=== PATIENT | female | born 1940 | race Caucasian/White ===

== ENCOUNTER 2017-02-06 23:41 | Inpatient (IN) | payer MEDICARE, OTHER ==
[2017-02-06] MEDS ORDERED: Aspirin 81 MG Tab.Chew PO ONE (23:55)
[2017-02-07] MEDS ORDERED: Diltiazem 25 MG/5 ML SDV IVPUSH ONE
--- NOTE | 2017-02-07 00:11 | EDM.PDOC ---
ED HISTORY OF PRESENT ILLNESS - General Chief Complaint: Cardiovascular Problem Time Seen by Provider: 02/07/17 00:05 Source of Information: Reports: Patient, EMS History Limitations: Reports: No limitations - History of Present Illness INITIAL COMMENTS - FREE TEXT/NARRATIVE: This 76 yo female patient reports to the ED with "heaviness in her lower extremities". The patient reports she was visiting with family at about 2230, got up to go watch TV, but when she attempted to get up from watching TV, her legs felt heavy and she couldn't get up. The patient denies any chest pain or other problems. The patient's daughters report that the patient has been reporting issues with her heart for "a long time". The patient's last visit with her primary care provider was in November. Symptom Onset Date: 02/06/17 Symptom Onset Time: 23:30 Timing/Duration: Reports: Constant Severity: moderate Location, General: Reports: other (lower extremity "heaviness" ) Quality: Reports: Dull Improves with: Reports: Rest Worsens with: Reports: Movement Associated Symptoms (General): Reports: weakness - Related Data Allergies/ADRs: Allergies Allergy/AdvReac Type Severity Reaction Status Date / Time Penicillins Allergy Severe Hives Verified 02/07/17 00:25 Home Meds: Home Meds Aspirin [Michael Chewable Aspirin] 81 mg PO DAILY 09/03/16 [History] Budesonide/Formoterol Fumarate [Symbicort 80-4.5 Mcg Inhaler] 160 mg INH DAILY 09/03/16 [History] Clopidogrel [Plavix] 75 mg PO DAILY 09/03/16 [History] Docusate Calcium [Stool Softener] 240 mg PO DAILY 09/03/16 [History] Metoprolol Succinate [Toprol XL 50mg] 50 mg PO DAILY 09/03/16 [History] Ramipril 2.5 mg PO DAILY 09/03/16 [History] Tiotropium [Spiriva HandiHaler] 18 mcg INH DAILY 09/03/16 [History] atorvaSTATin [Lipitor] 80 mg PO DAILY 09/03/16 [History] metFORMIN HCl [Metformin HCl] 500 mg PO DAILY 09/03/16 [History] Past Medical History HEENT History: Reports: Impaired vision Cardiovascular History: Reports: High cholesterol, [place], Stents Respiratory History: Reports: Asthma, Bronchitis, recurrent, COPD Genitourinary History: Reports: UTI, recurrent [employer] History: Reports: Endocrine/Metabolic History: Reports: Diabetes, type II Dermatologic History: Reports: Cellulitis - Infectious Disease History Infectious Disease History: Reports: Chicken pox, Measles, MRSA - Past Surgical History HEENT Surgical History: Reports: Cataract surgery Social & Family History - Tobacco Use Smoking Status *Q: Current Every Day Smoker Years of Tobacco use: 58 Packs/Tins Daily: 1 Second Hand Smoke Exposure: Yes - Caffeine Use Caffeine Use: Reports: None - Recreational Drug Use Recreational Drug Use: No ED ROS GENERAL - Review of Systems Review Of Systems: ROS reveals no pertinent complaints other than HPI. ED EXAM, GENERAL - Physical Exam Exam: See Below Exam Limited By: No limitations General Appearance: alert, WD/WN, mild distress Eye Exam: bilateral eye: EOMI, normal inspection, PERRL Ears: normal external exam, normal canal, hearing grossly normal, normal TMs Nose: normal inspection, normal mucosa, no blood Throat/Mouth: Normal inspection, Normal lips, Normal teeth, Normal gums, Normal oropharynx, Normal voice, No airway compromise Head: atraumatic, normocephalic Neck: normal inspection, supple, non-tender, full range of motion Respiratory/Chest: no respiratory distress, no accessory muscle use, chest non- tender, decreased breath sounds Cardiovascular: tachycardia, irregularly irregular GI/Abdominal: normal bowel sounds, soft, non tender, no organomegaly, no distention, no abnormal bruit, no mass (Female) Exam: Deferred Rectal (Female) Exam: Deferred Back Exam: normal inspection, full range of motion, NT Extremities: pedal edema Neurological: alert, oriented, CN II-XII intact, normal cognition Psychiatric: normal affect, normal mood Skin Exam: Warm, Dry, Intact, Normal color, No rash Lymphatic: no adenopathy Course - Orders/Labs/Meds Orders: Active Orders 24 hr Category Date Time Status Chest 1V Frontal [CR] Urgent Exams 02/07/17 00:01 Taken UA W/MICROSCOPIC [URIN] Stat Lab 02/07/17 00:31 Uncollected Diltiazem 100 MG in NS Adv @ 5 MG/HR(100ml) Med 02/07/17 00:45 Ordered Diltiazem [Cardizem] 100 mg Sodium Chloride 0.9% [Normal Saline] 100 ml IV TITRATE Medication Orders Diltiazem HCl 100 mg/ Sodium (Chloride) 100 mls @ 5 mls/hr IV TITRATE COREY; 5 MG /HR PRN Reason: Protocol Labs: Laboratory Tests 02/06/17 02/06/17 Range/Units 23:51 23:56 WBC 11.8 H (5.0-10.0) 10^3/uL RBC 4.92 (4.2-5.4) 10^6/uL Hgb 15.6 (12.0-16.0) g/dL Hct 47.0 (37.0-47.0) % MCV 95.5 (80-100) fL MCH 31.7 (27.0-34.0) pg MCHC 33.2 (33.0-35.0) g/dL Plt Count 134 L (150-450) 10^3/uL Neut % (Auto) 82.0 H (42.2-75.2) % Lymph % (Auto) 9.3 L (20.5-50.1) % Wilkinson % (Auto) 8.3 H (2-8) % Eos % (Auto) 0.2 L (1.0-3.0) % Baso % (Auto) 0.2 (0.0-1.0) % Sodium 134 L (135-145) mmol/L Potassium 4.6 (3.6-5.0) mmol/L Chloride 99 L (101-111) mmol/L Carbon Dioxide 26.0 (21.0-31.0) mmol/L Anion Gap 13.6 BUN 17 (7-18) mg/dL Creatinine 1.1 (0.6-1.3) mg/dL Est Cr Clr Drug Dosing TNP Estimated GFR (MDRD) 48 BUN/Creatinine Ratio 15.45 Glucose 153 H (74-105) mg/dL Calcium 9.3 (8.4-10.2) mg/dl Total Bilirubin 1.3 H (0.2-1.0) mg/dL AST 23 (10-42) IU/L ALT 21 (10-60) IU/L Alkaline Phosphatase 93 (42-121) IU/L Troponin I 0.03 H* (0.00-0.02) ng/ml Total Protein 6.7 (6.7-8.2) g/dl Albumin 3.6 (3.2-5.5) g/dl Globulin 3.1 Albumin/Globulin Ratio 1.16 Meds: Medications Generic Name Dose Route Start Last Admin Trade Name Freq PRN Reason Stop Dose Admin Diltiazem HCl 100 mg/ Sodium 100 mls @ 5 mls/hr 02/07/17 00:45 Chloride IV TITRATE COREY Protocol 5 MG/HR Discontinued Medications Generic Name Dose Route Start Last Admin Trade Name Freq PRN Reason Stop Dose Admin Aspirin 324 mg 02/06/17 23:55 02/07/17 00:18 Aspirin PO 02/06/17 23:56 324 mg ONETIME ONE Administration Diltiazem HCl 20 mg 02/07/17 00:00 02/07/17 00:04 Diltiazem IVPUSH 02/07/17 00:01 20 mg ONETIME ONE Administration Diltiazem HCl Confirm 02/07/17 00:44 Cardizem Administered 02/07/17 00:45 Dose 100 mg .ROUTE .STK-MED ONE Sodium Chloride Confirm 02/07/17 00:47 Normal Saline Administered 02/07/17 00:48 Dose 100 mls @ as directed .ROUTE .STK-MED ONE Departure - Departure Time of Disposition: 00:50 Disposition: Admitted As Inpatient 66 Condition: fair Clinical Impression: Atrial fibrillation with RVR Care Plan Goals: Discussed the examination, history, lab, x-ray and EKG results with Dr. Mancuso. Dr. Mancuso accepted the patient for continued evaluation and management as an inpatient at [facility] in [place]. - My Orders Last 24 Hours: My Active Orders 02/07/17 00:01 Chest 1V Frontal [CR] Urgent 02/07/17 00:31 UA W/MICROSCOPIC [URIN] Stat 02/07/17 00:45 Diltiazem 100 MG in NS Adv @ 5 MG/HR(100ml) Diltiazem [Cardizem] 100 mg Sodium Chloride 0.9% [Normal Saline] 100 ml IV TITRATE - Assessment/Plan Last 24 Hours: My Active Orders 02/07/17 00:01 Chest 1V Frontal [CR] Urgent 02/07/17 00:31 UA W/MICROSCOPIC [URIN] Stat 02/07/17 00:45 Diltiazem 100 MG in NS Adv @ 5 MG/HR(100ml) Diltiazem [Cardizem] 100 mg Sodium Chloride 0.9% [Normal Saline] 100 ml IV TITRATE
[2017-02-07 00:28] LABS: CHLORIDE,CL 99 mmol/L (101-111); SODIUM,NA 134 mmol/L (135-145)
[2017-02-07] MEDS ORDERED: cefTRIAXone 1 GM in Sodium Chloride 0.9% 100 ML IV ONE (00:44)
[2017-02-07] MEDS ORDERED: Diltiazem 100 MG AdvVial ONE (00:44)
[2017-02-07] MEDS ORDERED: Diltiazem 100 MG in Sodium Chloride 0.9% 100 ML IV SCH (00:45)
[2017-02-07] MEDS ORDERED: Sodium Chloride 0.9% 100 ML ONE (00:47)
[2017-02-07] MEDS ORDERED: Diltiazem 25 MG/5 ML SDV ONE (01:41)
[2017-02-07] MEDS ORDERED: Furosemide 40 MG/4 ML VIAL IVPUSH ONE (06:37)
[2017-02-07] MEDS ORDERED: Potassium Chloride 10 MEQ Tab.ER PO ONE ×2 (06:37→09:45)
[2017-02-07] MEDS ORDERED: Zolpidem 5 MG Tab PO PRN (06:42)
[2017-02-07] MEDS ORDERED: Polyethylene Glycol 3350 Powder 17 GM Packet PO PRN (06:42)
[2017-02-07] MEDS ORDERED: Acetaminophen 325 MG Tab PO PRN (06:42)
[2017-02-07] MEDS ORDERED: Morphine 2 MG/ML Syringe IVPUSH PRN (06:42)
[2017-02-07] MEDS ORDERED: Ondansetron 4 MG/2 ML SDV IVPUSH PRN (06:42)
[2017-02-07] MEDS ORDERED: Magnesium Sulfate/Water 4 GM in Premix Bag 1 BAG IV ONE (08:21)
[2017-02-07] MEDS ORDERED: FORMOTEROL FUMARATE INH SCH (09:00)
[2017-02-07] MEDS ORDERED: BUDESONIDE INH SCH (09:00)
[2017-02-07] MEDS: Clopidogrel 75 MG Tab PO SCH (09:27)
[2017-02-07] MEDS: cefTRIAXone 1 GM in Sodium Chloride 0.9% 50 ML IV SCH (09:27)
[2017-02-07] MEDS: Metoprolol Succinate 50 MG Tab.ER PO SCH (09:29)
[2017-02-07] MEDS: metFORMIN 500 MG Tab PO SCH (09:30)
[2017-02-07] MEDS: Aspirin 81 MG Tab.Chew PO SCH (09:30)
[2017-02-07] MEDS: Albuterol/Ipratropium 3.0-0.5 MG/3 ML Neb Soln NEB SCH ×3 (09:30→20:06)
[2017-02-07] MEDS: atorvaSTATin 20 MG Tab PO SCH (09:30)
[2017-02-07] MEDS: predniSONE 20 MG Tab PO SCH (09:30)
[2017-02-07] MEDS: Tiotropium Inhaler 18 MCG Inhalation Powder Cap Kit of 5 INH SCH (09:31)
[2017-02-07] MEDS: Enoxaparin 40 MG/0.4 ML Syringe SUBCUT SCH (09:31)
[2017-02-07] MEDS: Insulin Aspart 100 Units/ML 3 ML Pen SUBCUT SCH ×4 (09:49→21:37)
--- NOTE | 2017-02-07 11:03 | CR ---
Addendum report: AP chest film 07 Feb [address] Mancuso.... Suggest generalized mild pulmonary venous congestion and effusion blunting the dependent left costophrenic sulcus (patient wi th atrial fibrillation, BNP greater than 600) and possible underlying lingular consolidation.
[2017-02-07] MEDS: Azithromycin 500 MG in Sodium Chloride 0.9% 250 ML IV SCH (11:11)
--- NOTE | 2017-02-07 11:12 | PCM.HP ---
H&P History of Present Illness - General Date of Service: 02/07/17 Admit Problem/Dx: Admission Diagnosis/Problem Admission Diagnosis/Problem Atrial fibrillation Source of Information: Patient History Limitations: Reports: No limitations - History of Present Illness Initial Comments - Free Text/Narative: 76-year-old female with past medical history of COPD, Essential hypertension, coronary artery disease/[place]/stent placement 17 years ago, diabetes mellitus, dyslipidemia, erythrocytosis presented to the emergency room early this morning revealing weak and falling from leg weakness. Patient stated that for the last 3 days she has been feeling warm and cold, generally weak and her chronic shortness of breath was getting worse. She reported occasional chronic cough but the cough mildly got worse the last few days. she denies no chest pain but she admitted having "chest cramps" on and off especially when she exerts herself for the last several months. 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 she is not aware of history of congestive heart failure. she admitted that the new swelling in her legs his new. However she was treated for lower extremities cellulitis last November. in the emergency room she was found to have atrial fibrillation with RVR but no ST elevation on EKG. Her chest x-ray was read as normal however I spoke to the radiologist Dr. Vicente this morning who agreed that the x-ray is consistent with congestive heart failure and possible pneumonia. her BNP is elevated at 626 , there is no previous BNP to compare. Initial troponin was 0.03 however repeat troponin was 0.02. Sodium 134. Creatinine 1.1, baseline creatinine is 0.8. Magnesium 1.4. WBC 11.8 with left shift. urinalysis is unremarkable. in the emergency room patient was given Cardizem bolus and started on Cardizem drip. She required 15 mg per hour. Upon admission patient was given 40 mg of Lasix IV and respiration improved. - Related Data Allergies/Adverse Reactions: Allergies Allergy/AdvReac Type Severity Reaction Status Date / Time Penicillins Allergy Severe Hives Verified 02/07/17 00:25 Home Medications: Home Meds Aspirin [Michael Chewable Aspirin] 81 mg PO DAILY 09/03/16 [History] Budesonide/Formoterol Fumarate [Symbicort 80-4.5 Mcg Inhaler] 160 mg INH DAILY 09/03/16 [History] Clopidogrel [Plavix] 75 mg PO DAILY 09/03/16 [History] Docusate Calcium [Stool Softener] 240 mg PO DAILY 09/03/16 [History] Metoprolol Succinate [Toprol XL 50mg] 50 mg PO DAILY 09/03/16 [History] Ramipril 2.5 mg PO DAILY 09/03/16 [History] Tiotropium [Spiriva HandiHaler] 18 mcg INH DAILY 09/03/16 [History] atorvaSTATin [Lipitor] 80 mg PO DAILY 09/03/16 [History] metFORMIN HCl [Metformin HCl] 500 mg PO DAILY 09/03/16 [History] Past Medical History HEENT History: Reports: Impaired vision Cardiovascular History: Reports: High cholesterol, [place], Stents Respiratory History: Reports: Asthma, Bronchitis, recurrent, COPD Genitourinary History: Reports: UTI, recurrent CLINICAL DOCUMENTATION DEVELOPER History: Reports: Endocrine/Metabolic History: Reports: Diabetes, type II Dermatologic History: Reports: Cellulitis - Infectious Disease History Infectious Disease History: Reports: Chicken pox, Measles, MRSA - Past Surgical History HEENT Surgical History: Reports: Cataract surgery Social & Family History - Tobacco Use Smoking Status *Q: Current Every Day Smoker Years of Tobacco use: 58 Packs/Tins Daily: 1 Second Hand Smoke Exposure: Yes - Caffeine Use Caffeine Use: Reports: None - Recreational Drug Use Recreational Drug Use: No H&P Review of Systems - Review of Systems: Review Of Systems: See Below General: Reports: fever, chills, malaise, weakness, fatigue. Denies: diaphoresis, weight loss HEENT: Reports: no symptoms Pulmonary: Reports: Shortness of Breath, Wheezing, Cough. Denies: Hemoptysis Cardiovascular: Denies: palpitations, PND, syncope Gastrointestinal: Reports: No symptoms Genitourinary: Reports: no symptoms Musculoskeletal: Reports: no symptoms Skin: Reports: no symptoms Psychiatric: Reports: no symptoms Neurological: Reports: No Symptoms Hematologic/Lymphatic: Reports: no symptoms Immunologic: Reports: no symptoms Exam - Exam Exam: See Below - Vital Signs Vital Signs: Last Vital Signs Temp 37.2 C 02/07/17 07:43 Pulse 82 02/07/17 09:29 Resp 20 02/07/17 07:43 BP 107/50 L 02/07/17 09:30 Pulse Ox 93 L 02/07/17 07:43 Weight: 76.204 kg - Exam General: alert, oriented, cooperative, mild distress (due to shortness of breath ). No: severe distress, sedated, lethargic, obtunded HEENT: Conjunctiva clear, EACs clear, EOMI, Hearing intact, Mucosa moist & pink , Nares patent, Normal nasal septum, Posterior pharynx clear, Pupils equal, Pupils reactive, TMs clear Neck: supple, trachea midline Lungs: Decreased breath sounds (mostly in the bases but fair air exchange overall), Crackles (in basis), Rhonchi, Wheezing. No: Rub, Stridor Cardiovascular: irregular rhythm. No: rubs Abdomen: Normal Bowel Sounds, Soft, Pelvis Stable. No: Peritoneal Signs (Female) Exam: Deferred Rectal (Female) Exam: Deferred Back Exam: normal inspection, full range of motion Extremities: normal pulses, clubbing, cyanosis, edema (+1 bilateral lower extremities pitting edema). No: calf tenderness Neurological: cranial nerves intact, reflexes equal bilateral Neuro Extensive - Mental Status: alert, oriented x3, normal mood/affect, normal cognition Neuro Extensive - Motor, Sensory, Reflexes: CN II-XII intact, normal gait, normal reflexes Psychiatric: alert, normal affect, normal mood - Patient Data Lab Results last 24 hrs: Laboratory Results - last 24 hr 02/06/17 02/06/17 02/07/17 Range/Units 23:51 23:56 01:05 WBC 11.8 H (5.0-10.0) 10^3/uL RBC 4.92 (4.2-5.4) 10^6/uL Hgb 15.6 (12.0-16.0) g/dL Hct 47.0 (37.0-47.0) % MCV 95.5 (80-100) fL MCH 31.7 (27.0-34.0) pg MCHC 33.2 (33.0-35.0) g/dL Plt Count 134 L (150-450) 10^3/uL Neut % (Auto) 82.0 H (42.2-75.2) % Lymph % (Auto) 9.3 L (20.5-50.1) % [place] % (Auto) 8.3 H (2-8) % Eos % (Auto) 0.2 L (1.0-3.0) % Baso % (Auto) 0.2 (0.0-1.0) % Sodium 134 L (135-145) mmol/L Potassium 4.6 (3.6-5.0) mmol/L Chloride 99 L (101-111) mmol/L Carbon Dioxide 26.0 (21.0-31.0) mmol/L Anion Gap 13.6 BUN 17 (7-18) mg/dL Creatinine 1.1 (0.6-1.3) mg/dL Est Cr Clr Drug Dosing TNP Estimated GFR (MDRD) 48 BUN/Creatinine Ratio 15.45 Glucose 153 H (74-105) mg/dL Calcium 9.3 (8.4-10.2) mg/dl Magnesium (1.8-2.5) mg/dL Total Bilirubin 1.3 H (0.2-1.0) mg/dL AST 23 (10-42) IU/L ALT 21 (10-60) IU/L Alkaline Phosphatase 93 (42-121) IU/L Troponin I 0.03 H* (0.00-0.02) ng/ml B-Natriuretic Peptide (0-100) pg/ml Total Protein 6.7 (6.7-8.2) g/dl Albumin 3.6 (3.2-5.5) g/dl Globulin 3.1 Albumin/Globulin Ratio 1.16 Urine Color Yellow (YELLOW) Urine Appearance Clear (CLEAR) Urine pH 5.5 (5.0-9.0) Ur Specific [place] 1.015 (1.005-1.030) Urine Protein 30 H (NEGATIVE) Urine Glucose (UA) Negative (NEGATIVE) Urine Ketones Negative (NEGATIVE) mg/dL Urine Occult Blood Negative (NEGATIVE) Urine Nitrite Negative (NEGATIVE) Urine Bilirubin Negative (NEGATIVE) Urine Urobilinogen 2.0 H (0.2-1.0) mg/dL Ur Leukocyte Esterase Negative (NEGATIVE) Urine RBC Not seen /HPF Urine WBC 0-5 (0-5/HPF) /HPF Ur Epithelial Cells Few /HPF Urine Bacteria Few (0-FEW/HPF) /HPF 02/07/17 02/07/17 Range/Units 06:30 06:30 WBC (5.0-10.0) 10^3/uL RBC (4.2-5.4) 10^6/uL Hgb (12.0-16.0) g/dL Hct (37.0-47.0) % MCV (80-100) fL MCH (27.0-34.0) pg MCHC (33.0-35.0) g/dL Plt Count (150-450) 10^3/uL Neut % (Auto) (42.2-75.2) % Lymph % (Auto) (20.5-50.1) % [place] % (Auto) (2-8) % Eos % (Auto) (1.0-3.0) % Baso % (Auto) (0.0-1.0) % Sodium (135-145) mmol/L Potassium (3.6-5.0) mmol/L Chloride (101-111) mmol/L Carbon Dioxide (21.0-31.0) mmol/L Anion Gap BUN (7-18) mg/dL Creatinine (0.6-1.3) mg/dL Est Cr Clr Drug Dosing Estimated GFR (MDRD) BUN/Creatinine Ratio Glucose (74-105) mg/dL Calcium (8.4-10.2) mg/dl Magnesium 1.4 L (1.8-2.5) mg/dL Total Bilirubin (0.2-1.0) mg/dL AST (10-42) IU/L ALT (10-60) IU/L Alkaline Phosphatase (42-121) IU/L Troponin I 0.02 (0.00-0.02) ng/ml B-Natriuretic Peptide 626 H (0-100) pg/ml Total Protein (6.7-8.2) g/dl Albumin (3.2-5.5) g/dl Globulin Albumin/Globulin Ratio Urine Color (YELLOW) Urine Appearance (CLEAR) Urine pH (5.0-9.0) Ur Specific [place] (1.005-1.030) Urine Protein (NEGATIVE) Urine Glucose (UA) (NEGATIVE) Urine Ketones (NEGATIVE) mg/dL Urine Occult Blood (NEGATIVE) Urine Nitrite (NEGATIVE) Urine Bilirubin (NEGATIVE) Urine Urobilinogen (0.2-1.0) mg/dL Ur Leukocyte Esterase (NEGATIVE) Urine RBC /HPF Urine WBC (0-5/HPF) /HPF Ur Epithelial Cells /HPF Urine Bacteria (0-FEW/HPF) /HPF Result Diagrams: 02/06/17 23:56 02/06/17 23:51 *Q Meaningful Use (ADM) - VTE *Q VTE Criteria *Q: - Stroke *Q Stroke Criteria *Q: - AMI *Q AMI Criteria *Q: - Problem List (1) Acute congestive heart failure SNOMED Code(s): 20660625 ICD Code: I50.9 - HEART FAILURE, UNSPECIFIED Status: Acute Priority: High Current Visit: Yes (2) Community acquired pneumonia SNOMED Code(s): 137903564 ICD Code: J18.9 - PNEUMONIA, UNSPECIFIED ORGANISM Status: Acute Priority : High Current Visit: Yes (3) COPD exacerbation SNOMED Code(s): 688382574, 809050693 ICD Code: J44.1 - CHRONIC OBSTRUCTIVE PULMONARY DISEASE W (ACUTE) EXACERBATION Status: Acute Current Visit: Yes (4) Diabetes mellitus type 2 in obese SNOMED Code(s): 25248066 ICD Code: E11.9 - TYPE 2 DIABETES MELLITUS WITHOUT COMPLICATIONS; E66.9 - OBESITY, UNSPECIFIED Status: Chronic Current Visit: Yes (5) Coronary artery disease SNOMED Code(s): 98416207 ICD Code: I25.10 - ATHSCL HEART DISEASE OF [place] CORONARY ARTERY W/O ANG PCTRS Status: Chronic Current Visit: Yes (6) History of myocardial infarction SNOMED Code(s): 518040905 ICD Code: I25.2 - OLD MYOCARDIAL INFARCTION Status: Chronic Current Visit : Yes (7) Essential hypertension SNOMED Code(s): 79729108 ICD Code: I10 - ESSENTIAL (PRIMARY) HYPERTENSION Status: Chronic Current Visit: Yes (8) Atrial fibrillation with RVR SNOMED Code(s): 757249254645833 ICD Code: I48.91 - UNSPECIFIED ATRIAL FIBRILLATION Status: Acute Current Visit: Yes Problem List Initiated/Reviewed/Updated: Yes Orders Last 24hrs: Active Orders 24 hr Category Date Time Status Patient Status [ADT] Routine ADT 02/07/17 01:30 Active Bedrest Bathroom Privileges [RC] ASDIRECTED Care 02/07/17 06:42 Active Blood Glucose Check, Bedside [RC] QIDACANDBED Care 02/07/17 06:42 Active Cardiac Monitoring [RC] CONTINUOUS Care 02/07/17 06:45 Active Height and Weight [RC] DAILY Care 02/07/17 06:42 Active Intake and Output [RC] Q6H Care 02/07/17 06:45 Active Oxygen Therapy [RC] PRN Care 02/07/17 06:42 Active Pulse Oximetry [RC] CONTINUOUS Care 02/07/17 06:45 Active RT Aerosol Therapy [RC] ASDIRECTED Care 02/07/17 06:38 Active VTE/DVT Education [RC] PER UNIT ROUTINE Care 02/07/17 06:42 Active Vital Signs [RC] Q4H Care 02/07/17 06:42 Active PT Evaluation and Treatment [CONS] Routine Cons 02/07/17 06:42 Active Consistent Carbohydrate Diet [DIET] Diet 02/07/17 Breakfast Active Chest 2V [CR] Timed Exams 02/08/17 05:11 Ordered Echo Comp wo Cont [US] Routine Exams 02/07/17 07:08 Ordered B-TYPE NATRIURETIC PEPTIDE,BNP [CHEM] AM Lab 02/08/17 05:11 Ordered CBC WITH AUTO DIFF [HEME] AM Lab 02/08/17 05:11 Ordered CMP [COMPREHENSIVE METABOLIC PN,CMP] [CHEM] AM Lab 02/08/17 05:11 Ordered PHOSPHORUS [CHEM] AM Lab 02/08/17 05:11 Ordered TSH ULTRASENSITIVE [CHEM] AM Lab 02/08/17 05:11 Ordered Acetaminophen [Tylenol] Med 02/07/17 06:42 Active 650 mg PO Q4H PRN Albuterol/Ipratropium [DuoNeb 3.0-0.5 MG/3 ML] Med 02/07/17 07:00 Active 3 ml NEB Q6HRRT Aspirin Med 02/07/17 09:00 Active 81 mg PO DAILY Azithromycin [Zithromax] 500 mg Med 02/07/17 06:00 Active Sodium Chloride 0.9% [Normal Saline] 250 ml IV Q24H Budesonide/Formoterol Fumarate Med 02/07/17 09:00 Active 0 mg INH DAILY Clopidogrel [Plavix] Med 02/07/17 09:00 Active 75 mg PO DAILY Diltiazem [Cardizem] 100 mg Med 02/07/17 00:45 Active Sodium Chloride 0.9% [Normal Saline] 100 ml IV TITRATE Docusate Calcium [Surfak] Med 02/07/17 09:00 Active 240 mg PO DAILY Enoxaparin [Lovenox] Med 02/07/17 09:00 Active 40 mg SUBCUT DAILY Furosemide [Lasix] Med 02/07/17 14:00 Active 20 mg IVPUSH Q8H Insulin Aspart [NovoLOG] Med 02/07/17 07:00 Active See Protocol SUBCUT QIDACANDBED Magnesium Sulfate/D5W [Magnesium 1 GM in D5W 100 ML] 1 Med 02/07/17 10:00 Active gm Premix Bag 1 bag IV Q1H Metoprolol Succinate [Toprol XL] Med 02/07/17 09:00 Active 50 mg PO DAILY Morphine Med 02/07/17 06:42 Active 2 mg IVPUSH Q2H PRN Ondansetron [Zofran] Med 02/07/17 06:42 Active 4 mg IVPUSH Q6H PRN Polyethylene Glycol 3350 [MiraLAX] Med 02/07/17 06:42 Active 17 gm PO DAILY PRN Potassium Chloride [Klor-Con 10] Med 02/07/17 21:00 Active 20 meq PO Q12H Ramipril [Altace] Med 02/07/17 09:00 Active 2.5 mg PO DAILY Sodium Chloride 0.9% [Saline Flush] Med 02/07/17 06:42 Active 10 ml FLUSH ASDIRECTED PRN Tiotropium [Spiriva HandiHaler] Med 02/07/17 09:00 Active 18 mcg INH DAILY Zolpidem [Ambien] Med 02/07/17 06:42 Active 5 mg PO BEDTIME PRN atorvaSTATin [Lipitor] Med 02/07/17 09:00 Active 80 mg PO DAILY cefTRIAXone [Rocephin] 1 gm Med 02/07/17 07:00 Active Sodium Chloride 0.9% [Normal Saline] 50 ml IV Q24H metFORMIN [Glucophage] Med 02/07/17 09:00 Active 500 mg PO DAILY predniSONE Med 02/07/17 08:00 Active 40 mg PO WITHBREAKFAST Saline Lock Insert [OM.PC] Routine Oth 02/07/17 06:42 Ordered Resuscitation Status Routine Resus Stat 02/07/17 06:42 Ordered Medication Orders Acetaminophen (Tylenol) 650 mg PO Q4H PRN PRN Reason: Pain (Mild 1-3)/fever Albuterol/Ipratropium (Duoneb 3.0-0.5 Mg/3 Ml) 3 ml NEB Q6HRRT [facility] Last Admin: 02/07/17 09:30 Dose: 3 ml Aspirin (Aspirin) 81 mg PO DAILY [facility] Last Admin: 02/07/17 09:30 Dose: 81 mg Atorvastatin Calcium (Lipitor) 80 mg PO DAILY [facility] Last Admin: 02/07/17 09:30 Dose: 80 mg Clopidogrel Bisulfate (Plavix) 75 mg PO DAILY [facility] Last Admin: 02/07/17 09:27 Dose: 75 mg Docusate Calcium (Surfak) 240 mg PO DAILY [facility] Last Admin: 02/07/17 09:28 Dose: 240 mg Enoxaparin Sodium (Lovenox) 40 mg SUBCUT DAILY [facility] Last Admin: 02/07/17 09:31 Dose: 40 mg Furosemide (Lasix) 20 mg IVPUSH Q8H [facility] Stop: 02/08/17 14:01 Diltiazem HCl 100 mg/ Sodium (Chloride) 100 mls @ 5 mls/hr IV TITRATE [facility]; 5 MG /HR PRN Reason: Protocol Azithromycin 500 mg/ Sodium (Chloride) 250 mls @ 250 mls/hr IV Q24H [facility] Ceftriaxone Sodium 1 gm/ (Sodium Chloride) 50 mls @ 100 mls/hr IV Q24H [facility] Last Admin: 02/07/17 09:27 Dose: 100 mls/hr Magnesium Sulfate/Dextrose 1 (gm/ Premix) 100 mls @ 100 mls/hr IV Q1H [facility] Stop: 02/07/17 13:59 Insulin Aspart (Novolog) 0 unit SUBCUT QIDACANDBED [facility] PRN Reason: Protocol Last Admin: 02/07/17 09:49 Dose: Not Given Metformin HCl (Glucophage) 500 mg PO DAILY [facility] Last Admin: 02/07/17 09:30 Dose: 500 mg Metoprolol Succinate (Toprol Xl) 50 mg PO DAILY [facility] Last Admin: 02/07/17 09:29 Dose: 50 mg Morphine Sulfate (Morphine) 2 mg IVPUSH Q2H PRN PRN Reason: Pain (severe 7-10) Nf Med 1 Each ( Budesonide/Formoterol Fumarate 160 Mg) *Own Med 0 mg INH DAILY [facility] Ondansetron HCl (Zofran) 4 mg IVPUSH Q6H PRN PRN Reason: Nausea/Vomiting Polyethylene Glycol (Miralax) 17 gm PO DAILY PRN PRN Reason: Constipation Potassium Chloride (Klor-Con 10) 20 meq PO Q12H [facility] Stop: 02/08/17 09:01 Prednisone (Prednisone) 40 mg PO WITHBREAKFAST [facility] Stop: 02/11/17 08:01 Last Admin: 02/07/17 09:30 Dose: 40 mg Ramipril (Altace) 2.5 mg PO DAILY [facility] Last Admin: 02/07/17 09:30 Dose: 2.5 mg Sodium Chloride (Saline Flush) 10 ml FLUSH ASDIRECTED PRN PRN Reason: Keep Vein Open Tiotropium [place] (Spiriva Handihaler) 18 mcg INH DAILY [facility] Last Admin: 02/07/17 09:31 Dose: 18 mcg Zolpidem Tartrate (Ambien) 5 mg PO BEDTIME PRN PRN Reason: Sleep Assessment/Plan Comment:: Pneumonia Azithromycin and Rocephin IV bronchodilator Cough medicine as needed flutter device -sputum culture is ordered COPD exacerbation Treatment pneumonia as above Duoneb every 6 hours Prednisone Oxygen as needed incentive spirometery resume home medications Atrial fibrillation with RVR I discussed anticoagulation benefit and risk with patient and her both daughters at this time patient decided to wait and consult with her primary care provider and establish with insurance underwriter sales Dr. Figueroa as soon as possible and discuss that with him continue aspirin and Plavix Treat the possible cause which is pneumonia versus CHF -continue his Cardizem drip and Metoprolol -TSH is ordered Acute congestive heart failure, most likely systolic or could be due to atrial fibrillation with RVR BNP elevated at 626 I discussed with patient and daughter that she needs to followup with insurance underwriter sales as soon as possible after discharge Continue home medications -Echocardiogram is ordered Lower extremities edema, most like from congestive heart failure treat congestive heart failure M[place] mar[place] Hypomagnesemia Replace by IV Recheck in the morning Essential hypertension controlled resume medications Coronary artery disease/[place]/stent placement 17 years ago Possible chest pain on exertion, chronic I discussed with patient and daughter that she needs to followup with insurance underwriter sales as soon as possible after discharge Diabetes mellitus type 2 resume home medications Sliding scale insulin Dyslipidemia Continue statin Lovenox for DVT prophylaxis She wants to be DNR. Daughters were present at the time of discussion 45 minutes of critical time was spent
[2017-02-07] MEDS ORDERED: guaiFENesin 100 MG/5 ML Soln 5 ML UD Cup PO PRN (11:23)
[2017-02-07] MEDS ORDERED: Insulin Aspart 100 Units/ML 3 ML Pen SUBCUT ONE (11:30)
[2017-02-07] MEDS: Furosemide 20 MG/2 ML VIAL IVPUSH SCH ×2 (17:42→22:15)
[2017-02-07] MEDS: Sodium Chloride 0.9% 10 ML Syringe FLUSH PRN ×3 (17:43→22:22)
[2017-02-07] MEDS: BUDESONIDE INH SCH (20:26)
[2017-02-07] MEDS: FORMOTEROL FUMARATE INH SCH (20:26)
[2017-02-07] MEDS: Potassium Chloride 10 MEQ Tab.ER PO SCH (20:30)
[2017-02-08] MEDS: Albuterol/Ipratropium 3.0-0.5 MG/3 ML Neb Soln NEB SCH ×5 (01:27→17:25)
[2017-02-08] MEDS: Sodium Chloride 0.9% 10 ML Syringe FLUSH PRN ×3 (05:51→06:33)
[2017-02-08] MEDS: Furosemide 20 MG/2 ML VIAL IVPUSH SCH ×2 (05:56→13:21)
[2017-02-08] MEDS: cefTRIAXone 1 GM in Sodium Chloride 0.9% 50 ML IV SCH (06:05)
[2017-02-08] MEDS: Azithromycin 500 MG in Sodium Chloride 0.9% 250 ML IV SCH (06:39)
[2017-02-08 06:41] LABS: CHLORIDE,CL 97 mmol/L (101-111); SODIUM,NA 133 mmol/L (135-145)
[2017-02-08] MEDS: Insulin Aspart 100 Units/ML 3 ML Pen SUBCUT SCH ×4 (08:23→21:35)
[2017-02-08] MEDS: predniSONE 20 MG Tab PO SCH (08:59)
[2017-02-08] MEDS: Aspirin 81 MG Tab.Chew PO SCH (09:00)
[2017-02-08] MEDS: metFORMIN 500 MG Tab PO SCH (09:00)
[2017-02-08] MEDS: Potassium Chloride 10 MEQ Tab.ER PO SCH (09:00)
[2017-02-08] MEDS: atorvaSTATin 20 MG Tab PO SCH (09:01)
[2017-02-08] MEDS: Clopidogrel 75 MG Tab PO SCH (09:01)
[2017-02-08] MEDS: Metoprolol Succinate 50 MG Tab.ER PO SCH (09:01)
[2017-02-08] MEDS: Enoxaparin 40 MG/0.4 ML Syringe SUBCUT SCH (09:01)
[2017-02-08] MEDS: FORMOTEROL FUMARATE INH SCH ×2 (09:02→21:33)
[2017-02-08] MEDS: Tiotropium Inhaler 18 MCG Inhalation Powder Cap Kit of 5 INH SCH (09:02)
[2017-02-08] MEDS: BUDESONIDE INH SCH ×2 (09:02→21:33)
[2017-02-08] MEDS ORDERED: Metoprolol Succinate 50 MG Tab.ER PO ONE (09:47)
--- NOTE | 2017-02-08 10:13 | PCM.PN ---
- General Info Date of Service: 02/08/17 Admission Dx/Problem (Free Text): Admission Diagnosis/Problem Admission Diagnosis/Problem Atrial fibrillation Subjective Update: patient states that she is feeling better today. However she still feeling weak. her first breath and cough improved. she had 4700 cc of urine output yesterday. she denies fever, chills, chest pain, nausea, vomiting, abdomen pain , urinary symptoms. - Patient Data Vitals - most recent: Last Vital Signs Temp 36.6 C 02/08/17 07:27 Pulse 92 02/08/17 09:01 Resp 20 02/08/17 07:27 BP 116/63 02/08/17 09:01 Pulse Ox 96 02/08/17 07:27 Weight - most recent: 75.206 kg I&O - last 24 hours: Intake & Output 02/07/17 02/08/17 02/08/17 22:59 06:59 14:59 Intake Total 864 252 Output Total 1400 2700 Balance -1400 -1836 252 Lab Results last 24 hrs: Laboratory Results - last 24 hr 02/07/17 02/07/17 02/07/17 Range/Units 11:27 16:45 20:55 WBC (5.0-10.0) 10^3/uL RBC (4.2-5.4) 10^6/uL Hgb (12.0-16.0) g/dL Hct (37.0-47.0) % MCV (80-100) fL MCH (27.0-34.0) pg MCHC (33.0-35.0) g/dL Plt Count (150-450) 10^3/uL Neut % (Auto) (42.2-75.2) % Lymph % (Auto) (20.5-50.1) % [place] % (Auto) (2-8) % Eos % (Auto) (1.0-3.0) % Baso % (Auto) (0.0-1.0) % Sodium (135-145) mmol/L Potassium (3.6-5.0) mmol/L Chloride (101-111) mmol/L Carbon Dioxide (21.0-31.0) mmol/L Anion Gap BUN (7-18) mg/dL Creatinine (0.6-1.3) mg/dL Est Cr Clr Drug Dosing mL/min Estimated GFR (MDRD) BUN/Creatinine Ratio Glucose (74-105) mg/dL POC Glucose 168 H 228 H 225 H (83-110) mg/dl Calcium (8.4-10.2) mg/dl Phosphorus (2.5-4.6) mg/dL Magnesium (1.8-2.5) mg/dL Total Bilirubin (0.2-1.0) mg/dL AST (10-42) IU/L ALT (10-60) IU/L Alkaline Phosphatase (42-121) IU/L B-Natriuretic Peptide (0-100) pg/ml Total Protein (6.7-8.2) g/dl Albumin (3.2-5.5) g/dl Globulin Albumin/Globulin Ratio TSH, Ultra Sensitive (0.35-7.0) uIu/mL 02/08/17 02/08/17 02/08/17 Range/Units 05:56 05:56 05:56 WBC 8.4 (5.0-10.0) 10^3/uL RBC 4.36 (4.2-5.4) 10^6/uL Hgb 13.8 (12.0-16.0) g/dL Hct 41.3 (37.0-47.0) % MCV 94.7 (80-100) fL MCH 31.7 (27.0-34.0) pg MCHC 33.4 (33.0-35.0) g/dL Plt Count 132 L (150-450) 10^3/uL Neut % (Auto) 84.6 H (42.2-75.2) % Lymph % (Auto) 6.7 L (20.5-50.1) % [place] % (Auto) 8.5 H (2-8) % Eos % (Auto) 0.0 L (1.0-3.0) % Baso % (Auto) 0.2 (0.0-1.0) % Sodium 133 L (135-145) mmol/L Potassium 3.7 (3.6-5.0) mmol/L Chloride 97 L (101-111) mmol/L Carbon Dioxide 28.0 (21.0-31.0) mmol/L Anion Gap 11.7 BUN 19 H (7-18) mg/dL Creatinine 0.9 (0.6-1.3) mg/dL Est Cr Clr Drug Dosing 42.06 mL/min Estimated GFR (MDRD) > 60 BUN/Creatinine Ratio 21.11 Glucose 154 H (74-105) mg/dL POC Glucose (83-110) mg/dl Calcium 8.9 (8.4-10.2) mg/dl Phosphorus 2.8 (2.5-4.6) mg/dL Magnesium (1.8-2.5) mg/dL Total Bilirubin 0.8 (0.2-1.0) mg/dL AST 23 (10-42) IU/L ALT 14 (10-60) IU/L Alkaline Phosphatase 78 (42-121) IU/L B-Natriuretic Peptide 277 H (0-100) pg/ml Total Protein 6.1 L (6.7-8.2) g/dl Albumin 3.0 L (3.2-5.5) g/dl Globulin 3.1 Albumin/Globulin Ratio 0.97 TSH, Ultra Sensitive 0.96 (0.35-7.0) uIu/mL 02/08/17 02/08/17 Range/Units 05:56 07:40 WBC (5.0-10.0) 10^3/uL RBC (4.2-5.4) 10^6/uL Hgb (12.0-16.0) g/dL Hct (37.0-47.0) % MCV (80-100) fL MCH (27.0-34.0) pg MCHC (33.0-35.0) g/dL Plt Count (150-450) 10^3/uL Neut % (Auto) (42.2-75.2) % Lymph % (Auto) (20.5-50.1) % [place] % (Auto) (2-8) % Eos % (Auto) (1.0-3.0) % Baso % (Auto) (0.0-1.0) % Sodium (135-145) mmol/L Potassium (3.6-5.0) mmol/L Chloride (101-111) mmol/L Carbon Dioxide (21.0-31.0) mmol/L Anion Gap BUN (7-18) mg/dL Creatinine (0.6-1.3) mg/dL Est Cr Clr Drug Dosing mL/min Estimated GFR (MDRD) BUN/Creatinine Ratio Glucose (74-105) mg/dL POC Glucose 142 H (83-110) mg/dl Calcium (8.4-10.2) mg/dl Phosphorus (2.5-4.6) mg/dL Magnesium 1.9 (1.8-2.5) mg/dL Total Bilirubin (0.2-1.0) mg/dL AST (10-42) IU/L ALT (10-60) IU/L Alkaline Phosphatase (42-121) IU/L B-Natriuretic Peptide (0-100) pg/ml Total Protein (6.7-8.2) g/dl Albumin (3.2-5.5) g/dl Globulin Albumin/Globulin Ratio TSH, Ultra Sensitive (0.35-7.0) uIu/mL Med Orders - Current: Current Medications Acetaminophen (Tylenol) 650 mg PO Q4H PRN PRN Reason: Pain (Mild 1-3)/fever Albuterol/Ipratropium (Duoneb 3.0-0.5 Mg/3 Ml) 3 ml NEB Q6HRRT [facility] Last Admin: 02/08/17 07:41 Dose: 3 ml Aspirin (Aspirin) 81 mg PO DAILY [facility] Last Admin: 02/08/17 09:00 Dose: 81 mg Atorvastatin Calcium (Lipitor) 80 mg PO DAILY [facility] Last Admin: 02/08/17 09:01 Dose: 80 mg Clopidogrel Bisulfate (Plavix) 75 mg PO DAILY [facility] Last Admin: 02/08/17 09:01 Dose: 75 mg Docusate Calcium (Surfak) 240 mg PO DAILY [facility] Last Admin: 02/08/17 09:02 Dose: 240 mg Enoxaparin Sodium (Lovenox) 40 mg SUBCUT DAILY [facility] Last Admin: 02/08/17 09:01 Dose: 40 mg Furosemide (Lasix) 20 mg IVPUSH Q8H [facility] Stop: 02/08/17 14:01 Last Admin: 02/08/17 05:56 Dose: 20 mg Furosemide (Lasix) 20 mg PO DAILY [facility] Guaifenesin (Robitussin) 100 mg PO Q6H PRN PRN Reason: Cough Diltiazem HCl 100 mg/ Sodium (Chloride) 100 mls @ 5 mls/hr IV TITRATE COREY; 5 MG /HR PRN Reason: Protocol Azithromycin 500 mg/ Sodium (Chloride) 250 mls @ 250 mls/hr IV Q24H [facility] Last Admin: 02/08/17 06:39 Dose: 250 mls/hr Ceftriaxone Sodium 1 gm/ (Sodium Chloride) 50 mls @ 100 mls/hr IV Q24H [facility] Last Admin: 02/08/17 06:05 Dose: 100 mls/hr Insulin Aspart (Novolog) 0 unit SUBCUT QIDACANDBED [facility] PRN Reason: Protocol Last Admin: 02/08/17 08:23 Dose: Not Given Metformin HCl (Glucophage) 500 mg PO DAILY [facility] Last Admin: 02/08/17 09:00 Dose: 500 mg Metoprolol Succinate (Toprol Xl) 100 mg PO DAILY [facility] Morphine Sulfate (Morphine) 2 mg IVPUSH Q2H PRN PRN Reason: Pain (severe 7-10) Ondansetron HCl (Zofran) 4 mg IVPUSH Q6H PRN PRN Reason: Nausea/Vomiting Budesonide/Formoterol Fumarate 160/4.5 Pt Own Med 0 each INH BID [facility] Last Admin: 02/08/17 09:02 Dose: 1 each Polyethylene Glycol (Miralax) 17 gm PO DAILY PRN PRN Reason: Constipation Prednisone (Prednisone) 40 mg PO WITHBREAKFAST [facility] Stop: 02/11/17 08:01 Last Admin: 02/08/17 08:59 Dose: 40 mg Ramipril (Altace) 2.5 mg PO DAILY [facility] Last Admin: 02/08/17 09:00 Dose: 2.5 mg Sodium Chloride (Saline Flush) 10 ml FLUSH ASDIRECTED PRN PRN Reason: Keep Vein Open Last Admin: 02/08/17 06:33 Dose: 10 ml Tiotropium [place] (Spiriva Handihaler) 18 mcg INH DAILY [facility] Last Admin: 02/08/17 09:02 Dose: 18 mcg Zolpidem Tartrate (Ambien) 5 mg PO BEDTIME PRN PRN Reason: Sleep Discontinued Medications Aspirin (Aspirin) 324 mg PO ONETIME ONE Stop: 02/06/17 23:56 Last Admin: 02/07/17 00:18 Dose: 324 mg Diltiazem HCl (Diltiazem) 20 mg IVPUSH ONETIME ONE Stop: 02/07/17 00:01 Last Admin: 02/07/17 00:04 Dose: 20 mg Diltiazem HCl (Cardizem) Confirm Administered Dose 100 mg .ROUTE .STK-MED ONE Stop: 02/07/17 00:45 Last Admin: 02/07/17 09:14 Dose: Not Given Diltiazem HCl (Diltiazem) Confirm Administered Dose 25 mg .ROUTE .STK-MED ONE Stop: 02/07/17 01:42 Last Admin: 02/07/17 03:52 Dose: Not Given Furosemide (Lasix) 40 mg IVPUSH NOW ONE Stop: 02/07/17 06:38 Last Admin: 02/07/17 09:39 Dose: 40 mg Sodium Chloride (Normal Saline) Confirm Administered Dose 100 mls @ as directed .ROUTE .STK-MED ONE Stop: 02/07/17 00:48 Last Admin: 02/07/17 09:14 Dose: Not Given Magnesium Sulfate/Dextrose 1 (gm/ Premix) 100 mls @ 100 mls/hr IV Q1H [facility] Stop: 02/07/17 13:59 Last Infusion: 02/07/17 15:48 Dose: Infused Ceftriaxone Sodium 1 gm/ (Sodium Chloride) 100 mls @ as directed IV .STK-MED ONE Stop: 02/07/17 00:45 Insulin Aspart (Novolog) 0 unit SUBCUT QIDACANDBED ONE PRN Reason: Protocol Stop: 02/07/17 11:31 Last Admin: 02/07/17 11:37 Dose: Not Given Metoprolol Succinate (Toprol Xl) 50 mg PO DAILY [facility] Last Admin: 02/08/17 09:01 Dose: 50 mg Metoprolol Succinate (Toprol Xl) 50 mg PO ONETIME ONE Stop: 02/08/17 09:48 Nf Med 1 Each ( Budesonide/Formoterol Fumarate 160 Mg) *Own Med 0 mg INH DAILY [facility] Last Admin: 02/07/17 11:36 Dose: Not Given Potassium Chloride (Klor-Con 10) 20 meq PO Q12H [facility] Stop: 02/08/17 09:01 Last Admin: 02/08/17 09:00 Dose: 20 meq Potassium Chloride (Klor-Con 10) 20 meq PO ONETIME ONE Stop: 02/07/17 09:46 Last Admin: 02/07/17 09:50 Dose: Not Given - Exam General: alert, oriented, cooperative, no acute distress, other (she looks better today. She is resting in bed). No: moderate distress, severe distress, sedated, lethargic HEENT: Pupils equal, Pupils reactive, EOMI, Mucous membr. moist/pink Neck: supple, trachea midline, no JVD Lungs: Normal respiratory effort, Decreased breath sounds (but fair air exchange ), Crackles (in basis, mostly left), Rhonchi. No: Stridor, Wheezing Cardiovascular: Irregular Rhythm, Tachycardia Abdomen: bowel sounds present Extremities: normal pulses, no tenderness/swelling, no clubbing, no cyanosis, no calf tenderness, calf tenderness, edema (improved lower extremity edema) Neurological: no new focal deficit Psy/Mental Status: alert, normal affect, normal mood - Problem List & Annotations (1) Acute congestive heart failure SNOMED Code(s): 42808751 Code(s): I50.9 - HEART FAILURE, UNSPECIFIED Status: Acute Priority: High Current Visit: Yes (2) Community acquired pneumonia SNOMED Code(s): 135081197 Code(s): J18.9 - PNEUMONIA, UNSPECIFIED ORGANISM Status: Acute Priority: High Current Visit: Yes (3) COPD exacerbation SNOMED Code(s): 408222918, 117026112 Code(s): J44.1 - CHRONIC OBSTRUCTIVE PULMONARY DISEASE W (ACUTE) EXACERBATION Status: Acute Current Visit: Yes (4) Diabetes mellitus type 2 in obese SNOMED Code(s): 54366690 Code(s): E11.9 - TYPE 2 DIABETES MELLITUS WITHOUT COMPLICATIONS; E66.9 - OBESITY, UNSPECIFIED Status: Chronic Current Visit: Yes (5) Coronary artery disease SNOMED Code(s): 65716383 Code(s): I25.10 - ATHSCL HEART DISEASE OF [place] CORONARY ARTERY W/O ANG PCTRS Status: Chronic Current Visit: Yes (6) History of myocardial infarction SNOMED Code(s): 529968920 Code(s): I25.2 - OLD MYOCARDIAL INFARCTION Status: Chronic Current Visit : Yes (7) Essential hypertension SNOMED Code(s): 54496077 Code(s): I10 - ESSENTIAL (PRIMARY) HYPERTENSION Status: Chronic Current Visit: Yes (8) Atrial fibrillation with RVR SNOMED Code(s): 974519940575249 Code(s): I48.91 - UNSPECIFIED ATRIAL FIBRILLATION Status: Acute Current Visit: Yes - Problem List Review Problem List Initiated/Reviewed/Updated: Yes - My Orders Last 24 Hours: My Active Orders 02/07/17 11:09 CULTURE SPUTUM + SMEAR [RM] Routine 02/07/17 11:23 guaiFENesin [Robitussin] 100 mg PO Q6H PRN 02/07/17 11:25 Flutter Valve Therapy [RT Chest Physiotherapy] [RC] ASDIRECTED Incentive Spirometry [RT Incentive Spirometry] [RC] ASDIRECTED 02/07/17 11:28 Antiembolic Devices [RC] PER UNIT ROUTINE MIA Hose [Antiembolic Hose] [OM.PC] Routine 02/07/17 11:33 Accu Check [Blood Glucose Check, Bedside] [RC] QIDACANDBED 02/07/17 14:00 Furosemide [Lasix] 20 mg IVPUSH Q8H 02/07/17 21:00 Patient's Own Medication [Ptom] 0 each INH BID 02/08/17 05:11 Chest 2V [CR] Timed 02/09/17 05:11 B-TYPE NATRIURETIC PEPTIDE,BNP [CHEM] AM BASIC METABOLIC PANEL,BMP [CHEM] AM 02/09/17 09:00 Furosemide [Lasix] 20 mg PO DAILY 02/09/17 09:48 Metoprolol Succinate [Toprol XL] 100 mg PO DAILY - Plan Plan:: Pneumonia Azithromycin and Rocephin IV bronchodilator Cough medicine as needed flutter device -sputum culture is ordered -repeated chest x-ray is still pending COPD exacerbation Treatment pneumonia as above Duoneb every 6 hours Prednisone Oxygen as needed incentive spirometery resume home medications Atrial fibrillation with RVR I discussed anticoagulation benefit and risk with patient and her both daughters at this time patient decided to wait and consult with her primary care provider and establish with hoop rolls operator [facility] as soon as possible and discuss that with him continue aspirin and Plavix Treat the possible cause which is pneumonia versus CHF Cardizem drip was stopped after about 10 hours from starting because of low blood pressure TSH is normal -heart rate is still up so I am increasing her Toprol XL from 50 mg to 100 mg the starting this morning Acute congestive heart failure, most likely systolic or could be due to atrial fibrillation with RVR BNP elevated at 626 on admission I discussed with patient and daughter that she needs to followup with hoop rolls operator as soon as possible after discharge Continue home medications -Echocardiogram is pending -She needs to follow up with congestive heart failure clinic at [facility] in [place] after discharge Lower extremities edema, most like from congestive heart failure treat congestive heart failure MIA marc Hypomagnesemia serum magnesium was 1.4 mg on admission. She received 4 g of magnesium by IV. Next the magnesium level was normal Essential hypertension controlled resume medications Coronary artery disease/NH/stent placement 17 years ago Possible chest pain on exertion, chronic I discussed with patient and daughter that she needs to followup with hoop rolls operator as soon as possible after discharge Diabetes mellitus type 2 resume home medications Sliding scale insulin Dyslipidemia Continue statin Lovenox for DVT prophylaxis She wants to be DNR. Daughters were present at the time of discussion
--- NOTE | 2017-02-08 12:07 | CR ---
CLINICAL HISTORY: 76-year-old female complaining of shortness of breath INTERPRETATION: Chronic mild congestion and although no current cephalization of vascular flow or si gns of alveolar edema that are small pleural effusions bilaterally with trace of fluid in the minor fissure on the right. No lung mass, hilar lymphadenopathy or focal lobar pneumonia. CONCLUSION: Slight radiographic improvement even considering differences in film technique (AP versu s PA chest) 07 February previous day film.
[2017-02-08] MEDS ORDERED: Digoxin 250 MCG Tab PO ONE (19:07)
[2017-02-08] MEDS: Nicotine 21 MG/24 Hr Patch TRDERM SCH (20:20)
[2017-02-08] MEDS ORDERED: Metoprolol Tartrate 25 MG Tab PO ONE (21:42)
[2017-02-09] MEDS ORDERED: LORazepam 0.5 MG Tab PO ONE (00:36)
[2017-02-09] MEDS ORDERED: Diltiazem 25 MG/5 ML SDV IVPUSH ONE (00:54)
[2017-02-09] MEDS ORDERED: ALPRAZolam 0.25 MG Tab PO ONE (00:54)
[2017-02-09] MEDS: Albuterol/Ipratropium 3.0-0.5 MG/3 ML Neb Soln NEB SCH ×4 (01:12→18:02)
[2017-02-09] MEDS: Diltiazem 25 MG/5 ML SDV IVPUSH ONE ×2 (02:19→02:22)
[2017-02-09] MEDS ORDERED: Digoxin 500 MCG/2 ML Amp IVPUSH SCH ×2 (03:30→08:00)
[2017-02-09] MEDS ORDERED: Digoxin 500 MCG/2 ML Amp IVPUSH ONE (03:45)
[2017-02-09] MEDS: cefTRIAXone 1 GM in Sodium Chloride 0.9% 50 ML IV SCH (06:00)
[2017-02-09] MEDS: Azithromycin 500 MG in Sodium Chloride 0.9% 250 ML IV SCH (06:25)
[2017-02-09 06:40] LABS: CHLORIDE,CL 93 mmol/L (101-111); SODIUM,NA 128 mmol/L (135-145)
[2017-02-09] MEDS ORDERED: Furosemide 40 MG/4 ML VIAL IVPUSH ONE (07:49)
[2017-02-09] MEDS ORDERED: ALPRAZolam 0.25 MG Tab PO PRN (08:06)
[2017-02-09] MEDS: Insulin Aspart 100 Units/ML 3 ML Pen SUBCUT SCH ×3 (08:18→17:36)
[2017-02-09] MEDS: Clopidogrel 75 MG Tab PO SCH (08:22)
[2017-02-09] MEDS: Aspirin 81 MG Tab.Chew PO SCH (08:22)
[2017-02-09] MEDS: metFORMIN 500 MG Tab PO SCH (08:23)
[2017-02-09] MEDS: atorvaSTATin 20 MG Tab PO SCH (08:24)
[2017-02-09] MEDS: predniSONE 20 MG Tab PO SCH (08:25)
[2017-02-09] MEDS: Metoprolol Succinate 50 MG Tab.ER PO SCH ×2 (08:32→09:05)
[2017-02-09] MEDS: Nicotine 21 MG/24 Hr Patch TRDERM SCH (08:39)
[2017-02-09 08:45] VITALS: BP 109/88
[2017-02-09] MEDS: Tiotropium Inhaler 18 MCG Inhalation Powder Cap Kit of 5 INH SCH (08:47)
[2017-02-09] MEDS: Enoxaparin 40 MG/0.4 ML Syringe SUBCUT SCH (08:49)
[2017-02-09] MEDS: FORMOTEROL FUMARATE INH SCH (08:50)
[2017-02-09] MEDS: BUDESONIDE INH SCH (08:50)
[2017-02-09] MEDS ORDERED: Furosemide 20 MG Tab PO SCH (09:00)
--- NOTE | 2017-02-09 09:08 | PCM.DCSUM1 ---
Discharge Summary - Hospital Course Free Text/Narrative:: 76-year-old female with past medical history of COPD, Essential hypertension, coronary artery disease/ND/stent placement 17 years ago, diabetes mellitus, dyslipidemia, erythrocytosis presented to the emergency room with significant generalized weak and falling from legs giving up on her. Patient stated that for the last 3 days prior to admission she was feeling warm and cold, generally weak and her chronic shortness of breath was getting worse. She reported occasional chronic cough but the cough mildly got worse the few days prior to admission. she denied chest pain but she admitted having "chest cramps" on and off especially when she exerts herself for the last several months. she has not seen third loader for 7 years. her third loader was in [place] but retired (Dr. Vicente). She is not aware of history of congestive heart failure. she admitted that the new swelling in her legs is new. However she was treated for lower extremities cellulitis last November. In the emergency room she was found to have atrial fibrillation with RVR but no ST elevation on EKG. Her chest x-ray report revealed generalized mild pulmonary venous congestion and effusion blunting the dependent left costophrenic sulcus and possible underlying lingular consolidation. On admission, her BNP 626, there is no previous BNP to compare. Initial troponin was 0.03 however repeat troponin was 0.02. Sodium 134. Creatinine 1.1, baseline creatinine is 0.8. Magnesium 1.4. TSH 0.96. WBC 11.8 with left shift. urinalysis was unremarkable. In the emergency room patient was given Cardizem bolus and started on Cardizem drip. She required 15 mg per hour. Upon admission patient was given 40 mg of Lasix IV and respiration improved. she was also started on Azithromycin, Rocephin, Duoneb, and Prednisone. Yesterday morning ( after about 10 hours a Cardizem drip) her heart rate was in the 70s but her blood pressure was borderline low so Cardizem drip was stopped and her Toprol increased from 50 mg daily to 100 mg daily. her repeat chest x-ray showed improvement in the vascular congestion. however afterward her heart rate went up again and her EKG showed a fibrillation with intermittent atrial flutter. She received 2 doses of digoxin 0.5 mg, and one dose of Lopressor 12.5 mg p.o. despite that her heart rate continued to be between 1:30-142 therefore she had Cardizem bolus of 10 mg followed by Cardizem drip after midnight. 2-3 hour later is her heart rate became controlled but systolic blood pressure dropped to 92 so Cardizem drip was stopped and her heart rate went up again to 140s. Patient had echocardiogram done 2 days ago but report is still not available. I consulted with Dr. Figueroa this morning who recommended transferring to [facility] for further management. This morning patient seems to have congested lungs, increasing lower extremity edema and her BNP went up to 761 and her sodium dropped to 128 ( after was dropped yesterday to 277). Patient also seemed to have nicotine withdrawal and anxiety during the night so she had nicotine patch placed also received Xanax 0.25 mg orally which helped mildly. this morning she received 40 mg of IV Lasix and Toprol 100 mg orally, and Castaneda catheter is placed prior to transferring to [place]. I spoke to Dr. Crockett, from [facility] and [place] who kindly accepted the patient to his service. patient was transferred in a stable condition. Plan of care during hospitalization: Atrial fibrillation with RVR I discussed anticoagulation benefit and risk with patient and her both daughters at this time patient decided to wait and consult with her primary care provider and establish with third loader Dr. Figueroa as soon as possible and discuss the anticoagulation with them continue aspirin and Plavix Treat the possible cause which is pneumonia versus CHF Cardizem drip was stopped after about 10 hours from starting because of low blood pressure TSH is normal Acute congestive heart failure, most likely systolic or could be due to atrial fibrillation with RVR BNP elevated at 626 on admission I discussed with patient and daughter that she needs to followup with third loader as soon as possible after discharge Continue home medications Echocardiogram report is not available yet She needs to follow up with congestive heart failure clinic at [facility] in [place] after discharge Pneumonia Azithromycin and Rocephin IV bronchodilator Cough medicine as needed flutter device sputum culture is ordered but not collected yet COPD exacerbation Treatment pneumonia as above Duoneb every 6 hours Prednisone Oxygen as needed incentive spirometery resume home medications Lower extremities edema, most like from congestive heart failure treat congestive heart failure MIA marc Hypomagnesemia serum magnesium was 1.4 mg on admission. She received 4 g of magnesium by IV. Next the magnesium level was normal Essential hypertension controlled resume medications Coronary artery disease/ND/stent placement 17 years ago Possible chest pain on exertion, chronic I discussed with patient and daughter that she needs to followup with third loader as soon as possible after discharge Diabetes mellitus type 2 resume home medications Sliding scale insulin Dyslipidemia Continue statin 40 minutes were spent discharging the patient - Discharge Data Discharge Date: 02/09/17 Discharge Disposition: DC/Tfer to Acute Hospital 02 Condition: Stable - Discharge Diagnosis/Problem(s) (1) Acute congestive heart failure SNOMED Code(s): 73572752 ICD Code: I50.9 - HEART FAILURE, UNSPECIFIED Status: Acute Priority: High Current Visit: Yes (2) Community acquired pneumonia SNOMED Code(s): 275122779 ICD Code: J18.9 - PNEUMONIA, UNSPECIFIED ORGANISM Status: Acute Priority : High Current Visit: Yes (3) COPD exacerbation SNOMED Code(s): 399198470, 923822315 ICD Code: J44.1 - CHRONIC OBSTRUCTIVE PULMONARY DISEASE W (ACUTE) EXACERBATION Status: Acute Current Visit: Yes (4) Diabetes mellitus type 2 in obese SNOMED Code(s): 31808537 ICD Code: E11.9 - TYPE 2 DIABETES MELLITUS WITHOUT COMPLICATIONS; E66.9 - OBESITY, UNSPECIFIED Status: Chronic Current Visit: Yes (5) Coronary artery disease SNOMED Code(s): 14912616 ICD Code: I25.10 - ATHSCL HEART DISEASE OF CIRCLE CORONARY ARTERY W/O ANG PCTRS Status: Chronic Current Visit: Yes (6) History of myocardial infarction SNOMED Code(s): 267627612 ICD Code: I25.2 - OLD MYOCARDIAL INFARCTION Status: Chronic Current Visit : Yes (7) Essential hypertension SNOMED Code(s): 22393225 ICD Code: I10 - ESSENTIAL (PRIMARY) HYPERTENSION Status: Chronic Current Visit: Yes (8) Atrial fibrillation with RVR SNOMED Code(s): 917090353710982 ICD Code: I48.91 - UNSPECIFIED ATRIAL FIBRILLATION Status: Acute Current Visit: Yes (9) Nicotine withdrawal SNOMED Code(s): 86383218 ICD Code: F17.203 - NICOTINE DEPENDENCE UNSPECIFIED, WITH WITHDRAWAL Status : Acute Current Visit: Yes (10) Anxiety SNOMED Code(s): 45894089 ICD Code: F41.9 - ANXIETY DISORDER, UNSPECIFIED Status: Acute Current Visit: Yes - Patient Summary/Data Consults: Consultations 02/07/17 06:42 PT Evaluation and Treatment [CONS] Routine - Discharge Plan Home Medications: Home Meds Aspirin [Michael Chewable Aspirin] 81 mg PO DAILY 09/03/16 [History] Budesonide/Formoterol Fumarate [Symbicort 80-4.5 Mcg Inhaler] 160 mg INH DAILY 09/03/16 [History] Clopidogrel [Plavix] 75 mg PO DAILY 09/03/16 [History] Docusate Calcium [Stool Softener] 240 mg PO DAILY 09/03/16 [History] Metoprolol Succinate [Toprol XL 50mg] 50 mg PO DAILY 09/03/16 [History] Ramipril 2.5 mg PO DAILY 09/03/16 [History] Tiotropium [Spiriva HandiHaler] 18 mcg INH DAILY 09/03/16 [History] atorvaSTATin [Lipitor] 80 mg PO DAILY 09/03/16 [History] metFORMIN HCl [Metformin HCl] 500 mg PO DAILY 09/03/16 [History] Azithromycin [Zithromax] 500 mg IV Q24H vial 02/09/17 [Rx] Prednisone [IJD: predniSONE] 40 mg PO WITHBREAKFAST tablet 02/09/17 [Rx] cefTRIAXone [Rocephin] 1 gm IV Q24H adv 02/09/17 [Rx] - Discharge Summary/Plan Comment DC Time >30 min.: Yes (40 minutes were spent discharging this patient) - Review of Systems General: Reports: No Symptoms HEENT: Reports: no symptoms Pulmonary: Reports: shortness of breath (mild), cough. Denies: hemoptysis, wheezing Cardiovascular: Denies: Chest Pain, Palpitations Gastrointestinal: Reports: No symptoms Genitourinary: Reports: no symptoms Musculoskeletal: Reports: no symptoms Skin: Reports: no symptoms Neurological: Reports: No Symptoms Psychiatric: Reports: no symptoms - Patient Data Vitals - Most Recent: Last Vital Signs Temp 36.2 C 02/09/17 07:52 Pulse 124 H 02/09/17 07:52 Resp 22 H 02/09/17 07:52 BP 130/100 H 02/09/17 07:52 Pulse Ox 97 02/09/17 07:52 Weight - Most Recent: 76.663 kg I&O - Last 24 hours: Intake & Output 05/07/1802/09/17 02/09/17 22:59 06:59 14:59 Intake Total 200 64 Output Total 200 Balance 200 64 -200 Lab Results - Last 24 hrs: Laboratory Results - last 24 hr 02/08/17 02/08/17 02/08/17 Range/Units 05:56 11:13 16:43 Sodium (135-145) mmol/L Potassium (3.6-5.0) mmol/L Chloride (101-111) mmol/L Carbon Dioxide (21.0-31.0) mmol/L Anion Gap BUN (7-18) mg/dL Creatinine (0.6-1.3) mg/dL Est Cr Clr Drug Dosing mL/min Estimated GFR (MDRD) Glucose (74-105) mg/dL POC Glucose 210 H 184 H (83-110) mg/dl Calcium (8.4-10.2) mg/dl Magnesium 1.9 (1.8-2.5) mg/dL Troponin I (0.00-0.02) ng/ml B-Natriuretic Peptide (0-100) pg/ml 02/08/17 02/09/17 02/09/17 Range/Units 20:39 06:04 06:04 Sodium 128 L (135-145) mmol/L Potassium 4.4 (3.6-5.0) mmol/L Chloride 93 L (101-111) mmol/L Carbon Dioxide 28.0 (21.0-31.0) mmol/L Anion Gap 11.4 BUN 20 H (7-18) mg/dL Creatinine 0.7 (0.6-1.3) mg/dL Est Cr Clr Drug Dosing 54.08 mL/min Estimated GFR (MDRD) > 60 Glucose 156 H (74-105) mg/dL POC Glucose 220 H (83-110) mg/dl Calcium 8.8 (8.4-10.2) mg/dl Magnesium (1.8-2.5) mg/dL Troponin I 0.02 (0.00-0.02) ng/ml B-Natriuretic Peptide 761 H (0-100) pg/ml 02/09/17 Range/Units 08:03 Sodium (135-145) mmol/L Potassium (3.6-5.0) mmol/L Chloride (101-111) mmol/L Carbon Dioxide (21.0-31.0) mmol/L Anion Gap BUN (7-18) mg/dL Creatinine (0.6-1.3) mg/dL Est Cr Clr Drug Dosing mL/min Estimated GFR (MDRD) Glucose (74-105) mg/dL POC Glucose 151 H (83-110) mg/dl Calcium (8.4-10.2) mg/dl Magnesium (1.8-2.5) mg/dL Troponin I (0.00-0.02) ng/ml B-Natriuretic Peptide (0-100) pg/ml Med Orders - Current: Current Medications Acetaminophen (Tylenol) 650 mg PO Q4H PRN PRN Reason: Pain (Mild 1-3)/fever Last Admin: 02/08/17 23:57 Dose: 650 mg Albuterol/Ipratropium (Duoneb 3.0-0.5 Mg/3 Ml) 3 ml NEB Q6HRRT [facility] Last Admin: 02/09/17 07:09 Dose: Not Given Alprazolam (Xanax) 0.5 mg PO Q8H PRN PRN Reason: Anxiety Aspirin (Aspirin) 81 mg PO DAILY [facility] Last Admin: 02/08/17 09:00 Dose: 81 mg Atorvastatin Calcium (Lipitor) 80 mg PO DAILY [facility] Last Admin: 02/08/17 09:01 Dose: 80 mg Clopidogrel Bisulfate (Plavix) 75 mg PO DAILY [facility] Last Admin: 02/08/17 09:01 Dose: 75 mg Docusate Calcium (Surfak) 240 mg PO DAILY [facility] Last Admin: 02/08/17 09:02 Dose: 240 mg Enoxaparin Sodium (Lovenox) 40 mg SUBCUT DAILY [facility] Last Admin: 02/08/17 09:01 Dose: 40 mg Furosemide (Lasix) 20 mg PO DAILY [facility] Furosemide (Lasix) 40 mg IVPUSH Q8H [facility] Stop: 02/10/17 00:01 Guaifenesin (Robitussin) 100 mg PO Q6H PRN PRN Reason: Cough Diltiazem HCl 100 mg/ Sodium (Chloride) 100 mls @ 5 mls/hr IV TITRATE COREY; 5 MG /HR PRN Reason: Protocol Last Admin: 02/09/17 01:13 Dose: 5 mls/hr Azithromycin 500 mg/ Sodium (Chloride) 250 mls @ 250 mls/hr IV Q24H [facility] Last Admin: 02/09/17 06:25 Dose: 250 mls/hr Ceftriaxone Sodium 1 gm/ (Sodium Chloride) 50 mls @ 100 mls/hr IV Q24H [facility] Last Admin: 02/09/17 06:00 Dose: 100 mls/hr Insulin Aspart (Novolog) 0 unit SUBCUT QIDACANDBED [facility] PRN Reason: Protocol Last Admin: 02/08/17 21:35 Dose: 2 units Metformin HCl (Glucophage) 500 mg PO DAILY [facility] Last Admin: 02/08/17 09:00 Dose: 500 mg Metoprolol Succinate (Toprol Xl) 100 mg PO DAILY [facility] Miscellaneous Information (Check Patch) 1 ea TRDERM BEDTIME [facility] Morphine Sulfate (Morphine) 2 mg IVPUSH Q2H PRN PRN Reason: Pain (severe 7-10) Nicotine (Habitrol) 21 mg TRDERM DAILY [facility] Last Admin: 02/08/17 20:20 Dose: 21 mg Ondansetron HCl (Zofran) 4 mg IVPUSH Q6H PRN PRN Reason: Nausea/Vomiting Budesonide/Formoterol Fumarate 160/4.5 Pt Own Med 0 each INH BID [facility] Last Admin: 02/08/17 21:33 Dose: 2 each Polyethylene Glycol (Miralax) 17 gm PO DAILY PRN PRN Reason: Constipation Potassium Chloride (Klor-Con 10) 20 meq PO ONETIME ONE Stop: 02/09/17 16:01 Prednisone (Prednisone) 40 mg PO WITHBREAKFAST [facility] Stop: 02/11/17 08:01 Last Admin: 02/08/17 08:59 Dose: 40 mg Ramipril (Altace) 2.5 mg PO DAILY [facility] Last Admin: 02/08/17 09:00 Dose: 2.5 mg Sodium Chloride (Saline Flush) 10 ml FLUSH ASDIRECTED PRN PRN Reason: Keep Vein Open Last Admin: 02/08/17 06:33 Dose: 10 ml Tiotropium [place] (Spiriva Handihaler) 18 mcg INH DAILY [facility] Last Admin: 02/08/17 09:02 Dose: 18 mcg Zolpidem Tartrate (Ambien) 5 mg PO BEDTIME PRN PRN Reason: Sleep Discontinued Medications Alprazolam (Xanax) 0.25 mg PO NOW ONE Stop: 02/09/17 00:55 Last Admin: 02/09/17 01:06 Dose: 0.25 mg Aspirin (Aspirin) 324 mg PO ONETIME ONE Stop: 02/06/17 23:56 Last Admin: 02/07/17 00:18 Dose: 324 mg Digoxin (Lanoxin) 250 mcg PO ONETIME ONE Stop: 02/08/17 19:08 Last Admin: 02/08/17 19:15 Dose: 250 mcg Digoxin (Lanoxin) 250 mcg IVPUSH DAILY [facility] Last Admin: 02/09/17 04:44 Dose: Not Given Digoxin (Lanoxin) 250 mcg IVPUSH DAILY@0800 [facility] Digoxin (Lanoxin) 250 mcg IVPUSH ONETIME ONE Stop: 02/09/17 03:46 Last Admin: 02/09/17 03:46 Dose: 250 mcg Diltiazem HCl (Diltiazem) 20 mg IVPUSH ONETIME ONE Stop: 02/07/17 00:01 Last Admin: 02/07/17 00:04 Dose: 20 mg Diltiazem HCl (Cardizem) Confirm Administered Dose 100 mg .ROUTE .STK-MED ONE Stop: 02/07/17 00:45 Last Admin: 02/07/17 09:14 Dose: Not Given Diltiazem HCl (Diltiazem) Confirm Administered Dose 25 mg .ROUTE .STK-MED ONE Stop: 02/07/17 01:42 Last Admin: 02/07/17 03:52 Dose: Not Given Diltiazem HCl (Diltiazem) 10 mg IVPUSH ONETIME ONE Stop: 02/09/17 00:55 Last Admin: 02/09/17 01:08 Dose: 10 mg Diltiazem HCl (Diltiazem) 5 mg IVPUSH ONETIME ONE Stop: 02/09/17 02:08 Furosemide (Lasix) 40 mg IVPUSH NOW ONE Stop: 02/07/17 06:38 Last Admin: 02/07/17 09:39 Dose: 40 mg Furosemide (Lasix) 20 mg IVPUSH Q8H [facility] Stop: 02/08/17 14:01 Last Admin: 02/08/17 13:21 Dose: 20 mg Furosemide (Lasix) 40 mg IVPUSH NOW ONE Stop: 02/09/17 07:50 Last Admin: 02/09/17 08:00 Dose: 40 mg Sodium Chloride (Normal Saline) Confirm Administered Dose 100 mls @ as directed .ROUTE .STK-MED ONE Stop: 02/07/17 00:48 Last Admin: 02/07/17 09:14 Dose: Not Given Magnesium Sulfate/Dextrose 1 (gm/ Premix) 100 mls @ 100 mls/hr IV Q1H [facility] Stop: 02/07/17 13:59 Last Infusion: 02/07/17 15:48 Dose: Infused Ceftriaxone Sodium 1 gm/ (Sodium Chloride) 100 mls @ as directed IV .STK-MED ONE Stop: 02/07/17 00:45 Insulin Aspart (Novolog) 0 unit SUBCUT QIDACANDBED ONE PRN Reason: Protocol Stop: 02/07/17 11:31 Last Admin: 02/07/17 11:37 Dose: Not Given Metoprolol Succinate (Toprol Xl) 50 mg PO DAILY [facility] Last Admin: 02/08/17 09:01 Dose: 50 mg Metoprolol Succinate (Toprol Xl) 50 mg PO ONETIME ONE Stop: 02/08/17 09:48 Last Admin: 02/08/17 11:21 Dose: 50 mg Metoprolol Tartrate (Lopressor) 12.5 mg PO ONETIME ONE Stop: 02/08/17 21:43 Last Admin: 02/08/17 22:14 Dose: 12.5 mg Nf Med 1 Each ( Budesonide/Formoterol Fumarate 160 Mg) *Own Med 0 mg INH DAILY [facility] Last Admin: 02/07/17 11:36 Dose: Not Given Potassium Chloride (Klor-Con 10) 20 meq PO Q12H [facility] Stop: 02/08/17 09:01 Last Admin: 02/08/17 09:00 Dose: 20 meq Potassium Chloride (Klor-Con 10) 20 meq PO ONETIME ONE Stop: 02/07/17 09:46 Last Admin: 02/07/17 09:50 Dose: Not Given - Exam General: Reports: alert, oriented, cooperative, no acute distress. Denies: moderate distress, severe distress, sedated, lethargic, obtunded HEENT: Reports: Pupils equal, Pupils reactive, EOMI, Mucous membr. moist/pink Neck: Reports: supple, trachea midline, no JVD Lungs: Reports: Normal respiratory effort, Decreased breath sounds (in basis), Crackles (in bases). Denies: Rales, Rhonchi, Rub, Stridor, Wheezing Abdomen: Reports: bowel sounds present, soft, no tenderness, no distension. Denies: rigidity, rebound, guarding, tenderness, distension (Female) Exam: Deferred Rectal (Female) Exam: Deferred Back Exam: Reports: normal inspection, full range of motion Extremities: Reports: normal pulses, no tenderness/swelling, no clubbing, no cyanosis, no calf tenderness, calf tenderness, edema (+1 bilateral lower extremities edema, worse than yesterday) Neurological: Reports: no new focal deficit Psy/Mental Status: Reports: alert, normal affect, normal mood *Q Meaningful Use (DIS) - VTE *Q VTE Criteria *Q: - Stroke *Q Stroke Criteria *Q: - AMI *Q AMI Criteria *Q:
[2017-02-09] MEDS: Sodium Chloride 0.9% 10 ML Syringe FLUSH PRN (09:17)
[2017-02-09] MEDS ORDERED: Potassium Chloride 10 MEQ Tab.ER PO ONE (16:00)
[2017-02-09] MEDS ORDERED: Furosemide 40 MG/4 ML VIAL IVPUSH SCH (16:00)
--- NOTE | 2017-02-13 12:15 | EKG ---
02/06/2017 - SOFIA KRAUS - TIME: 2350 hours. I reviewed the EKG and agree with the machine reading other than I believe the patient has atrial fibrillation rather than sinus tachycardia as there is irregular rhythm and no P waves before HQRS. [facility] /[id number]
--- NOTE | 2017-02-13 12:18 | EKG ---
02/09/2017 - SOFIA KRAUS I reviewed the EKG and agree with the machine's reading. [facility] /[id number]
== END 2017-02-09 09:25 | DRG 291 ==
LOC: DL.ED 23:41 → EEVIPCON 02-07 01:30 → UNDOADMIN 02-07 01:30 → DL.MS 02-07 01:30 → UNDOADMIN 02-07 06:42 → DL.MS 02-07 06:42 → UNDODISIN 02-09 09:25 → EDSTATUS 02-15 13:00
PROVIDERS: ADMIT Family Medicine; ATTEND Family Medicine
DX: I11.0 Hypertensive heart disease with heart failure (principal); J18.9 Pneumonia, unspecified organism; J44.1 Chronic obstructive pulmonary disease with (acute) exacerbation; F17.203 Nicotine dependence unspecified, with withdrawal; I50.9 Heart failure, unspecified; I48.91 Unspecified atrial fibrillation; I25.10 Atherosclerotic heart disease of native coronary artery without angina pectoris; I25.2 Old myocardial infarction; Z95.5 Presence of coronary angioplasty implant and graft; E11.9 Type 2 diabetes mellitus without complications; E78.5 Hyperlipidemia, unspecified; E83.42 Hypomagnesemia; F41.9 Anxiety disorder, unspecified
CPT/HCPCS: 36415; 71010; 71020; 80048; 80053; 81001; 82962; 83735; 83880; 84100; 84443; 84484; 85025; 93005; 93306; 94010; 94640; 94667; 96374; 96376; 97161-GP; 99284; 99285; A9270-GY; J0456; J0696; J1160; J1650; J1815-GY; J1940; J2405; J3475; J3490; J7050

== ENCOUNTER 2017-04-17 16:04 | Inpatient (IN) | payer MEDICARE, OTHER ==
--- NOTE | 2017-04-17 16:56 | EDM.PDOC ---
ED HPI GENERAL MEDICAL PROBLEM - General Chief Complaint: General Stated Complaint: NOT EATEN X3 DAYS, DEHYDRATED,WEAK, [id number] Time Seen by Provider: 04/17/17 16:45 Source of Information: Reports: Patient History Limitations: Reports: No Limitations - History of Present Illness INITIAL COMMENTS - FREE TEXT/NARRATIVE: This 76 yo female patient reports to the ED with her family due to not feeling well. The patient reports she has been feeling lousy since last (). The patient reports she did see Dr. Brooks on Monday was given Tramadol, but got sick off the medication after taking 2 doses. The patient reports she has not been eating and has been throwing up Monday. The patient reports she has been feeling better today. The patient has been taking her medications as prescribed and has been eating more today than in the past couple of days. The patient reports no specific problems today. Onset Date: 04/13/17 Duration: Constant Location: Reports: Abdomen Quality: Reports: Dull Severity: Moderate Improves with: Reports: None Worsens with: Reports: None Associated Symptoms: Reports: No Other Symptoms - Related Data Allergies Allergy/AdvReac Type Severity Reaction Status Date / Time Penicillins Allergy Severe Hives Verified 02/07/17 00:25 Home Meds: Home Meds Aspirin [Michael Chewable Aspirin] 81 mg PO DAILY 09/03/16 [History] Budesonide/Formoterol Fumarate [Symbicort 80-4.5 Mcg Inhaler] 160 mg INH DAILY 09/03/16 [History] Docusate Calcium [Stool Softener] 240 mg PO DAILY 09/03/16 [History] Metoprolol Succinate [Toprol XL 50mg] 100 mg PO DAILY 09/03/16 [History] Tiotropium [Spiriva HandiHaler] 18 mcg INH DAILY 09/03/16 [History] atorvaSTATin [Lipitor] 80 mg PO DAILY 09/03/16 [History] metFORMIN HCl [Metformin HCl] 500 mg PO DAILY 09/03/16 [History] Past Medical History HEENT History: Reports: Impaired Vision Cardiovascular History: Reports: Afib, Heart Failure, High Cholesterol, [place], Stents Respiratory History: Reports: Asthma, Bronchitis, Recurrent, COPD Genitourinary History: Reports: UTI, Recurrent ELECTRONICS SPECIALIST History: Reports: Musculoskeletal History: Reports: Back Pain, Chronic Endocrine/Metabolic History: Reports: Diabetes, Type II Dermatologic History: Reports: Cellulitis - Infectious Disease History Infectious Disease History: Reports: Chicken Pox, Measles, MRSA - Past Surgical History HEENT Surgical History: Reports: Cataract Surgery Social & Family History - Family History Family Medical History: Noncontributory - Tobacco Use Smoking Status *Q: Former Smoker Years of Tobacco use: 60 Packs/Tins Daily: 1 Used Tobacco, but Quit: Yes Month Tobacco Last Used: february 15 Second Hand Smoke Exposure: Yes - Caffeine Use Caffeine Use: Reports: None - Recreational Drug Use Recreational Drug Use: No ED ROS GENERAL - Review of Systems Review Of Systems: ROS reveals no pertinent complaints other than HPI. ED EXAM, GENERAL - Physical Exam Exam: See Below Exam Limited By: No Limitations General Appearance: Alert, WD/WN, Moderate Distress, Obese Eye Exam: Bilateral Eye: EOMI, Normal Inspection, PERRL Ears: Normal External Exam, Normal Canal, Hearing Grossly Normal, Normal TMs Nose: Normal Inspection, Normal Mucosa, No Blood Throat/Mouth: Normal Inspection, Normal Lips, Normal Teeth, Normal Gums, Normal Oropharynx, Normal Voice, No Airway Compromise Head: Atraumatic, Normocephalic Respiratory/Chest: Decreased Breath Sounds, Rhonchi Cardiovascular: Normal Peripheral Pulses, Regular Rate, Rhythm, No Edema, No Gallop, No JVD, No Murmur, No Rub GI/Abdominal: Normal Bowel Sounds, Soft, Non-Tender, No Organomegaly, No Distention, No Abnormal Bruit, No Mass (Female) Exam: Deferred Rectal (Female) Exam: Deferred Back Exam: Normal Inspection, Full Range of Motion, NT Extremities: Normal Inspection, Normal Range of Motion, Non-Tender, Normal Capillary Refill, No Pedal Edema Neurological: Alert, Oriented, CN II-XII Intact, Normal Cognition, Normal Gait, Normal Reflexes, No Motor/Sensory Deficits Psychiatric: Normal Affect, Normal Mood Skin Exam: Warm, Dry, Intact, Normal Color, No Rash Lymphatic: No Adenopathy Course - Vital Signs Last Recorded V/S: Last Vital Signs Temp 36.7 C 04/17/17 16:24 Pulse 70 04/17/17 16:24 Resp 16 04/17/17 16:24 BP 141/95 H 04/17/17 16:24 Pulse Ox 89 L 04/17/17 16:24 - Orders/Labs/Meds Orders: Active Orders 24 hr Category Date Time Status CULTURE BLOOD [BC] Stat Lab 04/17/17 17:19 Received CULTURE BLOOD [BC] Stat Lab 04/17/17 17:24 Received Sodium Chloride 0.9% [Normal Saline] 1,000 ml Med 04/17/17 17:00 Active IV ASDIRECTED Blood Culture x2 Reflex Set [OM.PC] Stat Oth 04/17/17 16:49 Ordered Medication Orders Sodium Chloride (Normal Saline) 1,000 mls @ 125 mls/hr IV ASDIRECTED [facility] Last Admin: 04/17/17 17:24 Dose: 125 mls/hr Labs: Laboratory Tests 04/17/17 04/17/17 04/17/17 Range/Units 16:55 16:55 17:18 WBC 11.0 H (5.0-10.0) 10^3/uL RBC 5.00 (4.2-5.4) 10^6/uL Hgb 16.2 H (12.0-16.0) g/dL Hct 45.2 (37.0-47.0) % MCV 90.4 (80-100) fL MCH 32.4 (27.0-34.0) pg MCHC 35.8 H (33.0-35.0) g/dL Plt Count 166 (150-450) 10^3/uL Neut % (Auto) 69.4 (42.2-75.2) % Lymph % (Auto) 16.4 L (20.5-50.1) % [place] % (Auto) 13.5 H (2-8) % Eos % (Auto) 0.5 L (1.0-3.0) % Baso % (Auto) 0.2 (0.0-1.0) % Sodium 120 L (135-145) mmol/L Potassium 4.0 (3.6-5.0) mmol/L Chloride 82 L (101-111) mmol/L Carbon Dioxide 26.0 (21.0-31.0) mmol/L Anion Gap 16.0 BUN 15 (7-18) mg/dL Creatinine 0.7 (0.6-1.3) mg/dL Est Cr Clr Drug Dosing 54.08 mL/min Estimated GFR (MDRD) > 60 BUN/Creatinine Ratio 21.42 Glucose 117 H (74-105) mg/dL Lactic Acid (0.5-2.2) mmol/L Calcium 9.5 (8.4-10.2) mg/dl Total Bilirubin 1.4 H (0.2-1.0) mg/dL AST 56 H (10-42) IU/L ALT 37 (10-60) IU/L Alkaline Phosphatase 85 (42-121) IU/L Total Protein 6.8 (6.7-8.2) g/dl Albumin 3.9 (3.2-5.5) g/dl Globulin 2.9 Albumin/Globulin Ratio 1.34 Urine Color Yellow (YELLOW) Urine Appearance Clear (CLEAR) Urine pH 6.0 (5.0-9.0) Ur Specific [place] <= 1.005 (1.005-1.030) Urine Protein Negative (NEGATIVE) Urine Glucose (UA) Negative (NEGATIVE) Urine Ketones Negative (NEGATIVE) Urine Occult Blood Negative (NEGATIVE) Urine Nitrite Negative (NEGATIVE) Urine Bilirubin Negative (NEGATIVE) Urine Urobilinogen 0.2 (0.2-1.0) mg/dL Ur Leukocyte Esterase Small H (NEGATIVE) Urine RBC 0-5 /HPF Urine WBC 10-20 H (0-5/HPF) /HPF Ur Epithelial Cells Many H /HPF Urine Bacteria Moderate H (0-FEW/HPF) /HPF 04/17/ Range/Units 17:19 WBC (5.0-10.0) 10^3/uL RBC (4.2-5.4) 10^6/uL Hgb (12.0-16.0) g/dL Hct (37.0-47.0) % MCV (80-100) fL MCH (27.0-34.0) pg MCHC (33.0-35.0) g/dL Plt Count (150-450) 10^3/uL Neut % (Auto) (42.2-75.2) % Lymph % (Auto) (20.5-50.1) % [place] % (Auto) (2-8) % Eos % (Auto) (1.0-3.0) % Baso % (Auto) (0.0-1.0) % Sodium (135-145) mmol/L Potassium (3.6-5.0) mmol/L Chloride (101-111) mmol/L Carbon Dioxide (21.0-31.0) mmol/L Anion Gap BUN (7-18) mg/dL Creatinine (0.6-1.3) mg/dL Est Cr Clr Drug Dosing mL/min Estimated GFR (MDRD) BUN/Creatinine Ratio Glucose (74-105) mg/dL Lactic Acid 1.4 (0.5-2.2) mmol/L Calcium (8.4-10.2) mg/dl Total Bilirubin (0.2-1.0) mg/dL AST (10-42) IU/L ALT (10-60) IU/L Alkaline Phosphatase (42-121) IU/L Total Protein (6.7-8.2) g/dl Albumin (3.2-5.5) g/dl Globulin Albumin/Globulin Ratio Urine Color (YELLOW) Urine Appearance (CLEAR) Urine pH (5.0-9.0) Ur Specific [place] (1.005-1.030) Urine Protein (NEGATIVE) Urine Glucose (UA) (NEGATIVE) Urine Ketones (NEGATIVE) Urine Occult Blood (NEGATIVE) Urine Nitrite (NEGATIVE) Urine Bilirubin (NEGATIVE) Urine Urobilinogen (0.2-1.0) mg/dL Ur Leukocyte Esterase (NEGATIVE) Urine RBC /HPF Urine WBC (0-5/HPF) /HPF Ur Epithelial Cells /HPF Urine Bacteria (0-FEW/HPF) /HPF Meds: Medications Generic Name Dose Route Start Last Admin Trade Name Freq PRN Reason Stop Dose Admin Sodium Chloride 1,000 mls @ 125 mls/hr 04/17/17 17:00 04/17/17 17:24 Normal Saline IV 125 mls/hr ASDIRECTED COREY Administration Departure - Departure Time of Disposition: 18:28 Disposition: Admitted As Inpatient 66 Condition: Fair Clinical Impression: Hyponatremia - Discharge Information Forms: ED Department Discharge Care Plan Goals: Discussed the examination, x-ray, lab and history with Dr. Mancuso. Dr. Mancuso accepted the patient as an acute inpatient admission. - My Orders Last 24 Hours: My Active Orders 04/17/17 16:49 Blood Culture x2 Reflex Set [OM.PC] Stat 04/17/17 17:00 Sodium Chloride 0.9% [Normal Saline] 1,000 ml IV ASDIRECTED 04/17/17 17:19 CULTURE BLOOD [BC] Stat 04/17/17 17:24 CULTURE BLOOD [BC] Stat - Assessment/Plan Last 24 Hours: My Active Orders 04/17/17 16:49 Blood Culture x2 Reflex Set [OM.PC] Stat 04/17/17 17:00 Sodium Chloride 0.9% [Normal Saline] 1,000 ml IV ASDIRECTED 04/17/17 17:19 CULTURE BLOOD [BC] Stat 04/17/17 17:24 CULTURE BLOOD [BC] Stat
[2017-04-17] MEDS ORDERED: Sodium Chloride 0.9% 1,000 ML IV SCH (17:00)
[2017-04-17 17:39] LABS: CHLORIDE,CL 82 mmol/L (101-111)
[2017-04-17 17:45] LABS: SODIUM,NA 120 mmol/L (135-145)
[2017-04-17] MEDS ORDERED: Acetaminophen 325 MG Tab PO PRN (19:34)
[2017-04-17] MEDS ORDERED: Ondansetron 4 MG/2 ML SDV IVPUSH PRN (19:34)
--- NOTE | 2017-04-17 20:02 | PCM.HP ---
H&P History of Present Illness - General Date of Service: 04/17/17 Admit Problem/Dx: Admission Diagnosis/Problem Admission Diagnosis/Problem Hyponatremia Source of Information: Patient, Family History Limitations: Reports: No Limitations - History of Present Illness Initial Comments - Free Text/Narative: 6-year-old female with past medical history of COPD, Essential hypertension, coronary artery disease/ND/stent placement 17 years ago, diabetes mellitus, dyslipidemia, erythrocytosis present to the emergency room with the generalized weakness, lower extremities weakness, poor appetite, decreased oral intake, nausea and vomiting, fatigued for the last 4 days and not getting better. She denies fever, chills, shortness breath, chest pain, shortness breath, cough, diarrhea, urinary symptoms. In the emergency room her chest x-ray does not show any acute findings. WBC 11,000. Sodium 120. Lactic acid normal. Creatinine normal. UA is suspicious of UTI - Related Data Allergies/Adverse Reactions: Allergies Allergy/AdvReac Type Severity Reaction Status Date / Time Penicillins Allergy Severe Hives Verified 02/07/17 00:25 Home Medications: Home Meds Aspirin [Michael Chewable Aspirin] 81 mg PO DAILY 09/03/16 [History] Budesonide/Formoterol Fumarate [Symbicort 80-4.5 Mcg Inhaler] 160 mg INH DAILY 09/03/16 [History] Docusate Calcium [Stool Softener] 240 mg PO DAILY 09/03/16 [History] Metoprolol Succinate [Toprol XL 50mg] 100 mg PO DAILY 09/03/16 [History] Tiotropium [Spiriva HandiHaler] 18 mcg INH DAILY 09/03/16 [History] atorvaSTATin [Lipitor] 80 mg PO DAILY 09/03/16 [History] metFORMIN HCl [Metformin HCl] 500 mg PO DAILY 09/03/16 [History] Past Medical History HEENT History: Reports: Impaired Vision Cardiovascular History: Reports: Afib, Heart Failure, High Cholesterol, [place], Stents Respiratory History: Reports: Asthma, Bronchitis, Recurrent, COPD Genitourinary History: Reports: UTI, Recurrent RESIDENTIAL COLLECTIONS History: Reports: Musculoskeletal History: Reports: Back Pain, Chronic Endocrine/Metabolic History: Reports: Diabetes, Type II Dermatologic History: Reports: Cellulitis - Infectious Disease History Infectious Disease History: Reports: Chicken Pox, Measles, MRSA - Past Surgical History HEENT Surgical History: Reports: Cataract Surgery Social & Family History - Family History Family Medical History: Noncontributory - Tobacco Use Smoking Status *Q: Former Smoker Years of Tobacco use: 60 Packs/Tins Daily: 1 Used Tobacco, but Quit: Yes Month Tobacco Last Used: february 15 Second Hand Smoke Exposure: Yes - Caffeine Use Caffeine Use: Reports: None - Recreational Drug Use Recreational Drug Use: No H&P Review of Systems - Review of Systems: Review Of Systems: See Below General: Reports: Weakness, Decreased Appetite. Denies: Fever, Chills, Night Sweats HEENT: Reports: No Symptoms Pulmonary: Reports: No Symptoms Cardiovascular: Reports: No Symptoms Gastrointestinal: Reports: No Symptoms Genitourinary: Reports: No Symptoms Musculoskeletal: Denies: Neck Pain, Shoulder Pain, Arm Pain, Joint Swelling, Muscle Stiffness Skin: Reports: No Symptoms Psychiatric: Reports: No Symptoms Neurological: Denies: Confusion, Headache, Seizure, Syncope Hematologic/Lymphatic: Reports: No Symptoms Immunologic: Reports: No Symptoms Exam - Exam Exam: See Below - Vital Signs Vital Signs: Last Vital Signs Temp 36.9 C 04/17/17 19:32 Pulse 71 04/17/17 19:32 Resp 16 04/17/17 19:32 BP 136/58 L 04/17/17 19:32 Pulse Ox 100 04/17/17 19:32 Weight: 75.659 kg - Exam General: Alert, Oriented, Cooperative, Mild Distress, Other (She looks weak and chronically ill). No: Moderate Distress, Severe Distress, Sedated, Lethargic, Obtunded HEENT: Conjunctiva Clear, EACs Clear, EOMI, Hearing Intact, Mucosa Moist & [place] , Nares Patent, Normal Nasal Septum, Posterior Pharynx Clear, Pupils Equal, Pupils Reactive, TMs Clear Neck: Supple, Trachea Midline, +2 Carotid Pulse wo Bruit Lungs: Clear to Auscultation, Normal Respiratory Effort Cardiovascular: Regular Rate, Regular Rhythm Abdomen: Normal Bowel Sounds, Soft. No: Organomegaly, Peritoneal Signs, Distention, Guarding, Rigidity, Rebound (Female) Exam: Deferred Rectal (Female) Exam: Deferred Back Exam: Normal Inspection, Full Range of Motion Extremities: Normal Inspection, Normal Pulses, Clubbing, Cyanosis. No: Calf Tenderness, Edema Skin: Warm, Dry, Other (Tenting sign is positive) Neurological: Cranial Nerves Intact, Normal Tone. No: Focal Deficit Neuro Extensive - Mental Status: Alert, Oriented x3 Neuro Extensive - Motor, Sensory, Reflexes: CN II-XII Intact Psychiatric: Alert, Normal Affect - Patient Data Result Diagrams: 04/18/17 06:25 04/18/17 06:25 *Q Meaningful Use (ADM) - VTE *Q VTE Criteria *Q: - Stroke *Q Stroke Criteria *Q: - AMI *Q AMI Criteria *Q: Problem List Initiated/Reviewed/Updated: Yes Orders Last 24hrs: Active Orders 24 hr Category Date Time Status Patient Status [ADT] Routine ADT 04/17/17 19:34 Active Antiembolic Devices [RC] PER UNIT ROUTINE Care 04/17/17 19:38 Active Height and Weight [RC] DAILY Care 04/17/17 19:34 Active Intake and Output [RC] Q6H Care 04/17/17 19:37 Active Oxygen Therapy [RC] PRN Care 04/17/17 19:34 Active Up With Assistance [RC] ASDIRECTED Care 04/17/17 19:34 Active Up ad [place] [RC] ASDIRECTED Care 04/17/17 19:34 Active VTE/DVT Education [RC] PER UNIT ROUTINE Care 04/17/17 19:34 Active Vital Signs [RC] Q4H Care 04/17/17 19:34 Active OT Evaluation and Treatment [CONS] Routine Cons 04/17/17 19:34 Active PT Evaluation and Treatment [CONS] Routine Cons 04/17/17 19:34 Active Regular Diet [DIET] Diet 04/17/17 Breakfast Active BASIC METABOLIC PANEL,BMP [CHEM] AM Lab 04/18/17 05:11 Ordered CBC WITH AUTO DIFF [HEME] AM Lab 04/18/17 05:11 Ordered CULTURE URINE [RM] Routine Lab 04/17/17 19:19 Uncollected MAGNESIUM [CHEM] AM Lab 04/18/17 05:11 Ordered PHOSPHORUS [CHEM] AM Lab 04/18/17 05:11 Ordered Acetaminophen [Tylenol] Med 04/17/17 19:34 Active 650 mg PO Q6H PRN Aspirin Med 04/18/17 09:00 Ordered 81 mg PO DAILY Budesonide/Formoterol Med 04/18/17 09:00 Ordered 160 mg INH DAILY Docusate Calcium [Surfak] Med 04/18/17 09:00 Ordered 240 mg PO DAILY Metoprolol Succinate [Toprol XL] Med 04/18/17 09:00 Ordered 100 mg PO DAILY Ondansetron [Zofran] Med 04/17/17 19:34 Active 4 mg IVPUSH Q6H PRN Sodium Chloride 0.9% [Normal Saline] 1,000 ml Med 04/17/17 19:45 Active IV ASDIRECTED Tiotropium [Spiriva HandiHaler] Med 04/18/17 09:00 Ordered 18 mcg INH DAILY atorvaSTATin [Lipitor] Med 04/18/17 09:00 Ordered 80 mg PO DAILY metFORMIN [Glucophage] Med 04/18/17 09:00 Ordered 500 mg PO DAILY Antiembolic Hose [OM.PC] Per Unit Routine Oth 04/17/17 19:38 Ordered Resuscitation Status Routine Resus Stat 04/17/17 19:34 Ordered Medication Orders Acetaminophen (Tylenol) 650 mg PO Q6H PRN PRN Reason: Pain (Mild 1-3)/fever Aspirin (Aspirin) 81 mg PO DAILY [facility] Docusate Calcium (Surfak) 240 mg PO DAILY [facility] Sodium Chloride (Normal Saline) 1,000 mls @ 125 mls/hr IV ASDIRECTED [facility] Metformin HCl (Glucophage) 500 mg PO DAILY [facility] Metoprolol Succinate (Toprol Xl) 100 mg PO DAILY [facility] Non-Formulary Medication (Budesonide/Formoterol) 160 mg INH DAILY [facility] Non-Formulary Medication (Atorvastatin [Lipitor]) 80 mg PO DAILY [facility] Ondansetron HCl (Zofran) 4 mg IVPUSH Q6H PRN PRN Reason: Nausea/Vomiting Tiotropium [place] (Spiriva Handihaler) 18 mcg INH DAILY [facility] Assessment/Plan Comment:: Hyponatremia, acute on chronic -Free water restriction to 500 mL/h and 24 hours -IV fluid infusion of normal saline at 1 25 mL per hour Generalized weakness Most likely due to hyponatremia and possible UTI Physical and conventional therapy Treat hyponatremia and possible UTI Probable complicated UTI Cipro IV twice a day Awaiting urine culture COPD exacerbation Not in excess of patient incentive spirometery resume home medications History of Atrial fibrillation Continue metoprolol succinate History of congestive heart failure, Not in acute exacerbation Continue with metoprolol Essential hypertension controlled resume metoprolol History of Coronary artery disease/ND/stent placement 17 years ago Possible chest pain on exertion, chronic I discussed with patient and daughter that she needs to followup with butcher assistant as soon as possible after discharge Diabetes mellitus type 2 resume metformin Diabetic diet Sliding scale insulin Dyslipidemia Continue statin Lovenox for DVT prophylaxis She wants to be DNR/DNI. Daughters were present at the time of discussion
[2017-04-17] MEDS: Ciprofloxacin in D5W 200 MG in Premix Bag 1 BAG IV SCH ×2 (20:23)
[2017-04-18] MEDS: Sodium Chloride 0.9% 1,000 ML IV SCH ×2 (03:13→15:10)
[2017-04-18 07:08] LABS: CHLORIDE,CL 92 mmol/L (101-111); SODIUM,NA 130 mmol/L (135-145)
[2017-04-18] MEDS ORDERED: Magnesium Sulfate/Water 4 GM in Premix Bag 1 BAG IV ONE (08:06)
[2017-04-18] MEDS: Metoprolol Succinate 50 MG Tab.ER PO SCH (08:38)
[2017-04-18] MEDS: metFORMIN 500 MG Tab PO SCH (08:38)
[2017-04-18] MEDS: Ciprofloxacin in D5W 200 MG in Premix Bag 1 BAG IV SCH ×4 (08:38→20:05)
[2017-04-18] MEDS: Aspirin 81 MG Tab.Chew PO SCH ×2 (08:38→10:27)
[2017-04-18] MEDS: Tiotropium Inhaler 18 MCG Inhalation Powder Cap Kit of 5 INH SCH (08:39)
[2017-04-18] MEDS ORDERED: atorvaSTATin 20 MG Tab PO SCH (09:00)
[2017-04-18] MEDS ORDERED: Formoterol/Mometasone 100-5 MCG 8.8 GM Inhaler IH SCH ×2 (09:00→21:00)
--- NOTE | 2017-04-18 09:11 | PCM.PN ---
- General Info Date of Service: 04/18/17 Admission Dx/Problem (Free Text): Admission Diagnosis/Problem Admission Diagnosis/Problem Hyponatremia Subjective Update: Patient stated she is feeling better. She is slightly stronger but she is still feeling weak. She denies nausea or vomiting since admission. She denies fever, chills, chest pain, shortness breath, cough, abdominal pain, diarrhea, urinary symptoms, unilateral weakness/numbness/tingling. Daughter was at bedside - Patient Data Vitals - most recent: Last Vital Signs Temp 36.7 C 04/18/17 08:28 Pulse 84 04/18/17 08:38 Resp 20 04/18/17 08:28 BP 114/71 04/18/17 08:38 Pulse Ox 99 04/18/17 08:28 Weight - most recent: 75.659 kg I&O - last 24 hours: Intake & Output 04/17/17 04/18/17 04/18/17 22:59 06:59 14:59 Intake Total 1863 320 Output Total 500 1080 500 Balance -500 783 -180 Lab Results last 24 hrs: Laboratory Results - last 24 hr 04/18/17 04/18/17 Range/Units 06:25 06:25 WBC 7.8 (5.0-10.0) 10^3/uL RBC 4.44 (4.2-5.4) 10^6/uL Hgb 14.4 (12.0-16.0) g/dL Hct 41.1 (37.0-47.0) % MCV 92.6 (80-100) fL MCH 32.4 (27.0-34.0) pg MCHC 35.0 (33.0-35.0) g/dL Plt Count 132 L (150-450) 10^3/uL Neut % (Auto) 73.6 (42.2-75.2) % Lymph % (Auto) 12.7 L (20.5-50.1) % [place] % (Auto) 13.2 H (2-8) % Eos % (Auto) 0.5 L (1.0-3.0) % Baso % (Auto) 0.0 (0.0-1.0) % Sodium 130 L (135-145) mmol/L Potassium 3.7 (3.6-5.0) mmol/L Chloride 92 L (101-111) mmol/L Carbon Dioxide 28.0 (21.0-31.0) mmol/L Anion Gap 13.7 BUN 12 (7-18) mg/dL Creatinine 0.7 (0.6-1.3) mg/dL Est Cr Clr Drug Dosing 54.08 mL/min Estimated GFR (MDRD) > 60 Glucose 106 H (74-105) mg/dL Calcium 8.9 (8.4-10.2) mg/dl Phosphorus 2.9 (2.5-4.6) mg/dL Magnesium 1.4 L (1.8-2.5) mg/dL Med Orders - Current: Current Medications Acetaminophen (Tylenol) 650 mg PO Q6H PRN PRN Reason: Pain (Mild 1-3)/fever Albuterol/Ipratropium (Duoneb 3.0-0.5 Mg/3 Ml) 3 ml NEB Q8HRRT [facility] Aspirin (Aspirin) 81 mg PO DAILY [facility] Atorvastatin Calcium (Lipitor) 80 mg PO DAILY [facility] Last Admin: 04/18/17 08:38 Dose: 80 mg Docusate Calcium (Surfak) 240 mg PO DAILY [facility] Enoxaparin Sodium (Lovenox) 30 mg SUBCUT DAILY [facility] Sodium Chloride (Normal Saline) 1,000 mls @ 75 mls/hr IV ASDIRECTED [facility] Last Admin: 04/18/17 03:13 Dose: 125 mls/hr Ciprofloxacin/Dextrose 200 mg/ (Premix) 100 mls @ 100 mls/hr IV Q12H [facility] Last Admin: 04/18/17 08:38 Dose: 100 mls/hr Magnesium Sulfate 4 gm/ Premix 100 mls @ 50 mls/hr IV ONETIME ONE Stop: 04/18/17 10:05 Insulin Aspart (Novolog) 0 unit SUBCUT QIDACANDBED [facility] PRN Reason: Protocol Metformin HCl (Glucophage) 500 mg PO DAILY [facility] Last Admin: 04/18/17 08:38 Dose: 500 mg Metoprolol Succinate (Toprol Xl) 100 mg PO DAILY [facility] Last Admin: 04/18/17 08:38 Dose: 100 mg Mometasone Furoate/Formoterol Fumar (Dulera 100-5 Mcg) 2 puff IH DAILY [facility] Last Admin: 04/18/17 08:39 Dose: 2 puff Ondansetron HCl (Zofran) 4 mg IVPUSH Q6H PRN PRN Reason: Nausea/Vomiting Tiotropium [place] (Spiriva Handihaler) 18 mcg INH DAILY [facility] Last Admin: 04/18/17 08:39 Dose: 18 mcg Discontinued Medications Sodium Chloride (Normal Saline) 1,000 mls @ 125 mls/hr IV ASDIRECTED [facility] Last Admin: 04/17/17 17:24 Dose: 125 mls/hr - Exam General: alert, oriented, cooperative, no acute distress, other (She looks weak and chronically ill). No: severe distress, sedated, lethargic, obtunded HEENT: Pupils equal, Pupils reactive, EOMI, Mucous membr. moist/pink Neck: supple, trachea midline, no JVD, no thyromegaly Lungs: Normal respiratory effort, Wheezing (Sporadic). No: Crackles, Rales, Rhonchi, Rub, Stridor Cardiovascular: Regular Rate, Regular Rhythm Abdomen: bowel sounds present, soft, no tenderness, no distension (Female) Exam: Deferred Back Exam: Normal Inspection, Full Range of Motion. No: CVA Tenderness (L), CVA Tenderness (R) Skin: warm, dry, intact Neurological: no new focal deficit Psy/Mental Status: alert, normal affect - Problem List Review Problem List Initiated/Reviewed/Updated: Yes - My Orders Last 24 Hours: My Active Orders 04/17/17 19:51 Communication Order [RC] 08,20 04/17/17 20:00 Ciprofloxacin in D5W [Cipro in D5W 200 MG/100 ML] 200 mg Premix Bag 1 bag IV Q12H 04/18/17 08:06 Magnesium Sulfate/Water [Magnesium Sulfate 2 GM in Water 50 ML] 4 gm Premix Bag 1 bag IV ONETIME 04/18/17 08:57 Incentive Spirometry [RT Incentive Spirometry] [RC] ASDIRECTED 04/18/17 08:58 RT Aerosol Therapy [RC] ASDIRECTED 04/18/17 09:00 Aspirin 81 mg PO DAILY Docusate Calcium [Surfak] 240 mg PO DAILY Metoprolol Succinate [Toprol XL] 100 mg PO DAILY Mometasone/Formoterol [Dulera 100-5 MCG] 2 puff IH DAILY Tiotropium [Spiriva HandiHaler] 18 mcg INH DAILY atorvaSTATin [Lipitor] 80 mg PO DAILY metFORMIN [Glucophage] 500 mg PO DAILY 04/18/17 09:03 Accu Check [Blood Glucose Check, Bedside] [RC] QIDACANDBED 04/18/17 09:15 Enoxaparin [Lovenox] 30 mg SUBCUT DAILY 04/18/17 11:00 Insulin Aspart [NovoLOG] See Protocol SUBCUT QIDACANDBED 04/18/17 15:00 Albuterol/Ipratropium [DuoNeb 3.0-0.5 MG/3 ML] 3 ml NEB Q8HRRT 04/18/17 Lunch Consistent Carbohydrate Diet [DIET] 04/19/17 05:11 CBC WITH AUTO DIFF [HEME] AM CMP [COMPREHENSIVE METABOLIC PN,CMP] [CHEM] AM - Plan Plan:: Hyponatremia, acute on chronic Sodium on admission was 120 today is 130 Discontinues order of free water restriction of 500 mL/h and 24 hours Decrease IV fluid infusion of normal saline 125 to 75 mL per hour Generalized weakness Most likely due to hyponatremia and possible UTI Physical and conventional therapy Treat hyponatremia and possible UTI Probable complicated UTI Cipro IV twice a day Awaiting urine culture Hypomagnesemia Magnesium is 1.4 today I ordered 4 gm of magnesium sulfate COPD exacerbation Not in exacerbation but she has some wheezing on exam Albuterol every 8 hours scheduled incentive spirometery resume home Spiriva History of Atrial fibrillation Continue metoprolol succinate History of congestive heart failure, Not in acute exacerbation Continue with metoprolol Essential hypertension controlled resume metoprolol History of Coronary artery disease/[place]/stent placement 17 years ago Possible chest pain on exertion, chronic I discussed with patient and daughter that she needs to followup with resident assistant as soon as possible after discharge Diabetes mellitus type 2 resume metformin Diabetic diet Sliding scale insulin Dyslipidemia Continue statin Lovenox for DVT prophylaxis She wants to be DNR/DNI. Daughters were present at the time of discussion
[2017-04-18] MEDS ORDERED: Enoxaparin 30 MG/0.3 ML Syringe SUBCUT SCH (09:15)
[2017-04-18] MEDS: Albuterol 0.083% 2.5 MG/3 ML Neb Soln NEB SCH ×3 (10:43→22:33)
[2017-04-18] MEDS: Insulin Aspart 100 Units/ML 3 ML Pen SUBCUT SCH ×3 (11:05→21:22)
[2017-04-18] MEDS ORDERED: *** HOLD WARFARIN TODAY PO ONE (14:00)
[2017-04-18] MEDS ORDERED: Albuterol/Ipratropium 3.0-0.5 MG/3 ML Neb Soln NEB SCH (15:00)
[2017-04-19] MEDS: Sodium Chloride 0.9% 1,000 ML IV SCH (05:15)
[2017-04-19 06:54] LABS: CHLORIDE,CL 99 mmol/L (101-111); SODIUM,NA 134 mmol/L (135-145)
[2017-04-19] MEDS: Albuterol 0.083% 2.5 MG/3 ML Neb Soln NEB SCH (07:34)
[2017-04-19] MEDS: Ciprofloxacin in D5W 200 MG in Premix Bag 1 BAG IV SCH ×2 (09:16)
[2017-04-19] MEDS: Metoprolol Succinate 50 MG Tab.ER PO SCH (09:18)
[2017-04-19] MEDS: metFORMIN 500 MG Tab PO SCH (09:18)
[2017-04-19] MEDS: Insulin Aspart 100 Units/ML 3 ML Pen SUBCUT SCH (09:19)
[2017-04-19] MEDS: Tiotropium Inhaler 18 MCG Inhalation Powder Cap Kit of 5 INH SCH (09:22)
--- NOTE | 2017-04-19 10:11 | PCM.DCSUM1 ---
Discharge Summary - Hospital Course Free Text/Narrative:: Admitted w76 yo f with PMH of COPD, Essential hypertension, coronary artery disease/CT/stent placement 17 years ago, diabetes mellitus, dyslipidemia, erythrocytosis presented via the ER with the generalized weakness, lower extremities weakness, poor appetite, decreased oral intake, nausea and vomiting , fatigued for the last 4 days [employer] and was not getting better. She denied fever, chills, SOB, chest pain, cough, diarrhea, urinary symptoms. CXR neg for acute findings. WBC 11,000. Sodium 120. Lactic acid normal. Creatinine normal. UA was suspicious of UTI. Started on IVF of NS and free water restriction. Sodium today is 134 now. On Cipro for possible UTI .Cx are negative. Will discharge home and continue with ciprofloxacin for another 5 days. - Discharge Data Discharge Date: 04/19/17 Discharge Disposition: Home, Self-Care 01 Condition: Fair - Patient Instructions Diet: Usual Diet as Tolerated Activity: As Tolerated Driving: May Drive Today Showering/Bathing: May Shower Notify Provider of: Fever, Nausea and/or Vomiting - Discharge Plan Prescriptions/Med Rec: Ciprofloxacin [Ciprofloxacin HCl] 250 mg PO BID #10 tablet Home Medications: Home Meds Aspirin [Michael Chewable Aspirin] 81 mg PO DAILY 09/03/16 [History] Budesonide/Formoterol Fumarate [Symbicort 80-4.5 Mcg Inhaler] 160 mg INH DAILY 09/03/16 [History] Docusate Calcium [Stool Softener] 240 mg PO DAILY 09/03/16 [History] Metoprolol Succinate [Toprol XL 50mg] 100 mg PO DAILY 09/03/16 [History] Tiotropium [Spiriva HandiHaler] 18 mcg INH DAILY 09/03/16 [History] atorvaSTATin [Lipitor] 80 mg PO DAILY 09/03/16 [History] metFORMIN HCl [Metformin HCl] 500 mg PO DAILY 09/03/16 [History] Warfarin [Coumadin] 5 mg PO DAILY 04/18/17 [History] Ciprofloxacin [Ciprofloxacin HCl] 250 mg PO BID #10 tablet 04/19/17 [Rx] Referrals: Shabbir Brooks MD [Primary Care Provider] - - General Info Date of Service: 04/19/17 Admission Dx/Problem (Free Text: Admission Diagnosis/Problem Admission Diagnosis/Problem Hyponatremia Subjective Update: Pt is feeling better and will be discharge home - Review of Systems General: Reports: No Symptoms. Denies: Fever, Malaise HEENT: Reports: no symptoms Pulmonary: Reports: no symptoms Cardiovascular: Reports: No Symptoms. Denies: Chest Pain, Dyspnea on Exertion Gastrointestinal: Reports: No symptoms Genitourinary: Reports: no symptoms. Denies: dysuria, burning Musculoskeletal: Reports: no symptoms Skin: Reports: no symptoms Neurological: Denies: Confusion - Patient Data Vitals - Most Recent: Last Vital Signs Temp 37.4 C 04/19/17 07:46 Pulse 85 04/19/17 09:18 Resp 20 04/19/17 07:46 BP 142/65 H 04/19/17 09:18 Pulse Ox 99 04/19/17 07:46 Weight - Most Recent: 75.342 kg I&O - Last 24 hours: Intake & Output 04/18/17 04/19/17 04/19/17 22:59 06:59 14:59 Intake Total 1419 565 Output Total 700 700 Balance 719 -135 Lab Results - Last 24 hrs: Laboratory Results - last 24 hr 04/18/17 04/18/17 04/18/17 Range/Units 06:25 10:48 17:09 WBC (5.0-10.0) 10^3/uL RBC (4.2-5.4) 10^6/uL Hgb (12.0-16.0) g/dL Hct (37.0-47.0) % MCV (80-100) fL MCH (27.0-34.0) pg MCHC (33.0-35.0) g/dL Plt Count (150-450) 10^3/uL Neut % (Auto) (42.2-75.2) % Lymph % (Auto) (20.5-50.1) % [place] % (Auto) (2-8) % Eos % (Auto) (1.0-3.0) % Baso % (Auto) (0.0-1.0) % PT 44.3 H (9.0-12.0) SEC INR 4.4 H (0.9-1.2) Sodium (135-145) mmol/L Potassium (3.6-5.0) mmol/L Chloride (101-111) mmol/L Carbon Dioxide (21.0-31.0) mmol/L Anion Gap BUN (7-18) mg/dL Creatinine (0.6-1.3) mg/dL Est Cr Clr Drug Dosing mL/min Estimated GFR (MDRD) BUN/Creatinine Ratio Glucose (74-105) mg/dL POC Glucose 138 H 133 H (83-110) mg/dl Calcium (8.4-10.2) mg/dl Total Bilirubin (0.2-1.0) mg/dL AST (10-42) IU/L ALT (10-60) IU/L Alkaline Phosphatase (42-121) IU/L Total Protein (6.7-8.2) g/dl Albumin (3.2-5.5) g/dl Globulin Albumin/Globulin Ratio 04/18/17 04/19/17 04/19/17 Range/Units 21:07 06:08 06:08 WBC 7.7 (5.0-10.0) 10^3/uL RBC 4.03 L (4.2-5.4) 10^6/uL Hgb 13.1 (12.0-16.0) g/dL Hct 38.1 (37.0-47.0) % MCV 94.5 (80-100) fL MCH 32.5 (27.0-34.0) pg MCHC 34.4 (33.0-35.0) g/dL Plt Count 125 L (150-450) 10^3/uL Neut % (Auto) 74.1 (42.2-75.2) % Lymph % (Auto) 12.5 L (20.5-50.1) % [place] % (Auto) 12.3 H (2-8) % Eos % (Auto) 1.0 (1.0-3.0) % Baso % (Auto) 0.1 (0.0-1.0) % PT (9.0-12.0) SEC INR (0.9-1.2) Sodium 134 L (135-145) mmol/L Potassium 3.3 L (3.6-5.0) mmol/L Chloride 99 L (101-111) mmol/L Carbon Dioxide 27.0 (21.0-31.0) mmol/L Anion Gap 11.3 BUN 10 (7-18) mg/dL Creatinine 0.6 (0.6-1.3) mg/dL Est Cr Clr Drug Dosing 63.09 mL/min Estimated GFR (MDRD) > 60 BUN/Creatinine Ratio 16.66 Glucose 107 H (74-105) mg/dL POC Glucose 173 H (83-110) mg/dl Calcium 8.2 L (8.4-10.2) mg/dl Total Bilirubin 0.8 (0.2-1.0) mg/dL AST 38 (10-42) IU/L ALT 37 (10-60) IU/L Alkaline Phosphatase 77 (42-121) IU/L Total Protein 5.4 L (6.7-8.2) g/dl Albumin 3.1 L (3.2-5.5) g/dl Globulin 2.3 Albumin/Globulin Ratio 1.35 04/19/17 04/19/17 Range/Units 06:08 07:55 WBC (5.0-10.0) 10^3/uL RBC (4.2-5.4) 10^6/uL Hgb (12.0-16.0) g/dL Hct (37.0-47.0) % MCV (80-100) fL MCH (27.0-34.0) pg MCHC (33.0-35.0) g/dL Plt Count (150-450) 10^3/uL Neut % (Auto) (42.2-75.2) % Lymph % (Auto) (20.5-50.1) % [place] % (Auto) (2-8) % Eos % (Auto) (1.0-3.0) % Baso % (Auto) (0.0-1.0) % PT 36.0 H (9.0-12.0) SEC INR 3.6 H (0.9-1.2) Sodium (135-145) mmol/L Potassium (3.6-5.0) mmol/L Chloride (101-111) mmol/L Carbon Dioxide (21.0-31.0) mmol/L Anion Gap BUN (7-18) mg/dL Creatinine (0.6-1.3) mg/dL Est Cr Clr Drug Dosing mL/min Estimated GFR (MDRD) BUN/Creatinine Ratio Glucose (74-105) mg/dL POC Glucose 111 H (83-110) mg/dl Calcium (8.4-10.2) mg/dl Total Bilirubin (0.2-1.0) mg/dL AST (10-42) IU/L ALT (10-60) IU/L Alkaline Phosphatase (42-121) IU/L Total Protein (6.7-8.2) g/dl Albumin (3.2-5.5) g/dl Globulin Albumin/Globulin Ratio Med Orders - Current: Current Medications Acetaminophen (Tylenol) 650 mg PO Q6H PRN PRN Reason: Pain (Mild 1-3)/fever Albuterol (Proventil Neb Soln) 2.5 mg NEB Q8HRRT [facility] Last Admin: 04/19/17 07:34 Dose: Not Given Atorvastatin Calcium (Lipitor) 80 mg PO BEDTIME [facility] Docusate Calcium (Surfak) 240 mg PO BEDTIME [facility] Last Admin: 04/18/17 21:26 Dose: 240 mg Sodium Chloride (Normal Saline) 1,000 mls @ 75 mls/hr IV ASDIRECTED [facility] Last Admin: 04/19/17 05:15 Dose: 75 mls/hr Ciprofloxacin/Dextrose 200 mg/ (Premix) 100 mls @ 100 mls/hr IV Q12H [facility] Last Admin: 04/19/17 09:16 Dose: 100 mls/hr Insulin Aspart (Novolog) 0 unit SUBCUT QIDACANDBED [facility] PRN Reason: Protocol Last Admin: 04/19/17 09:19 Dose: Not Given Metformin HCl (Glucophage) 500 mg PO DAILY [facility] Last Admin: 04/19/17 09:18 Dose: 500 mg Metoprolol Succinate (Toprol Xl) 100 mg PO DAILY [facility] Last Admin: 04/19/17 09:18 Dose: 100 mg Mometasone Furoate/Formoterol Fumar (Dulera 100-5 Mcg) 2 puff IH BEDTIME [facility] Last Admin: 04/18/17 21:27 Dose: 2 puff Hold Warfarin (Today ) 0 each PO ONETIME ONE Stop: 04/19/17 14:01 Ondansetron HCl (Zofran) 4 mg IVPUSH Q6H PRN PRN Reason: Nausea/Vomiting Tiotropium [place] (Spiriva Handihaler) 18 mcg INH DAILY [facility] Last Admin: 04/19/17 09:22 Dose: 18 mcg Warfarin Sodium (Pharmacy To Dose - Warfarin) 1 dose .XX ASDIRECTED [facility] Discontinued Medications Albuterol/Ipratropium (Duoneb 3.0-0.5 Mg/3 Ml) 3 ml NEB Q8HRRT [facility] Aspirin (Aspirin) 81 mg PO DAILY [facility] Last Admin: 04/18/17 10:27 Dose: Not Given Atorvastatin Calcium (Lipitor) 80 mg PO DAILY [facility] Last Admin: 04/18/17 08:38 Dose: 80 mg Docusate Calcium (Surfak) 240 mg PO DAILY [facility] Last Admin: 04/18/17 10:33 Dose: Not Given Enoxaparin Sodium (Lovenox) 30 mg SUBCUT DAILY [facility] Last Admin: 04/18/17 10:27 Dose: Not Given Sodium Chloride (Normal Saline) 1,000 mls @ 125 mls/hr IV ASDIRECTED [facility] Last Admin: 04/17/17 17:24 Dose: 125 mls/hr Magnesium Sulfate 4 gm/ Premix 100 mls @ 50 mls/hr IV ONETIME ONE Stop: 04/18/17 10:05 Last Admin: 04/18/17 10:40 Dose: 50 mls/hr Mometasone Furoate/Formoterol Fumar (Dulera 100-5 Mcg) 2 puff IH DAILY [facility] Last Admin: 04/18/17 08:39 Dose: 2 puff Hold Warfarin (Today ) 0 each PO ONETIME ONE Stop: 04/18/17 14:01 Last Admin: 04/18/17 13:21 Dose: Not Given - Exam General: Reports: alert, oriented Lungs: Reports: Clear to auscultation Cardiovascular: Reports: Regular Rate, Regular Rhythm GI/Abdominal Exam: Soft, Non-Tender (Female) Exam: Normal External Exam, Normal Speculum Exam, Normal Bimanual Exam Rectal (Female) Exam: Deferred Back Exam: Reports: Normal Inspection, Full Range of Motion Extremities: Non-Tender, No Pedal Edema Skin: Reports: warm Neurological: Reports: no new focal deficit Psy/Mental Status: Reports: alert *Q Meaningful Use (DIS) - VTE *Q VTE Criteria *Q: - Stroke *Q Stroke Criteria *Q: - AMI *Q AMI Criteria *Q:
[2017-04-19] MEDS ORDERED: Potassium Chloride 10 MEQ Tab.ER PO ONE (10:55)
[2017-04-19 11:12] VITALS: BP 133/62
[2017-04-19] MEDS ORDERED: *** HOLD WARFARIN TODAY PO ONE (14:00)
[2017-04-19] MEDS ORDERED: atorvaSTATin 20 MG Tab PO SCH (21:00)
== END 2017-04-19 11:40 | disposition home or self-care (01) | DRG 641 ==
LOC: DL.ED 16:04 → UNDOADMIN 18:40 → DL.MS 18:40
PROVIDERS: ADMIT Family Medicine; ATTEND Family Medicine
DX: E87.1 Hypo-osmolality and hyponatremia (principal); N39.0 Urinary tract infection, site not specified; J44.1 Chronic obstructive pulmonary disease with (acute) exacerbation; E78.00 Pure hypercholesterolemia, unspecified; E83.42 Hypomagnesemia; R53.1 Weakness; J45.909 Unspecified asthma, uncomplicated; I48.91 Unspecified atrial fibrillation; I25.10 Atherosclerotic heart disease of native coronary artery without angina pectoris; I11.0 Hypertensive heart disease with heart failure; I50.9 Heart failure, unspecified; Z87.440 Personal history of urinary (tract) infections; I25.2 Old myocardial infarction; Z95.5 Presence of coronary angioplasty implant and graft; E11.9 Type 2 diabetes mellitus without complications; Z79.84 Long term (current) use of oral hypoglycemic drugs; E78.5 Hyperlipidemia, unspecified; Z66 Do not resuscitate; G89.29 Other chronic pain; M54.9 Dorsalgia, unspecified; Z87.891 Personal history of nicotine dependence; Z88.0 Allergy status to penicillin; Z79.82 Long term (current) use of aspirin; Z79.899 Other long term (current) drug therapy
CPT/HCPCS: 36415; 71020; 80053; 81001; 83605; 85025; 87040 ×2; 87086; 96360; 99285; J7030; 80048; 82962; 83735; 84100; 85610; 97162-GP; 97166-GO; A9270-GY; J0744; J1815-GY; J3475; J7620-GY

== ENCOUNTER 2020-02-24 20:18 | Inpatient (IN) | payer MEDICARE, OTHER ==
--- NOTE | 2020-02-24 20:29 | EDM.PDOC ---
ED HPI GENERAL MEDICAL PROBLEM - General Chief Complaint: Respiratory Problem Stated Complaint: FEVER/CHILLS Time Seen by Provider: 02/24/20 20:25 Source of Information: Reports: Patient, Family, RN History Limitations: Reports: No Limitations - History of Present Illness INITIAL COMMENTS - FREE TEXT/NARRATIVE: ED with daughters, c/o fever cough and weak past 2 days, temp 100.9 today. Hx COPD, DM, chronic anticoag for a fib. No urinary c/o no vomiting or diarrhea, appetite fair. Home o2 at 3 L at bed only. Chronic cough from smoking. Some worse. Lives at home with spuse, daughters stop by to [place] with grocery shopping. No known exposure risk to COVID Treatments APPLICATION INTERNSHIP: Reports: Acetaminophen - Related Data Allergies Allergy/AdvReac Type Severity Reaction Status Date / Time Penicillins Allergy Severe Hives Verified 02/24/20 20:23 Home Meds: Home Meds Aspirin [Michael Chewable Aspirin] 81 mg PO DAILY 09/03/16 [History] Budesonide/Formoterol Fumarate [Symbicort 80-4.5 MCG] 160 mg INH BEDTIME [History] Docusate Calcium [Stool Softener] 240 mg PO BEDTIME 09/03/16 [History] Metoprolol Succinate [Toprol XL 50mg] 100 mg PO DAILY 09/03/16 [History] Tiotropium [Spiriva HandiHaler] 18 mcg INH BID 09/03/16 [History] atorvaSTATin [Lipitor] 80 mg PO DAILY 09/03/16 [History] metFORMIN HCl [Metformin HCl] 500 mg PO DAILY 09/03/16 [History] Warfarin [Coumadin] 5 mg PO DAILY 04/18/17 [History] Furosemide 20 mg PO DAILY 02/24/20 [History] Umeclidinium [place] [Incruse Ellipta*] 62.5 mcg IH DAILY 02/24/20 [History] Past Medical History HEENT History: Reports: Impaired Vision Cardiovascular History: Reports: Afib, Heart Failure, High Cholesterol, CO, Stents Respiratory History: Reports: Asthma, Bronchitis, Recurrent, COPD Genitourinary History: Reports: UTI, Recurrent CPO History: Reports: Other CPO History: 4 NVD Musculoskeletal History: Reports: Back Pain, Chronic Endocrine/Metabolic History: Reports: Diabetes, Type II Dermatologic History: Reports: Cellulitis Other Dermatologic History: right leg cellulitis - Infectious Disease History Infectious Disease History: Reports: Chicken Pox, Measles, MRSA - Past Surgical History HEENT Surgical History: Reports: Cataract Surgery Social & Family History - Family History Family Medical History: Noncontributory - Caffeine Use Caffeine Use: Reports: None ED ROS GENERAL - Review of Systems Review Of Systems: Comprehensive ROS is negative, except as noted in HPI. ED EXAM, GENERAL - Physical Exam Exam: See Below Exam Limited By: No Limitations General Appearance: Alert, Moderate Distress, Other (generalized weakness, tx with assist one) Eye Exam: Bilateral Eye: EOMI, PERRL Ears: Normal External Exam, Normal TMs Nose: Normal Inspection Throat/Mouth: Normal Inspection Head: Atraumatic, Normocephalic Neck: Normal Inspection Respiratory/Chest: Decreased Breath Sounds, Rhonchi (greater left), Other ( loose non productive cough) Cardiovascular: Normal Peripheral Pulses, Regular Rate, Rhythm, No Edema GI/Abdominal: Normal Bowel Sounds (Female) Exam: Normal External Exam Rectal (Female) Exam: Normal Exam Extremities: Normal Range of Motion, Pedal Edema (below knee), Other (papules to anterior shins bilateral) Neurological: Alert, Oriented, Normal Cognition. No: Normal Gait (generalized weakness) Psychiatric: Normal Affect Skin Exam: Warm, Dry Course - Vital Signs Last Recorded V/S: Last Vital Signs Temp 99.7 F 02/24/20 23:02 Pulse 83 02/24/20 23:02 Resp 22 H 02/24/20 23:02 BP 127/61 02/24/20 23:02 Pulse Ox 98 02/24/20 23:02 - Orders/Labs/Meds Orders: Active Orders 24 hr Category Date Time Status CULTURE BLOOD [BC] Stat Lab 02/24/20 20:27 Ordered CULTURE BLOOD [BC] Stat Lab 02/24/20 20:31 Received Blood Culture x2 Reflex Set [OM.PC] Stat Oth 02/24/20 20:26 Ordered Medication Orders Acetaminophen (Tylenol) 650 mg PO Q6H PRN PRN Reason: Pain (Mild 1-3)/fever Albuterol (Proventil Neb Soln) 2.5 mg NEB Q2H PRN PRN Reason: shortness of breath/wheezing Albuterol/Ipratropium (Duoneb 3.0-0.5 Mg/3 Ml) 3 ml NEB Q4H PRN PRN Reason: shortness of breath/wheezing Aspirin (Aspirin) 81 mg PO DAILY [facility] Atorvastatin Calcium (Lipitor) 80 mg PO DAILY [facility] Dextrose/Water (Dextrose 50% In Water) 25 ml IVPUSH ASDIRECTED PRN PRN Reason: Hypoglycemia Doxycycline Hyclate (Vibramycin) 100 mg PO BID [facility] Last Admin: 02/24/20 23:53 Dose: 100 mg Furosemide (Lasix) 20 mg PO DAILY [facility] Glucagon (Glucagen) 1 mg IM ONETIME PRN PRN Reason: Hypoglycemia Ceftriaxone Sodium 2 gm/ (Sodium Chloride) 100 mls @ 200 mls/hr IV Q24H [facility] Last Admin: 02/24/20 23:52 Dose: 200 mls/hr Sodium Chloride (Normal Saline) 500 mls @ 100 mls/hr IV ONETIME ONE Stop: 02/25/20 04:44 Last Admin: 02/25/20 00:08 Dose: 100 mls/hr Ibuprofen (Motrin) 600 mg PO Q6H PRN PRN Reason: Pain (mild 1-3) Insulin Human Lispro (Humalog) 0 unit SUBCUT WITHMEALSANDBED [facility]; Protocol Metoprolol Succinate (Toprol Xl) 100 mg PO DAILY [facility] Non-Formulary Medication (Umeclidinium [place] [Incruse Ellipta*]) 62.5 mcg IH DAILY [facility] Ondansetron HCl (Zofran Odt) 4 mg PO Q6H PRN PRN Reason: nausea, able to take PO Ondansetron HCl (Zofran) 4 mg IVPUSH Q6H PRN PRN Reason: Nausea/Vomiting Prednisone (Prednisone) 40 mg PO WITHBREAKFAST [facility] Stop: 02/28/20 08:01 Last Admin: 02/24/20 23:53 Dose: 40 mg Senna/Docusate Sodium (Senna Plus) 1 tab PO BEDTIME PRN PRN Reason: Constipation Tiotropium [place] (Spiriva Handihaler) 18 mcg INH BID [facility] Warfarin Sodium (Pharmacy To Dose - Warfarin) 1 dose .XX ASDIRECTED [facility] Labs: Laboratory Tests 02/24/20 02/24/20 02/24/20 Range/Units 20:31 20:31 20:31 WBC 11.2 H (5.0-10.0) 10^3/uL RBC 4.45 (4.2-5.4) 10^6/uL Hgb 14.1 (12.0-16.0) g/dL Hct 42.9 (37.0-47.0) % MCV 96.4 (80-100) fL MCH 31.7 (27.0-34.0) pg MCHC 32.9 L (33.0-35.0) g/dL Plt Count 176 (150-450) 10^3/uL Neut % (Auto) 82.4 H (42.2-75.2) % Lymph % (Auto) 8.6 L (20.5-50.1) % [place] % (Auto) 8.0 (2-8) % Eos % (Auto) 0.8 L (1.0-3.0) % Baso % (Auto) 0.2 (0.0-1.0) % PT 27.8 H (9.0-12.0) SEC INR 3.0 H (0.9-1.2) Sodium 136 (136-145) mmol/L Potassium 4.1 (3.5-5.1) mmol/L Chloride 98 (98-107) mmol/L Carbon Dioxide 31 (21-32) mmol/L Anion Gap 11.1 (7-13) mEq/L BUN 14 (7-18) mg/dL Creatinine 0.95 (0.55-1.02) mg/dL Est Cr Clr Drug Dosing 41.46 mL/min Estimated GFR (MDRD) 57 BUN/Creatinine Ratio 14.7 (No establ ref range) Glucose 135 H (74-99) mg/dL Lactic Acid (0.4-2.0) mmol/L Calcium 9.4 (8.5-10.1) mg/dL Total Bilirubin 0.5 (0.2-1.0) mg/dL AST 22 (15-37) U/L ALT 25 (14-59) U/L Alkaline Phosphatase 124 H (46-116) U/L Troponin I < 0.017 (0.000-0.056) ng/mL B-Natriuretic Peptide 219 H (0-100) pg/ml Total Protein 7.3 (6.4-8.2) g/dL Albumin 3.3 L (3.4-5.0) g/dL Globulin 4.0 Albumin/Globulin Ratio 0.83 Urine Color (YELLOW) Urine Appearance (CLEAR) Urine pH (5.0-9.0) Ur Specific [place] (1.005-1.030) Urine Protein (NEGATIVE) Urine Glucose (UA) (NEGATIVE) Urine Ketones (NEGATIVE) Urine Occult Blood (NEGATIVE) Urine Nitrite (NEGATIVE) Urine Bilirubin (NEGATIVE) Urine Urobilinogen (0.2-1.0) mg/dL Ur Leukocyte Esterase (NEGATIVE) SARS-CoV-2 RNA (RT-PCR) (NEGATIVE) 02/24/20 02/24/20 02/24/20 Range/Units 20:31 21:22 21:59 WBC (5.0-10.0) 10^3/uL RBC (4.2-5.4) 10^6/uL Hgb (12.0-16.0) g/dL Hct (37.0-47.0) % MCV (80-100) fL MCH (27.0-34.0) pg MCHC (33.0-35.0) g/dL Plt Count (150-450) 10^3/uL Neut % (Auto) (42.2-75.2) % Lymph % (Auto) (20.5-50.1) % [place] % (Auto) (2-8) % Eos % (Auto) (1.0-3.0) % Baso % (Auto) (0.0-1.0) % PT (9.0-12.0) SEC INR (0.9-1.2) Sodium (136-145) mmol/L Potassium (3.5-5.1) mmol/L Chloride (98-107) mmol/L Carbon Dioxide (21-32) mmol/L Anion Gap (7-13) mEq/L BUN (7-18) mg/dL Creatinine (0.55-1.02) mg/dL Est Cr Clr Drug Dosing mL/min Estimated GFR (MDRD) BUN/Creatinine Ratio (No establ ref range) Glucose (74-99) mg/dL Lactic Acid 2.1 H* (0.4-2.0) mmol/L Calcium (8.5-10.1) mg/dL Total Bilirubin (0.2-1.0) mg/dL AST (15-37) U/L ALT (14-59) U/L Alkaline Phosphatase (46-116) U/L Troponin I (0.000-0.056) ng/mL B-Natriuretic Peptide (0-100) pg/ml Total Protein (6.4-8.2) g/dL Albumin (3.4-5.0) g/dL Globulin Albumin/Globulin Ratio Urine Color Yellow (YELLOW) Urine Appearance Clear (CLEAR) Urine pH 5.5 (5.0-9.0) Ur Specific [place] >= 1.030 (1.005-1.030) Urine Protein Negative (NEGATIVE) Urine Glucose (UA) Negative (NEGATIVE) Urine Ketones Trace H (NEGATIVE) Urine Occult Blood Negative (NEGATIVE) Urine Nitrite Negative (NEGATIVE) Urine Bilirubin Negative (NEGATIVE) Urine Urobilinogen 0.2 (0.2-1.0) mg/dL Ur Leukocyte Esterase Negative (NEGATIVE) SARS-CoV-2 RNA (RT-PCR) Negative (NEGATIVE) Meds: Medications Generic Name Dose Route Start Last Admin Trade Name Freq PRN Reason Stop Dose Admin Acetaminophen 650 mg 02/24/20 23:02 Tylenol PO Q6H PRN Pain (Mild 1-3)/fever Albuterol 2.5 mg 02/24/20 23:02 Proventil Neb Soln NEB Q2H PRN shortness of breath/wheezing Albuterol/Ipratropium 3 ml 02/24/20 23:02 Duoneb 3.0-0.5 Mg/3 Ml NEB Q4H PRN shortness of breath/wheezing Aspirin 81 mg 02/25/20 09:00 Aspirin PO DAILY [facility] Atorvastatin Calcium 80 mg 02/25/20 09:00 Lipitor PO DAILY [facility] Dextrose/Water 25 ml 02/24/20 23:02 Dextrose 50% In Water IVPUSH ASDIRECTED PRN Hypoglycemia Doxycycline Hyclate 100 mg 02/24/20 23:30 02/24/20 23:53 Vibramycin PO 100 mg BID [facility] Administration Furosemide 20 mg 02/25/20 09:00 Lasix PO DAILY [facility] Glucagon 1 mg 02/24/20 23:02 Glucagen IM ONETIME PRN Hypoglycemia Ceftriaxone Sodium 2 gm/ 100 mls @ 200 mls/hr 02/25/20 00:00 02/24/20 23:52 Sodium Chloride IV 200 mls/hr Q24H [facility] Administration Sodium Chloride 500 mls @ 100 mls/hr 02/24/20 23:45 02/25/20 00:08 Normal Saline IV 02/25/20 04:44 100 mls/hr ONETIME ONE Administration Ibuprofen 600 mg 02/24/20 23:02 Motrin PO Q6H PRN Pain (mild 1-3) Insulin Human Lispro 0 unit 02/25/20 08:00 Humalog SUBCUT WITHMEALSANDBED [facility] Protocol Metoprolol Succinate 100 mg 02/25/20 09:00 Toprol Xl PO DAILY [facility] Non-Formulary Medication 62.5 mcg 02/25/20 09:00 Umeclidinium [place] [Incruse Ellipta*] IH DAILY [facility] Ondansetron HCl 4 mg 02/24/20 23:02 Zofran Odt PO Q6H PRN nausea, able to take PO Ondansetron HCl 4 mg 02/24/20 23:02 Zofran IVPUSH Q6H PRN Nausea/Vomiting Prednisone 40 mg 02/24/20 23:30 02/24/20 23:53 Prednisone PO 02/28/20 08:01 40 mg WITHBREAKFAST [facility] Administration Senna/Docusate Sodium 1 tab 02/24/20 23:02 Senna Plus PO BEDTIME PRN Constipation Tiotropium [place] 18 mcg 02/25/20 09:00 Spiriva Handihaler INH BID [facility] Warfarin Sodium 1 dose 02/24/20 23:15 Pharmacy To Dose - Warfarin .XX ASDIRECTED [facility] Discontinued Medications Generic Name Dose Route Start Last Admin Trade Name Freq PRN Reason Stop Dose Admin Azithromycin 250 mg 02/25/20 09:00 Zithromax PO DAILY [facility] Levofloxacin/Dextrose 500 mg/ 100 mls @ 100 mls/hr 02/24/20 21:51 02/24/20 22 :09 Premix IV 02/24/20 22:50 100 mls/hr ONETIME ONE Administration Warfarin Sodium 2.5 mg 02/24/20 23:45 02/25/20 00:05 Coumadin PO 02/24/20 23:46 2.5 mg ONETIME ONE Administration - Radiology Interpretation Free Text/Narrative:: [facility] [place] [facility] Final Radiology Report Call: [phone] assistance Online chat: [email or web address] Name: SOFIA KRAUS Age: 79Years F Date: 02/24/2020 SSN: -- : [id number] Study: XR CHEST 1 VIEW FRONTAL Requesting Physician: MANE SCHULTZ Images: 1 Addl Studies: Provided Clinical History: cough Contrast: Contrast Medium: Contrast Amount: Contrast Method: CONFIDENTIALITY STATEMENT This report is intended only for use by the referring physician, and only in accordance with law. If you received this in error, call [phone]. Page 1 of 1 PROCEDURE INFORMATION: Exam: XR Chest, 1 View Exam date and time: 02/24/2020 8:57 PM Age: 79 years old Clinical indication: Cough TECHNIQUE: Imaging protocol: XR of the chest Views: 1 view. COMPARISON: CR Chest 2V 04/17/2017 5:42 PM FINDINGS: Lungs: There is slight prominence of the markings in the left lung base suggesting possible focal pneumonia. Pleural space: There are no pleural effusions present. Heart/Mediastinum: The heart demonstrates mild diffuse enlargement. The pulmonary arteries are not enlarged. Bones/joints: Unremarkable IMPRESSION: 1. Mild cardiomegaly. 2. Questionable left base atelectasis or pneumonia. Thank you for allowing us to participate in the care of your patient. Dictated and Authenticated by: Colt Louis MD 02/24/2020 9:05 PM Central Time ([place] & [place]) - Re-Assessments/Exams Free Text/Narrative Re-Assessment/Exam: 02/25/20 01:[address] Gasca, accepting patient for acute admission [facility]. Departure - Departure Time of Disposition: 22:35 Disposition: Admitted As Inpatient 66 Condition: Fair Clinical Impression: Diabetes mellitus type 2 in obese, COPD exacerbation, Chronic anticoagulation, History of atrial fibrillation, Hypoxemia Pneumonia Qualifiers: Pneumonia type: due to unspecified organism Laterality: left Lung location: lower lobe of lung Qualified Code(s): J18.9 - Pneumonia, unspecified organism Sepsis Qualifiers: Sepsis type: sepsis due to unspecified organism Sepsis acute organ dysfunction status: unspecified Qualified Code(s): A41.9 - Sepsis, unspecified organism - Discharge Information *PRESCRIPTION DRUG MONITORING PROGRAM REVIEWED*: No *COPY OF PRESCRIPTION DRUG MONITORING REPORT IN PATIENT BART: No Sepsis Event Note - Focused Exam Vital Signs: Vital Signs Temp Pulse Resp BP Pulse Ox 02/24/20 22:11 99.3 F 02/24/20 21:02 100.4 F 02/24/20 20:28 101.6 F H 93 20 136/59 L 89 L Date Exam was Performed: 02/25/20 Time Exam was Performed: :31 - My Orders Last 24 Hours: My Active Orders 02/24/20 20:26 Blood Culture x2 Reflex Set [OM.PC] Stat 02/24/20 20:27 CULTURE BLOOD [BC] Stat 02/24/20 20:31 CULTURE BLOOD [BC] Stat - Assessment/Plan Last 24 Hours: My Active Orders 02/24/20 20:26 Blood Culture x2 Reflex Set [OM.PC] Stat 02/24/20 20:27 CULTURE BLOOD [BC] Stat 02/24/20 20:31 CULTURE BLOOD [BC] Stat
[2020-02-24 21:05] LABS: ANION GAP 11.1 mEq/L (7-13); CHLORIDE,CL 98 mmol/L (98-107); SODIUM,NA 136 mmol/L (136-145)
[2020-02-24] MEDS ORDERED: Levofloxacin/Dextrose 5%-Water 500 MG in Premix Bag 1 BAG IV ONE (21:51)
[2020-02-24] MEDS ORDERED: Ondansetron 4 MG Tab.DIS PO PRN (23:02)
[2020-02-24] MEDS ORDERED: Glucagon,Human Recombinant 1 MG Vial IM PRN (23:02)
[2020-02-24] MEDS ORDERED: Acetaminophen 325 MG Tab PO PRN (23:02)
[2020-02-24] MEDS ORDERED: Ibuprofen 600 MG Tab PO PRN (23:02)
[2020-02-24] MEDS ORDERED: Ondansetron 4 MG/2 ML SDV IVPUSH PRN (23:02)
[2020-02-24] MEDS ORDERED: 50% Dextrose in Water 50 ML Syringe IVPUSH PRN (23:02)
[2020-02-24] MEDS ORDERED: Albuterol 0.083% 2.5 MG/3 ML Neb Soln NEB PRN (23:02)
[2020-02-24] MEDS ORDERED: Albuterol/Ipratropium 3.0-0.5 MG/3 ML Neb Soln NEB PRN (23:02)
[2020-02-24] MEDS ORDERED: Sodium Chloride 0.9% 500 ML IV ONE (23:45)
[2020-02-24] MEDS ORDERED: Warfarin 2.5 MG Tab PO ONE (23:45)
--- NOTE | 2020-02-24 23:48 | PCM.HP ---
H&P History of Present Illness - General Date of Service: 02/24/20 Admit Problem/Dx: Admission Diagnosis/Problem Admission Diagnosis/Problem Pneumonia Source of Information: Patient, Old Records, Provider - History of Present Illness Initial Comments - Free Text/Narative: Patient is a 79-year-old female with medical history significant for COPD, dyslipidemia, atrial fibrillation, CAD and IL, and tobacco use disorder who presented to the ED with complaints of shortness of breath. Patient reports that she was cooking yesterday when she started feeling short of breath. States that shortness of breath have persisted. States that she can barely walk across her living room without stopping to catch her breath. Reports wheezing and chronic cough which is at baseline. States that cough is intermittently productive with light yellow sputum. Reports that she is on 3 L of oxygen at bedtime. Continues to smoke 1 pack of cigarettes daily. Started smoking when she was 17 years. She reports that her lower extremities have been more swollen compared to baseline. States that she has been adhering to dietary restrictions including fluid limitation and also does not use salt with her meals. Reports that her lower extremities are always swollen and she has been using compression stockings. States that if her feet are always cold but not as cold as they are today. Has any foot pain. Denies any claudication. She denies chest pain, fevers, chills, nausea, vomiting, jaw pain, neck pain, shoulder pain, back pain, epigastric pain, diarrhea, constipation, dysuria, hematuria, headaches, vision changes, or any other new symptoms. In the ED, patient's O2 saturation was 89% on room air. Her heart rate was 93 and respiratory rate of 20. Temperature was 101.6 with blood pressure of 136/ 59. Her white count was 11.2 with hemoglobin of 14.1 and platelet count of 176. Neutrophil count was 82.4 and lymphocyte count was 8.6. Renal function showed creatinine of 0.95 with normal anion gap and bicarb of 31. Lactic acid was 2.1. Troponin was negative. Chest x-ray showed pulmonary infiltrate concerning for pneumonia. She was started on Levaquin. She has been admitted for IV antibiotics and continued nebulized and inhaled treatments. - Related Data Allergies/Adverse Reactions: Allergies Allergy/AdvReac Type Severity Reaction Status Date / Time Penicillins Allergy Severe Hives Verified 02/24/20 20:23 Home Medications: Home Meds Aspirin [Michael Chewable Aspirin] 81 mg PO DAILY 09/03/16 [History] Budesonide/Formoterol Fumarate [Symbicort 80-4.5 MCG] 160 mg INH BEDTIME [History] Docusate Calcium [Stool Softener] 240 mg PO BEDTIME 09/03/16 [History] Metoprolol Succinate [Toprol XL 50mg] 100 mg PO DAILY 09/03/16 [History] Tiotropium [Spiriva HandiHaler] 18 mcg INH BID 09/03/16 [History] atorvaSTATin [Lipitor] 80 mg PO DAILY 09/03/16 [History] metFORMIN HCl [Metformin HCl] 500 mg PO DAILY 09/03/16 [History] Warfarin [Coumadin] 5 mg PO DAILY 04/18/17 [History] Furosemide 20 mg PO DAILY 02/24/20 [History] Umeclidinium [place] [Incruse Ellipta*] 62.5 mcg IH DAILY 02/24/20 [History] Past Medical History HEENT History: Reports: Impaired Vision Cardiovascular History: Reports: Afib, Heart Failure, High Cholesterol, IL, Stents Respiratory History: Reports: Asthma, Bronchitis, Recurrent, COPD Genitourinary History: Reports: UTI, Recurrent SMASH HAND History: Reports: Other OB/BYN History: 4 NVD Musculoskeletal History: Reports: Back Pain, Chronic Endocrine/Metabolic History: Reports: Diabetes, Type II Dermatologic History: Reports: Cellulitis Other Dermatologic History: right leg cellulitis - Infectious Disease History Infectious Disease History: Reports: Chicken Pox, Measles, MRSA - Past Surgical History HEENT Surgical History: Reports: Cataract Surgery Social & Family History - Family History Family Medical History: Noncontributory - Tobacco Use Smoking Status *Q: Current Every Day Smoker Years of Tobacco use: 62 Packs/Tins Daily: 1 Second Hand Smoke Exposure: Yes - Caffeine Use Caffeine Use: Reports: None - Recreational Drug Use Recreational Drug Use: No H&P Review of Systems - Review of Systems: Review Of Systems: Comprehensive ROS is negative, except as noted in HPI. Exam - Exam Exam: See Below - Vital Signs Vital Signs: Last Vital Signs Temp 99.7 F 02/24/20 23:02 Pulse 83 02/24/20 23:02 Resp 22 H 02/24/20 23:02 BP 127/61 02/24/20 23:02 Pulse Ox 99 02/24/20 23:02 Weight: 231 lb 9.6 oz - Exam Quality Assessment: Supplemental Oxygen General: Alert, Oriented, Cooperative, Moderate Distress HEENT: Conjunctiva Clear, EOMI, Hearing Intact, Mucosa Moist & [place] Neck: Supple, Trachea Midline Lungs: Wheezing (Inspiratory and expiratory) Cardiovascular: Regular Rate, Irregular Rhythm, Tachycardia GI/Abdominal Exam: Normal Bowel Sounds, Soft, Non-Tender, No Distention Extremities: Pedal Edema (Bilateral lower extremity edema with cold feet and lower leg. Chronic venous stasis changes of bilateral lower extremities.), Joint Swelling - Patient Data Lab Results Last 24 hrs: Laboratory Results - last 24 hr 02/24/20 02/24/20 02/24/20 Range/Units 20:31 20:31 20:31 WBC 11.2 H (5.0-10.0) 10^3/uL RBC 4.45 (4.2-5.4) 10^6/uL Hgb 14.1 (12.0-16.0) g/dL Hct 42.9 (37.0-47.0) % MCV 96.4 (80-100) fL MCH 31.7 (27.0-34.0) pg MCHC 32.9 L (33.0-35.0) g/dL Plt Count 176 (150-450) 10^3/uL Neut % (Auto) 82.4 H (42.2-75.2) % Lymph % (Auto) 8.6 L (20.5-50.1) % Perkins % (Auto) 8.0 (2-8) % Eos % (Auto) 0.8 L (1.0-3.0) % Baso % (Auto) 0.2 (0.0-1.0) % PT 27.8 H (9.0-12.0) SEC INR 3.0 H (0.9-1.2) Sodium 136 (136-145) mmol/L Potassium 4.1 (3.5-5.1) mmol/L Chloride 98 (98-107) mmol/L Carbon Dioxide 31 (21-32) mmol/L Anion Gap 11.1 (7-13) mEq/L BUN 14 (7-18) mg/dL Creatinine 0.95 (0.55-1.02) mg/dL Est Cr Clr Drug Dosing 41.46 mL/min Estimated GFR (MDRD) 57 BUN/Creatinine Ratio 14.7 (No establ ref range) Glucose 135 H (74-99) mg/dL Lactic Acid (0.4-2.0) mmol/L Calcium 9.4 (8.5-10.1) mg/dL Total Bilirubin 0.5 (0.2-1.0) mg/dL AST 22 (15-37) U/L ALT 25 (14-59) U/L Alkaline Phosphatase 124 H (46-116) U/L Troponin I < 0.017 (0.000-0.056) ng/mL B-Natriuretic Peptide 219 H (0-100) pg/ml Total Protein 7.3 (6.4-8.2) g/dL Albumin 3.3 L (3.4-5.0) g/dL Globulin 4.0 Albumin/Globulin Ratio 0.83 Urine Color (YELLOW) Urine Appearance (CLEAR) Urine pH (5.0-9.0) Ur Specific Ada (1.005-1.030) Urine Protein (NEGATIVE) Urine Glucose (UA) (NEGATIVE) Urine Ketones (NEGATIVE) Urine Occult Blood (NEGATIVE) Urine Nitrite (NEGATIVE) Urine Bilirubin (NEGATIVE) Urine Urobilinogen (0.2-1.0) mg/dL Ur Leukocyte Esterase (NEGATIVE) SARS-CoV-2 RNA (RT-PCR) (NEGATIVE) 02/24/20 02/24/20 02/24/20 Range/Units 20:31 21:22 21:59 WBC (5.0-10.0) 10^3/uL RBC (4.2-5.4) 10^6/uL Hgb (12.0-16.0) g/dL Hct (37.0-47.0) % MCV (80-100) fL MCH (27.0-34.0) pg MCHC (33.0-35.0) g/dL Plt Count (150-450) 10^3/uL Neut % (Auto) (42.2-75.2) % Lymph % (Auto) (20.5-50.1) % Perkins % (Auto) (2-8) % Eos % (Auto) (1.0-3.0) % Baso % (Auto) (0.0-1.0) % PT (9.0-12.0) SEC INR (0.9-1.2) Sodium (136-145) mmol/L Potassium (3.5-5.1) mmol/L Chloride (98-107) mmol/L Carbon Dioxide (21-32) mmol/L Anion Gap (7-13) mEq/L BUN (7-18) mg/dL Creatinine (0.55-1.02) mg/dL Est Cr Clr Drug Dosing mL/min Estimated GFR (MDRD) BUN/Creatinine Ratio (No establ ref range) Glucose (74-99) mg/dL Lactic Acid 2.1 H* (0.4-2.0) mmol/L Calcium (8.5-10.1) mg/dL Total Bilirubin (0.2-1.0) mg/dL AST (15-37) U/L ALT (14-59) U/L Alkaline Phosphatase (46-116) U/L Troponin I (0.000-0.056) ng/mL B-Natriuretic Peptide (0-100) pg/ml Total Protein (6.4-8.2) g/dL Albumin (3.4-5.0) g/dL Globulin Albumin/Globulin Ratio Urine Color Yellow (YELLOW) Urine Appearance Clear (CLEAR) Urine pH 5.5 (5.0-9.0) Ur Specific Ada >= 1.030 (1.005-1.030) Urine Protein Negative (NEGATIVE) Urine Glucose (UA) Negative (NEGATIVE) Urine Ketones Trace H (NEGATIVE) Urine Occult Blood Negative (NEGATIVE) Urine Nitrite Negative (NEGATIVE) Urine Bilirubin Negative (NEGATIVE) Urine Urobilinogen 0.2 (0.2-1.0) mg/dL Ur Leukocyte Esterase Negative (NEGATIVE) SARS-CoV-2 RNA (RT-PCR) Negative (NEGATIVE) Result Diagrams: 02/24/20 20:31 02/24/20 20:31 - Problem List (1) Sepsis SNOMED Code(s): 00052109 ICD Code: A41.9 - SEPSIS, UNSPECIFIED ORGANISM Status: Acute Current Visit: Yes (2) COPD exacerbation SNOMED Code(s): 864013389, 288924614 ICD Code: J44.1 - CHRONIC OBSTRUCTIVE PULMONARY DISEASE W (ACUTE) EXACERBATION Status: Acute Current Visit: No (3) Community acquired pneumonia SNOMED Code(s): 077741317 ICD Code: J18.9 - PNEUMONIA, UNSPECIFIED ORGANISM Status: Acute Priority : High Current Visit: No (4) Coronary artery disease SNOMED Code(s): 17284940 ICD Code: I25.10 - ATHSCL HEART DISEASE OF [place] CORONARY ARTERY W/O ANG PCTRS Status: Chronic Current Visit: No (5) Diabetes mellitus type 2 in obese SNOMED Code(s): 86317118 ICD Code: E11.9 - TYPE 2 DIABETES MELLITUS WITHOUT COMPLICATIONS; E66.9 - OBESITY, UNSPECIFIED Status: Chronic Current Visit: No (6) Essential hypertension SNOMED Code(s): 80675199 ICD Code: I10 - ESSENTIAL (PRIMARY) HYPERTENSION Status: Chronic Current Visit: No Problem List Initiated/Reviewed/Updated: Yes Orders Last 24hrs: Active Orders 24 hr Category Date Time Status Admission Diagnosis [ADT] Urgent ADT 02/24/20 22:32 Ordered Admission Status [Patient Status] [ADT] Routine ADT 02/24/20 22:32 Active Blood Glucose Check, Bedside [RC] WITHMEALSANDBED Care 02/24/20 23:02 Ordered Diabetes Education [RC] Click to Edit Care 02/24/20 23:02 Ordered EKG 12 Lead [EKG Documentation Completion] [RC] URGENT Care 02/24/20 20:26 Active Intake and Output [RC] QSHIFT Care 02/24/20 23:04 Ordered Notify Provider [RC] PRN Care 02/24/20 23:02 Ordered Oxygen Therapy [RC] PRN Care 02/24/20 23:02 Ordered RT Aerosol Therapy [RC] ASDIRECTED Care 02/24/20 23:10 Ordered Up ad Luz Marina [RC] ASDIRECTED Care 02/24/20 23:02 Ordered VTE/DVT Education [RC] PER UNIT ROUTINE Care 02/24/20 23:02 Ordered Vital Signs [RC] Q4H Care 02/24/20 23:02 Ordered Consistent Carbohydrate Diet [DIET] Diet 02/25/20 Breakfast Ordered BASIC METABOLIC PANEL,BMP [CHEM] AM Lab 02/25/20 05:11 Ordered CBC W/O DIFF,HEMOGRAM [HEME] AM Lab 02/25/20 05:11 Ordered CULTURE BLOOD [BC] Stat Lab 02/24/20 20:27 Ordered CULTURE BLOOD [BC] Stat Lab 02/24/20 20:31 Received INR,PT,PROTHROMBIN TIME [COAG] AM Lab 02/25/20 05:11 Ordered LACTIC ACID [CHEM] Q4H Lab 02/25/20 02:00 Ordered LACTIC ACID [CHEM] Q4H Lab 02/25/20 06:00 Ordered Acetaminophen [Tylenol] Med 02/24/20 23:02 Ordered 650 mg PO Q6H PRN Albuterol [Proventil Neb Soln] Med 02/24/20 23:02 Ordered 2.5 mg NEB Q2H PRN Albuterol/Ipratropium [DuoNeb 3.0-0.5 MG/3 ML] Med 02/24/20 23:02 Ordered 3 ml NEB Q4H PRN Aspirin Med 02/25/20 09:00 Ordered 81 mg PO DAILY Dextrose 50% in Water Med 02/24/20 23:02 Ordered 25 ml IVPUSH ASDIRECTED PRN Docusate Sodium/Sennosides [Senna Plus] Med 02/24/20 23:02 Ordered 1 tab PO BEDTIME PRN Doxycycline [Vibramycin] Med 02/24/20 23:30 Ordered 100 mg PO BID Furosemide [Lasix] Med 02/25/20 09:00 Ordered 20 mg PO DAILY Glucagon,Human Recombinant [GlucaGen] Med 02/24/20 23:02 Ordered 1 mg IM ONETIME PRN Ibuprofen [Motrin] Med 02/24/20 23:02 Ordered 600 mg PO Q6H PRN Metoprolol Succinate [Toprol XL] Med 02/25/20 09:00 Ordered 100 mg PO DAILY Ondansetron [Zofran ODT] Med 02/24/20 23:02 Ordered 4 mg PO Q6H PRN Ondansetron [Zofran] Med 02/24/20 23:02 Ordered 4 mg IVPUSH Q6H PRN Pharmacy to Dose - Warfarin Med 02/24/20 23:15 Ordered 1 dose .XX ASDIRECTED Sodium Chloride 0.9% @ 100 MLS/HR(500ml) Med 02/24/20 23:45 Ordered Sodium Chloride 0.9% [Normal Saline] 500 ml IV ASDIRECTED Tiotropium [Spiriva HandiHaler] Med 02/25/20 09:00 Ordered 18 mcg INH BID Umeclidinium [place] [Incruse Ellipta*] Med 02/25/20 09:00 Ordered 62.5 mcg IH DAILY atorvaSTATin [Lipitor] Med 02/25/20 09:00 Ordered 80 mg PO DAILY cefTRIAXone [Rocephin] 2 gm Med 02/24/20 23:15 Ordered Sodium Chloride 0.9% [Normal Saline] 100 ml IV Q24H predniSONE Med 02/24/20 23:30 Ordered 40 mg PO WITHBREAKFAST Blood Culture x2 Reflex Set [OM.PC] Stat Oth 02/24/20 20:26 Ordered Resuscitation Status Routine Resus Stat 02/24/20 23:02 Ordered Medication Orders Acetaminophen (Tylenol) 650 mg PO Q6H PRN PRN Reason: Pain (Mild 1-3)/fever Albuterol (Proventil Neb Soln) 2.5 mg NEB Q2H PRN PRN Reason: shortness of breath/wheezing Albuterol/Ipratropium (Duoneb 3.0-0.5 Mg/3 Ml) 3 ml NEB Q4H PRN PRN Reason: shortness of breath/wheezing Aspirin (Aspirin) 81 mg PO DAILY [facility] Atorvastatin Calcium (Lipitor) 80 mg PO DAILY [facility] Dextrose/Water (Dextrose 50% In Water) 25 ml IVPUSH ASDIRECTED PRN PRN Reason: Hypoglycemia Doxycycline Hyclate (Vibramycin) 100 mg PO BID [facility] Furosemide (Lasix) 20 mg PO DAILY [facility] Glucagon (Glucagen) 1 mg IM ONETIME PRN PRN Reason: Hypoglycemia Ceftriaxone Sodium 2 gm/ (Sodium Chloride) 100 mls @ 200 mls/hr IV Q24H [facility] Ibuprofen (Motrin) 600 mg PO Q6H PRN PRN Reason: Pain (mild 1-3) Metoprolol Succinate (Toprol Xl) 100 mg PO DAILY [facility] Non-Formulary Medication (Umeclidinium [place] [Incruse Ellipta*]) 62.5 mcg IH DAILY [facility] Ondansetron HCl (Zofran Odt) 4 mg PO Q6H PRN PRN Reason: nausea, able to take PO Ondansetron HCl (Zofran) 4 mg IVPUSH Q6H PRN PRN Reason: Nausea/Vomiting Prednisone (Prednisone) 40 mg PO WITHBREAKFAST COREY Stop: 02/28/20 08:01 Senna/Docusate Sodium (Senna Plus) 1 tab PO BEDTIME PRN PRN Reason: Constipation Tiotropium [place] (Spiriva Handihaler) 18 mcg INH BID [facility] Warfarin Sodium (Pharmacy To Dose - Warfarin) 1 dose .XX ASDIRECTED [facility] Assessment/Plan Comment:: #Sepsis due to pneumonia: Patient with tachycardia, fever, and tachypnea. X- ray showing infiltrate in the right middle lobe. Reports shortness of breath compared to baseline. Follow-up on cultures Start Rocephin and doxycycline Incentive spirometer #Acute COPD exacerbation: Patient with worsening shortness of breath and hypoxia on presentation. Has bilateral wheezes on auscultation. Reports cough which is unchanged from baseline. Doxycycline Prednisone Nebulized and inhaled treatments Incentive spirometer Supplemental oxygen, titrate to SPO2 of 88 to 92% #Elevated lactic acid level: Mild. Lactic acid level is 2.1 Gentle fluid resuscitation Trend lactic acid level #Diabetes mellitus Hold metformin Sliding scale insulin hypoglycemia protocol #CAD #Hypertension #Dyslipidemia Continue home medications #Atrial fibrillation: Rate controlled Continue metoprolol Warfarin, pharmacy to dose #Tobacco use disorder: Patient reports that she smokes 1 pack of cigarettes daily. Has [id number] smoking history. Smoking cessation counseling provided Patient is pre-contemplative #DVT prophylaxis: Warfarin #GI prophylaxis: Diabetic diet #CODE STATUS: Patient is DNR/DNI per her preference.
[2020-02-24] MEDS: predniSONE 20 MG Tab PO SCH (23:53)
[2020-02-24] MEDS: Doxycycline 100 MG Cap PO SCH (23:53)
[2020-02-25] MEDS ORDERED: cefTRIAXone 2 GM in Sodium Chloride 0.9% 100 ML IV SCH ×2
[2020-02-25 06:39] LABS: ANION GAP 10.6 mEq/L (7-13); CHLORIDE,CL 99 mmol/L (98-107); SODIUM,NA 137 mmol/L (136-145)
[2020-02-25 07:41] VITALS: BP 114/51; PULSE 71
[2020-02-25] MEDS: Doxycycline 100 MG Cap PO SCH (08:00)
[2020-02-25] MEDS ORDERED: Insulin Lispro 100 Units/ML 3 ML Vial SUBCUT SCH (08:00)
[2020-02-25] MEDS: predniSONE 20 MG Tab PO SCH (08:01)
[2020-02-25] MEDS ORDERED: Metoprolol Succinate 50 MG Tab.ER PO SCH (09:00)
[2020-02-25] MEDS ORDERED: Furosemide 20 MG Tab PO SCH (09:00)
[2020-02-25] MEDS ORDERED: Azithromycin 250 MG Tab PO SCH (09:00)
[2020-02-25] MEDS ORDERED: Tiotropium Inhaler 18 MCG Inhalation Powder Cap Kit of 5 INH SCH (09:00)
[2020-02-25] MEDS ORDERED: Aspirin 81 MG Tab.Chew PO SCH (09:00)
[2020-02-25] MEDS ORDERED: Non-Formulary Medication 1 Each (Umeclidinium Bromide [Incruse Ellipta*] 62.5 MCG) IH SCH (09:00)
--- NOTE | 2020-02-25 09:34 | PCM.DCSUM1 ---
Discharge Summary - Hospital Course Free Text/Narrative:: Patient is a 79-year-old female with medical history significant for COPD, dyslipidemia, atrial fibrillation, CAD and NE, and tobacco use disorder who who was admitted for sepsis due to pneumonia and COPD exacerbation. Patient was short of breath on presentation. COVID-19 screen was negative. She was started on Rocephin and Doxycycline. She was also started on nebulizer treatments and prednisone and her home COPD medications were continued.Her lactic acid was 2.1 ; came down to 1.0 with 500 cc of IVF. This morning patient reports respiratory status is at baseline. O2 was 88% on room air with ambulation with no signs or complaints of respiratory distress. She was counseled about smoking cessation but stated that she is not interested in quitting. She is discharged to continue Vantin, doxycycline, and prednisone to complete total of 5 days of treatments. She is to follow up with her PCP. HPI Initial Comments: Patient is a 79-year-old female with medical history significant for COPD, dyslipidemia, atrial fibrillation, CAD and NE, and tobacco use disorder who presented to the ED with complaints of shortness of breath. Patient reports that she was cooking yesterday when she started feeling short of breath. States that shortness of breath have persisted. States that she can barely walk across her living room without stopping to catch her breath. Reports wheezing and chronic cough which is at baseline. States that cough is intermittently productive with light yellow sputum. Reports that she is on 3 L of oxygen at bedtime. Continues to smoke 1 pack of cigarettes daily. Started smoking when she was 17 years. She reports that her lower extremities have been more swollen compared to baseline. States that she has been adhering to dietary restrictions including fluid limitation and also does not use salt with her meals. Reports that her lower extremities are always swollen and she has been using compression stockings. States that if her feet are always cold but not as cold as they are today. Has any foot pain. Denies any claudication. She denies chest pain, fevers, chills, nausea, vomiting, jaw pain, neck pain, shoulder pain, back pain, epigastric pain, diarrhea, constipation, dysuria, hematuria, headaches, vision changes, or any other new symptoms. In the ED, patient's O2 saturation was 89% on room air. Her heart rate was 93 and respiratory rate of 20. Temperature was 101.6 with blood pressure of 136/ 59. Her white count was 11.2 with hemoglobin of 14.1 and platelet count of 176. Neutrophil count was 82.4 and lymphocyte count was 8.6. Renal function showed creatinine of 0.95 with normal anion gap and bicarb of 31. Lactic acid was 2.1. Troponin was negative. Chest x-ray showed pulmonary infiltrate concerning for pneumonia. She was started on Levaquin. She has been admitted for IV antibiotics and continued nebulized and inhaled treatments. Diagnosis: Stroke: No - Discharge Data Discharge Date: 02/25/20 Discharge Disposition: Home, Self-Care 01 Condition: Stable - Referral to Home Health Primary Care Physician: PCP Unobtainable - Discharge Diagnosis/Problem(s) (1) Sepsis SNOMED Code(s): 31598081 ICD Code: A41.9 - SEPSIS, UNSPECIFIED ORGANISM Status: Acute Current Visit: Yes Qualifiers: Sepsis type: sepsis due to unspecified organism Sepsis acute organ dysfunction status: unspecified Qualified Code(s): A41.9 - Sepsis, unspecified organism (2) COPD exacerbation SNOMED Code(s): 374227977, 530515600 ICD Code: J44.1 - CHRONIC OBSTRUCTIVE PULMONARY DISEASE W (ACUTE) EXACERBATION Status: Acute Current Visit: Yes (3) Community acquired pneumonia SNOMED Code(s): 982373751 ICD Code: J18.9 - PNEUMONIA, UNSPECIFIED ORGANISM Status: Acute Priority : High Current Visit: No (4) Coronary artery disease SNOMED Code(s): 24933898 ICD Code: I25.10 - ATHSCL HEART DISEASE OF [place] CORONARY ARTERY W/O ANG PCTRS Status: Chronic Current Visit: No (5) Diabetes mellitus type 2 in obese SNOMED Code(s): 66134805 ICD Code: E11.9 - TYPE 2 DIABETES MELLITUS WITHOUT COMPLICATIONS; E66.9 - OBESITY, UNSPECIFIED Status: Chronic Current Visit: Yes (6) Essential hypertension SNOMED Code(s): 40379347 ICD Code: I10 - ESSENTIAL (PRIMARY) HYPERTENSION Status: Chronic Current Visit: No (7) Suspected COVID-19 virus infection SNOMED Code(s): 389783641 ICD Code: Z20.828 - CONTACT W AND EXPOSURE TO OTH VIRAL COMMUNICABLE DISEASES Status: Acute Current Visit: Yes - Discharge Plan *PRESCRIPTION DRUG MONITORING PROGRAM REVIEWED*: No *COPY OF PRESCRIPTION DRUG MONITORING REPORT IN PATIENT BART: No Prescriptions/Med Rec: Cefpodoxime [Vantin] 200 mg PO BID #8 tablet Doxycycline [Vibramycin] 100 mg PO BID #8 cap predniSONE 40 mg PO WITHBREAKFAST #6 tablet Home Medications: Home Meds Aspirin [Michael Chewable Aspirin] 81 mg PO DAILY 09/03/16 [History] Budesonide/Formoterol Fumarate [Symbicort 80-4.5 MCG] 160 mg INH BEDTIME [History] Docusate Calcium [Stool Softener] 240 mg PO BEDTIME 09/03/16 [History] Metoprolol Succinate [Toprol XL 50mg] 100 mg PO DAILY 09/03/16 [History] Tiotropium [Spiriva HandiHaler] 18 mcg INH BID 09/03/16 [History] atorvaSTATin [Lipitor] 80 mg PO BEDTIME 09/03/16 [History] metFORMIN HCl [Metformin HCl] 500 mg PO DAILY 09/03/16 [History] Warfarin [Coumadin] 5 mg PO ASDIRECTED 04/18/17 [History] Furosemide 20 mg PO DAILY 02/24/20 [History] Umeclidinium [place] [Incruse Ellipta*] 62.5 mcg IH DAILY 02/24/20 [History] Cefpodoxime [Vantin] 200 mg PO BID #8 tablet 02/25/20 [Rx] Doxycycline [Vibramycin] 100 mg PO BID #8 cap 02/25/20 [Rx] Warfarin [Coumadin] 2.5 mg PO ASDIRECTED 02/25/20 [History] predniSONE 40 mg PO WITHBREAKFAST #6 tablet 02/25/20 [Rx] Patient Handouts: Community-Acquired Pneumonia, Adult, [id number] Referrals: Shabbir Brooks MD [Physician] - - Discharge Summary/Plan Comment DC Time >30 min.: Yes - General Info Date of Service: 02/25/20 Admission Dx/Problem (Free Text: Admission Diagnosis/Problem Admission Diagnosis/Problem Pneumonia Subjective Update: No acute events overnight. Reports that respiratory status is back to baseline. Denies f/c, chest pain, n/v/d/c, dysuria, hematuria, or worsening edema. States BLE edema is the best it has been for a while and not swollen at all at this time. - Patient Data Vitals - Most Recent: Last Vital Signs Temp 97.1 F 02/25/20 07:40 Pulse 71 02/25/20 08:01 Resp 20 02/25/20 07:40 BP 114/51 L 02/25/20 08:01 Pulse Ox 95 02/25/20 07:40 Weight - Most Recent: 174 lb 14.4 oz I&O - Last 24 hours: Intake & Output 02/24/20 02/25/20 02/25/20 22:59 06:59 14:59 Intake Total 1000 Output Total 800 Balance 200 Lab Results - Last 24 hrs: Laboratory Results - last 24 hr 02/24/20 02/24/20 02/24/20 Range/Units 20:31 20:31 20:31 WBC 11.2 H (5.0-10.0) 10^3/uL RBC 4.45 (4.2-5.4) 10^6/uL Hgb 14.1 (12.0-16.0) g/dL Hct 42.9 (37.0-47.0) % MCV 96.4 (80-100) fL MCH 31.7 (27.0-34.0) pg MCHC 32.9 L (33.0-35.0) g/dL Plt Count 176 (150-450) 10^3/uL Neut % (Auto) 82.4 H (42.2-75.2) % Lymph % (Auto) 8.6 L (20.5-50.1) % [place] % (Auto) 8.0 (2-8) % Eos % (Auto) 0.8 L (1.0-3.0) % Baso % (Auto) 0.2 (0.0-1.0) % PT 27.8 H (9.0-12.0) SEC INR 3.0 H (0.9-1.2) Sodium 136 (136-145) mmol/L Potassium 4.1 (3.5-5.1) mmol/L Chloride 98 (98-107) mmol/L Carbon Dioxide 31 (21-32) mmol/L Anion Gap 11.1 (7-13) mEq/L BUN 14 (7-18) mg/dL Creatinine 0.95 (0.55-1.02) mg/dL Est Cr Clr Drug Dosing 41.46 mL/min Estimated GFR (MDRD) 57 BUN/Creatinine Ratio 14.7 (No establ ref range) Glucose 135 H (74-99) mg/dL Lactic Acid (0.4-2.0) mmol/L Calcium 9.4 (8.5-10.1) mg/dL Total Bilirubin 0.5 (0.2-1.0) mg/dL AST 22 (15-37) U/L ALT 25 (14-59) U/L Alkaline Phosphatase 124 H (46-116) U/L Troponin I < 0.017 (0.000-0.056) ng/mL B-Natriuretic Peptide 219 H (0-100) pg/ml Total Protein 7.3 (6.4-8.2) g/dL Albumin 3.3 L (3.4-5.0) g/dL Globulin 4.0 Albumin/Globulin Ratio 0.83 Urine Color (YELLOW) Urine Appearance (CLEAR) Urine pH (5.0-9.0) Ur Specific [place] (1.005-1.030) Urine Protein (NEGATIVE) Urine Glucose (UA) (NEGATIVE) Urine Ketones (NEGATIVE) Urine Occult Blood (NEGATIVE) Urine Nitrite (NEGATIVE) Urine Bilirubin (NEGATIVE) Urine Urobilinogen (0.2-1.0) mg/dL Ur Leukocyte Esterase (NEGATIVE) SARS-CoV-2 RNA (RT-PCR) (NEGATIVE) 02/24/20 02/24/20 02/24/20 Range/Units 20:31 21:22 21:59 WBC (5.0-10.0) 10^3/uL RBC (4.2-5.4) 10^6/uL Hgb (12.0-16.0) g/dL Hct (37.0-47.0) % MCV (80-100) fL MCH (27.0-34.0) pg MCHC (33.0-35.0) g/dL Plt Count (150-450) 10^3/uL Neut % (Auto) (42.2-75.2) % Lymph % (Auto) (20.5-50.1) % [place] % (Auto) (2-8) % Eos % (Auto) (1.0-3.0) % Baso % (Auto) (0.0-1.0) % PT (9.0-12.0) SEC INR (0.9-1.2) Sodium (136-145) mmol/L Potassium (3.5-5.1) mmol/L Chloride (98-107) mmol/L Carbon Dioxide (21-32) mmol/L Anion Gap (7-13) mEq/L BUN (7-18) mg/dL Creatinine (0.55-1.02) mg/dL Est Cr Clr Drug Dosing mL/min Estimated GFR (MDRD) BUN/Creatinine Ratio (No establ ref range) Glucose (74-99) mg/dL Lactic Acid 2.1 H* (0.4-2.0) mmol/L Calcium (8.5-10.1) mg/dL Total Bilirubin (0.2-1.0) mg/dL AST (15-37) U/L ALT (14-59) U/L Alkaline Phosphatase (46-116) U/L Troponin I (0.000-0.056) ng/mL B-Natriuretic Peptide (0-100) pg/ml Total Protein (6.4-8.2) g/dL Albumin (3.4-5.0) g/dL Globulin Albumin/Globulin Ratio Urine Color Yellow (YELLOW) Urine Appearance Clear (CLEAR) Urine pH 5.5 (5.0-9.0) Ur Specific [place] >= 1.030 (1.005-1.030) Urine Protein Negative (NEGATIVE) Urine Glucose (UA) Negative (NEGATIVE) Urine Ketones Trace H (NEGATIVE) Urine Occult Blood Negative (NEGATIVE) Urine Nitrite Negative (NEGATIVE) Urine Bilirubin Negative (NEGATIVE) Urine Urobilinogen 0.2 (0.2-1.0) mg/dL Ur Leukocyte Esterase Negative (NEGATIVE) SARS-CoV-2 RNA (RT-PCR) Negative (NEGATIVE) 02/25/20 02/25/20 02/25/20 Range/Units 02:10 06:05 06:05 WBC 8.7 (5.0-10.0) 10^3/uL RBC 3.95 L (4.2-5.4) 10^6/uL Hgb 12.5 D (12.0-16.0) g/dL Hct 38.4 (37.0-47.0) % MCV 97.2 (80-100) fL MCH 31.6 (27.0-34.0) pg MCHC 32.6 L (33.0-35.0) g/dL Plt Count 147 L (150-450) 10^3/uL Neut % (Auto) (42.2-75.2) % Lymph % (Auto) (20.5-50.1) % [place] % (Auto) (2-8) % Eos % (Auto) (1.0-3.0) % Baso % (Auto) (0.0-1.0) % PT (9.0-12.0) SEC INR (0.9-1.2) Sodium 137 (136-145) mmol/L Potassium 4.6 (3.5-5.1) mmol/L Chloride 99 (98-107) mmol/L Carbon Dioxide 32 (21-32) mmol/L Anion Gap 10.6 (7-13) mEq/L BUN 14 (7-18) mg/dL Creatinine 0.86 (0.55-1.02) mg/dL Est Cr Clr Drug Dosing 43.88 mL/min Estimated GFR (MDRD) > 60 BUN/Creatinine Ratio (No establ ref range) Glucose 165 H (74-99) mg/dL Lactic Acid 1.0 (0.4-2.0) mmol/L Calcium 9.0 (8.5-10.1) mg/dL Total Bilirubin (0.2-1.0) mg/dL AST (15-37) U/L ALT (14-59) U/L Alkaline Phosphatase (46-116) U/L Troponin I (0.000-0.056) ng/mL B-Natriuretic Peptide (0-100) pg/ml Total Protein (6.4-8.2) g/dL Albumin (3.4-5.0) g/dL Globulin Albumin/Globulin Ratio Urine Color (YELLOW) Urine Appearance (CLEAR) Urine pH (5.0-9.0) Ur Specific [place] (1.005-1.030) Urine Protein (NEGATIVE) Urine Glucose (UA) (NEGATIVE) Urine Ketones (NEGATIVE) Urine Occult Blood (NEGATIVE) Urine Nitrite (NEGATIVE) Urine Bilirubin (NEGATIVE) Urine Urobilinogen (0.2-1.0) mg/dL Ur Leukocyte Esterase (NEGATIVE) SARS-CoV-2 RNA (RT-PCR) (NEGATIVE) 02/25/20 Range/Units 06:05 WBC (5.0-10.0) 10^3/uL RBC (4.2-5.4) 10^6/uL Hgb (12.0-16.0) g/dL Hct (37.0-47.0) % MCV (80-100) fL MCH (27.0-34.0) pg MCHC (33.0-35.0) g/dL Plt Count (150-450) 10^3/uL Neut % (Auto) (42.2-75.2) % Lymph % (Auto) (20.5-50.1) % [place] % (Auto) (2-8) % Eos % (Auto) (1.0-3.0) % Baso % (Auto) (0.0-1.0) % PT 27.4 H (9.0-12.0) SEC INR 2.9 H (0.9-1.2) Sodium (136-145) mmol/L Potassium (3.5-5.1) mmol/L Chloride (98-107) mmol/L Carbon Dioxide (21-32) mmol/L Anion Gap (7-13) mEq/L BUN (7-18) mg/dL Creatinine (0.55-1.02) mg/dL Est Cr Clr Drug Dosing mL/min Estimated GFR (MDRD) BUN/Creatinine Ratio (No establ ref range) Glucose (74-99) mg/dL Lactic Acid (0.4-2.0) mmol/L Calcium (8.5-10.1) mg/dL Total Bilirubin (0.2-1.0) mg/dL AST (15-37) U/L ALT (14-59) U/L Alkaline Phosphatase (46-116) U/L Troponin I (0.000-0.056) ng/mL B-Natriuretic Peptide (0-100) pg/ml Total Protein (6.4-8.2) g/dL Albumin (3.4-5.0) g/dL Globulin Albumin/Globulin Ratio Urine Color (YELLOW) Urine Appearance (CLEAR) Urine pH (5.0-9.0) Ur Specific [place] (1.005-1.030) Urine Protein (NEGATIVE) Urine Glucose (UA) (NEGATIVE) Urine Ketones (NEGATIVE) Urine Occult Blood (NEGATIVE) Urine Nitrite (NEGATIVE) Urine Bilirubin (NEGATIVE) Urine Urobilinogen (0.2-1.0) mg/dL Ur Leukocyte Esterase (NEGATIVE) SARS-CoV-2 RNA (RT-PCR) (NEGATIVE) Med Orders - Current: Current Medications Acetaminophen (Tylenol) 650 mg PO Q6H PRN PRN Reason: Pain (Mild 1-3)/fever Albuterol (Proventil Neb Soln) 2.5 mg NEB Q2H PRN PRN Reason: shortness of breath/wheezing Albuterol/Ipratropium (Duoneb 3.0-0.5 Mg/3 Ml) 3 ml NEB Q4H PRN PRN Reason: shortness of breath/wheezing Aspirin (Aspirin) 81 mg PO DAILY [facility] Last Admin: 02/25/20 08:00 Dose: 81 mg Atorvastatin Calcium (Lipitor) 80 mg PO BEDTIME [facility] Dextrose/Water (Dextrose 50% In Water) 25 ml IVPUSH ASDIRECTED PRN PRN Reason: Hypoglycemia Doxycycline Hyclate (Vibramycin) 100 mg PO BID [facility] Last Admin: 02/25/20 08:00 Dose: 100 mg Furosemide (Lasix) 20 mg PO DAILY [facility] Last Admin: 02/25/20 08:00 Dose: 20 mg Glucagon (Glucagen) 1 mg IM ONETIME PRN PRN Reason: Hypoglycemia Ceftriaxone Sodium 2 gm/ (Sodium Chloride) 100 mls @ 200 mls/hr IV Q24H [facility] Last Admin: 02/24/20 23:52 Dose: 200 mls/hr Ibuprofen (Motrin) 600 mg PO Q6H PRN PRN Reason: Pain (mild 1-3) Insulin Human Lispro (Humalog) 0 unit SUBCUT WITHMEALSANDBED [facility]; Protocol Last Admin: 02/25/20 07:56 Dose: Not Given Metoprolol Succinate (Toprol Xl) 100 mg PO DAILY [facility] Last Admin: 02/25/20 08:01 Dose: 100 mg Non-Formulary Medication (Umeclidinium [place] [Incruse Ellipta*]) 62.5 mcg IH DAILY [facility] Ondansetron HCl (Zofran Odt) 4 mg PO Q6H PRN PRN Reason: nausea, able to take PO Ondansetron HCl (Zofran) 4 mg IVPUSH Q6H PRN PRN Reason: Nausea/Vomiting Prednisone (Prednisone) 40 mg PO WITHBREAKFAST [facility] Stop: 02/28/20 08:01 Last Admin: 02/25/20 08:01 Dose: 40 mg Senna/Docusate Sodium (Senna Plus) 1 tab PO BEDTIME PRN PRN Reason: Constipation Tiotropium [place] (Spiriva Handihaler) 18 mcg INH BID [facility] Warfarin Sodium (Pharmacy To Dose - Warfarin) 1 dose .XX ASDIRECTED [facility] Discontinued Medications Azithromycin (Zithromax) 250 mg PO DAILY [facility] Levofloxacin/Dextrose 500 mg/ (Premix) 100 mls @ 100 mls/hr IV ONETIME ONE Stop: 02/24/20 22:50 Last Admin: 02/24/20 22:09 Dose: 100 mls/hr Sodium Chloride (Normal Saline) 500 mls @ 100 mls/hr IV ONETIME ONE Stop: 02/25/20 04:44 Last Admin: 02/25/20 00:08 Dose: 100 mls/hr Warfarin Sodium (Coumadin) 2.5 mg PO ONETIME ONE Stop: 02/24/20 23:46 Last Admin: 02/25/20 00:05 Dose: 2.5 mg - Exam General: Reports: Alert, Oriented, Cooperative, No Acute Distress HEENT: Reports: Pupils Equal, Pupils Reactive, Mucous Membr. Moist/Hunt Lungs: Reports: Wheezing (Improved compared to last night.) Cardiovascular: Reports: Regular Rate, No Murmurs, Irregular Rhythm GI/Abdominal Exam: Normal Bowel Sounds, Soft, Non-Tender, No Distention Extremities: Pedal Edema (1+; chronic stasis changes. )
[2020-02-25] MEDS ORDERED: Warfarin 2.5 MG Tab PO ONE (14:00)
[2020-02-25] MEDS ORDERED: atorvaSTATin 20 MG Tab PO SCH (21:00)
== END 2020-02-25 11:00 | disposition home or self-care (01) | DRG 871 ==
LOC: DL.ED 20:18 → DL.MS 22:32
PROVIDERS: ADMIT Internal Medicine; ATTEND Internal Medicine
DX: A41.9 Sepsis, unspecified organism (principal); J18.9 Pneumonia, unspecified organism; J44.1 Chronic obstructive pulmonary disease with (acute) exacerbation; J44.0 Chronic obstructive pulmonary disease with (acute) lower respiratory infection; E78.5 Hyperlipidemia, unspecified; I48.91 Unspecified atrial fibrillation; R09.02 Hypoxemia; Z20.828 Contact with and (suspected) exposure to other viral communicable diseases; Z66 Do not resuscitate; I25.10 Atherosclerotic heart disease of native coronary artery without angina pectoris; I11.0 Hypertensive heart disease with heart failure; F17.210 Nicotine dependence, cigarettes, uncomplicated; E66.9 Obesity, unspecified; H54.7 Unspecified visual loss; I50.9 Heart failure, unspecified; E78.00 Pure hypercholesterolemia, unspecified; F17.200 Nicotine dependence, unspecified, uncomplicated; Z86.14 Personal history of Methicillin resistant Staphylococcus aureus infection; G89.29 Other chronic pain; M54.9 Dorsalgia, unspecified; E11.9 Type 2 diabetes mellitus without complications; Z79.84 Long term (current) use of oral hypoglycemic drugs; Z79.82 Long term (current) use of aspirin; Z79.01 Long term (current) use of anticoagulants; Z99.81 Dependence on supplemental oxygen; I25.2 Old myocardial infarction; Z79.899 Other long term (current) drug therapy; Z95.5 Presence of coronary angioplasty implant and graft; Z87.440 Personal history of urinary (tract) infections; Z98.49 Cataract extraction status, unspecified eye; Z68.31 Body mass index [BMI] 31.0-31.9, adult; Z88.0 Allergy status to penicillin; Z71.6 Tobacco abuse counseling
CPT/HCPCS: 36415; 71045; 80053; 81003; 83605; 83880; 84484; 85025; 85610; 87040; 93005; J1956; U0002; 80048; 82962; 85027; 96365; 99285-25; A9270-GY; J0696; J7040; J7050; J7512

== ENCOUNTER 2021-06-29 09:54 | Inpatient (IN) | payer MEDICARE, OTHER ==
--- NOTE | 2021-06-29 10:21 | CT ---
PROCEDURE INFORMATION: Exam: CT Head Without Contrast Exam date and time: 06/29/2021 10:00 AM Age: 80 years old Clinical indication: Altered mental status/memory loss; Confusion or disorientation; Additional info: Possible stroke TECHNIQUE: Imaging protocol: Computed tomography of the head without contrast. Radiation optimization: All CT scans at this facility use at least one of these dose optimization techniques: automated exposure control; mA and/or kV adjustment per patient size (includes targeted exams where dose is matched to clinical indication); or iterative reconstruction. Other technique: STROKE PROTOCOL was implemented. COMPARISON: No relevant prior studies available. FINDINGS: Brain: There is no acute intracranial hemorrhage. There is lucency in the cerebral white matter, likely microvascular disease although non-specific. [place] white differentiation is intact. There are no extra-axial fluid collections. No evidence of mass. There is no mass effect or midline shift. Cerebral ventricles: The ventricles and sulci are enlarged, consistent with age related volume loss / atrophy. No hydrocephalus. Paranasal sinuses: There is minimal fluid in left posterior ethmoid air cell. Mastoid air cells: No significant mastoid effusion. Vasculature: There is vascular calcification. Bones/joints: No acute fracture. Soft tissues: Unremarkable as visualized. IMPRESSION: 1. No evidence of acute intracranial abnormality. No evidence of acute infarction, hemorrhage, or mass. 2. Atrophy and microvascular disease. 3. Other findings as described. ASSESSMENT: ASPECTS ([place] Stroke Program Early CT Score) is 10.
--- NOTE | 2021-06-29 10:28 | EDM.PDOC ---
"ED HPI GENERAL MEDICAL PROBLEM - General Source of Information: Reports: Patient, EMS History Limitations: Reports: Altered Mental Status - History of Present Illness Onset: Unknown/Unsure Location: Reports: Generalized - General Stated Complaint: STROKE CODE Time Seen by Provider: 06/29/21 10:10 - History of Present Illness INITIAL COMMENTS - FREE TEXT/NARRATIVE: 80 y/o F brought in by ems for ams and possible stroke. Family reports pt was diagnosed with covid recently but is out of the quarantine window. We called [facility] and found that the pt was diagnosed with covid on the of this month and still requires isolation precautions and contact precautions. Family states last normal was last night and that pt has been confused all morning. EMS reports pt seems confused has slurred speech and ramirez not follow commands. Hx of afib and is normally on coumadin but it was stopped for an unknown duration for an unknown reason and was restarted yesterday. Hx of CAD, CHF, COPD, Type II diabetes. A full HPI cannot be completed due to pts confusion. (Kashif King) - Related Data Allergies Allergy/AdvReac Type Severity Reaction Status Date / Time Penicillins Allergy Severe Hives Verified 06/22/21 13:06 Home Meds: Home Meds Aspirin [Michael Chewable Aspirin] 81 mg PO DAILY 09/03/16 [History] Docusate Calcium [Stool Softener] 240 mg PO BEDTIME 09/03/16 [History] Metoprolol Succinate [Toprol XL 50mg] 100 mg PO DAILY 09/03/16 [History] atorvaSTATin [Lipitor] 80 mg PO BEDTIME 09/03/16 [History] metFORMIN HCl [Metformin HCl] 500 mg PO DAILY 09/03/16 [History] Furosemide 20 mg PO DAILY 02/24/20 [History] Warfarin [Coumadin] 2.5 - 5 mg PO ASDIRECTED 02/25/20 [History] predniSONE 40 mg PO WITHBREAKFAST #6 tablet 02/25/20 [Rx] Azithromycin 250 mg PO DAILY 01/08/21 [History] Budesonide/Glycopyr/Formoterol [Breztri Aerosphere Inhaler] 1 device INH BID 06/22/21 [History] Past Medical History HEENT History: Reports: Hard of Hearing, Impaired Vision Cardiovascular History: Reports: Afib, Heart Failure, High Cholesterol, NC, Stents Respiratory History: Reports: Asthma, Bronchitis, Recurrent, COPD, Other (See Below) Other Respiratory History: Covid 19, Sept 2020 Gastrointestinal History: Reports: Chronic Constipation, Hemorrhoids Genitourinary History: Reports: UTI, Recurrent [employer] DEPARTMENT History: Reports: Other [employer] DEPARTMENT History: 4 NVD Musculoskeletal History: Reports: Back Pain, Chronic Neurological History: Reports: None Psychiatric History: Reports: None Endocrine/Metabolic History: Reports: Diabetes, Type II Hematologic History: Reports: Anemia Immunologic History: Reports: None Oncologic (Cancer) History: Reports: None Dermatologic History: Reports: Cellulitis Other Dermatologic History: right leg cellulitis - Infectious Disease History Infectious Disease History: Reports: Chicken Pox, Measles, MRSA, Mumps, Novel Coronavirus - Past Surgical History HEENT Surgical History: Reports: Cataract Surgery Other HEENT Surgeries/Procedures: cataract surgery bilaterally Cardiovascular Surgical History: Reports: Coronary Artery Stent Other Cardiovascular Surgeries/Procedures: 1 stent 1998 Respiratory Surgical History: Reports: Lung Biopsies GI Surgical History: Reports: None Female Surgical History: Reports: None Endocrine Surgical History: Reports: None Neurological Surgical History: Reports: None Musculoskeletal Surgical History: Reports: None Oncologic Surgical History: Reports: None Social & Family History - Family History Family Medical History: No Pertinent Family History - Caffeine Use Caffeine Use: Reports: None ED ROS GENERAL - Review of Systems Review Of Systems: Comprehensive ROS is negative, except as noted in HPI. - Physical Exam Exam: See Below Exam Limited By: Altered Mental Status General Appearance: Other (awake and looking around, tired, confused) Eye Exam: Bilateral Eye: EOMI, PERRL Ears: Normal External Exam, Normal Canal, Hearing Grossly Normal, Normal TMs Nose: Normal Inspection, Normal Mucosa, No Blood Throat/Mouth: Other (dry oropharynx) Head Exam: Atraumatic, Normocephalic Neck: Supple, Non-Tender Respiratory/Chest: Other (course breath sounds throughout.) GI/Abdominal: Soft, Non-Tender (Female) Exam: Deferred Rectal (Female) Exam: Deferred Neuro Exam (Abbreviated): Alert Back Exam: Normal Inspection, Full Range of Motion Extremities: Normal Inspection, Normal Range of Motion, Non-Tender, Normal Capillary Refill, Pedal Edema (2+ PEDAL EDMEA) Psychiatric: Flat Affect Skin Exam: Warm, Dry, Intact #1 Interpretation EKG Date: 06/29/21 Time: 11:26 Rhythm: Other (sinus with RBBB) [place] Ari: LAD-Left [place] Ari Deviation P-Wave: Present QRS: Wide ST-T: Normal QT: Prolonged Course - Vital Signs Last Recorded V/S: Last Vital Signs Temp 98.2 F 06/29/21 10:00 Pulse 77 06/29/21 10:00 Resp 20 06/29/21 10:00 BP 104/46 L 06/29/21 10:00 Pulse Ox 88 L 06/29/21 10:00 - Orders/Labs/Meds Orders: Active Orders 24 hr Category Date Time Status Blood Glucose Check, Bedside [RC] ONETIME Care 06/29/21 10:53 Active Peripheral IV Care [RC] . DIRECTED Care 06/29/21 09:57 Active CULTURE BLOOD [BC] Stat Lab 06/29/21 10:14 Received CULTURE BLOOD [BC] Stat Lab 06/29/21 10:16 Received Azithromycin [Zithromax] 500 mg Med 06/29/21 11:59 Active Sodium Chloride 0.9% [Normal Saline (AdvBag)] 250 ml IV ONETIME Sodium Chloride 0.9% [Saline Flush] Med 06/29/21 09:57 Active 10 ml FLUSH ASDIRECTED PRN cefTRIAXone [Rocephin] 2 gm Med 06/29/21 11:58 Active Sodium Chloride 0.9% [Normal Saline] 100 ml IV ONETIME Blood Culture x2 Reflex Set [OM.PC] Stat Oth 06/29/21 10:20 Ordered Peripheral IV Insertion Adult [OM.PC] Routine Oth 06/29/21 09:56 Ordered Medication Orders Ceftriaxone Sodium 2 gm/ (Sodium Chloride) 100 mls @ 200 mls/hr IV ONETIME ONE Stop: 06/29/21 12:27 Azithromycin 500 mg/ Sodium (Chloride) 250 mls @ 250 mls/hr IV ONETIME ONE Stop: 06/29/21 12:58 Sodium Chloride (Sodium Chloride 0.9% 10 Ml Syringe) 10 ml FLUSH ASDIRECTED PRN PRN Reason: Keep Vein Open Labs: Laboratory Tests 06/29/21 06/29/21 06/29/21 Range/Units 10:14 10:14 10:14 WBC 10.9 H (5.0-10.0) 10^3/uL RBC 3.94 L (4.2-5.4) 10^6/uL Hgb 9.9 L D (12.0-16.0) g/dL Hct 32.3 L (37.0-47.0) % MCV 82.0 D (80-100) fL MCH 25.1 L (27.0-34.0) pg MCHC 30.7 L (33.0-35.0) g/dL Plt Count 261 D (150-450) 10^3/uL Neut % (Auto) 86.2 H (42.2-75.2) % Lymph % (Auto) 5.8 L (20.5-50.1) % Cotton % (Auto) 7.1 (2-8) % Eos % (Auto) 0.5 L (1.0-3.0) % Baso % (Auto) 0.4 (0.0-1.0) % PT 17.8 H D (9.0-12.0) SEC INR 1.8 H (0.9-1.2) Sodium 138 (136-145) mmol/L Potassium 3.5 (3.5-5.1) mmol/L Chloride 100 (98-107) mmol/L Carbon Dioxide 30 (21-32) mmol/L Anion Gap 11.5 (7-13) mEq/L BUN 26 H (7-18) mg/dL Creatinine 0.89 (0.55-1.02) mg/dL Est Cr Clr Drug Dosing 47.20 mL/min Estimated GFR (MDRD) > 60 BUN/Creatinine Ratio 29.2 (No establ ref range) Glucose 146 H (70-99) mg/dL POC Glucose (70-99) mg/dL Lactic Acid (0.4-2.0) mmol/L Calcium 8.7 (8.5-10.1) mg/dL Phosphorus 3.1 (2.6-4.7) mg/dL Magnesium 1.6 L (1.8-2.4) mg/dL Total Bilirubin 1.1 H (0.2-1.0) mg/dL AST 24 (15-37) U/L ALT 23 (14-59) U/L Alkaline Phosphatase 112 (46-116) U/L Ammonia (11-32) umol/L Troponin I High Sens 188 H* (<=51) pg/mL C-Reactive Protein 3.2 H (0.0-0.9) mg/dL B-Natriuretic Peptide (0-100) pg/ml Total Protein 6.6 (6.4-8.2) g/dL Albumin 2.8 L (3.4-5.0) g/dL Globulin 3.8 Albumin/Globulin Ratio 0.74 TSH, Ultra Sensitive 3.59 (0.36-3.74) uIU/mL Urine Color (YELLOW) Urine Appearance (CLEAR) Urine pH (5.0-9.0) Ur Specific [place] (1.005-1.030) Urine Protein (NEGATIVE) Urine Glucose (UA) (NEGATIVE) Urine Ketones (NEGATIVE) Urine Occult Blood (NEGATIVE) Urine Nitrite (NEGATIVE) Urine Bilirubin (NEGATIVE) Urine Urobilinogen (0.2-1.0) mg/dL Ur Leukocyte Esterase (NEGATIVE) Urine Opiates Screen (NEGATIVE) Ur Oxycodone Screen (NEGATIVE) Urine Methadone Screen (NEGATIVE) Ur Barbiturates Screen (NEGATIVE) U Tricyclic Antidepress (NEGATIVE) Ur Phencyclidine Scrn (NEGATIVE) Ur Amphetamine Screen (NEGATIVE) U Methamphetamines Scrn (NEGATIVE) Urine MDMA Screen (NEGATIVE) U Benzodiazepines Scrn (NEGATIVE) Urine Cocaine Screen (NEGATIVE) U Marijuana (THC) Screen (NEGATIVE) Ethyl Alcohol < 3 (0) mg/dL 06/29/21 06/29/21 06/29/21 Range/Units 10:14 10:14 10:14 WBC (5.0-10.0) 10^3/uL RBC (4.2-5.4) 10^6/uL Hgb (12.0-16.0) g/dL Hct (37.0-47.0) % MCV (80-100) fL MCH (27.0-34.0) pg MCHC (33.0-35.0) g/dL Plt Count (150-450) 10^3/uL Neut % (Auto) (42.2-75.2) % Lymph % (Auto) (20.5-50.1) % Cotton % (Auto) (2-8) % Eos % (Auto) (1.0-3.0) % Baso % (Auto) (0.0-1.0) % PT (9.0-12.0) SEC INR (0.9-1.2) Sodium (136-145) mmol/L Potassium (3.5-5.1) mmol/L Chloride (98-107) mmol/L Carbon Dioxide (21-32) mmol/L Anion Gap (7-13) mEq/L BUN (7-18) mg/dL Creatinine (0.55-1.02) mg/dL Est Cr Clr Drug Dosing mL/min Estimated GFR (MDRD) BUN/Creatinine Ratio (No establ ref range) Glucose (70-99) mg/dL POC Glucose (70-99) mg/dL Lactic Acid 1.5 (0.4-2.0) mmol/L Calcium (8.5-10.1) mg/dL Phosphorus (2.6-4.7) mg/dL Magnesium (1.8-2.4) mg/dL Total Bilirubin (0.2-1.0) mg/dL AST (15-37) U/L ALT (14-59) U/L Alkaline Phosphatase (46-116) U/L Ammonia < 10 L (11-32) umol/L Troponin I High Sens (<=51) pg/mL C-Reactive Protein (0.0-0.9) mg/dL B-Natriuretic Peptide 112 H (0-100) pg/ml Total Protein (6.4-8.2) g/dL Albumin (3.4-5.0) g/dL Globulin Albumin/Globulin Ratio TSH, Ultra Sensitive (0.36-3.74) uIU/mL Urine Color (YELLOW) Urine Appearance (CLEAR) Urine pH (5.0-9.0) Ur Specific [place] (1.005-1.030) Urine Protein (NEGATIVE) Urine Glucose (UA) (NEGATIVE) Urine Ketones (NEGATIVE) Urine Occult Blood (NEGATIVE) Urine Nitrite (NEGATIVE) Urine Bilirubin (NEGATIVE) Urine Urobilinogen (0.2-1.0) mg/dL Ur Leukocyte Esterase (NEGATIVE) Urine Opiates Screen (NEGATIVE) Ur Oxycodone Screen (NEGATIVE) Urine Methadone Screen (NEGATIVE) Ur Barbiturates Screen (NEGATIVE) U Tricyclic Antidepress (NEGATIVE) Ur Phencyclidine Scrn (NEGATIVE) Ur Amphetamine Screen (NEGATIVE) U Methamphetamines Scrn (NEGATIVE) Urine MDMA Screen (NEGATIVE) U Benzodiazepines Scrn (NEGATIVE) Urine Cocaine Screen (NEGATIVE) U Marijuana (THC) Screen (NEGATIVE) Ethyl Alcohol (0) mg/dL 06/29/21 06/29/21 06/29/21 Range/Units 10:15 11:15 11:15 WBC (5.0-10.0) 10^3/uL RBC (4.2-5.4) 10^6/uL Hgb (12.0-16.0) g/dL Hct (37.0-47.0) % MCV (80-100) fL MCH (27.0-34.0) pg MCHC (33.0-35.0) g/dL Plt Count (150-450) 10^3/uL Neut % (Auto) (42.2-75.2) % Lymph % (Auto) (20.5-50.1) % Cotton % (Auto) (2-8) % Eos % (Auto) (1.0-3.0) % Baso % (Auto) (0.0-1.0) % PT (9.0-12.0) SEC INR (0.9-1.2) Sodium (136-145) mmol/L Potassium (3.5-5.1) mmol/L Chloride (98-107) mmol/L Carbon Dioxide (21-32) mmol/L Anion Gap (7-13) mEq/L BUN (7-18) mg/dL Creatinine (0.55-1.02) mg/dL Est Cr Clr Drug Dosing mL/min Estimated GFR (MDRD) BUN/Creatinine Ratio (No establ ref range) Glucose (70-99) mg/dL POC Glucose 130 H (70-99) mg/dL Lactic Acid (0.4-2.0) mmol/L Calcium (8.5-10.1) mg/dL Phosphorus (2.6-4.7) mg/dL Magnesium (1.8-2.4) mg/dL Total Bilirubin (0.2-1.0) mg/dL AST (15-37) U/L ALT (14-59) U/L Alkaline Phosphatase (46-116) U/L Ammonia (11-32) umol/L Troponin I High Sens (<=51) pg/mL C-Reactive Protein (0.0-0.9) mg/dL B-Natriuretic Peptide (0-100) pg/ml Total Protein (6.4-8.2) g/dL Albumin (3.4-5.0) g/dL Globulin Albumin/Globulin Ratio TSH, Ultra Sensitive (0.36-3.74) uIU/mL Urine Color Yellow (YELLOW) Urine Appearance Clear (CLEAR) Urine pH 6.0 (5.0-9.0) Ur Specific [place] 1.015 (1.005-1.030) Urine Protein Negative (NEGATIVE) Urine Glucose (UA) Negative (NEGATIVE) Urine Ketones Negative (NEGATIVE) Urine Occult Blood Negative (NEGATIVE) Urine Nitrite Negative (NEGATIVE) Urine Bilirubin Negative (NEGATIVE) Urine Urobilinogen 0.2 (0.2-1.0) mg/dL Ur Leukocyte Esterase Negative (NEGATIVE) Urine Opiates Screen Negative (NEGATIVE) Ur Oxycodone Screen Negative (NEGATIVE) Urine Methadone Screen Negative (NEGATIVE) Ur Barbiturates Screen Negative (NEGATIVE) U Tricyclic Antidepress Negative (NEGATIVE) Ur Phencyclidine Scrn Negative (NEGATIVE) Ur Amphetamine Screen Negative (NEGATIVE) U Methamphetamines Scrn Negative (NEGATIVE) Urine MDMA Screen Negative (NEGATIVE) U Benzodiazepines Scrn Negative (NEGATIVE) Urine Cocaine Screen Negative (NEGATIVE) U Marijuana (THC) Screen Negative (NEGATIVE) Ethyl Alcohol (0) mg/dL Meds: Medications Generic Name Dose Route Start Last Admin Trade Name Freq PRN Reason Stop Dose Admin Ceftriaxone Sodium 2 gm/ 100 mls @ 200 mls/hr 06/29/21 11:58 Sodium Chloride IV 06/29/21 12:27 ONETIME ONE Azithromycin 500 mg/ Sodium 250 mls @ 250 mls/hr 06/29/21 11:59 Chloride IV 06/29/21 12:58 ONETIME ONE Sodium Chloride 10 ml 06/29/21 09:57 Sodium Chloride 0.9% 10 Ml Syringe FLUSH ASDIRECTED PRN Keep Vein Open - Radiology Interpretation Free Text/Narrative:: [facility] [place] - [facility] Final Radiology Report Call: [phone] assistance Online chat: [email or web address] Name: SOFIA KRAUS Age: 80Years F Date: 06/29/2021 SSN: -- : [id number] Study: CT HEAD WO CONT Requesting Physician: Kashif King Images: 144 Addl Studies: Provided Clinical History: possible stroke Contrast: Without Contrast Medium: Contrast Amount: Contrast Method: Page 1 of 2 PROCEDURE INFORMATION: Exam: CT Head Without Contrast Exam date and time: 06/29/2021 10:00 AM Age: 80 years old Clinical indication: Altered mental status/memory loss; Confusion or disorientation; Additional info: Possible stroke TECHNIQUE: Imaging protocol: Computed tomography of the head without contrast. Radiation optimization: All CT scans at this facility use at least one of these dose optimization techniques: automated exposure control; mA and/or kV adjustment per patient size (includes targeted exams where dose is matched to clinical indication); or iterative reconstruction. Other technique: STROKE PROTOCOL was implemented. COMPARISON: No relevant prior studies available. FINDINGS: Brain: There is no acute intracranial hemorrhage. There is lucency in the cerebral white matter, likely microvascular disease although non-specific. Espinoza white differentiation is intact. There are no extraaxial fluid collections. No evidence of mass. There is no mass effect or midline shift. Cerebral ventricles: The ventricles and sulci are enlarged, consistent with age related volume loss / atrophy. No hydrocephalus. Paranasal sinuses: There is minimal fluid in left posterior ethmoid air cell. Mastoid air cells: No significant mastoid effusion. Vasculature: There is vascular calcification. Bones/joints: No acute fracture. Soft tissues: Unremarkable as visualized. IMPRESSION: SOFIA KRAUS | Final Radiology Report CONFIDENTIALITY STATEMENT This report is intended only for use by the referring physician, and only in accordance with law. If you received this in error, call [phone]. Page 2 of 2 1. No evidence of acute intracranial abnormality. No evidence of acute infarction, hemorrhage, or mass. 2. Atrophy and microvascular disease. 3. Other findings as described. ASSESSMENT: ASPECTS ([place] Stroke Program Early CT Score) is 10. Thank you for allowing us to participate in the care of your patient. Dictated and Authenticated by: Betty Shane MD 06/29/2021 10:21 AM Central Time ([place] & [place]) [facility] [place] [facility] Final Radiology Report Call: [phone] assistance Online chat: [email or web address] Name: SOFIA KRAUS Age: 80Years F Date: 06/29/2021 SSN: -- : [id number] Study: CR CHEST 1V FRONTAL Requesting Physician: Kashif King Images: 1 Addl Studies: Provided Clinical History: hypoxic, confused, course breath sounds Contrast: Contrast Medium: Contrast Amount: Contrast Method: CONFIDENTIALITY STATEMENT This report is intended only for use by the referring physician, and only in accordance with law. If you received this in error, call [phone]. Page 1 of 1 PROCEDURE INFORMATION: Exam: XR Chest Exam date and time: 06/29/2021 10:40 AM Age: 80 years old Clinical indication: Other: Hypoxia; Additional info: Hypoxic, confused, course breath sounds TECHNIQUE: Imaging protocol: XR of the chest. Views: 1 view. COMPARISON: CR Chest 1V Frontal 02/24/2020 8:57 PM FINDINGS: Lungs: There are patchy opacities concerning for pneumonia in left mid to lower chest possibly small amount in right lung base. Pleural spaces: Unremarkable. No pleural effusion. No pneumothorax. Heart/Mediastinum: Cardiac silhouette is stable and borderline prominent. Vasculature: Aorta is calcified. Bones/joints: No acute finding. IMPRESSION: Findings concerning for pneumonia. Thank you for allowing us to participate in the care of your patient. Dictated and Authenticated by: Betty Shane MD 06/29/2021 10:48 AM Central Time ([place] & [place]) (John Morales) - Re-Assessments/Exams Free Text/Narrative Re-Assessment/Exam: 06/29/21 12:00 06/29/21 12:[address] Kurtz and he accepted the pt for admission into the hospital. (Kashif King) Departure - Departure Time of Disposition: 12:18 (Dr. Kurtz) Condition: Poor - Discharge Information *PRESCRIPTION DRUG MONITORING PROGRAM REVIEWED*: Not Applicable *COPY OF PRESCRIPTION DRUG MONITORING REPORT IN PATIENT BART: Not Applicable - Departure Disposition: Admitted As Inpatient 66 Clinical Impression: Pneumonia due to COVID-19 virus, Hypoxia Altered mental state Qualifiers: Altered mental status type: unspecified Qualified Code(s): R41.82 - Altered mental status, unspecified Sepsis Event Note (ED) - Focused Exam Vital Signs: Vital Signs Temp Pulse Resp BP Pulse Ox 06/29/21 10:00 98.2 F 77 20 104/46 L 88 L - My Orders Last 24 Hours: My Active Orders 06/29/21 09:56 Peripheral IV Insertion Adult [OM.PC] Routine 06/29/21 09:57 Peripheral IV Care [RC] . DIRECTED Sodium Chloride 0.9% [Saline Flush] 10 ml FLUSH ASDIRECTED PRN 06/29/21 10:14 CULTURE BLOOD [BC] Stat 06/29/21 10:16 CULTURE BLOOD [BC] Stat 06/29/21 10:20 Blood Culture x2 Reflex Set [OM.PC] Stat 06/29/21 11:58 cefTRIAXone [Rocephin] 2 gm Sodium Chloride 0.9% [Normal Saline] 100 ml IV ONETIME 06/29/21 11:59 Azithromycin [Zithromax] 500 mg Sodium Chloride 0.9% [Normal Saline (AdvBag)] 250 ml IV ONETIME - Assessment/Plan Last 24 Hours: My Active Orders 06/29/21 09:56 Peripheral IV Insertion Adult [OM.PC] Routine 06/29/21 09:57 Peripheral IV Care [RC] . DIRECTED Sodium Chloride 0.9% [Saline Flush] 10 ml FLUSH ASDIRECTED PRN 06/29/21 10:14 CULTURE BLOOD [BC] Stat 06/29/21 10:16 CULTURE BLOOD [BC] Stat 06/29/21 10:20 Blood Culture x2 Reflex Set [OM.PC] Stat 06/29/21 11:58 cefTRIAXone [Rocephin] 2 gm Sodium Chloride 0.9% [Normal Saline] 100 ml IV ONETIME 06/29/21 11:59 Azithromycin [Zithromax] 500 mg Sodium Chloride 0.9% [Normal Saline (AdvBag)] 250 ml IV ONETIME"
--- NOTE | 2021-06-29 10:49 | CR ---
PROCEDURE INFORMATION: Exam: XR Chest Exam date and time: 06/29/2021 10:40 AM Age: 80 years old Clinical indication: Other: Hypoxia; Additional info: Hypoxic, confused, course breath sounds TECHNIQUE: Imaging protocol: XR of the chest. Views: 1 view. COMPARISON: CR Chest 1V Frontal 02/24/2020 8:57 PM FINDINGS: Lungs: There are patchy opacities concerning for pneumonia in left mid to lower chest possibly small amount in right lung base. Pleural spaces: Unremarkable. No pleural effusion. No pneumothorax. Heart/Mediastinum: Cardiac silhouette is stable and borderline prominent. Vasculature: Aorta is calcified. Bones/joints: No acute finding. IMPRESSION: Findings concerning for pneumonia.
[2021-06-29 10:51] LABS: ANION GAP 11.5 mEq/L (7-13); CHLORIDE,CL 100 mmol/L (98-107); SODIUM,NA 138 mmol/L (136-145)
[2021-06-29 11:30] LABS: AMPHETAMINES,URINE NEGATIVE (NEGATIVE); BARBITURATES,URINE NEGATIVE (NEGATIVE); BENZODIAZEPINE,URINE NEGATIVE (NEGATIVE); MDMA (ECSTASY), URINE NEGATIVE (NEGATIVE); METHADONE,URINE NEGATIVE (NEGATIVE); METHAMPHETAMINES,URINE NEGATIVE (NEGATIVE); OPIATES,URINE NEGATIVE (NEGATIVE); OXYCODONE,URINE NEGATIVE (NEGATIVE); PHENCYCLIDINE,URINE NEGATIVE (NEGATIVE); TCA,URINE NEGATIVE (NEGATIVE)
[2021-06-29] MEDS ORDERED: cefTRIAXone 2 GM in Sodium Chloride 0.9% 100 ML IV ONE (11:58)
[2021-06-29] MEDS ORDERED: Azithromycin 500 MG in Sodium Chloride 0.9% 250 ML IV ONE (11:59)
[2021-06-29] MEDS: Sodium Chloride 0.9% 10 ML Syringe FLUSH PRN (12:26)
--- NOTE | 2021-06-29 12:37 | PCM.HP ---
H&P History of Present Illness - General Date of Service: 06/29/21 Admit Problem/Dx: Admission Diagnosis/Problem Admission Diagnosis/Problem Pneumonia Source of Information: Patient, Family History Limitations: Reports: Altered Mental Status - History of Present Illness Initial Comments - Free Text/Narative: Patient is an 80-year-old female with past medical history of COPD on chronic 2 L home O2, CHF with most recent TTE in 2017 showing 45 to 50% EF, history of CAD, history atrial fibrillation on chronic anticoagulation with warfarin, history of type 2 diabetes mellitus not on insulin therapy, recent diagnosis of COVID-19 on 06-21-21 who presented with altered mental status. History is obtained through patient, ER physician, EMS and family. Patient had been diagnosed with COVID-19 on 06-21-21. Per reports patient received monoclonal antibody treatments on 06-22-21. Patient apparently was in her usual state of health last evening but this morning she was found to have difficulty with cognition, difficulty speaking and was transferred to the emergency department f or for evaluation. In the emergency department patient was hemodynamically stable with the exception of increased oxygen requirements requiring 3 to 4 L to maintain 90%. Laboratory studies included sodium 138, potassium 3.5, creatinine 0.89, hemoglobin 9.9, white count 10.9, platelet count 261. INR 1.8. AST 24, ALT 23, high-sensitivity troponin I 88, BMP 112, TSH 2.59, urinalysis showed no concerning findings, talk screen was negative. Lactic acid was 1.5. Head CT showed no acute findings. Chest x-ray showed patchy infiltrates in the left lower lobe and also minimal in the right lobe. Given the patient's increasing oxygen requirements, altered mental status and significant findings on chest x- ray decision made to admit patient. When I saw patient she is resting on exam bed in mild distress. Patient is alert, follows commands appropriately. Patient has difficulty with orientation questions and keeps repeating that "I am at Covid ". When I asked patient specific questions including if she at home she does answer appropriately yes and no. Patient does indicate that she is having difficulty breathing. Patient denies any fevers or chills, headaches, vision changes. Patient has any chest pain or pressures, abdominal pain, nausea or vomiting. Patient cannot tell me her medications or past medical history. Back Pain Score (Numeric/FACES): 5 - Related Data Allergies/Adverse Reactions: Allergies Allergy/AdvReac Type Severity Reaction Status Date / Time Penicillins Allergy Severe Hives Verified 06/22/21 13:06 Home Medications: Home Meds Docusate Calcium [Stool Softener] 240 mg PO BEDTIME 09/03/16 [History] atorvaSTATin [Lipitor] 80 mg PO BEDTIME 09/03/16 [History] metFORMIN HCl [Metformin HCl] 500 mg PO DAILY 09/03/16 [History] Furosemide 20 mg PO DAILY 02/24/20 [History] Azithromycin 250 mg PO DAILY 01/08/21 [History] Budesonide/Glycopyr/Formoterol [Breztri Aerosphere Inhaler] 1 device INH BID 06/22/21 [History] Albuterol Sulfate [Albuterol Sulfate Hfa] 2 puff INH Q4H PRN 06/29/21 [History] Doxycycline Hyclate 100 mg PO BID 06/29/21 [History] Metoprolol Succinate [Toprol XL 100mg] 100 mg PO DAILY 06/29/21 [History] Warfarin Sodium [Jantoven] 2.5 mg PO DAILY 06/29/21 [History] methylPREDNISolone [Methylprednisolone] 8 mg PO DAILY 06/29/21 [History] Past Medical History HEENT History: Reports: Hard of Hearing, Impaired Vision Cardiovascular History: Reports: Afib, Heart Failure, High Cholesterol, NC, Stents Respiratory History: Reports: Asthma, Bronchitis, Recurrent, COPD, Other (See Below) Other Respiratory History: Covid , Jun 20, 2021 Gastrointestinal History: Reports: Chronic Constipation, Hemorrhoids Genitourinary History: Reports: UTI, 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: Other OB/BYN History: 4 NVD Musculoskeletal History: Reports: Back Pain, Chronic Neurological History: Reports: None Psychiatric History: Reports: None Endocrine/Metabolic History: Reports: Diabetes, Type II Hematologic History: Reports: Anemia Immunologic History: Reports: None Oncologic (Cancer) History: Reports: None Dermatologic History: Reports: Cellulitis Other Dermatologic History: right leg cellulitis - Infectious Disease History Infectious Disease History: Reports: Chicken Pox, Measles, MRSA, Mumps, Novel Coronavirus - Past Surgical History HEENT Surgical History: Reports: Cataract Surgery Other HEENT Surgeries/Procedures: cataract surgery bilaterally Cardiovascular Surgical History: Reports: Coronary Artery Stent Other Cardiovascular Surgeries/Procedures: 1 stent 1998 Respiratory Surgical History: Reports: Lung Biopsies GI Surgical History: Reports: None Female Surgical History: Reports: None Endocrine Surgical History: Reports: None Neurological Surgical History: Reports: None Musculoskeletal Surgical History: Reports: None Oncologic Surgical History: Reports: None Social & Family History - Family History Family Medical History: No Pertinent Family History - Tobacco Use Tobacco Use Status *Q: Heavy Tobacco User Years of Tobacco use: 30 Packs/Tins Daily: 1 - Caffeine Use Caffeine Use: Reports: None - Recreational Drug Use Recreational Drug Use: No H&P Review of Systems - Review of Systems: Review Of Systems: Comprehensive ROS is negative, except as noted in HPI. Exam - Exam Exam: See Below - Vital Signs Vital Signs: Last Vital Signs Temp 98.2 F 06/29/21 10:00 Pulse 77 06/29/21 10:00 Resp 20 06/29/21 10:00 BP 104/46 L 06/29/21 10:00 Pulse Ox 88 L 06/29/21 10:00 Weight: 160 lb 7 oz - Exam Quality Assessment: Supplemental Oxygen General: Alert, Mild Distress (Patient is orientated only to person, not time or place, difficulty with orientation questions) HEENT: Conjunctiva Clear Neck: Supple, Trachea Midline Lungs: Decreased Breath Sounds (left lower lobe, crackles ) Cardiovascular: Irregular Rhythm GI/Abdominal Exam: Normal Bowel Sounds, Soft, Non-Tender Back Exam: Normal Inspection Extremities: Other (Ecchymoses noted on right lateral leg, woody chronic venous stasis changes noted bilateral lower legs) Peripheral Pulses: 2+: Radial (L), Radial (R) Skin: Warm, Dry Neurological: Cranial Nerves Intact, Reflexes Equal Bilateral Neuro Extensive - Mental Status: Alert (confused to ), Disorientation to Place, Disorientation to Time, Inattentive Neuro Extensive - Motor, Sensory, Reflexes: CN II-XII Intact (Patient follows commands appropriately), Normal Reflexes Psychiatric: Alert - Patient Data Lab Results Last 24 hrs: Laboratory Results - last 24 hr 06/29/21 06/29/21 06/29/21 Range/Units 10:14 10:14 10:14 WBC 10.9 H (5.0-10.0) 10^3/uL RBC 3.94 L (4.2-5.4) 10^6/uL Hgb 9.9 L D (12.0-16.0) g/dL Hct 32.3 L (37.0-47.0) % MCV 82.0 D (80-100) fL MCH 25.1 L (27.0-34.0) pg MCHC 30.7 L (33.0-35.0) g/dL Plt Count 261 D (150-450) 10^3/uL Neut % (Auto) 86.2 H (42.2-75.2) % Lymph % (Auto) 5.8 L (20.5-50.1) % [place] % (Auto) 7.1 (2-8) % Eos % (Auto) 0.5 L (1.0-3.0) % Baso % (Auto) 0.4 (0.0-1.0) % PT 17.8 H D (9.0-12.0) SEC INR 1.8 H (0.9-1.2) Sodium 138 (136-145) mmol/L Potassium 3.5 (3.5-5.1) mmol/L Chloride 100 (98-107) mmol/L Carbon Dioxide 30 (21-32) mmol/L Anion Gap 11.5 (7-13) mEq/L BUN 26 H (7-18) mg/dL Creatinine 0.89 (0.55-1.02) mg/dL Est Cr Clr Drug Dosing 47.20 mL/min Estimated GFR (MDRD) > 60 BUN/Creatinine Ratio 29.2 (No establ ref range) Glucose 146 H (70-99) mg/dL POC Glucose (70-99) mg/dL Lactic Acid (0.4-2.0) mmol/L Calcium 8.7 (8.5-10.1) mg/dL Phosphorus 3.1 (2.6-4.7) mg/dL Magnesium 1.6 L (1.8-2.4) mg/dL Total Bilirubin 1.1 H (0.2-1.0) mg/dL AST 24 (15-37) U/L ALT 23 (14-59) U/L Alkaline Phosphatase 112 (46-116) U/L Ammonia (11-32) umol/L Troponin I High Sens 188 H* (<=51) pg/mL C-Reactive Protein 3.2 H (0.0-0.9) mg/dL B-Natriuretic Peptide (0-100) pg/ml Total Protein 6.6 (6.4-8.2) g/dL Albumin 2.8 L (3.4-5.0) g/dL Globulin 3.8 Albumin/Globulin Ratio 0.74 TSH, Ultra Sensitive 3.59 (0.36-3.74) uIU/mL Urine Color (YELLOW) Urine Appearance (CLEAR) Urine pH (5.0-9.0) Ur Specific [place] (1.005-1.030) Urine Protein (NEGATIVE) Urine Glucose (UA) (NEGATIVE) Urine Ketones (NEGATIVE) Urine Occult Blood (NEGATIVE) Urine Nitrite (NEGATIVE) Urine Bilirubin (NEGATIVE) Urine Urobilinogen (0.2-1.0) mg/dL Ur Leukocyte Esterase (NEGATIVE) Urine Opiates Screen (NEGATIVE) Ur Oxycodone Screen (NEGATIVE) Urine Methadone Screen (NEGATIVE) Ur Barbiturates Screen (NEGATIVE) U Tricyclic Antidepress (NEGATIVE) Ur Phencyclidine Scrn (NEGATIVE) Ur Amphetamine Screen (NEGATIVE) U Methamphetamines Scrn (NEGATIVE) Urine MDMA Screen (NEGATIVE) U Benzodiazepines Scrn (NEGATIVE) Urine Cocaine Screen (NEGATIVE) U Marijuana (THC) Screen (NEGATIVE) Ethyl Alcohol < 3 (0) mg/dL 06/29/21 06/29/21 06/29/21 Range/Units 10:14 10:14 10:14 WBC (5.0-10.0) 10^3/uL RBC (4.2-5.4) 10^6/uL Hgb (12.0-16.0) g/dL Hct (37.0-47.0) % MCV (80-100) fL MCH (27.0-34.0) pg MCHC (33.0-35.0) g/dL Plt Count (150-450) 10^3/uL Neut % (Auto) (42.2-75.2) % Lymph % (Auto) (20.5-50.1) % [place] % (Auto) (2-8) % Eos % (Auto) (1.0-3.0) % Baso % (Auto) (0.0-1.0) % PT (9.0-12.0) SEC INR (0.9-1.2) Sodium (136-145) mmol/L Potassium (3.5-5.1) mmol/L Chloride (98-107) mmol/L Carbon Dioxide (21-32) mmol/L Anion Gap (7-13) mEq/L BUN (7-18) mg/dL Creatinine (0.55-1.02) mg/dL Est Cr Clr Drug Dosing mL/min Estimated GFR (MDRD) BUN/Creatinine Ratio (No establ ref range) Glucose (70-99) mg/dL POC Glucose (70-99) mg/dL Lactic Acid 1.5 (0.4-2.0) mmol/L Calcium (8.5-10.1) mg/dL Phosphorus (2.6-4.7) mg/dL Magnesium (1.8-2.4) mg/dL Total Bilirubin (0.2-1.0) mg/dL AST (15-37) U/L ALT (14-59) U/L Alkaline Phosphatase (46-116) U/L Ammonia < 10 L (11-32) umol/L Troponin I High Sens (<=51) pg/mL C-Reactive Protein (0.0-0.9) mg/dL B-Natriuretic Peptide 112 H (0-100) pg/ml Total Protein (6.4-8.2) g/dL Albumin (3.4-5.0) g/dL Globulin Albumin/Globulin Ratio TSH, Ultra Sensitive (0.36-3.74) uIU/mL Urine Color (YELLOW) Urine Appearance (CLEAR) Urine pH (5.0-9.0) Ur Specific [place] (1.005-1.030) Urine Protein (NEGATIVE) Urine Glucose (UA) (NEGATIVE) Urine Ketones (NEGATIVE) Urine Occult Blood (NEGATIVE) Urine Nitrite (NEGATIVE) Urine Bilirubin (NEGATIVE) Urine Urobilinogen (0.2-1.0) mg/dL Ur Leukocyte Esterase (NEGATIVE) Urine Opiates Screen (NEGATIVE) Ur Oxycodone Screen (NEGATIVE) Urine Methadone Screen (NEGATIVE) Ur Barbiturates Screen (NEGATIVE) U Tricyclic Antidepress (NEGATIVE) Ur Phencyclidine Scrn (NEGATIVE) Ur Amphetamine Screen (NEGATIVE) U Methamphetamines Scrn (NEGATIVE) Urine MDMA Screen (NEGATIVE) U Benzodiazepines Scrn (NEGATIVE) Urine Cocaine Screen (NEGATIVE) U Marijuana (THC) Screen (NEGATIVE) Ethyl Alcohol (0) mg/dL 06/29/21 06/29/21 06/29/21 Range/Units 10:15 11:15 11:15 WBC (5.0-10.0) 10^3/uL RBC (4.2-5.4) 10^6/uL Hgb (12.0-16.0) g/dL Hct (37.0-47.0) % MCV (80-100) fL MCH (27.0-34.0) pg MCHC (33.0-35.0) g/dL Plt Count (150-450) 10^3/uL Neut % (Auto) (42.2-75.2) % Lymph % (Auto) (20.5-50.1) % [place] % (Auto) (2-8) % Eos % (Auto) (1.0-3.0) % Baso % (Auto) (0.0-1.0) % PT (9.0-12.0) SEC INR (0.9-1.2) Sodium (136-145) mmol/L Potassium (3.5-5.1) mmol/L Chloride (98-107) mmol/L Carbon Dioxide (21-32) mmol/L Anion Gap (7-13) mEq/L BUN (7-18) mg/dL Creatinine (0.55-1.02) mg/dL Est Cr Clr Drug Dosing mL/min Estimated GFR (MDRD) BUN/Creatinine Ratio (No establ ref range) Glucose (70-99) mg/dL POC Glucose 130 H (70-99) mg/dL Lactic Acid (0.4-2.0) mmol/L Calcium (8.5-10.1) mg/dL Phosphorus (2.6-4.7) mg/dL Magnesium (1.8-2.4) mg/dL Total Bilirubin (0.2-1.0) mg/dL AST (15-37) U/L ALT (14-59) U/L Alkaline Phosphatase (46-116) U/L Ammonia (11-32) umol/L Troponin I High Sens (<=51) pg/mL C-Reactive Protein (0.0-0.9) mg/dL B-Natriuretic Peptide (0-100) pg/ml Total Protein (6.4-8.2) g/dL Albumin (3.4-5.0) g/dL Globulin Albumin/Globulin Ratio TSH, Ultra Sensitive (0.36-3.74) uIU/mL Urine Color Yellow (YELLOW) Urine Appearance Clear (CLEAR) Urine pH 6.0 (5.0-9.0) Ur Specific [place] 1.015 (1.005-1.030) Urine Protein Negative (NEGATIVE) Urine Glucose (UA) Negative (NEGATIVE) Urine Ketones Negative (NEGATIVE) Urine Occult Blood Negative (NEGATIVE) Urine Nitrite Negative (NEGATIVE) Urine Bilirubin Negative (NEGATIVE) Urine Urobilinogen 0.2 (0.2-1.0) mg/dL Ur Leukocyte Esterase Negative (NEGATIVE) Urine Opiates Screen Negative (NEGATIVE) Ur Oxycodone Screen Negative (NEGATIVE) Urine Methadone Screen Negative (NEGATIVE) Ur Barbiturates Screen Negative (NEGATIVE) U Tricyclic Antidepress Negative (NEGATIVE) Ur Phencyclidine Scrn Negative (NEGATIVE) Ur Amphetamine Screen Negative (NEGATIVE) U Methamphetamines Scrn Negative (NEGATIVE) Urine MDMA Screen Negative (NEGATIVE) U Benzodiazepines Scrn Negative (NEGATIVE) Urine Cocaine Screen Negative (NEGATIVE) U Marijuana (THC) Screen Negative (NEGATIVE) Ethyl Alcohol (0) mg/dL Result Diagrams: 06/29/21 10:14 06/29/21 10:14 - Problem List (1) Pneumonia due to COVID-19 virus SNOMED Code(s): 739171347792582160 ICD Code: U07.1 - COVID-19; J12.82 - PNEUMONIA DUE TO CORONAVIRUS DISEASE 2019 Status: Acute Current Visit: Yes (2) Altered mental state SNOMED Code(s): 621546896 ICD Code: R41.82 - ALTERED MENTAL STATUS, UNSPECIFIED Status: Acute Current Visit: No Qualifiers: Altered mental status type: unspecified Qualified Code(s): R41.82 - Altered mental status, unspecified (3) COPD exacerbation SNOMED Code(s): 607773154, 998387207 ICD Code: J44.1 - CHRONIC OBSTRUCTIVE PULMONARY DISEASE W (ACUTE) EXACERBATION Status: Acute Current Visit: No (4) History of atrial fibrillation SNOMED Code(s): 280201118 ICD Code: Z86.79 - PERSONAL HISTORY OF OTHER DISEASES OF THE CIRCULATORY SYSTEM Status: Acute Current Visit: No (5) Hypoxia SNOMED Code(s): 915261356 ICD Code: R09.02 - HYPOXEMIA Status: Acute Current Visit: No (6) Sepsis SNOMED Code(s): 24565406 ICD Code: A41.9 - SEPSIS, UNSPECIFIED ORGANISM Status: Acute Current Visit: No Qualifiers: Sepsis type: sepsis due to unspecified organism Sepsis acute organ dysfunction status: unspecified Qualified Code(s): A41.9 - Sepsis, unspecified organism (7) Coronary artery disease SNOMED Code(s): 85778105 ICD Code: I25.10 - ATHSCL HEART DISEASE OF [place] CORONARY ARTERY W/O ANG PCTRS Status: Chronic Current Visit: No (8) Diabetes mellitus type 2 in obese SNOMED Code(s): 80134537 ICD Code: E11.9 - TYPE 2 DIABETES MELLITUS WITHOUT COMPLICATIONS; E66.9 - OBESITY, UNSPECIFIED Status: Chronic Current Visit: No (9) Essential hypertension SNOMED Code(s): 26941811 ICD Code: I10 - ESSENTIAL (PRIMARY) HYPERTENSION Status: Chronic Current Visit: No (10) History of myocardial infarction SNOMED Code(s): 355324732 ICD Code: I25.2 - OLD MYOCARDIAL INFARCTION Status: Chronic Current Visit: No Problem List Initiated/Reviewed/Updated: Yes Orders Last 24hrs: Active Orders 24 hr Category Date Time Status Admission Diagnosis [ADT] Stat ADT 06/29/21 12:20 Ordered Admission Status [Patient Status] [ADT] Routine ADT 06/29/21 12:20 Active CULTURE BLOOD [BC] Stat Lab 06/29/21 10:14 Received CULTURE BLOOD [BC] Stat Lab 06/29/21 10:16 Received Azithromycin [Zithromax] 500 mg Med 06/29/21 11:59 Active Sodium Chloride 0.9% [Normal Saline (AdvBag)] 250 ml IV ONETIME Sodium Chloride 0.9% [Saline Flush] Med 06/29/21 09:57 Active 10 ml FLUSH ASDIRECTED PRN Blood Culture x2 Reflex Set [OM.PC] Stat Oth 06/29/21 10:20 Ordered Peripheral IV Insertion Adult [OM.PC] Routine Oth 06/29/21 09:56 Ordered Medication Orders Azithromycin 500 mg/ Sodium (Chloride) 250 mls @ 250 mls/hr IV ONETIME ONE Stop: 06/29/21 12:58 Last Admin: 06/29/21 12:24 Dose: 250 mls/hr Documented by: REBEKAH Sodium Chloride (Sodium Chloride 0.9% 10 Ml Syringe) 10 ml FLUSH ASDIRECTED PRN PRN Reason: Keep Vein Open Last Admin: 06/29/21 12:26 Dose: 10 ml Documented by: REBEKAH Assessment/Plan Comment:: 80-year-old female with a past medical history of COPD on 2 L home O2, CHF with an EF of 45 to 50%, type 2 diabetes not on insulin, CAD, atrial fibrillation on chronic anticoagulation with warfarin, recent COVID-19 diagnosis who presented with altered mental status and hypoxia found to have significant infiltrates on chest x-ray concerning for COVID-19 pneumonia. Acute: COVID-19 pneumonia -Patient apparently started having respiratory symptoms on the , Covid positive on 06-21-21, received monoclonal antibody therapy 06-22-21 -Start patient on dexamethasone 6 mg p.o. for 10 days, remdesivir 200 mg IV on day 1 and 100 mg on days 2 through 5 given her increased oxygen requirements -RT consult to assess and treat -We will continue home inhalers including scheduled LABA/LAMA and as needed albuterol -Added ceftriaxone and azithromycin IV for secondary bacterial pneumonia coverage, blood cultures in process ADDENDUM - patient had completed a course of doxycycline which was started on 06/21/21 - also had been on steroids since 06/21/21 - will d/c ceftriaxone and give two additional days of IV azithromycin - will continue dexamethasone until at least 07/01/21 -Daily COVID-19 laboratory testings including ALT while on remdesivir, inflammatory markers, patient is on warfarin for anticoagulation -DNR/DNI per multiple family members Altered mental status -Patient occasionally has difficulty with speech and is confused to situation but does follow commands appropriately and I do not note any focal deficits -Most likely secondary to hypoxia, COVID-19 pneumonia -Urinalysis showed no concerning findings, head CT is negative, TSH is normal, urine tox with no concerning findings -If persistent dysarthria would consider repeat head CT vs MRI Elevated high-sensitivity troponin -Most likely etiology is related to COVID-19 pneumonia -Denies any current chest discomfort -EKG did show some concerning findings with inverted T waves in V1 and V2, continue to monitor, I do not have a prior EKG to compare -We will continue to trend troponin, patient is already on aspirin, statin, warfarin Anemia -Patient did have a supratherapeutic INR recently -Mild ecchymoses noted on exam, no further evidence of bleeding per family or patient, -will continue to monitor blood counts, hemoglobin 9.9 - transfuse if hemoglobin less than 7 Chronic: History of CHF -We will continue with Lasix 20 mg p.o. daily COPD -continue home inhalers as listed above -oxygen saturation goal 88% Hyperlipidemiacontinue statin CADcontinue aspirin, metoprolol XL 50 Type 2 diabetes mellitushold Metformin, twice daily glucose checks for now, if elevated will add sliding scale insulin Atrial fibrillationcontinue metoprolol XL, continue warfarin, most recent INR 1.8 DVT prophylaxis warfarin Dietcarb controlled Inpatient status
[2021-06-29] MEDS ORDERED: Ondansetron 4 MG/2 ML SDV IVPUSH PRN (13:02)
[2021-06-29] MEDS ORDERED: Polyethylene Glycol 3350 Powder 17 GM Packet PO PRN (13:02)
[2021-06-29] MEDS ORDERED: Acetaminophen 325 MG Tab PO PRN (13:02)
[2021-06-29] MEDS ORDERED: Albuterol 6.7 GM Inhaler INH PRN (14:03)
[2021-06-29] MEDS ORDERED: REMDESIVIR 200 MG in Sodium Chloride 0.9% 250 ML IV ONE (15:00)
[2021-06-29] MEDS: Dexamethasone 6 MG TABLET PO SCH (15:35)
[2021-06-29] MEDS: Nystatin Crm 15 GM Tube TOP SCH ×2 (17:22→21:42)
[2021-06-29] MEDS: Docusate Sodium 100 MG Cap PO SCH (21:38)
[2021-06-29] MEDS: atorvaSTATin 20 MG Tab PO SCH (21:40)
[2021-06-29] MEDS: Formoterol/Mometasone 200-5 MCG 8.8 GM Inhaler IH SCH (21:41)
[2021-06-30 07:35] LABS: ANION GAP 8.8 mEq/L (7-13); CHLORIDE,CL 102 mmol/L (98-107); SODIUM,NA 140 mmol/L (136-145)
[2021-06-30] MEDS ORDERED: Magnesium Sulfate/Water 2 GM in Premix Bag 1 BAG IV ONE (07:54)
[2021-06-30] MEDS: D5 1/2 NS w/ 20 mEq/L KCl 1,000 ML IV SCH ×2 (08:30→17:17)
[2021-06-30] MEDS: Metoprolol Succinate 50 MG Tab.ER PO SCH (08:35)
[2021-06-30] MEDS: Formoterol/Mometasone 200-5 MCG 8.8 GM Inhaler IH SCH ×2 (08:54→21:46)
[2021-06-30] MEDS: Furosemide 20 MG Tab PO SCH (08:54)
[2021-06-30] MEDS: Dexamethasone 6 MG TABLET PO SCH (08:58)
[2021-06-30] MEDS: Nystatin Crm 15 GM Tube TOP SCH ×2 (08:59→21:50)
[2021-06-30] MEDS ORDERED: Warfarin 5 MG Tab PO SCH (09:00)
[2021-06-30] MEDS: Tiotropium Inhaler 18 MCG Inhalation Powder Cap Kit of 5 INH SCH (09:01)
[2021-06-30] MEDS ORDERED: Pantoprazole 40 MG Vial IVPUSH ONE (09:21)
[2021-06-30] MEDS ORDERED: Pantoprazole 40 MG in Sodium Chloride 0.9% 100 ML IV SCH ×2 (09:30→10:00)
[2021-06-30] MEDS: REMDESIVIR 100 MG in Sodium Chloride 0.9% 100 ML IV SCH (09:50)
--- NOTE | 2021-06-30 10:14 | PCM.PN ---
- General Info Date of Service: 06/30/21 Functional Status: Reports: Pain Controlled - Review of Systems General: Reports: No Symptoms HEENT: Reports: No Symptoms Pulmonary: Reports: Shortness of Breath, Cough Cardiovascular: Reports: No Symptoms Gastrointestinal: Reports: No Symptoms Genitourinary: Reports: No Symptoms Musculoskeletal: Reports: No Symptoms Skin: Reports: No Symptoms Neurological: Reports: No Symptoms Psychiatric: Reports: No Symptoms - Patient Data Vitals - Most Recent: Last Vital Signs Temp 98.3 F 06/30/21 04:00 Pulse 96 06/30/21 08:35 Resp 18 06/30/21 04:00 BP 131/6 L 06/30/21 08:35 Pulse Ox 96 06/30/21 04:00 Weight - Most Recent: 160 lb 7 oz I&O - Last 24 Hours: Intake & Output 06/29/21 06/30/21 06/30/21 22:59 06:59 14:59 Intake Total 100 500 Balance 100 500 Lab Results Last 24 Hours: Laboratory Results - last 24 hr 06/29/21 06/29/21 06/29/21 Range/Units 10:14 10:14 10:14 WBC 10.9 H (5.0-10.0) 10^3/uL RBC 3.94 L (4.2-5.4) 10^6/uL Hgb 9.9 L D (12.0-16.0) g/dL Hct 32.3 L (37.0-47.0) % MCV 82.0 D (80-100) fL MCH 25.1 L (27.0-34.0) pg MCHC 30.7 L (33.0-35.0) g/dL Plt Count 261 D (150-450) 10^3/uL Neut % (Auto) 86.2 H (42.2-75.2) % Lymph % (Auto) 5.8 L (20.5-50.1) % Charles % (Auto) 7.1 (2-8) % Eos % (Auto) 0.5 L (1.0-3.0) % Baso % (Auto) 0.4 (0.0-1.0) % PT 17.8 H D (9.0-12.0) SEC INR 1.8 H (0.9-1.2) D-Dimer, Quantitative (0-400) ng/mL Sodium 138 (136-145) mmol/L Potassium 3.5 (3.5-5.1) mmol/L Chloride 100 (98-107) mmol/L Carbon Dioxide 30 (21-32) mmol/L Anion Gap 11.5 (7-13) mEq/L BUN 26 H (7-18) mg/dL Creatinine 0.89 (0.55-1.02) mg/dL Est Cr Clr Drug Dosing 47.20 mL/min Estimated GFR (MDRD) > 60 BUN/Creatinine Ratio 29.2 (No establ ref range) Glucose 146 H (70-99) mg/dL POC Glucose (70-99) mg/dL Lactic Acid (0.4-2.0) mmol/L Calcium 8.7 (8.5-10.1) mg/dL Phosphorus 3.1 (2.6-4.7) mg/dL Magnesium 1.6 L (1.8-2.4) mg/dL Total Bilirubin 1.1 H (0.2-1.0) mg/dL AST 24 (15-37) U/L ALT 23 (14-59) U/L Alkaline Phosphatase 112 (46-116) U/L Ammonia (11-32) umol/L Troponin I High Sens 188 H* (<=51) pg/mL C-Reactive Protein 3.2 H (0.0-0.9) mg/dL B-Natriuretic Peptide (0-100) pg/ml Total Protein 6.6 (6.4-8.2) g/dL Albumin 2.8 L (3.4-5.0) g/dL Globulin 3.8 Albumin/Globulin Ratio 0.74 TSH, Ultra Sensitive 3.59 (0.36-3.74) uIU/mL Urine Color (YELLOW) Urine Appearance (CLEAR) Urine pH (5.0-9.0) Ur Specific [place] (1.005-1.030) Urine Protein (NEGATIVE) Urine Glucose (UA) (NEGATIVE) Urine Ketones (NEGATIVE) Urine Occult Blood (NEGATIVE) Urine Nitrite (NEGATIVE) Urine Bilirubin (NEGATIVE) Urine Urobilinogen (0.2-1.0) mg/dL Ur Leukocyte Esterase (NEGATIVE) Urine Opiates Screen (NEGATIVE) Ur Oxycodone Screen (NEGATIVE) Urine Methadone Screen (NEGATIVE) Ur Barbiturates Screen (NEGATIVE) U Tricyclic Antidepress (NEGATIVE) Ur Phencyclidine Scrn (NEGATIVE) Ur Amphetamine Screen (NEGATIVE) U Methamphetamines Scrn (NEGATIVE) Urine MDMA Screen (NEGATIVE) U Benzodiazepines Scrn (NEGATIVE) Urine Cocaine Screen (NEGATIVE) U Marijuana (THC) Screen (NEGATIVE) Ethyl Alcohol < 3 (0) mg/dL Blood Type Gel Antibody Screen 06/29/21 06/29/21 06/29/21 Range/Units 10:14 10:14 10:14 WBC (5.0-10.0) 10^3/uL RBC (4.2-5.4) 10^6/uL Hgb (12.0-16.0) g/dL Hct (37.0-47.0) % MCV (80-100) fL MCH (27.0-34.0) pg MCHC (33.0-35.0) g/dL Plt Count (150-450) 10^3/uL Neut % (Auto) (42.2-75.2) % Lymph % (Auto) (20.5-50.1) % Charles % (Auto) (2-8) % Eos % (Auto) (1.0-3.0) % Baso % (Auto) (0.0-1.0) % PT (9.0-12.0) SEC INR (0.9-1.2) D-Dimer, Quantitative (0-400) ng/mL Sodium (136-145) mmol/L Potassium (3.5-5.1) mmol/L Chloride (98-107) mmol/L Carbon Dioxide (21-32) mmol/L Anion Gap (7-13) mEq/L BUN (7-18) mg/dL Creatinine (0.55-1.02) mg/dL Est Cr Clr Drug Dosing mL/min Estimated GFR (MDRD) BUN/Creatinine Ratio (No establ ref range) Glucose (70-99) mg/dL POC Glucose (70-99) mg/dL Lactic Acid 1.5 (0.4-2.0) mmol/L Calcium (8.5-10.1) mg/dL Phosphorus (2.6-4.7) mg/dL Magnesium (1.8-2.4) mg/dL Total Bilirubin (0.2-1.0) mg/dL AST (15-37) U/L ALT (14-59) U/L Alkaline Phosphatase (46-116) U/L Ammonia < 10 L (11-32) umol/L Troponin I High Sens (<=51) pg/mL C-Reactive Protein (0.0-0.9) mg/dL B-Natriuretic Peptide 112 H (0-100) pg/ml Total Protein (6.4-8.2) g/dL Albumin (3.4-5.0) g/dL Globulin Albumin/Globulin Ratio TSH, Ultra Sensitive (0.36-3.74) uIU/mL Urine Color (YELLOW) Urine Appearance (CLEAR) Urine pH (5.0-9.0) Ur Specific [place] (1.005-1.030) Urine Protein (NEGATIVE) Urine Glucose (UA) (NEGATIVE) Urine Ketones (NEGATIVE) Urine Occult Blood (NEGATIVE) Urine Nitrite (NEGATIVE) Urine Bilirubin (NEGATIVE) Urine Urobilinogen (0.2-1.0) mg/dL Ur Leukocyte Esterase (NEGATIVE) Urine Opiates Screen (NEGATIVE) Ur Oxycodone Screen (NEGATIVE) Urine Methadone Screen (NEGATIVE) Ur Barbiturates Screen (NEGATIVE) U Tricyclic Antidepress (NEGATIVE) Ur Phencyclidine Scrn (NEGATIVE) Ur Amphetamine Screen (NEGATIVE) U Methamphetamines Scrn (NEGATIVE) Urine MDMA Screen (NEGATIVE) U Benzodiazepines Scrn (NEGATIVE) Urine Cocaine Screen (NEGATIVE) U Marijuana (THC) Screen (NEGATIVE) Ethyl Alcohol (0) mg/dL Blood Type Gel Antibody Screen 06/29/21 06/29/21 06/29/21 Range/Units 10:15 11:15 11:15 WBC (5.0-10.0) 10^3/uL RBC (4.2-5.4) 10^6/uL Hgb (12.0-16.0) g/dL Hct (37.0-47.0) % MCV (80-100) fL MCH (27.0-34.0) pg MCHC (33.0-35.0) g/dL Plt Count (150-450) 10^3/uL Neut % (Auto) (42.2-75.2) % Lymph % (Auto) (20.5-50.1) % Charles % (Auto) (2-8) % Eos % (Auto) (1.0-3.0) % Baso % (Auto) (0.0-1.0) % PT (9.0-12.0) SEC INR (0.9-1.2) D-Dimer, Quantitative (0-400) ng/mL Sodium (136-145) mmol/L Potassium (3.5-5.1) mmol/L Chloride (98-107) mmol/L Carbon Dioxide (21-32) mmol/L Anion Gap (7-13) mEq/L BUN (7-18) mg/dL Creatinine (0.55-1.02) mg/dL Est Cr Clr Drug Dosing mL/min Estimated GFR (MDRD) BUN/Creatinine Ratio (No establ ref range) Glucose (70-99) mg/dL POC Glucose 130 H (70-99) mg/dL Lactic Acid (0.4-2.0) mmol/L Calcium (8.5-10.1) mg/dL Phosphorus (2.6-4.7) mg/dL Magnesium (1.8-2.4) mg/dL Total Bilirubin (0.2-1.0) mg/dL AST (15-37) U/L ALT (14-59) U/L Alkaline Phosphatase (46-116) U/L Ammonia (11-32) umol/L Troponin I High Sens (<=51) pg/mL C-Reactive Protein (0.0-0.9) mg/dL B-Natriuretic Peptide (0-100) pg/ml Total Protein (6.4-8.2) g/dL Albumin (3.4-5.0) g/dL Globulin Albumin/Globulin Ratio TSH, Ultra Sensitive (0.36-3.74) uIU/mL Urine Color Yellow (YELLOW) Urine Appearance Clear (CLEAR) Urine pH 6.0 (5.0-9.0) Ur Specific [place] 1.015 (1.005-1.030) Urine Protein Negative (NEGATIVE) Urine Glucose (UA) Negative (NEGATIVE) Urine Ketones Negative (NEGATIVE) Urine Occult Blood Negative (NEGATIVE) Urine Nitrite Negative (NEGATIVE) Urine Bilirubin Negative (NEGATIVE) Urine Urobilinogen 0.2 (0.2-1.0) mg/dL Ur Leukocyte Esterase Negative (NEGATIVE) Urine Opiates Screen Negative (NEGATIVE) Ur Oxycodone Screen Negative (NEGATIVE) Urine Methadone Screen Negative (NEGATIVE) Ur Barbiturates Screen Negative (NEGATIVE) U Tricyclic Antidepress Negative (NEGATIVE) Ur Phencyclidine Scrn Negative (NEGATIVE) Ur Amphetamine Screen Negative (NEGATIVE) U Methamphetamines Scrn Negative (NEGATIVE) Urine MDMA Screen Negative (NEGATIVE) U Benzodiazepines Scrn Negative (NEGATIVE) Urine Cocaine Screen Negative (NEGATIVE) U Marijuana (THC) Screen Negative (NEGATIVE) Ethyl Alcohol (0) mg/dL Blood Type Gel Antibody Screen 06/29/21 06/29/21 06/30/21 Range/Units 16:14 16:21 06:30 WBC (5.0-10.0) 10^3/uL RBC (4.2-5.4) 10^6/uL Hgb (12.0-16.0) g/dL Hct (37.0-47.0) % MCV (80-100) fL MCH (27.0-34.0) pg MCHC (33.0-35.0) g/dL Plt Count (150-450) 10^3/uL Neut % (Auto) (42.2-75.2) % Lymph % (Auto) (20.5-50.1) % Charles % (Auto) (2-8) % Eos % (Auto) (1.0-3.0) % Baso % (Auto) (0.0-1.0) % PT (9.0-12.0) SEC INR (0.9-1.2) D-Dimer, Quantitative (0-400) ng/mL Sodium (136-145) mmol/L Potassium (3.5-5.1) mmol/L Chloride (98-107) mmol/L Carbon Dioxide (21-32) mmol/L Anion Gap (7-13) mEq/L BUN (7-18) mg/dL Creatinine (0.55-1.02) mg/dL Est Cr Clr Drug Dosing mL/min Estimated GFR (MDRD) BUN/Creatinine Ratio (No establ ref range) Glucose (70-99) mg/dL POC Glucose 118 H (70-99) mg/dL Lactic Acid (0.4-2.0) mmol/L Calcium (8.5-10.1) mg/dL Phosphorus (2.6-4.7) mg/dL Magnesium (1.8-2.4) mg/dL Total Bilirubin (0.2-1.0) mg/dL AST (15-37) U/L ALT (14-59) U/L Alkaline Phosphatase (46-116) U/L Ammonia (11-32) umol/L Troponin I High Sens 153 H* (<=51) pg/mL C-Reactive Protein 2.7 H (0.0-0.9) mg/dL B-Natriuretic Peptide (0-100) pg/ml Total Protein (6.4-8.2) g/dL Albumin (3.4-5.0) g/dL Globulin Albumin/Globulin Ratio TSH, Ultra Sensitive (0.36-3.74) uIU/mL Urine Color (YELLOW) Urine Appearance (CLEAR) Urine pH (5.0-9.0) Ur Specific [place] (1.005-1.030) Urine Protein (NEGATIVE) Urine Glucose (UA) (NEGATIVE) Urine Ketones (NEGATIVE) Urine Occult Blood (NEGATIVE) Urine Nitrite (NEGATIVE) Urine Bilirubin (NEGATIVE) Urine Urobilinogen (0.2-1.0) mg/dL Ur Leukocyte Esterase (NEGATIVE) Urine Opiates Screen (NEGATIVE) Ur Oxycodone Screen (NEGATIVE) Urine Methadone Screen (NEGATIVE) Ur Barbiturates Screen (NEGATIVE) U Tricyclic Antidepress (NEGATIVE) Ur Phencyclidine Scrn (NEGATIVE) Ur Amphetamine Screen (NEGATIVE) U Methamphetamines Scrn (NEGATIVE) Urine MDMA Screen (NEGATIVE) U Benzodiazepines Scrn (NEGATIVE) Urine Cocaine Screen (NEGATIVE) U Marijuana (THC) Screen (NEGATIVE) Ethyl Alcohol (0) mg/dL Blood Type Gel Antibody Screen 06/30/21 06/30/21 06/30/21 Range/Units 06:30 06:30 06:30 WBC 5.4 (5.0-10.0) 10^3/uL RBC 2.91 L (4.2-5.4) 10^6/uL Hgb 7.2 L D (12.0-16.0) g/dL Hct 24.0 L (37.0-47.0) % MCV 82.5 (80-100) fL MCH 24.7 L (27.0-34.0) pg MCHC 30.0 L (33.0-35.0) g/dL Plt Count 200 (150-450) 10^3/uL Neut % (Auto) 72.7 (42.2-75.2) % Lymph % (Auto) 10.6 L (20.5-50.1) % Charles % (Auto) 16.1 H (2-8) % Eos % (Auto) 0.4 L (1.0-3.0) % Baso % (Auto) 0.2 (0.0-1.0) % PT 26.1 H D (9.0-12.0) SEC INR 2.6 H (0.9-1.2) D-Dimer, Quantitative (0-400) ng/mL Sodium 140 (136-145) mmol/L Potassium 2.8 L (3.5-5.1) mmol/L Chloride 102 (98-107) mmol/L Carbon Dioxide 32 (21-32) mmol/L Anion Gap 8.8 (7-13) mEq/L BUN 24 H (7-18) mg/dL Creatinine 0.76 (0.55-1.02) mg/dL Est Cr Clr Drug Dosing 55.27 mL/min Estimated GFR (MDRD) > 60 BUN/Creatinine Ratio 31.6 (No establ ref range) Glucose 98 (70-99) mg/dL POC Glucose (70-99) mg/dL Lactic Acid (0.4-2.0) mmol/L Calcium 7.9 L (8.5-10.1) mg/dL Phosphorus (2.6-4.7) mg/dL Magnesium (1.8-2.4) mg/dL Total Bilirubin 0.6 (0.2-1.0) mg/dL AST 22 (15-37) U/L ALT 18 (14-59) U/L Alkaline Phosphatase 84 (46-116) U/L Ammonia (11-32) umol/L Troponin I High Sens 126 H* (<=51) pg/mL C-Reactive Protein (0.0-0.9) mg/dL B-Natriuretic Peptide (0-100) pg/ml Total Protein 5.0 L (6.4-8.2) g/dL Albumin 2.1 L (3.4-5.0) g/dL Globulin 2.9 Albumin/Globulin Ratio 0.72 TSH, Ultra Sensitive (0.36-3.74) uIU/mL Urine Color (YELLOW) Urine Appearance (CLEAR) Urine pH (5.0-9.0) Ur Specific [place] (1.005-1.030) Urine Protein (NEGATIVE) Urine Glucose (UA) (NEGATIVE) Urine Ketones (NEGATIVE) Urine Occult Blood (NEGATIVE) Urine Nitrite (NEGATIVE) Urine Bilirubin (NEGATIVE) Urine Urobilinogen (0.2-1.0) mg/dL Ur Leukocyte Esterase (NEGATIVE) Urine Opiates Screen (NEGATIVE) Ur Oxycodone Screen (NEGATIVE) Urine Methadone Screen (NEGATIVE) Ur Barbiturates Screen (NEGATIVE) U Tricyclic Antidepress (NEGATIVE) Ur Phencyclidine Scrn (NEGATIVE) Ur Amphetamine Screen (NEGATIVE) U Methamphetamines Scrn (NEGATIVE) Urine MDMA Screen (NEGATIVE) U Benzodiazepines Scrn (NEGATIVE) Urine Cocaine Screen (NEGATIVE) U Marijuana (THC) Screen (NEGATIVE) Ethyl Alcohol (0) mg/dL Blood Type Gel Antibody Screen 06/30/21 06/30/21 06/30/21 Range/Units 06:30 06:30 08:14 WBC (5.0-10.0) 10^3/uL RBC (4.2-5.4) 10^6/uL Hgb (12.0-16.0) g/dL Hct (37.0-47.0) % MCV (80-100) fL MCH (27.0-34.0) pg MCHC (33.0-35.0) g/dL Plt Count (150-450) 10^3/uL Neut % (Auto) (42.2-75.2) % Lymph % (Auto) (20.5-50.1) % Charles % (Auto) (2-8) % Eos % (Auto) (1.0-3.0) % Baso % (Auto) (0.0-1.0) % PT (9.0-12.0) SEC INR (0.9-1.2) D-Dimer, Quantitative 588 H (0-400) ng/mL Sodium (136-145) mmol/L Potassium (3.5-5.1) mmol/L Chloride (98-107) mmol/L Carbon Dioxide (21-32) mmol/L Anion Gap (7-13) mEq/L BUN (7-18) mg/dL Creatinine (0.55-1.02) mg/dL Est Cr Clr Drug Dosing mL/min Estimated GFR (MDRD) BUN/Creatinine Ratio (No establ ref range) Glucose (70-99) mg/dL POC Glucose 94 (70-99) mg/dL Lactic Acid (0.4-2.0) mmol/L Calcium (8.5-10.1) mg/dL Phosphorus (2.6-4.7) mg/dL Magnesium (1.8-2.4) mg/dL Total Bilirubin (0.2-1.0) mg/dL AST (15-37) U/L ALT (14-59) U/L Alkaline Phosphatase (46-116) U/L Ammonia (11-32) umol/L Troponin I High Sens (<=51) pg/mL C-Reactive Protein (0.0-0.9) mg/dL B-Natriuretic Peptide (0-100) pg/ml Total Protein (6.4-8.2) g/dL Albumin (3.4-5.0) g/dL Globulin Albumin/Globulin Ratio TSH, Ultra Sensitive (0.36-3.74) uIU/mL Urine Color (YELLOW) Urine Appearance (CLEAR) Urine pH (5.0-9.0) Ur Specific [place] (1.005-1.030) Urine Protein (NEGATIVE) Urine Glucose (UA) (NEGATIVE) Urine Ketones (NEGATIVE) Urine Occult Blood (NEGATIVE) Urine Nitrite (NEGATIVE) Urine Bilirubin (NEGATIVE) Urine Urobilinogen (0.2-1.0) mg/dL Ur Leukocyte Esterase (NEGATIVE) Urine Opiates Screen (NEGATIVE) Ur Oxycodone Screen (NEGATIVE) Urine Methadone Screen (NEGATIVE) Ur Barbiturates Screen (NEGATIVE) U Tricyclic Antidepress (NEGATIVE) Ur Phencyclidine Scrn (NEGATIVE) Ur Amphetamine Screen (NEGATIVE) U Methamphetamines Scrn (NEGATIVE) Urine MDMA Screen (NEGATIVE) U Benzodiazepines Scrn (NEGATIVE) Urine Cocaine Screen (NEGATIVE) U Marijuana (THC) Screen (NEGATIVE) Ethyl Alcohol (0) mg/dL Blood Type B POSITIVE Gel Antibody Screen Negative [facility] Results Last 24 Hours: Microbiology 06/30/21 08:50 Stool Occult Blood ([facility]) - Final Stool / Feces Med Orders - Current: Current Medications Acetaminophen (Acetaminophen 325 Mg Tab) 650 mg PO Q4H PRN PRN Reason: Pain (Mild 1-3)/fever Albuterol (Albuterol 6.7 Gm Inhaler) 0 gm INH Q4H PRN PRN Reason: Shortness of Breath Atorvastatin Calcium (Atorvastatin 20 Mg Tab) 80 mg PO BEDTIME [facility] Last Admin: 06/29/21 21:40 Dose: 80 mg Documented by: Dexamethasone (Dexamethasone 6 Mg Tablet) 6 mg PO DAILY [facility] Stop: 07/08/21 09:01 Last Admin: 06/30/21 08:58 Dose: 6 mg Documented by: Docusate Sodium (Docusate Sodium 100 Mg Cap) 200 mg PO BEDTIME [facility] Last Admin: 06/29/21 21:38 Dose: 200 mg Documented by: Furosemide (Furosemide 20 Mg Tab) 20 mg PO DAILY [facility] Last Admin: 06/30/21 08:54 Dose: 20 mg Documented by: Remdesivir 100 mg/ Sodium (Chloride) 100 mls @ 100 mls/hr IV Q24H [facility] Stop: 07/03/21 09:59 Azithromycin 500 mg/ Sodium (Chloride) 250 mls @ 250 mls/hr IV Q24H [facility] Stop: 07/01/21 13:01 Magnesium Sulfate 2 gm/ Premix 50 mls @ 25 mls/hr IV ONETIME ONE Stop: 06/30/21 09:53 Last Admin: 06/30/21 09:23 Dose: 25 mls/hr Documented by: Potassium Chloride/Dextrose/Sod Cl (D5 1/2 Ns W/ 20 Meq/L Kcl) 1,000 mls @ 125 mls/hr IV ASDIRECTED [facility] Last Admin: 06/30/21 08:30 Dose: 125 mls/hr Documented by: Pantoprazole Sodium 40 mg/ (Sodium Chloride) 100 mls @ 20 mls/hr IV Q5H [facility] Influenza Virus Vaccine (Pharmacy To Dose - Influenza Vaccine) 1 each IM DAILY [facility] Metoprolol Succinate (Metoprolol Succinate 50 Mg Tab.Er) 100 mg PO DAILY [facility] Last Admin: 06/30/21 08:35 Dose: 100 mg Documented by: Mometasone Furoate/Formoterol Fumar (Formoterol/Mometasone 200-5 Mcg 8.8 Gm Inhaler) 2 puff IH BID [facility] Last Admin: 06/30/21 08:54 Dose: 2 puff Documented by: Nystatin (Nystatin Crm 15 Gm Tube) 0 gm TOP BID [facility] Last Admin: 06/30/21 08:59 Dose: 1 applic Documented by: Ondansetron HCl (Ondansetron 4 Mg/2 Ml Sdv) 4 mg IVPUSH Q4H PRN PRN Reason: Nausea/Vomiting Pneumococcal Polyvalent Vaccine (Pneumococcal Polyvalent-23 Vaccine 0.5 Ml Sdv) 0.5 ml IM .ONCE ONE Stop: 07/02/21 13:27 Polyethylene Glycol (Polyethylene Glycol 3350 Powder 17 Gm Packet) 17 gm PO DAILY PRN PRN Reason: Constipation Sodium Chloride (Sodium Chloride 0.9% 10 Ml Syringe) 10 ml FLUSH ASDIRECTED PRN PRN Reason: Keep Vein Open Last Admin: 06/29/21 12:26 Dose: 10 ml Documented by: Tiotropium [place] (Tiotropium Inhaler 18 Mcg Inhalation Powder Cap Kit Of 5) 1 8 mcg INH DAILY [facility] Last Admin: 06/30/21 09:01 Dose: 18 med.swab Documented by: Warfarin Sodium (Pharmacy To Dose - Warfarin) 0 dose .XX ASDIRECTED [facility] Warfarin Sodium (Warfarin 2 Mg Tab) 2 mg PO ONETIME ONE Stop: 06/30/21 14:01 Discontinued Medications Ceftriaxone Sodium 2 gm/ (Sodium Chloride) 100 mls @ 200 mls/hr IV ONETIME ONE Stop: 06/29/21 12:27 Last Admin: 06/29/21 12:10 Dose: 200 mls/hr Documented by: Azithromycin 500 mg/ Sodium (Chloride) 250 mls @ 250 mls/hr IV ONETIME ONE Stop: 06/29/21 12:58 Last Infusion: 06/29/21 15:37 Dose: Infused Documented by: Remdesivir 200 mg/ Sodium (Chloride) 250 mls @ 250 mls/hr IV ONETIME ONE Stop: 06/29/21 15:59 Last Infusion: 06/29/21 17:05 Dose: Infused Documented by: Ceftriaxone Sodium 2 gm/ (Sodium Chloride) 100 mls @ 200 mls/hr IV Q24H [facility] Pantoprazole Sodium (Pantoprazole 40 Mg Vial) 80 mg IVPUSH .BOLUS ONE Stop: 06/30/21 09:22 - Exam Quality Assessment: Supplemental Oxygen General: Alert, Oriented HEENT: Pupils Equal, Pupils Reactive, EOMI, Mucous Membr. Moist/[place]: Supple Lungs: Decreased Breath Sounds (throughout), Crackles (bases bilaterally ) Cardiovascular: Regular Rate, Regular Rhythm GI/Abdominal Exam: Normal Bowel Sounds, Soft, Non-Tender, No Organomegaly, No Distention, No Abnormal Bruit, No Mass, Pelvis Stable (Female) Exam: Deferred Back Exam: Normal Inspection, Full Range of Motion Extremities: Normal Inspection, Normal Range of Motion, Non-Tender, No Pedal Edema, Normal Capillary Refill Peripheral Pulses: 2+: Radial (L), Radial (R) Skin: Warm, Dry, Intact Neurological: No New Focal Deficit Psy/Mental Status: Alert, Normal Affect, Normal Mood - Patient Data Lab Results Last 24 hrs: Laboratory Results - last 24 hr 06/29/21 06/29/21 06/29/21 Range/Units 10:14 10:14 10:14 WBC 10.9 H (5.0-10.0) 10^3/uL RBC 3.94 L (4.2-5.4) 10^6/uL Hgb 9.9 L D (12.0-16.0) g/dL Hct 32.3 L (37.0-47.0) % MCV 82.0 D (80-100) fL MCH 25.1 L (27.0-34.0) pg MCHC 30.7 L (33.0-35.0) g/dL Plt Count 261 D (150-450) 10^3/uL Neut % (Auto) 86.2 H (42.2-75.2) % Lymph % (Auto) 5.8 L (20.5-50.1) % Charles % (Auto) 7.1 (2-8) % Eos % (Auto) 0.5 L (1.0-3.0) % Baso % (Auto) 0.4 (0.0-1.0) % PT 17.8 H D (9.0-12.0) SEC INR 1.8 H (0.9-1.2) D-Dimer, Quantitative (0-400) ng/mL Sodium 138 (136-145) mmol/L Potassium 3.5 (3.5-5.1) mmol/L Chloride 100 (98-107) mmol/L Carbon Dioxide 30 (21-32) mmol/L Anion Gap 11.5 (7-13) mEq/L BUN 26 H (7-18) mg/dL Creatinine 0.89 (0.55-1.02) mg/dL Est Cr Clr Drug Dosing 47.20 mL/min Estimated GFR (MDRD) > 60 BUN/Creatinine Ratio 29.2 (No establ ref range) Glucose 146 H (70-99) mg/dL POC Glucose (70-99) mg/dL Lactic Acid (0.4-2.0) mmol/L Calcium 8.7 (8.5-10.1) mg/dL Phosphorus 3.1 (2.6-4.7) mg/dL Magnesium 1.6 L (1.8-2.4) mg/dL Total Bilirubin 1.1 H (0.2-1.0) mg/dL AST 24 (15-37) U/L ALT 23 (14-59) U/L Alkaline Phosphatase 112 (46-116) U/L Ammonia (11-32) umol/L Troponin I High Sens 188 H* (<=51) pg/mL C-Reactive Protein 3.2 H (0.0-0.9) mg/dL B-Natriuretic Peptide (0-100) pg/ml Total Protein 6.6 (6.4-8.2) g/dL Albumin 2.8 L (3.4-5.0) g/dL Globulin 3.8 Albumin/Globulin Ratio 0.74 TSH, Ultra Sensitive 3.59 (0.36-3.74) uIU/mL Urine Color (YELLOW) Urine Appearance (CLEAR) Urine pH (5.0-9.0) Ur Specific [place] (1.005-1.030) Urine Protein (NEGATIVE) Urine Glucose (UA) (NEGATIVE) Urine Ketones (NEGATIVE) Urine Occult Blood (NEGATIVE) Urine Nitrite (NEGATIVE) Urine Bilirubin (NEGATIVE) Urine Urobilinogen (0.2-1.0) mg/dL Ur Leukocyte Esterase (NEGATIVE) Urine Opiates Screen (NEGATIVE) Ur Oxycodone Screen (NEGATIVE) Urine Methadone Screen (NEGATIVE) Ur Barbiturates Screen (NEGATIVE) U Tricyclic Antidepress (NEGATIVE) Ur Phencyclidine Scrn (NEGATIVE) Ur Amphetamine Screen (NEGATIVE) U Methamphetamines Scrn (NEGATIVE) Urine MDMA Screen (NEGATIVE) U Benzodiazepines Scrn (NEGATIVE) Urine Cocaine Screen (NEGATIVE) U Marijuana (THC) Screen (NEGATIVE) Ethyl Alcohol < 3 (0) mg/dL Blood Type Gel Antibody Screen 06/29/21 06/29/21 06/29/21 Range/Units 10:14 10:14 10:14 WBC (5.0-10.0) 10^3/uL RBC (4.2-5.4) 10^6/uL Hgb (12.0-16.0) g/dL Hct (37.0-47.0) % MCV (80-100) fL MCH (27.0-34.0) pg MCHC (33.0-35.0) g/dL Plt Count (150-450) 10^3/uL Neut % (Auto) (42.2-75.2) % Lymph % (Auto) (20.5-50.1) % Charles % (Auto) (2-8) % Eos % (Auto) (1.0-3.0) % Baso % (Auto) (0.0-1.0) % PT (9.0-12.0) SEC INR (0.9-1.2) D-Dimer, Quantitative (0-400) ng/mL Sodium (136-145) mmol/L Potassium (3.5-5.1) mmol/L Chloride (98-107) mmol/L Carbon Dioxide (21-32) mmol/L Anion Gap (7-13) mEq/L BUN (7-18) mg/dL Creatinine (0.55-1.02) mg/dL Est Cr Clr Drug Dosing mL/min Estimated GFR (MDRD) BUN/Creatinine Ratio (No establ ref range) Glucose (70-99) mg/dL POC Glucose (70-99) mg/dL Lactic Acid 1.5 (0.4-2.0) mmol/L Calcium (8.5-10.1) mg/dL Phosphorus (2.6-4.7) mg/dL Magnesium (1.8-2.4) mg/dL Total Bilirubin (0.2-1.0) mg/dL AST (15-37) U/L ALT (14-59) U/L Alkaline Phosphatase (46-116) U/L Ammonia < 10 L (11-32) umol/L Troponin I High Sens (<=51) pg/mL C-Reactive Protein (0.0-0.9) mg/dL B-Natriuretic Peptide 112 H (0-100) pg/ml Total Protein (6.4-8.2) g/dL Albumin (3.4-5.0) g/dL Globulin Albumin/Globulin Ratio TSH, Ultra Sensitive (0.36-3.74) uIU/mL Urine Color (YELLOW) Urine Appearance (CLEAR) Urine pH (5.0-9.0) Ur Specific [place] (1.005-1.030) Urine Protein (NEGATIVE) Urine Glucose (UA) (NEGATIVE) Urine Ketones (NEGATIVE) Urine Occult Blood (NEGATIVE) Urine Nitrite (NEGATIVE) Urine Bilirubin (NEGATIVE) Urine Urobilinogen (0.2-1.0) mg/dL Ur Leukocyte Esterase (NEGATIVE) Urine Opiates Screen (NEGATIVE) Ur Oxycodone Screen (NEGATIVE) Urine Methadone Screen (NEGATIVE) Ur Barbiturates Screen (NEGATIVE) U Tricyclic Antidepress (NEGATIVE) Ur Phencyclidine Scrn (NEGATIVE) Ur Amphetamine Screen (NEGATIVE) U Methamphetamines Scrn (NEGATIVE) Urine MDMA Screen (NEGATIVE) U Benzodiazepines Scrn (NEGATIVE) Urine Cocaine Screen (NEGATIVE) U Marijuana (THC) Screen (NEGATIVE) Ethyl Alcohol (0) mg/dL Blood Type Gel Antibody Screen 06/29/21 06/29/21 06/29/21 Range/Units 10:15 11:15 11:15 WBC (5.0-10.0) 10^3/uL RBC (4.2-5.4) 10^6/uL Hgb (12.0-16.0) g/dL Hct (37.0-47.0) % MCV (80-100) fL MCH (27.0-34.0) pg MCHC (33.0-35.0) g/dL Plt Count (150-450) 10^3/uL Neut % (Auto) (42.2-75.2) % Lymph % (Auto) (20.5-50.1) % Charles % (Auto) (2-8) % Eos % (Auto) (1.0-3.0) % Baso % (Auto) (0.0-1.0) % PT (9.0-12.0) SEC INR (0.9-1.2) D-Dimer, Quantitative (0-400) ng/mL Sodium (136-145) mmol/L Potassium (3.5-5.1) mmol/L Chloride (98-107) mmol/L Carbon Dioxide (21-32) mmol/L Anion Gap (7-13) mEq/L BUN (7-18) mg/dL Creatinine (0.55-1.02) mg/dL Est Cr Clr Drug Dosing mL/min Estimated GFR (MDRD) BUN/Creatinine Ratio (No establ ref range) Glucose (70-99) mg/dL POC Glucose 130 H (70-99) mg/dL Lactic Acid (0.4-2.0) mmol/L Calcium (8.5-10.1) mg/dL Phosphorus (2.6-4.7) mg/dL Magnesium (1.8-2.4) mg/dL Total Bilirubin (0.2-1.0) mg/dL AST (15-37) U/L ALT (14-59) U/L Alkaline Phosphatase (46-116) U/L Ammonia (11-32) umol/L Troponin I High Sens (<=51) pg/mL C-Reactive Protein (0.0-0.9) mg/dL B-Natriuretic Peptide (0-100) pg/ml Total Protein (6.4-8.2) g/dL Albumin (3.4-5.0) g/dL Globulin Albumin/Globulin Ratio TSH, Ultra Sensitive (0.36-3.74) uIU/mL Urine Color Yellow (YELLOW) Urine Appearance Clear (CLEAR) Urine pH 6.0 (5.0-9.0) Ur Specific [place] 1.015 (1.005-1.030) Urine Protein Negative (NEGATIVE) Urine Glucose (UA) Negative (NEGATIVE) Urine Ketones Negative (NEGATIVE) Urine Occult Blood Negative (NEGATIVE) Urine Nitrite Negative (NEGATIVE) Urine Bilirubin Negative (NEGATIVE) Urine Urobilinogen 0.2 (0.2-1.0) mg/dL Ur Leukocyte Esterase Negative (NEGATIVE) Urine Opiates Screen Negative (NEGATIVE) Ur Oxycodone Screen Negative (NEGATIVE) Urine Methadone Screen Negative (NEGATIVE) Ur Barbiturates Screen Negative (NEGATIVE) U Tricyclic Antidepress Negative (NEGATIVE) Ur Phencyclidine Scrn Negative (NEGATIVE) Ur Amphetamine Screen Negative (NEGATIVE) U Methamphetamines Scrn Negative (NEGATIVE) Urine MDMA Screen Negative (NEGATIVE) U Benzodiazepines Scrn Negative (NEGATIVE) Urine Cocaine Screen Negative (NEGATIVE) U Marijuana (THC) Screen Negative (NEGATIVE) Ethyl Alcohol (0) mg/dL Blood Type Gel Antibody Screen 06/29/21 06/29/21 06/30/21 Range/Units 16:14 16:21 06:30 WBC (5.0-10.0) 10^3/uL RBC (4.2-5.4) 10^6/uL Hgb (12.0-16.0) g/dL Hct (37.0-47.0) % MCV (80-100) fL MCH (27.0-34.0) pg MCHC (33.0-35.0) g/dL Plt Count (150-450) 10^3/uL Neut % (Auto) (42.2-75.2) % Lymph % (Auto) (20.5-50.1) % Charles % (Auto) (2-8) % Eos % (Auto) (1.0-3.0) % Baso % (Auto) (0.0-1.0) % PT (9.0-12.0) SEC INR (0.9-1.2) D-Dimer, Quantitative (0-400) ng/mL Sodium (136-145) mmol/L Potassium (3.5-5.1) mmol/L Chloride (98-107) mmol/L Carbon Dioxide (21-32) mmol/L Anion Gap (7-13) mEq/L BUN (7-18) mg/dL Creatinine (0.55-1.02) mg/dL Est Cr Clr Drug Dosing mL/min Estimated GFR (MDRD) BUN/Creatinine Ratio (No establ ref range) Glucose (70-99) mg/dL POC Glucose 118 H (70-99) mg/dL Lactic Acid (0.4-2.0) mmol/L Calcium (8.5-10.1) mg/dL Phosphorus (2.6-4.7) mg/dL Magnesium (1.8-2.4) mg/dL Total Bilirubin (0.2-1.0) mg/dL AST (15-37) U/L ALT (14-59) U/L Alkaline Phosphatase (46-116) U/L Ammonia (11-32) umol/L Troponin I High Sens 153 H* (<=51) pg/mL C-Reactive Protein 2.7 H (0.0-0.9) mg/dL B-Natriuretic Peptide (0-100) pg/ml Total Protein (6.4-8.2) g/dL Albumin (3.4-5.0) g/dL Globulin Albumin/Globulin Ratio TSH, Ultra Sensitive (0.36-3.74) uIU/mL Urine Color (YELLOW) Urine Appearance (CLEAR) Urine pH (5.0-9.0) Ur Specific [place] (1.005-1.030) Urine Protein (NEGATIVE) Urine Glucose (UA) (NEGATIVE) Urine Ketones (NEGATIVE) Urine Occult Blood (NEGATIVE) Urine Nitrite (NEGATIVE) Urine Bilirubin (NEGATIVE) Urine Urobilinogen (0.2-1.0) mg/dL Ur Leukocyte Esterase (NEGATIVE) Urine Opiates Screen (NEGATIVE) Ur Oxycodone Screen (NEGATIVE) Urine Methadone Screen (NEGATIVE) Ur Barbiturates Screen (NEGATIVE) U Tricyclic Antidepress (NEGATIVE) Ur Phencyclidine Scrn (NEGATIVE) Ur Amphetamine Screen (NEGATIVE) U Methamphetamines Scrn (NEGATIVE) Urine MDMA Screen (NEGATIVE) U Benzodiazepines Scrn (NEGATIVE) Urine Cocaine Screen (NEGATIVE) U Marijuana (THC) Screen (NEGATIVE) Ethyl Alcohol (0) mg/dL Blood Type Gel Antibody Screen 06/30/21 06/30/21 06/30/21 Range/Units 06:30 06:30 06:30 WBC 5.4 (5.0-10.0) 10^3/uL RBC 2.91 L (4.2-5.4) 10^6/uL Hgb 7.2 L D (12.0-16.0) g/dL Hct 24.0 L (37.0-47.0) % MCV 82.5 (80-100) fL MCH 24.7 L (27.0-34.0) pg MCHC 30.0 L (33.0-35.0) g/dL Plt Count 200 (150-450) 10^3/uL Neut % (Auto) 72.7 (42.2-75.2) % Lymph % (Auto) 10.6 L (20.5-50.1) % Charles % (Auto) 16.1 H (2-8) % Eos % (Auto) 0.4 L (1.0-3.0) % Baso % (Auto) 0.2 (0.0-1.0) % PT 26.1 H D (9.0-12.0) SEC INR 2.6 H (0.9-1.2) D-Dimer, Quantitative (0-400) ng/mL Sodium 140 (136-145) mmol/L Potassium 2.8 L (3.5-5.1) mmol/L Chloride 102 (98-107) mmol/L Carbon Dioxide 32 (21-32) mmol/L Anion Gap 8.8 (7-13) mEq/L BUN 24 H (7-18) mg/dL Creatinine 0.76 (0.55-1.02) mg/dL Est Cr Clr Drug Dosing 55.27 mL/min Estimated GFR (MDRD) > 60 BUN/Creatinine Ratio 31.6 (No establ ref range) Glucose 98 (70-99) mg/dL POC Glucose (70-99) mg/dL Lactic Acid (0.4-2.0) mmol/L Calcium 7.9 L (8.5-10.1) mg/dL Phosphorus (2.6-4.7) mg/dL Magnesium (1.8-2.4) mg/dL Total Bilirubin 0.6 (0.2-1.0) mg/dL AST 22 (15-37) U/L ALT 18 (14-59) U/L Alkaline Phosphatase 84 (46-116) U/L Ammonia (11-32) umol/L Troponin I High Sens 126 H* (<=51) pg/mL C-Reactive Protein (0.0-0.9) mg/dL B-Natriuretic Peptide (0-100) pg/ml Total Protein 5.0 L (6.4-8.2) g/dL Albumin 2.1 L (3.4-5.0) g/dL Globulin 2.9 Albumin/Globulin Ratio 0.72 TSH, Ultra Sensitive (0.36-3.74) uIU/mL Urine Color (YELLOW) Urine Appearance (CLEAR) Urine pH (5.0-9.0) Ur Specific [place] (1.005-1.030) Urine Protein (NEGATIVE) Urine Glucose (UA) (NEGATIVE) Urine Ketones (NEGATIVE) Urine Occult Blood (NEGATIVE) Urine Nitrite (NEGATIVE) Urine Bilirubin (NEGATIVE) Urine Urobilinogen (0.2-1.0) mg/dL Ur Leukocyte Esterase (NEGATIVE) Urine Opiates Screen (NEGATIVE) Ur Oxycodone Screen (NEGATIVE) Urine Methadone Screen (NEGATIVE) Ur Barbiturates Screen (NEGATIVE) U Tricyclic Antidepress (NEGATIVE) Ur Phencyclidine Scrn (NEGATIVE) Ur Amphetamine Screen (NEGATIVE) U Methamphetamines Scrn (NEGATIVE) Urine MDMA Screen (NEGATIVE) U Benzodiazepines Scrn (NEGATIVE) Urine Cocaine Screen (NEGATIVE) U Marijuana (THC) Screen (NEGATIVE) Ethyl Alcohol (0) mg/dL Blood Type Gel Antibody Screen 06/30/21 06/30/21 06/30/21 Range/Units 06:30 06:30 08:14 WBC (5.0-10.0) 10^3/uL RBC (4.2-5.4) 10^6/uL Hgb (12.0-16.0) g/dL Hct (37.0-47.0) % MCV (80-100) fL MCH (27.0-34.0) pg MCHC (33.0-35.0) g/dL Plt Count (150-450) 10^3/uL Neut % (Auto) (42.2-75.2) % Lymph % (Auto) (20.5-50.1) % Charles % (Auto) (2-8) % Eos % (Auto) (1.0-3.0) % Baso % (Auto) (0.0-1.0) % PT (9.0-12.0) SEC INR (0.9-1.2) D-Dimer, Quantitative 588 H (0-400) ng/mL Sodium (136-145) mmol/L Potassium (3.5-5.1) mmol/L Chloride (98-107) mmol/L Carbon Dioxide (21-32) mmol/L Anion Gap (7-13) mEq/L BUN (7-18) mg/dL Creatinine (0.55-1.02) mg/dL Est Cr Clr Drug Dosing mL/min Estimated GFR (MDRD) BUN/Creatinine Ratio (No establ ref range) Glucose (70-99) mg/dL POC Glucose 94 (70-99) mg/dL Lactic Acid (0.4-2.0) mmol/L Calcium (8.5-10.1) mg/dL Phosphorus (2.6-4.7) mg/dL Magnesium (1.8-2.4) mg/dL Total Bilirubin (0.2-1.0) mg/dL AST (15-37) U/L ALT (14-59) U/L Alkaline Phosphatase (46-116) U/L Ammonia (11-32) umol/L Troponin I High Sens (<=51) pg/mL C-Reactive Protein (0.0-0.9) mg/dL B-Natriuretic Peptide (0-100) pg/ml Total Protein (6.4-8.2) g/dL Albumin (3.4-5.0) g/dL Globulin Albumin/Globulin Ratio TSH, Ultra Sensitive (0.36-3.74) uIU/mL Urine Color (YELLOW) Urine Appearance (CLEAR) Urine pH (5.0-9.0) Ur Specific [place] (1.005-1.030) Urine Protein (NEGATIVE) Urine Glucose (UA) (NEGATIVE) Urine Ketones (NEGATIVE) Urine Occult Blood (NEGATIVE) Urine Nitrite (NEGATIVE) Urine Bilirubin (NEGATIVE) Urine Urobilinogen (0.2-1.0) mg/dL Ur Leukocyte Esterase (NEGATIVE) Urine Opiates Screen (NEGATIVE) Ur Oxycodone Screen (NEGATIVE) Urine Methadone Screen (NEGATIVE) Ur Barbiturates Screen (NEGATIVE) U Tricyclic Antidepress (NEGATIVE) Ur Phencyclidine Scrn (NEGATIVE) Ur Amphetamine Screen (NEGATIVE) U Methamphetamines Scrn (NEGATIVE) Urine MDMA Screen (NEGATIVE) U Benzodiazepines Scrn (NEGATIVE) Urine Cocaine Screen (NEGATIVE) U Marijuana (THC) Screen (NEGATIVE) Ethyl Alcohol (0) mg/dL Blood Type B POSITIVE Gel Antibody Screen Negative Result Diagrams: 06/30/21 06:30 06/30/21 06:30 [facility] Results Last 24 hrs: Microbiology 06/30/21 08:50 Stool Occult Blood ([facility]) - Final Stool / Feces Sepsis Event Note - Evaluation Sepsis Screening Result: No Definite Risk - Focused Exam Vital Signs: Vital Signs Temp Pulse Pulse Resp BP BP Pulse Ox 06/30/21 08:35 96 131/6 L 06/30/21 04:00 98.3 F 86 18 102/43 L 96 06/30/21 00:00 99.3 F 110 H 20 99/45 L 94 L - Problem List Review Problem List Initiated/Reviewed/Updated: Yes - My Orders Last 24 Hours: My Active Orders 06/30/21 07:54 Magnesium Sulfate/Water [Magnesium Sulfate in Water 2 GM/50 ML] 2 gm Premix Bag 1 bag IV ONETIME 06/30/21 08:00 D5 1/2 NS w/ 20 mEq/L KCl 1,000 ml IV ASDIRECTED 06/30/21 09:08 Supplement (Dietary) [Dietary Supplements] [RC] TIDMEALS 06/30/21 10:00 Pantoprazole [ProTONIX IV] 40 mg Sodium Chloride 0.9% [Normal Saline] 100 ml IV Q5H 06/30/21 14:00 Warfarin [Coumadin] 2 mg PO ONETIME ONE 07/01/21 CBC WITH AUTO DIFF [HEME] Routine 07/01/21 09:20 COMPREHENSIVE METABOLIC PN,CMP [CHEM] Routine INR,PT,PROTHROMBIN TIME [COAG] Routine - Plan Plan:: 80-year-old female with a past medical history of COPD on 2 L home O2, CHF with an EF of 45 to 50%, type 2 diabetes not on insulin, CAD, atrial fibrillation on chronic anticoagulation with warfarin, recent COVID-19 diagnosis who presented with altered mental status and hypoxia found to have significant infiltrates on chest x-ray concerning for COVID-19 pneumonia. Today patient is sitting up in bed eating breakfast. Patient denies any c/o. Admits to black stools. States she got a blood transfusion in December for low Hgb. Patient refuses to have a colonoscopy or EGD performed. Patient denies any pain at this time. Does not appear to be SOB, wearing O2 per NC, O2 sats ~90%. Acute: COVID-19 pneumonia -Patient apparently started having respiratory symptoms on the , Covid positive on 06-21-21, received monoclonal antibody therapy 06-22-21 -Start patient on dexamethasone 6 mg p.o. for 10 days, remdesivir 200 mg IV on day 1 and 100 mg on days 2 through 5 given her increased oxygen requirements -RT consult to assess and treat -We will continue home inhalers including scheduled LABA/LAMA and as needed albuterol -Added ceftriaxone and azithromycin IV for secondary bacterial pneumonia coverage, blood cultures in process ADDENDUM - patient had completed a course of doxycycline which was started on 06/21/21 - also had been on steroids since 06/21/21 - will d/c ceftriaxone and g nano two additional days of IV azithromycin - will continue dexamethasone until at least 07/01/21 -Daily COVID-19 laboratory testings including ALT while on remdesivir, inflammatory markers, patient is on warfarin for anticoagulation -DNR/DNI per multiple family members Altered mental status -Patient had recent history of occasional difficulty with speech and is confused to situation but does follow commands appropriately and I do not note any focal deficits. This morning, no focal deficits, alert and oriented, no difficulty with speech. -Most likely secondary to hypoxia, COVID-19 pneumonia -Urinalysis showed no concerning findings, head CT is negative, TSH is normal, urine tox with no concerning findings -If persistent dysarthria would consider repeat head CT vs MRI Elevated high-sensitivity troponin -Most likely etiology is related to COVID-19 pneumonia -Denies any current chest discomfort -EKG did show some concerning findings with inverted T waves in V1 and V2, continue to monitor, I do not have a prior EKG to compare -We will continue to trend troponin, patient is already on aspirin, statin, warfarin Troponin declining Anemia -Patient did have a supratherapeutic INR recently -Mild ecchymoses noted on exam, no further evidence of bleeding per family or patient, -will continue to monitor blood counts, hemoglobin 9.9 - transfuse if hemoglobin less than 7 -Today Hemoglobin 7.2, Type and screen, consider transfusion or 6 hour H&H due to drop of Hgb by >2.5gm -Hemoccult + -Protonix 80mg IV bolus, followed by Protonix gtt Hypokalemia -Potassium 2.8 today -Potassium 20meQ/D5 1/2 NS at 125cc/hr Hypomagnesium -Magnesium 1.6 on yesterdays labs -Magnesium 2gm IV x1, repeat Mag level 07/01 Chronic: History of CHF -We will continue with Lasix 20 mg p.o. daily COPD -continue home inhalers as listed above -oxygen saturation goal 88% Hyperlipidemiacontinue statin CADcontinue aspirin, metoprolol XL 50 Type 2 diabetes mellitushold Metformin, twice daily glucose checks for now, if elevated will add sliding scale insulin Atrial fibrillationcontinue metoprolol XL, continue warfarin, most recent INR 1.8 DVT prophylaxis warfarin Dietcarb controlled Inpatient status
[2021-06-30] MEDS: Pantoprazole 40 MG in Sodium Chloride 0.9% 100 ML IV SCH ×3 (10:20→21:47)
[2021-06-30] MEDS ORDERED: cefTRIAXone 2 GM in Sodium Chloride 0.9% 100 ML IV SCH (12:00)
[2021-06-30] MEDS: Azithromycin 500 MG in Sodium Chloride 0.9% 250 ML IV SCH (13:27)
[2021-06-30] MEDS ORDERED: Warfarin 2 MG Tab PO ONE (14:00)
--- NOTE | 2021-06-30 15:03 | PCM.SN.2 ---
- Free Text/Narrative Note: Anemia acute on chronic, h/o A fib on warfarin, h/o stroke. D/W Dr Trimble ( her PCP): pt has been refusing GI work up for anemia and he already discussed the risks and benefits of continuing Warfarin. She chose to co ntinue with Warfarin. Dr. Trimble suggest to transfuse RBC and to discharge her on Iron supplement. Check CBC in AM and w ll re evaluate for transfusion. Time Documentation
[2021-06-30] MEDS ORDERED: Potassium Chloride 10 MEQ Tab.ER PO ONE (15:49)
[2021-06-30] MEDS ORDERED: Glucagon,Human Recombinant 1 MG Vial IM PRN (21:45)
[2021-06-30] MEDS: Docusate Sodium 100 MG Cap PO SCH (21:45)
[2021-06-30] MEDS ORDERED: 50% Dextrose in Water 50 ML Syringe IVPUSH PRN (21:45)
[2021-06-30] MEDS: atorvaSTATin 20 MG Tab PO SCH (21:46)
[2021-07-01] MEDS: D5 1/2 NS w/ 20 mEq/L KCl 1,000 ML IV SCH ×3 (02:04→18:45)
[2021-07-01] MEDS: Pantoprazole 40 MG in Sodium Chloride 0.9% 100 ML IV SCH ×5 (02:22→22:35)
[2021-07-01 07:12] LABS: ANION GAP 11.1 mEq/L (7-13); CHLORIDE,CL 102 mmol/L (98-107); SODIUM,NA 135 mmol/L (136-145)
[2021-07-01] MEDS: Insulin Lispro 100 Units/ML 3 ML Vial SUBCUT SCH ×4 (08:10→21:47)
[2021-07-01] MEDS: Dexamethasone 6 MG TABLET PO SCH (08:26)
[2021-07-01] MEDS: Formoterol/Mometasone 200-5 MCG 8.8 GM Inhaler IH SCH ×2 (08:27→21:43)
[2021-07-01] MEDS: Furosemide 20 MG Tab PO SCH (08:28)
[2021-07-01] MEDS: Nystatin Crm 15 GM Tube TOP SCH ×2 (08:29→21:52)
[2021-07-01] MEDS: REMDESIVIR 100 MG in Sodium Chloride 0.9% 100 ML IV SCH (08:30)
[2021-07-01] MEDS: Tiotropium Inhaler 18 MCG Inhalation Powder Cap Kit of 5 INH SCH (08:31)
[2021-07-01] MEDS: Metoprolol Succinate 50 MG Tab.ER PO SCH (08:32)
--- NOTE | 2021-07-01 11:15 | PCM.PN ---
- General Info Date of Service: 07/01/21 Admission Dx/Problem (Free Text): Admission Diagnosis/Problem Pt feels getting to her baseline breathing status. She is tolerating her diet Functional Status: Reports: Pain Controlled - Review of Systems General: Denies: Fever Pulmonary: Reports: Shortness of Breath (baseline on 2 L NC) Cardiovascular: Denies: Chest Pain Gastrointestinal: Denies: Abdominal Pain Neurological: Denies: Confusion Psychiatric: Denies: Confusion - Patient Data Vitals - Most Recent: Last Vital Signs Temp 97.8 F 07/01/21 08:00 Pulse 70 07/01/21 08:32 Resp 20 07/01/21 08:00 BP 109/78 07/01/21 08:32 Pulse Ox 95 07/01/21 08:00 Weight - Most Recent: 159 lb I&O - Last 24 Hours: Intake & Output 06/30/21 07/01/21 07/01/21 22:59 06:59 14:59 Intake Total 340 300 Output Total 300 Balance 40 300 Lab Results Last 24 Hours: Laboratory Results - last 24 hr 06/30/21 06/30/21 06/30/21 Range/Units 11:19 13:40 16:32 WBC 8.8 (5.0-10.0) 10^3/uL RBC 3.41 L (4.2-5.4) 10^6/uL Hgb 8.4 L (12.0-16.0) g/dL Hct 28.0 L (37.0-47.0) % MCV 82.1 (80-100) fL MCH 24.6 L (27.0-34.0) pg MCHC 30.0 L (33.0-35.0) g/dL Plt Count 239 (150-450) 10^3/uL Neut % (Auto) (42.2-75.2) % Lymph % (Auto) (20.5-50.1) % [place] % (Auto) (2-8) % Eos % (Auto) (1.0-3.0) % Baso % (Auto) (0.0-1.0) % PT (9.0-12.0) SEC INR (0.9-1.2) Sodium (136-145) mmol/L Potassium (3.5-5.1) mmol/L Chloride (98-107) mmol/L Carbon Dioxide (21-32) mmol/L Anion Gap (7-13) mEq/L BUN (7-18) mg/dL Creatinine (0.55-1.02) mg/dL Est Cr Clr Drug Dosing mL/min Estimated GFR (MDRD) BUN/Creatinine Ratio (No establ ref range) Glucose (70-99) mg/dL POC Glucose 172 H 214 H (70-99) mg/dL Calcium (8.5-10.1) mg/dL Iron (50-170) ug/dL TIBC (250-450) ug/dL % Saturation (20.0-50.0) % Ferritin (8-252) mg/mL Total Bilirubin (0.2-1.0) mg/dL AST (15-37) U/L ALT (14-59) U/L Alkaline Phosphatase (46-116) U/L Total Protein (6.4-8.2) g/dL Albumin (3.4-5.0) g/dL Globulin Albumin/Globulin Ratio 07/01/21 07/01/21 07/01/21 Range/Units 06:20 06:20 06:20 WBC 8.8 (5.0-10.0) 10^3/uL RBC 3.58 L (4.2-5.4) 10^6/uL Hgb 8.7 L (12.0-16.0) g/dL Hct 29.1 L (37.0-47.0) % MCV 81.3 (80-100) fL MCH 24.3 L (27.0-34.0) pg MCHC 29.9 L (33.0-35.0) g/dL Plt Count 240 (150-450) 10^3/uL Neut % (Auto) 76.1 H (42.2-75.2) % Lymph % (Auto) 10.4 L (20.5-50.1) % [place] % (Auto) 12.8 H (2-8) % Eos % (Auto) 0.5 L (1.0-3.0) % Baso % (Auto) 0.2 (0.0-1.0) % PT (9.0-12.0) SEC INR (0.9-1.2) Sodium 135 L (136-145) mmol/L Potassium 4.1 (3.5-5.1) mmol/L Chloride 102 (98-107) mmol/L Carbon Dioxide 26 (21-32) mmol/L Anion Gap 11.1 (7-13) mEq/L BUN 20 H (7-18) mg/dL Creatinine 0.81 (0.55-1.02) mg/dL Est Cr Clr Drug Dosing 51.86 mL/min Estimated GFR (MDRD) > 60 BUN/Creatinine Ratio 24.7 (No establ ref range) Glucose 177 H (70-99) mg/dL POC Glucose (70-99) mg/dL Calcium 8.1 L (8.5-10.1) mg/dL Iron 22 L (50-170) ug/dL TIBC 245 L (250-450) ug/dL % Saturation 9.0 L (20.0-50.0) % Ferritin 40 (8-252) mg/mL Total Bilirubin 0.7 (0.2-1.0) mg/dL AST 34 (15-37) U/L ALT 25 (14-59) U/L Alkaline Phosphatase 96 (46-116) U/L Total Protein 5.2 L (6.4-8.2) g/dL Albumin 2.3 L (3.4-5.0) g/dL Globulin 2.9 Albumin/Globulin Ratio 0.79 07/01/21 07/01/21 Range/Units 08:07 08:47 WBC (5.0-10.0) 10^3/uL RBC (4.2-5.4) 10^6/uL Hgb (12.0-16.0) g/dL Hct (37.0-47.0) % MCV (80-100) fL MCH (27.0-34.0) pg MCHC (33.0-35.0) g/dL Plt Count (150-450) 10^3/uL Neut % (Auto) (42.2-75.2) % Lymph % (Auto) (20.5-50.1) % [place] % (Auto) (2-8) % Eos % (Auto) (1.0-3.0) % Baso % (Auto) (0.0-1.0) % PT 24.8 H (9.0-12.0) SEC INR 2.5 H (0.9-1.2) Sodium (136-145) mmol/L Potassium (3.5-5.1) mmol/L Chloride (98-107) mmol/L Carbon Dioxide (21-32) mmol/L Anion Gap (7-13) mEq/L BUN (7-18) mg/dL Creatinine (0.55-1.02) mg/dL Est Cr Clr Drug Dosing mL/min Estimated GFR (MDRD) BUN/Creatinine Ratio (No establ ref range) Glucose (70-99) mg/dL POC Glucose 171 H (70-99) mg/dL Calcium (8.5-10.1) mg/dL Iron (50-170) ug/dL TIBC (250-450) ug/dL % Saturation (20.0-50.0) % Ferritin (8-252) mg/mL Total Bilirubin (0.2-1.0) mg/dL AST (15-37) U/L ALT (14-59) U/L Alkaline Phosphatase (46-116) U/L Total Protein (6.4-8.2) g/dL Albumin (3.4-5.0) g/dL Globulin Albumin/Globulin Ratio [facility] Results Last 24 Hours: Microbiology 06/29/21 10:16 Aerobic Blood Culture - Preliminary Blood - Venous - Iv Start NO GROWTH AFTER 2 DAYS Anaerobic Blood Culture - Preliminary NO GROWTH AFTER 2 DAYS 06/29/21 10:14 Aerobic Blood Culture - Preliminary Blood - Venous - Iv Start NO GROWTH AFTER 2 DAYS Anaerobic Blood Culture - Preliminary NO GROWTH AFTER 2 DAYS 06/30/21 08:50 Stool Occult Blood ([facility]) - Final Stool / Feces Med Orders - Current: Current Medications Acetaminophen (Acetaminophen 325 Mg Tab) 650 mg PO Q4H PRN PRN Reason: Pain (Mild 1-3)/fever Albuterol (Albuterol 6.7 Gm Inhaler) 0 gm INH Q4H PRN PRN Reason: Shortness of Breath Atorvastatin Calcium (Atorvastatin 20 Mg Tab) 80 mg PO BEDTIME [facility] Last Admin: 06/30/21 21:46 Dose: 80 mg Documented by: Dexamethasone (Dexamethasone 6 Mg Tablet) 6 mg PO DAILY [facility] Stop: 07/08/21 09:01 Last Admin: 07/01/21 08:26 Dose: 6 mg Documented by: Dextrose/Water (50% Dextrose In Water 50 Ml Syringe) 50 ml IVPUSH Q15M PRN PRN Reason: Hypoglycemia Docusate Sodium (Docusate Sodium 100 Mg Cap) 200 mg PO BEDTIME [facility] Last Admin: 06/30/21 21:45 Dose: 200 mg Documented by: Furosemide (Furosemide 20 Mg Tab) 20 mg PO DAILY [facility] Last Admin: 07/01/21 08:28 Dose: 20 mg Documented by: Glucagon (Glucagon,Human Recombinant 1 Mg Vial) 1 mg IM Q15M PRN PRN Reason: Hypoglycemia Remdesivir 100 mg/ Sodium (Chloride) 100 mls @ 100 mls/hr IV Q24H [facility] Stop: 07/03/21 09:59 Last Admin: 07/01/21 08:30 Dose: 100 mls/hr Documented by: Azithromycin 500 mg/ Sodium (Chloride) 250 mls @ 250 mls/hr IV Q24H [facility] Stop: 07/01/21 13:01 Last Infusion: 06/30/21 15:23 Dose: Infused Documented by: Potassium Chloride/Dextrose/Sod Cl (D5 1/2 Ns W/ 20 Meq/L Kcl) 1,000 mls @ 125 mls/hr IV ASDIRECTED [facility] Last Admin: 07/01/21 10:51 Dose: 125 mls/hr Documented by: Pantoprazole Sodium 40 mg/ (Sodium Chloride) 100 mls @ 20 mls/hr IV Q5H [facility] Last Admin: 07/01/21 08:06 Dose: 20 mls/hr Documented by: Influenza Virus Vaccine (Pharmacy To Dose - Influenza Vaccine) 1 each IM DAILY [facility] Insulin Human Lispro (Insulin Lispro 100 Units/Ml 3 Ml Vial) 0 unit SUBCUT WITHMEALSANDBED [facility]; Protocol Last Admin: 07/01/21 08:10 Dose: 1 units Documented by: Metoprolol Succinate (Metoprolol Succinate 50 Mg Tab.Er) 100 mg PO DAILY [facility] Last Admin: 07/01/21 08:32 Dose: 100 mg Documented by: Mometasone Furoate/Formoterol Fumar (Formoterol/Mometasone 200-5 Mcg 8.8 Gm Inhaler) 2 puff IH BID [facility] Last Admin: 07/01/21 08:27 Dose: 2 puff Documented by: Nystatin (Nystatin Crm 15 Gm Tube) 0 gm TOP BID [facility] Last Admin: 07/01/21 08:29 Dose: 1 applic Documented by: Ondansetron HCl (Ondansetron 4 Mg/2 Ml Sdv) 4 mg IVPUSH Q4H PRN PRN Reason: Nausea/Vomiting Pneumococcal Polyvalent Vaccine (Pneumococcal Polyvalent-23 Vaccine 0.5 Ml Sdv) 0.5 ml IM .ONCE ONE Stop: 07/02/21 13:27 Polyethylene Glycol (Polyethylene Glycol 3350 Powder 17 Gm Packet) 17 gm PO DAILY PRN PRN Reason: Constipation Sodium Chloride (Sodium Chloride 0.9% 10 Ml Syringe) 10 ml FLUSH ASDIRECTED PRN PRN Reason: Keep Vein Open Last Admin: 06/29/21 12:26 Dose: 10 ml Documented by: Tiotropium [place] (Tiotropium Inhaler 18 Mcg Inhalation Powder Cap Kit Of 5) 18 mcg INH DAILY [facility] Last Admin: 07/01/21 08:31 Dose: 18 mcg Documented by: Warfarin Sodium (Pharmacy To Dose - Warfarin) 0 dose .XX ASDIRECTED [facility] Warfarin Sodium (Warfarin 2 Mg Tab) 2 mg PO ONETIME ONE Stop: 07/01/21 14:01 Discontinued Medications Ceftriaxone Sodium 2 gm/ (Sodium Chloride) 100 mls @ 200 mls/hr IV ONETIME ONE Stop: 06/29/21 12:27 Last Admin: 06/29/21 12:10 Dose: 200 mls/hr Documented by: Azithromycin 500 mg/ Sodium (Chloride) 250 mls @ 250 mls/hr IV ONETIME ONE Stop: 06/29/21 12:58 Last Infusion: 06/29/21 15:37 Dose: Infused Documented by: Remdesivir 200 mg/ Sodium (Chloride) 250 mls @ 250 mls/hr IV ONETIME ONE Stop: 06/29/21 15:59 Last Infusion: 06/29/21 17:05 Dose: Infused Documented by: Ceftriaxone Sodium 2 gm/ (Sodium Chloride) 100 mls @ 200 mls/hr IV Q24H [facility] Magnesium Sulfate 2 gm/ Premix 50 mls @ 25 mls/hr IV ONETIME ONE Stop: 06/30/21 09:53 Last Admin: 06/30/21 09:23 Dose: 25 mls/hr Documented by: Pantoprazole Sodium (Pantoprazole 40 Mg Vial) 80 mg IVPUSH .BOLUS ONE Stop: 06/30/21 09:22 Last Admin: 06/30/21 09:45 Dose: 80 mg Documented by: Potassium Chloride (Potassium Chloride 10 Meq Tab.Er) 40 meq PO ONETIME ONE Stop: 06/30/21 15:50 Last Admin: 06/30/21 17:12 Dose: 40 meq Documented by: Warfarin Sodium (Warfarin 2 Mg Tab) 2 mg PO ONETIME ONE Stop: 06/30/21 14:01 Last Admin: 06/30/21 14:10 Dose: 2 mg Documented by: - Exam Quality Assessment: Supplemental Oxygen General: Alert, Oriented Extremities: Normal Inspection Skin: Warm, Dry, Intact Neurological: No New Focal Deficit Psy/Mental Status: Alert - Patient Data Lab Results Last 24 hrs: Laboratory Results - last 24 hr 06/30/21 06/30/21 06/30/21 Range/Units 11:19 13:40 16:32 WBC 8.8 (5.0-10.0) 10^3/uL RBC 3.41 L (4.2-5.4) 10^6/uL Hgb 8.4 L (12.0-16.0) g/dL Hct 28.0 L (37.0-47.0) % MCV 82.1 (80-100) fL MCH 24.6 L (27.0-34.0) pg MCHC 30.0 L (33.0-35.0) g/dL Plt Count 239 (150-450) 10^3/uL Neut % (Auto) (42.2-75.2) % Lymph % (Auto) (20.5-50.1) % [place] % (Auto) (2-8) % Eos % (Auto) (1.0-3.0) % Baso % (Auto) (0.0-1.0) % PT (9.0-12.0) SEC INR (0.9-1.2) Sodium (136-145) mmol/L Potassium (3.5-5.1) mmol/L Chloride (98-107) mmol/L Carbon Dioxide (21-32) mmol/L Anion Gap (7-13) mEq/L BUN (7-18) mg/dL Creatinine (0.55-1.02) mg/dL Est Cr Clr Drug Dosing mL/min Estimated GFR (MDRD) BUN/Creatinine Ratio (No establ ref range) Glucose (70-99) mg/dL POC Glucose 172 H 214 H (70-99) mg/dL Calcium (8.5-10.1) mg/dL Iron (50-170) ug/dL TIBC (250-450) ug/dL % Saturation (20.0-50.0) % Ferritin (8-252) mg/mL Total Bilirubin (0.2-1.0) mg/dL AST (15-37) U/L ALT (14-59) U/L Alkaline Phosphatase (46-116) U/L Total Protein (6.4-8.2) g/dL Albumin (3.4-5.0) g/dL Globulin Albumin/Globulin Ratio 07/01/21 07/01/21 07/01/21 Range/Units 06:20 06:20 06:20 WBC 8.8 (5.0-10.0) 10^3/uL RBC 3.58 L (4.2-5.4) 10^6/uL Hgb 8.7 L (12.0-16.0) g/dL Hct 29.1 L (37.0-47.0) % MCV 81.3 (80-100) fL MCH 24.3 L (27.0-34.0) pg MCHC 29.9 L (33.0-35.0) g/dL Plt Count 240 (150-450) 10^3/uL Neut % (Auto) 76.1 H (42.2-75.2) % Lymph % (Auto) 10.4 L (20.5-50.1) % Burnet % (Auto) 12.8 H (2-8) % Eos % (Auto) 0.5 L (1.0-3.0) % Baso % (Auto) 0.2 (0.0-1.0) % PT (9.0-12.0) SEC INR (0.9-1.2) Sodium 135 L (136-145) mmol/L Potassium 4.1 (3.5-5.1) mmol/L Chloride 102 (98-107) mmol/L Carbon Dioxide 26 (21-32) mmol/L Anion Gap 11.1 (7-13) mEq/L BUN 20 H (7-18) mg/dL Creatinine 0.81 (0.55-1.02) mg/dL Est Cr Clr Drug Dosing 51.86 mL/min Estimated GFR (MDRD) > 60 BUN/Creatinine Ratio 24.7 (No establ ref range) Glucose 177 H (70-99) mg/dL POC Glucose (70-99) mg/dL Calcium 8.1 L (8.5-10.1) mg/dL Iron 22 L (50-170) ug/dL TIBC 245 L (250-450) ug/dL % Saturation 9.0 L (20.0-50.0) % Ferritin 40 (8-252) mg/mL Total Bilirubin 0.7 (0.2-1.0) mg/dL AST 34 (15-37) U/L ALT 25 (14-59) U/L Alkaline Phosphatase 96 (46-116) U/L Total Protein 5.2 L (6.4-8.2) g/dL Albumin 2.3 L (3.4-5.0) g/dL Globulin 2.9 Albumin/Globulin Ratio 0.79 07/01/21 07/01/21 Range/Units 08:07 08:47 WBC (5.0-10.0) 10^3/uL RBC (4.2-5.4) 10^6/uL Hgb (12.0-16.0) g/dL Hct (37.0-47.0) % MCV (80-100) fL MCH (27.0-34.0) pg MCHC (33.0-35.0) g/dL Plt Count (150-450) 10^3/uL Neut % (Auto) (42.2-75.2) % Lymph % (Auto) (20.5-50.1) % [place] % (Auto) (2-8) % Eos % (Auto) (1.0-3.0) % Baso % (Auto) (0.0-1.0) % PT 24.8 H (9.0-12.0) SEC INR 2.5 H (0.9-1.2) Sodium (136-145) mmol/L Potassium (3.5-5.1) mmol/L Chloride (98-107) mmol/L Carbon Dioxide (21-32) mmol/L Anion Gap (7-13) mEq/L BUN (7-18) mg/dL Creatinine (0.55-1.02) mg/dL Est Cr Clr Drug Dosing mL/min Estimated GFR (MDRD) BUN/Creatinine Ratio (No establ ref range) Glucose (70-99) mg/dL POC Glucose 171 H (70-99) mg/dL Calcium (8.5-10.1) mg/dL Iron (50-170) ug/dL TIBC (250-450) ug/dL % Saturation (20.0-50.0) % Ferritin (8-252) mg/mL Total Bilirubin (0.2-1.0) mg/dL AST (15-37) U/L ALT (14-59) U/L Alkaline Phosphatase (46-116) U/L Total Protein (6.4-8.2) g/dL Albumin (3.4-5.0) g/dL Globulin Albumin/Globulin Ratio Result Diagrams: 07/01/21 06:20 07/01/21 06:20 [facility] Results Last 24 hrs: Microbiology 06/29/21 10:16 Aerobic Blood Culture - Preliminary Blood - Venous - Iv Start NO GROWTH AFTER 2 DAYS Anaerobic Blood Culture - Preliminary NO GROWTH AFTER 2 DAYS 06/29/21 10:14 Aerobic Blood Culture - Preliminary Blood - Venous - Iv Start NO GROWTH AFTER 2 DAYS Anaerobic Blood Culture - Preliminary NO GROWTH AFTER 2 DAYS 06/30/21 08:50 Stool Occult Blood ([facility]) - Final Stool / Feces Sepsis Event Note - Evaluation Sepsis Screening Result: No Definite Risk - Focused Exam Vital Signs: Vital Signs Temp Pulse Pulse Resp BP BP Pulse Ox 07/01/21 08:32 70 109/78 07/01/21 08:00 97.8 F 70 20 108/58 L 95 07/01/21 00:00 97.3 F 69 20 111/42 L 94 L - Problem List Review Problem List Initiated/Reviewed/Updated: Yes - My Orders Last 24 Hours: My Active Orders 06/30/21 21:41 Accu Check [Blood Glucose Check, Bedside] [RC] QIDACANDBED 06/30/21 21:45 Dextrose 50% in Water 50 ml IVPUSH Q15M PRN Glucagon,Human Recombinant [GlucaGen] 1 mg IM Q15M PRN 07/01/21 08:00 Insulin Lispro [HumaLOG] See Protocol SUBCUT WITHMEALSANDBED 07/01/21 14:00 Warfarin [Coumadin] 2 mg PO ONETIME ONE - Plan Plan:: 80-year-old female with a past medical history of COPD on 2 L home O2, CHF with an EF of 45 to 50%, type 2 diabetes not on insulin, CAD, atrial fibrillation on chronic anticoagulation with warfarin, recent COVID-19 diagnosis who presented with altered mental status and hypoxia found to have significant infiltrates on chest x-ray concerning for COVID-19 pneumonia. Today patient is sitting up in bed eating breakfast. Patient denies any c/o. Denies back stools. States she got a blood transfusion in December for low Hgb. Patient refuses to have a colonoscopy or EGD performed. Patient denies any pain at this time. Does not appear to be SOB, wearing O2 per NC, O2 sats ~90%. Acute: COVID-19 pneumonia -Patient apparently started having respiratory symptoms on the , Covid positive on 06-21-21, received monoclonal antibody therapy 06-22-21 -Start patient on dexamethasone 6 mg p.o. for 10 days, remdesivir 200 mg IV on day 1 and 100 mg on days 2 through 5 given her increased oxygen requirements -RT consult to assess and treat - Pt seems to be recovering -We will continue home inhalers including scheduled LABA/LAMA and as needed albuterol -Added ceftriaxone and azithromycin IV for secondary bacterial pneumonia coverage, blood cultures in process ADDENDUM - patient had completed a course of doxycycline which was started on 06/21/21 - also had been on steroids since 06/21/21 - will d/c ceftriaxone and give two additional days of IV azithromycin - will continue dexamethasone until at least 07/01/21 - -DNR/DNI per multiple family members Altered mental status: resolved Elevated high-sensitivity troponin -Most likely etiology is related to COVID-19 pneumonia -Denies any current chest discomfort -EKG did show some concerning findings with inverted T waves in V1 and V2, continue to monitor, I do not have a prior EKG to compare -We will continue to trend troponin, patient is already on aspirin, statin, warfarin Troponin declining Anemia -Patient did have a supratherapeutic INR recently -Mild ecchymoses noted on exam, no further evidence of bleeding per family or patient, -will continue to monitor blood counts, hemoglobin 9.9 - No indication to transfuse at present if hemoglobin less than 7 - -Hemoccult +. Apparently she previously declined work up before as per her PCP. -Protonix 40mg IV bolus, Chronic: History of CHF -We will continue with Lasix 20 mg p.o. daily COPD -continue home inhalers as listed above -oxygen saturation goal 88% Hyperlipidemiacontinue statin CADcontinue aspirin, metoprolol XL 50 Type 2 diabetes mellitushold Metformin, twice daily glucose checks for now, if elevated will add sliding scale insulin Atrial fibrillationcontinue metoprolol XL, continue warfarin, most recent INR 1.8 DVT prophylaxis warfarin Dietcarb controlled Inpatient status
[2021-07-01] MEDS: Azithromycin 500 MG in Sodium Chloride 0.9% 250 ML IV SCH (12:08)
[2021-07-01] MEDS ORDERED: Warfarin 2 MG Tab PO ONE (14:00)
[2021-07-01] MEDS: Docusate Sodium 100 MG Cap PO SCH (21:42)
[2021-07-01] MEDS: atorvaSTATin 20 MG Tab PO SCH (21:43)
[2021-07-01] MEDS: Sodium Chloride 0.9% 10 ML Syringe FLUSH PRN (22:03)
[2021-07-02] MEDS: D5 1/2 NS w/ 20 mEq/L KCl 1,000 ML IV SCH (02:52)
[2021-07-02] MEDS: Pantoprazole 40 MG in Sodium Chloride 0.9% 100 ML IV SCH ×2 (02:55→07:50)
[2021-07-02] MEDS: Insulin Lispro 100 Units/ML 3 ML Vial SUBCUT SCH ×2 (08:03→12:15)
[2021-07-02] MEDS: REMDESIVIR 100 MG in Sodium Chloride 0.9% 100 ML IV SCH (09:45)
[2021-07-02] MEDS: Furosemide 20 MG Tab PO SCH (09:48)
[2021-07-02] MEDS: Dexamethasone 6 MG TABLET PO SCH (09:48)
[2021-07-02] MEDS: Metoprolol Succinate 50 MG Tab.ER PO SCH (09:48)
[2021-07-02] MEDS: Tiotropium Inhaler 18 MCG Inhalation Powder Cap Kit of 5 INH SCH (09:52)
[2021-07-02] MEDS: Formoterol/Mometasone 200-5 MCG 8.8 GM Inhaler IH SCH (09:54)
[2021-07-02] MEDS: Nystatin Crm 15 GM Tube TOP SCH (09:55)
[2021-07-02] MEDS ORDERED: Pneumococcal Polyvalent-23 Vaccine 0.5 ML SDV IM ONE (11:30)
--- NOTE | 2021-07-02 11:39 | PCM.DCSUM1 ---
Discharge Summary - Hospital Course Free Text/Narrative:: 80-year-old female with a past medical history of COPD on 2 L home O2, CHF with an EF of 45 to 50%, type 2 diabetes not on insulin, CAD, atrial fibrillation on chronic anticoagulation with warfarin, recent COVID-19 diagnosis who presented with altered mental status and hypoxia found to have significant infiltrates on chest x-ray concerning for COVID-19 pneumonia. Today patient is sitting up in bed eating breakfast. Patient denies any c/o. Does not appear to be SOB, she is ready and happy to go home. Acute: COVID-19 pneumonia -Patient apparently started having respiratory symptoms on the , Covid positive on 06-21-21, received monoclonal antibody therapy 06-22-21 -Started patient on dexamethasone 6 mg p.o. for 10 days, remdesivir 200 mg IV on day 1 and 100 mg on days 2,3,4. -patient had completed a course of doxycycline which was started on 06/21/21 - also had been on steroids since 06/21/21 - - Pt was treated with IV azithromycin . - Blood cultures remain neg. - Pt reports that her breathing is back to baseline. - To continue home inhalers - Altered mental status: resolved Elevated high-sensitivity troponin -Most likely etiology is related to COVID-19 pneumonia -Denies any current chest discomfort -We will continue to trend troponin, patient is already on aspirin, statin, warfarin Troponin declining Anemia - Denies back stools. States she got a blood transfusion in December for low Hgb. Patient refuses to have a colonoscopy or EGD performed. -to keep INR on low therapeutic level -Mild ecchymoses noted on exam, no further evidence of bleeding per family or patient, -hemoglobin ~ 9.9 - No indication to transfuse at present. -Hemoccult +. Apparently she previously declined work up before as per her PCP. -Protonix 40mg PO daily and to add Oral iron Chronic: History of CHF -We will continue with Lasix 20 mg p.o. daily COPD -continue home inhalers as listed above -oxygen saturation goal 88% Hyperlipidemiacontinue statin CADcontinue aspirin, metoprolol XL 50 Type 2 diabetes mellitushold Metformin, twice daily glucose checks for now, if elevated will add sliding scale insulin Atrial fibrillationcontinue metoprolol XL, continue warfarin, most recent INR 1.8 -DNR/DNI - Discharge Data Discharge Date: 07/02/21 Discharge Disposition: Home, Self-Care 01 Condition: Good - Referral to Home Health Primary Care Physician: PCP None - Patient Summary/Data Consults: Consultations 07/02/21 08:55 Consult to Occupational Therapy [OT Evaluation and Treatment] [CONS] Routine PT Evaluation and Treatment [CONS] Routine - Discharge Plan *PRESCRIPTION DRUG MONITORING PROGRAM REVIEWED*: Not Applicable *COPY OF PRESCRIPTION DRUG MONITORING REPORT IN PATIENT BART: Not Applicable Prescriptions/Med Rec: Warfarin [Coumadin] 2 mg PO DAILY 14 Days #14 tab Ferrous Sulfate 325 mg PO DAILY 30 Days #30 tablet Pantoprazole [ProTONIX] 40 mg PO ACBREAKFAST 30 Days #30 tab.cr Home Medications: Home Meds metFORMIN HCl [Metformin HCl] 500 mg PO DAILY 09/03/16 [History] Furosemide 20 mg PO DAILY 02/24/20 [History] Budesonide/Glycopyr/Formoterol [Breztri Aerosphere Inhaler] 2 puff INH BID 06/22/21 [History] Albuterol Sulfate [Albuterol Sulfate Hfa] 2 puff INH Q4H PRN 06/29/21 [History] Metoprolol Succinate [Toprol XL 100mg] 100 mg PO DAILY 06/29/21 [History] atorvaSTATin Calcium [Atorvastatin Calcium] 80 mg PO BEDTIME 06/29/21 [History] Acetaminophen [Tylenol] 650 mg PO Q4H PRN tablet 07/02/21 [Rx] Docusate Sodium [Colace] 200 mg PO BEDTIME cap 07/02/21 [Rx] Ferrous Sulfate 325 mg PO DAILY 30 Days #30 tablet 07/02/21 [Rx] Pantoprazole [ProTONIX] 40 mg PO ACBREAKFAST 30 Days #30 tab.cr 07/02/21 [Rx] Warfarin [Coumadin] 2 mg PO DAILY 14 Days #14 tab 07/02/21 [Rx] atorvaSTATin [Lipitor] 80 mg PO BEDTIME tablet 07/02/21 [Rx] Oxygen Therapy Mode: Nasal Cannula (2 L as was before) Patient Handouts: Iron tablets, capsules, extended-release tablets, 10 Things You Can Do to Manage Your COVID-19 Symptoms at Home - [facility] (04/16/2021), Warfarin tablets, Pantoprazole tablets Referrals: Shabbir Brooks MD [Physician] - - Discharge Summary/Plan Comment DC Time >30 min.: No Total # of Minutes for Discharge Time: 25 - General Info Date of Service: 07/02/21 Functional Status: Reports: Tolerating Diet - Review of Systems General: Denies: Fever Pulmonary: Denies: Shortness of Breath Cardiovascular: Denies: Chest Pain Gastrointestinal: Denies: Abdominal Pain Neurological: Denies: Confusion Psychiatric: Denies: Confusion - Patient Data Vitals - Most Recent: Last Vital Signs Temp 97.7 F 07/02/21 07:59 Pulse 76 07/02/21 09:48 Resp 20 07/02/21 07:59 BP 110/70 07/02/21 09:48 Pulse Ox 97 07/02/21 07:59 Weight - Most Recent: 167 lb 12.8 oz I&O - Last 24 hours: Intake & Output 07/01/21 07/02/21 07/02/21 22:59 06:59 14:59 Intake Total 3090 1110 581 Balance 3090 1110 581 Lab Results - Last 24 hrs: Laboratory Results - last 24 hr 07/01/21 07/01/21 07/01/21 Range/Units 12:07 16:24 21:31 WBC (5.0-10.0) 10^3/uL RBC (4.2-5.4) 10^6/uL Hgb (12.0-16.0) g/dL Hct (37.0-47.0) % MCV (80-100) fL MCH (27.0-34.0) pg MCHC (33.0-35.0) g/dL Plt Count (150-450) 10^3/uL PT (9.0-12.0) SEC INR (0.9-1.2) POC Glucose 219 H 320 H 157 H (70-99) mg/dL 07/02/21 07/02/21 07/02/21 Range/Units 06:30 07:57 10:14 WBC 11.8 H (5.0-10.0) 10^3/uL RBC 3.47 L (4.2-5.4) 10^6/uL Hgb 8.7 L (12.0-16.0) g/dL Hct 28.9 L (37.0-47.0) % MCV 83.3 (80-100) fL MCH 25.1 L (27.0-34.0) pg MCHC 30.1 L (33.0-35.0) g/dL Plt Count 264 (150-450) 10^3/uL PT 23.3 H (9.0-12.0) SEC INR 2.4 H (0.9-1.2) POC Glucose 163 H (70-99) mg/dL AMIE Results - Last 24 hrs: Microbiology 06/29/21 10:16 Aerobic Blood Culture - Preliminary Blood - Venous - Iv Start NO GROWTH AFTER 3 DAYS Anaerobic Blood Culture - Preliminary NO GROWTH AFTER 3 DAYS 06/29/21 10:14 Aerobic Blood Culture - Preliminary Blood - Venous - Iv Start NO GROWTH AFTER 3 DAYS Anaerobic Blood Culture - Preliminary NO GROWTH AFTER 3 DAYS Med Orders - Current: Current Medications Acetaminophen (Acetaminophen 325 Mg Tab) 650 mg PO Q4H PRN PRN Reason: Pain (Mild 1-3)/fever Albuterol (Albuterol 6.7 Gm Inhaler) 0 gm INH Q4H PRN PRN Reason: Shortness of Breath Atorvastatin Calcium (Atorvastatin 20 Mg Tab) 80 mg PO BEDTIME [facility] Last Admin: 07/01/21 21:43 Dose: 80 mg Documented by: Dexamethasone (Dexamethasone 6 Mg Tablet) 6 mg PO DAILY [facility] Stop: 07/08/21 09:01 Last Admin: 07/02/21 09:48 Dose: 6 mg Documented by: Dextrose/Water (50% Dextrose In Water 50 Ml Syringe) 50 ml IVPUSH Q15M PRN PRN Reason: Hypoglycemia Docusate Sodium (Docusate Sodium 100 Mg Cap) 200 mg PO BEDTIME [facility] Last Admin: 07/01/21 21:42 Dose: Not Given Documented by: Ferrous Sulfate (Ferrous Sulfate 325 Mg Tab) 325 mg PO WITHBREAKFAST [facility] Furosemide (Furosemide 20 Mg Tab) 20 mg PO DAILY [facility] Last Admin: 07/02/21 09:48 Dose: 20 mg Documented by: Glucagon (Glucagon,Human Recombinant 1 Mg Vial) 1 mg IM Q15M PRN PRN Reason: Hypoglycemia Remdesivir 100 mg/ Sodium (Chloride) 100 mls @ 100 mls/hr IV Q24H [facility] Stop: 07/03/21 09:59 Last Infusion: 07/02/21 10:49 Dose: Infused Documented by: Influenza Virus Vaccine (Pharmacy To Dose - Influenza Vaccine) 1 each IM DAILY [facility] Influenza Virus Vaccine (Flu Vacc [id number](65yr Up)/Pf 240 Mcg/0.7 Ml Syringe) 240 mcg IM .ONCE ONE Stop: 07/02/21 11:31 Insulin Human Lispro (Insulin Lispro 100 Units/Ml 3 Ml Vial) 0 unit SUBCUT WITHMEALSANDBED [facility]; Protocol Last Admin: 07/02/21 08:03 Dose: 1 units Documented by: Metoprolol Succinate (Metoprolol Succinate 50 Mg Tab.Er) 100 mg PO DAILY [facility] Last Admin: 07/02/21 09:48 Dose: 100 mg Documented by: Mometasone Furoate/Formoterol Fumar (Formoterol/Mometasone 200-5 Mcg 8.8 Gm Inhaler) 2 puff IH BID [facility] Last Admin: 07/02/21 09:54 Dose: 2 puff Documented by: Nystatin (Nystatin Crm 15 Gm Tube) 0 gm TOP BID [facility] Last Admin: 07/02/21 09:55 Dose: 1 applic Documented by: Ondansetron HCl (Ondansetron 4 Mg/2 Ml Sdv) 4 mg IVPUSH Q4H PRN PRN Reason: Nausea/Vomiting Pantoprazole Sodium (Pantoprazole 40 Mg Tab.Cr) 40 mg PO ACBREAKFAST [facility] Pneumococcal Polyvalent Vaccine (Pneumococcal Polyvalent-23 Vaccine 0.5 Ml Sdv) 0.5 ml IM .ONCE ONE Stop: 07/02/21 11:31 Polyethylene Glycol (Polyethylene Glycol 3350 Powder 17 Gm Packet) 17 gm PO DAILY PRN PRN Reason: Constipation Sodium Chloride (Sodium Chloride 0.9% 10 Ml Syringe) 10 ml FLUSH ASDIRECTED PRN PRN Reason: Keep Vein Open Last Admin: 07/01/21 22:03 Dose: 10 ml Documented by: Tiotropium [place] (Tiotropium Inhaler 18 Mcg Inhalation Powder Cap Kit Of 5) 18 mcg INH DAILY [facility] Last Admin: 07/02/21 09:52 Dose: 18 mcg Documented by: Warfarin Sodium (Pharmacy To Dose - Warfarin) 0 dose .XX ASDIRECTED [facility] Warfarin Sodium (Warfarin 2 Mg Tab) 2 mg PO ONETIME ONE Stop: 07/02/21 14:01 Discontinued Medications Ceftriaxone Sodium 2 gm/ (Sodium Chloride) 100 mls @ 200 mls/hr IV ONETIME ONE Stop: 06/29/21 12:27 Last Admin: 06/29/21 12:10 Dose: 200 mls/hr Documented by: Azithromycin 500 mg/ Sodium (Chloride) 250 mls @ 250 mls/hr IV ONETIME ONE Stop: 06/29/21 12:58 Last Infusion: 06/29/21 15:37 Dose: Infused Documented by: Remdesivir 200 mg/ Sodium (Chloride) 250 mls @ 250 mls/hr IV ONETIME ONE Stop: 06/29/21 15:59 Last Infusion: 06/29/21 17:05 Dose: Infused Documented by: Ceftriaxone Sodium 2 gm/ (Sodium Chloride) 100 mls @ 200 mls/hr IV Q24H [facility] Azithromycin 500 mg/ Sodium (Chloride) 250 mls @ 250 mls/hr IV Q24H [facility] Stop: 07/01/21 13:01 Last Admin: 07/01/21 12:08 Dose: 250 mls/hr Documented by: Magnesium Sulfate 2 gm/ Premix 50 mls @ 25 mls/hr IV ONETIME ONE Stop: 06/30/21 09:53 Last Admin: 06/30/21 09:23 Dose: 25 mls/hr Documented by: Potassium Chloride/Dextrose/Sod Cl (D5 1/2 Ns W/ 20 Meq/L Kcl) 1,000 mls @ 125 mls/hr IV ASDIRECTED [facility] Last Admin: 07/02/21 02:52 Dose: 125 mls/hr Documented by: Pantoprazole Sodium 40 mg/ (Sodium Chloride) 100 mls @ 20 mls/hr IV Q5H [facility] Last Admin: 07/02/21 07:50 Dose: 20 mls/hr Documented by: Pantoprazole Sodium (Pantoprazole 40 Mg Vial) 80 mg IVPUSH .BOLUS ONE Stop: 06/30/21 09:22 Last Admin: 06/30/21 09:45 Dose: 80 mg Documented by: Potassium Chloride (Potassium Chloride 10 Meq Tab.Er) 40 meq PO ONETIME ONE Stop: 06/30/21 15:50 Last Admin: 06/30/21 17:12 Dose: 40 meq Documented by: Warfarin Sodium (Warfarin 2 Mg Tab) 2 mg PO ONETIME ONE Stop: 06/30/21 14:01 Last Admin: 06/30/21 14:10 Dose: 2 mg Documented by: Warfarin Sodium (Warfarin 2 Mg Tab) 2 mg PO ONETIME ONE Stop: 07/01/21 14:01 Last Admin: 07/01/21 13:28 Dose: 2 mg Documented by: - Exam Quality Assessment: Reports: Supplemental Oxygen (on 2 L NC ( baseline)) General: Reports: Alert, Oriented Neck: Reports: No JVD Back Exam: Reports: Normal Inspection Extremities: Normal Inspection, Normal Range of Motion (of RT hip. able to walk) Skin: Reports: Dry, Ecchymosis (mild bruse to RT hip area) Neurological: Reports: No New Focal Deficit Psy/Mental Status: Reports: Alert
[2021-07-02] MEDS ORDERED: Sodium Chloride 0.9% 10 ML Syringe FLUSH PRN (13:14)
[2021-07-02 13:48] VITALS: BP 98/62; PULSE 77
[2021-07-02] MEDS ORDERED: Warfarin 2 MG Tab PO ONE (14:00)
[2021-07-03] MEDS ORDERED: Pantoprazole 40 MG Tab.CR PO SCH (06:00)
[2021-07-03] MEDS ORDERED: Ferrous Sulfate 325 MG Tab PO SCH (08:00)
== END 2021-07-02 13:30 | disposition home or self-care (01) | DRG 177 ==
LOC: DL.ED 09:54 → EEVIPCON 12:20 → DL.MS 12:20
PROVIDERS: ADMIT Internal Medicine; ATTEND Internal Medicine
PROC: XW033E5 Introduction of Remdesivir Anti-infective into Peripheral Vein, Percutaneous Approach, New Technology Group 5 (ICD-10-PCS; principal; 2021-06-29)
PROC: 8E0ZXY6 Isolation (ICD-10-PCS; principal; 2021-06-29)
PROC: 3E0DX3Z Introduction of Anti-inflammatory into Mouth and Pharynx, External Approach (ICD-10-PCS; principal; 2021-06-29)
DX: U07.1 COVID-19 (principal); J12.82 Pneumonia due to coronavirus disease 2019; J44.0 Chronic obstructive pulmonary disease with (acute) lower respiratory infection; R41.82 Altered mental status, unspecified; Z66 Do not resuscitate; I50.9 Heart failure, unspecified; E11.9 Type 2 diabetes mellitus without complications; I11.0 Hypertensive heart disease with heart failure; I25.10 Atherosclerotic heart disease of native coronary artery without angina pectoris; I48.91 Unspecified atrial fibrillation; Z79.01 Long term (current) use of anticoagulants; R77.8 Other specified abnormalities of plasma proteins; D64.9 Anemia, unspecified; E78.5 Hyperlipidemia, unspecified; Z79.84 Long term (current) use of oral hypoglycemic drugs; Z79.899 Other long term (current) drug therapy; H91.90 Unspecified hearing loss, unspecified ear; H54.7 Unspecified visual loss; Z88.0 Allergy status to penicillin; E78.00 Pure hypercholesterolemia, unspecified; Z79.82 Long term (current) use of aspirin; Z79.52 Long term (current) use of systemic steroids; I25.2 Old myocardial infarction; Z95.5 Presence of coronary angioplasty implant and graft; K59.09 Other constipation; Z87.440 Personal history of urinary (tract) infections; G89.29 Other chronic pain; M54.9 Dorsalgia, unspecified; Z98.41 Cataract extraction status, right eye; Z98.42 Cataract extraction status, left eye; F17.210 Nicotine dependence, cigarettes, uncomplicated; Z86.73 Personal history of transient ischemic attack (TIA), and cerebral infarction without residual deficits
CPT/HCPCS: 36415; 70450; 71045; 80053; 80305; 80307; 81003; 82140; 82947; 83605; 83735; 83880; 84100; 84443; 84484; 85025; 85610; 86140; 87040 ×2; 93005; 96374; 99285; J0696; 82272; 82728; 83540; 83550; 85027; 85379; 86850; 86900; 86901; 90662; 90732; 97166-GO; A9270-GY; C9113; J0456; J1815-GY; J3475; J3480; J7050; J8540

== ENCOUNTER 2021-08-16 14:33 | Inpatient (IN) | payer MEDICARE, OTHER ==
[2021-08-16] MEDS ORDERED: Furosemide 40 MG/4 ML VIAL IVPUSH ONE (15:08)
[2021-08-16] MEDS ORDERED: cefTRIAXone 1 GM in Sodium Chloride 0.9% 50 ML IV ONE (15:08)
[2021-08-16] MEDS ORDERED: Sodium Chloride 0.9% 1,000 ML IV SCH (15:15)
--- NOTE | 2021-08-16 15:21 | EDM.PDOC ---
ED HPI GENERAL MEDICAL PROBLEM - General Chief Complaint: Respiratory Problem Stated Complaint: AMBULANCE Time Seen by Provider: 08/16/21 14:58 Source of Information: Reports: Patient, EMS, Family History Limitations: Reports: No Limitations - History of Present Illness INITIAL COMMENTS - FREE TEXT/NARRATIVE: This 80 yo female patient was brought to the ED by [facility] due to increased shortness of breath. The patient reports she did have COVID on 06/29/21, but had been doing well at home. The patient reports increased shortness of breath over the past 2-3 days. The patient's family reports the patient has been drinking increased amounts of fluids due to the fear of becoming dehydrated. The patient does have history of COPD, CHF, intermittent A fib, custodial anticoagulation, COVID and pneumonia. Duration: Day(s):, Constant, Getting Worse Location: Reports: Chest Quality: Reports: Other Severity: Severe Improves with: Reports: None Worsens with: Reports: None Associated Symptoms: Reports: Cough, Shortness of Breath, Weakness - Related Data Allergies Allergy/AdvReac Type Severity Reaction Status Date / Time Penicillins Allergy Severe Hives Verified 06/22/21 13:06 Home Meds: Home Meds metFORMIN HCl [Metformin HCl] 500 mg PO DAILY 09/03/16 [History] Furosemide 20 mg PO DAILY 02/24/20 [History] Budesonide/Glycopyr/Formoterol [Breztri Aerosphere Inhaler] 2 puff INH BID 06/22/21 [History] Albuterol Sulfate [Albuterol Sulfate Hfa] 2 puff INH Q4H PRN 06/29/21 [History] Metoprolol Succinate [Toprol XL 100mg] 100 mg PO DAILY 06/29/21 [History] atorvaSTATin Calcium [Atorvastatin Calcium] 80 mg PO BEDTIME 06/29/21 [History] Acetaminophen [Tylenol] 650 mg PO Q4H PRN tablet 07/02/21 [Rx] Docusate Sodium [Colace] 200 mg PO BEDTIME cap 07/02/21 [Rx] Ferrous Sulfate 325 mg PO DAILY 30 Days #30 tablet 07/02/21 [Rx] Pantoprazole [ProTONIX] 40 mg PO ACBREAKFAST 30 Days #30 tab.cr 07/02/21 [Rx] Warfarin [Coumadin] 2 mg PO DAILY 14 Days #14 tab 07/02/21 [Rx] atorvaSTATin [Lipitor] 80 mg PO BEDTIME tablet 07/02/21 [Rx] Past Medical History HEENT History: Reports: Hard of Hearing, Impaired Vision Cardiovascular History: Reports: Afib, CAD, Heart Failure, High Cholesterol, [place], Stents Respiratory History: Reports: Asthma, Bronchitis, Recurrent, COPD, Other (See Below) Other Respiratory History: Covid 19, Jun 20, 2021 Gastrointestinal History: Reports: Chronic Constipation, Hemorrhoids Genitourinary History: Reports: UTI, Recurrent TRAVEL RN OR History: Reports: Other TRAVEL RN OR History: 4 NVD Musculoskeletal History: Reports: Back Pain, Chronic Neurological History: Reports: None Psychiatric History: Reports: None Endocrine/Metabolic History: Reports: Diabetes, Type II Hematologic History: Reports: Anemia Immunologic History: Reports: None Oncologic (Cancer) History: Reports: None Dermatologic History: Reports: Cellulitis Other Dermatologic History: right leg cellulitis - Infectious Disease History Infectious Disease History: Reports: Chicken Pox, Measles, MRSA, Mumps, Novel Coronavirus - Past Surgical History HEENT Surgical History: Reports: Cataract Surgery Other HEENT Surgeries/Procedures: cataract surgery bilaterally Cardiovascular Surgical History: Reports: Coronary Artery Stent Other Cardiovascular Surgeries/Procedures: 1 stent 1998 Respiratory Surgical History: Reports: Lung Biopsies GI Surgical History: Reports: None Female Surgical History: Reports: None Endocrine Surgical History: Reports: None Neurological Surgical History: Reports: None Musculoskeletal Surgical History: Reports: None Oncologic Surgical History: Reports: None Social & Family History - Family History Family Medical History: No Pertinent Family History - Tobacco Use Tobacco Use Status *Q: Never Tobacco User Second Hand Smoke Exposure: No - Caffeine Use Caffeine Use: Reports: None - Recreational Drug Use Recreational Drug Use: No ED ROS GENERAL - Review of Systems Review Of Systems: Comprehensive ROS is negative, except as noted in HPI. ED EXAM, GENERAL - Physical Exam Exam: See Below Exam Limited By: No Limitations General Appearance: Alert, WD/WN, Moderate Distress Eye Exam: Bilateral Eye: EOMI, Normal Inspection, PERRL Ears: Normal External Exam, Normal Canal, Hearing Grossly Normal, Normal TMs Nose: Normal Inspection, Normal Mucosa, No Blood Throat/Mouth: Normal Inspection, Normal Lips, Normal Teeth, Normal Gums, Normal Oropharynx, Normal Voice, No Airway Compromise Head: Atraumatic, Normocephalic Neck: Normal Inspection, Supple, Non-Tender, Full Range of Motion Respiratory/Chest: Decreased Breath Sounds, Crackles, Rhonchi Cardiovascular: Normal Peripheral Pulses, Regular Rate, Rhythm, No Gallop, No JVD, No Murmur, No Rub GI/Abdominal: Normal Bowel Sounds, Soft, Non-Tender, No Organomegaly, No Dist ention, No Abnormal Bruit, No Mass, Pelvis Stable (Female) Exam: Deferred Rectal (Female) Exam: Deferred Back Exam: Normal Inspection, Full Range of Motion, NT Extremities: Normal Inspection, Normal Range of Motion, Pedal Edema (Bilateral ) Neurological: Alert, Oriented, CN II-XII Intact, Normal Cognition, Normal Gait, Normal Reflexes, No Motor/Sensory Deficits Psychiatric: Normal Affect, Normal Mood Skin Exam: Warm, Dry, Intact, Normal Color, No Rash Lymphatic: No Adenopathy Course - Vital Signs Last Recorded V/S: Last Vital Signs Temp 97.8 F 08/16/21 14:50 Pulse 90 08/16/21 14:50 Resp 28 H 08/16/21 14:50 BP 95/94 H 08/16/21 14:50 Pulse Ox 89 L 08/16/21 14:50 - Orders/Labs/Meds Orders: Active Orders 24 hr Category Date Time Status EKG Documentation Completion [RC] STAT Care 08/16/21 14:34 Ordered Chest 1V Frontal [CR] Urgent Exams 08/16/21 15:09 Ordered B-TYPE NATRIURETIC PEPTIDE,BNP [CHEM] Stat Lab 08/16/21 14:37 Ordered CBC WITH AUTO DIFF [HEME] Stat Lab 08/16/21 14:34 Ordered COMPREHENSIVE METABOLIC PN,CMP [CHEM] Stat Lab 08/16/21 14:34 Ordered COVID-19/FLU A+B [MOLEC] Urgent Lab 08/16/21 14:34 Ordered CULTURE BLOOD [BC] Stat Lab 08/16/21 14:34 Ordered CULTURE BLOOD [BC] Stat Lab 08/16/21 15:07 Ordered D-DIMER QUANTITATIVE [COAG] Stat Lab 08/16/21 14:34 Ordered LACTATE SEPSIS W/ REFLEX [CHEM] Stat Lab 08/16/21 14:34 Ordered MANUAL DIFFERENTIAL QA/NC [HEME] Stat Lab 08/16/21 14:43 Results TROPONIN I HIGH SENSITIVITY [CHEM] Stat Lab 08/16/21 14:34 Ordered UA RFX AMIE AND CULT IF INDIC [URIN] Urgent Lab 08/16/21 14:34 Ordered Sodium Chloride 0.9% @ 75 MLS/HR(1000ml) Med 08/16/21 15:15 Ordered Sodium Chloride 0.9% [Normal Saline] 1,000 ml IV ASDIRECTED cefTRIAXone [Rocephin] 1 gm Med 08/16/21 15:08 Ordered Sodium Chloride 0.9% [Normal Saline AdvBag] 50 ml IV ONETIME Medication Orders Sodium Chloride (Normal Saline) 1,000 mls @ 75 mls/hr IV ASDIRECTED [facility] Ceftriaxone Sodium 1 gm/ (Sodium Chloride) 50 mls @ 100 mls/hr IV ONETIME ONE Stop: 08/16/21 15:37 Labs: Laboratory Tests 08/16/21 Range/Units 14:43 WBC 23.9 H (5.0-10.0) 10^3/uL RBC 3.58 L (4.2-5.4) 10^6/uL Hgb 9.2 L (12.0-16.0) g/dL Hct 31.7 L (37.0-47.0) % MCV 88.5 D (80-100) fL MCH 25.7 L (27.0-34.0) pg MCHC 29.0 L (33.0-35.0) g/dL Plt Count 309 (150-450) 10^3/uL Neut % (Auto) 90.9 H (42.2-75.2) % Lymph % (Auto) 2.8 L (20.5-50.1) % [place] % (Auto) 6.2 (2-8) % Eos % (Auto) 0.0 L (1.0-3.0) % Baso % (Auto) 0.1 (0.0-1.0) % Add Manual Diff Yes Meds: Medications Generic Name Dose Route Start Last Admin Trade Name Freq PRN Reason Stop Dose Admin Sodium Chloride 1,000 mls @ 75 mls/hr 08/16/21 15:15 Normal Saline IV ASDIRECTED [facility] Ceftriaxone Sodium 1 gm/ 50 mls @ 100 mls/hr 08/16/21 15:08 Sodium Chloride IV 08/16/21 15:37 ONETIME ONE Discontinued Medications Generic Name Dose Route Start Last Admin Trade Name Freq PRN Reason Stop Dose Admin Furosemide 40 mg 08/16/21 15:08 Furosemide 40 Mg/4 Ml Vial IVPUSH 08/16/21 15:09 ONETIME ONE Departure - Departure Time of Disposition: 15:52 Disposition: Admitted As Inpatient 66 Condition: Serious Clinical Impression: CHF (congestive heart failure) Qualifiers: Heart failure type: unspecified Heart failure chronicity: acute on chronic Qualified Code(s): I50.9 - Heart failure, unspecified Pneumonia Qualifiers: Pneumonia type: due to unspecified organism Laterality: left Lung location: lower lobe of lung Qualified Code(s): J18.9 - Pneumonia, unspecified organism - Discharge Information *PRESCRIPTION DRUG MONITORING PROGRAM REVIEWED*: Not Applicable *COPY OF PRESCRIPTION DRUG MONITORING REPORT IN PATIENT BART: Not Applicable Care Plan Goals: Discussed the patient's history, examination, lab, EKG and x-ray results during the visit with Dr. Alvarez. Dr. Alvarez accepted the patient for continued evaluation and management as an inpatient at [facility]. Sepsis Event Note (ED) - Focused Exam Vital Signs: Vital Signs Temp Pulse Resp BP Pulse Ox 08/16/21 14:50 97.8 F 90 28 H 95/94 H 89 L - My Orders Last 24 Hours: My Active Orders 08/16/21 14:34 EKG Documentation Completion [RC] STAT CBC WITH AUTO DIFF [HEME] Stat COMPREHENSIVE METABOLIC PN,CMP [CHEM] Stat COVID-19/FLU A+B [MOLEC] Urgent CULTURE BLOOD [BC] Stat D-DIMER QUANTITATIVE [COAG] Stat LACTATE SEPSIS W/ REFLEX [CHEM] Stat TROPONIN I HIGH SENSITIVITY [CHEM] Stat UA RFX AMIE AND CULT IF INDIC [URIN] Urgent 08/16/21 14:37 B-TYPE NATRIURETIC PEPTIDE,BNP [CHEM] Stat 08/16/21 14:43 MANUAL DIFFERENTIAL QA/NC [HEME] Stat 08/16/21 15:07 CULTURE BLOOD [BC] Stat 08/16/21 15:08 cefTRIAXone [Rocephin] 1 gm Sodium Chloride 0.9% [Normal Saline AdvBag] 50 ml IV ONETIME 08/16/21 15:09 Chest 1V Frontal [CR] Urgent 08/16/21 15:15 Sodium Chloride 0.9% @ 75 MLS/HR(1000ml) Sodium Chloride 0.9% [Normal Saline] 1,000 ml IV ASDIRECTED - Assessment/Plan Last 24 Hours: My Active Orders 08/16/21 14:34 EKG Documentation Completion [RC] STAT CBC WITH AUTO DIFF [HEME] Stat COMPREHENSIVE METABOLIC PN,CMP [CHEM] Stat COVID-19/FLU A+B [MOLEC] Urgent CULTURE BLOOD [BC] Stat D-DIMER QUANTITATIVE [COAG] Stat LACTATE SEPSIS W/ REFLEX [CHEM] Stat TROPONIN I HIGH SENSITIVITY [CHEM] Stat UA RFX AMIE AND CULT IF INDIC [URIN] Urgent 08/16/21 14:37 B-TYPE NATRIURETIC PEPTIDE,BNP [CHEM] Stat 08/16/21 14:43 MANUAL DIFFERENTIAL QA/NC [HEME] Stat 08/16/21 15:07 CULTURE BLOOD [BC] Stat 08/16/21 15:08 cefTRIAXone [Rocephin] 1 gm Sodium Chloride 0.9% [Normal Saline AdvBag] 50 ml IV ONETIME 08/16/21 15:09 Chest 1V Frontal [CR] Urgent 08/16/21 15:15 Sodium Chloride 0.9% @ 75 MLS/HR(1000ml) Sodium Chloride 0.9% [Normal Saline] 1,000 ml IV ASDIRECTED
--- NOTE | 2021-08-16 15:34 | CR ---
EXAMINATION: Chest 1V Frontal SEX: Female AGE: 80 years CLINICAL HISTORY: 80-year-old female with shortness of breath. Comparison CXRs June 2021 and January 2020. Interpretation: Abnormal. 1. Progressive bibasilar dependent subpulmonic pleural fluid accumulation (effusions, L>R). 2. Chronic mild cardiomegaly. 3. Subtle relative increased pulmonary venous congestion/cephalization since 29 June 2021 film. 4. Cannot exclude underlying atelectasis or infiltrate particularly LLL. 5. No lung mass or hilar lymphadenopathy. 6. No pneumothorax or pneumomediastinum. CONCLUSION: Cardiovascular decompensation (CHF). INTERPRETATION: 1. CONCLUSION:
[2021-08-16 15:35] LABS: CORONAVIRUS COVID-19 NAA NEGATIVE (NEGATIVE)
[2021-08-16] MEDS ORDERED: Levofloxacin/Dextrose 5%-Water 750 MG in Premix Bag 1 BAG IV SCH (16:30)
[2021-08-16] MEDS ORDERED: Acetaminophen 325 MG Tab PO PRN (16:43)
[2021-08-16] MEDS ORDERED: Ondansetron 4 MG/2 ML SDV IVPUSH PRN (16:43)
[2021-08-16] MEDS ORDERED: 50% Dextrose in Water 50 ML Syringe IVPUSH PRN (16:48)
--- NOTE | 2021-08-16 16:51 | PCM.HP ---
H&P History of Present Illness - General Date of Service: 08/16/21 Admit Problem/Dx: Admission Diagnosis/Problem Admission Diagnosis/Problem CHF Source of Information: Patient, Provider - History of Present Illness Initial Comments - Free Text/Narative: 80 yo with h/o dm, afib, copd with chronic hypoxemic respiratory failure on home oxygen 2 l/min had covid pneumonia and hospitalization at the end of june presented with 2-3 days of increased, moderate sob, leg edema has associated moist but not productive cough no cp, no abd pain - Related Data Allergies/Adverse Reactions: Allergies Allergy/AdvReac Type Severity Reaction Status Date / Time Penicillins Allergy Severe Hives Verified 06/22/21 13:06 Home Medications: Home Meds metFORMIN HCl [Metformin HCl] 500 mg PO DAILY 09/03/16 [History] Furosemide 20 mg PO DAILY 02/24/20 [History] Budesonide/Glycopyr/Formoterol [Breztri Aerosphere Inhaler] 2 puff INH BID 06/22/21 [History] Albuterol Sulfate [Albuterol Sulfate Hfa] 2 puff INH Q4H PRN 06/29/21 [History] Metoprolol Succinate [Toprol XL 100mg] 100 mg PO DAILY 06/29/21 [History] atorvaSTATin Calcium [Atorvastatin Calcium] 80 mg PO BEDTIME 06/29/21 [History] Acetaminophen [Tylenol] 650 mg PO Q4H PRN tablet 07/02/21 [Rx] Docusate Sodium [Colace] 200 mg PO BEDTIME cap 07/02/21 [Rx] Ferrous Sulfate 325 mg PO DAILY 30 Days #30 tablet 07/02/21 [Rx] Pantoprazole [ProTONIX] 40 mg PO ACBREAKFAST 30 Days #30 tab.cr 07/02/21 [Rx] Warfarin [Coumadin] 2 mg PO DAILY 14 Days #14 tab 07/02/21 [Rx] atorvaSTATin [Lipitor] 80 mg PO BEDTIME tablet 07/02/21 [Rx] Past Medical History HEENT History: Reports: Hard of Hearing, Impaired Vision Cardiovascular History: Reports: Afib, CAD, Heart Failure, High Cholesterol, SC, Stents Respiratory History: Reports: Asthma, Bronchitis, Recurrent, COPD, Other (See Below) Other Respiratory History: Covid , Jun 20, 2021 Gastrointestinal History: Reports: Chronic Constipation, Hemorrhoids Genitourinary History: Reports: UTI, Recurrent NC MANAGER History: Reports: Other OB/BYN History: 4 NVD Musculoskeletal History: Reports: Back Pain, Chronic Neurological History: Reports: None Psychiatric History: Reports: None Endocrine/Metabolic History: Reports: Diabetes, Type II Hematologic History: Reports: Anemia Immunologic History: Reports: None Oncologic (Cancer) History: Reports: None Dermatologic History: Reports: Cellulitis Other Dermatologic History: right leg cellulitis - Infectious Disease History Infectious Disease History: Reports: Chicken Pox, Measles, Novel Coronavirus - Past Surgical History HEENT Surgical History: Reports: Cataract Surgery Other HEENT Surgeries/Procedures: cataract surgery bilaterally Cardiovascular Surgical History: Reports: Coronary Artery Stent Other Cardiovascular Surgeries/Procedures: 1 stent 1998 Respiratory Surgical History: Reports: Lung Biopsies GI Surgical History: Reports: None Female Surgical History: Reports: None Endocrine Surgical History: Reports: None Neurological Surgical History: Reports: None Musculoskeletal Surgical History: Reports: None Oncologic Surgical History: Reports: None Social & Family History - Family History Family Medical History: No Pertinent Family History - Tobacco Use Tobacco Use Status *Q: Never Tobacco User Second Hand Smoke Exposure: No - Caffeine Use Caffeine Use: Reports: None - Recreational Drug Use Recreational Drug Use: No H&P Review of Systems - Review of Systems: Review Of Systems: See Below General: Reports: Chills, Weakness. Denies: Fever Pulmonary: Reports: Shortness of Breath, Wheezing, Cough. Denies: Sputum, Hemoptysis Cardiovascular: Reports: Edema. Denies: Chest Pain Gastrointestinal: Denies: Abdominal Pain Genitourinary: Denies: Dysuria Psychiatric: Denies: Confusion Exam - Exam Exam: See Below - Vital Signs Vital Signs: Last Vital Signs Temp 97.8 F 08/16/21 14:50 Pulse 90 08/16/21 14:50 Resp 28 H 08/16/21 14:50 BP 95/94 H 08/16/21 14:50 Pulse Ox 89 L 08/16/21 14:50 Weight: 169 lb 14.4 oz - Exam Quality Assessment: Supplemental Oxygen General: Alert, Oriented Neck: Supple Lungs: Decreased Breath Sounds, Rhonchi, Wheezing Cardiovascular: Irregular Rhythm GI/Abdominal Exam: Normal Bowel Sounds, Soft, Non-Tender Extremities: Pedal Edema Skin: Other (blisters on leg) Neuro Extensive - Mental Status: Alert, Oriented x3, Normal Mood/Affect - Patient Data Lab Results Last 24 hrs: Laboratory Results - last 24 hr 08/16/21 08/16/21 08/16/21 Range/Units 14:39 14:43 14:43 WBC 23.9 H (5.0-10.0) 10^3/uL RBC 3.58 L (4.2-5.4) 10^6/uL Hgb 9.2 L (12.0-16.0) g/dL Hct 31.7 L (37.0-47.0) % MCV 88.5 D (80-100) fL MCH 25.7 L (27.0-34.0) pg MCHC 29.0 L (33.0-35.0) g/dL Plt Count 309 (150-450) 10^3/uL Neut % (Auto) 90.9 H (42.2-75.2) % Lymph % (Auto) 2.8 L (20.5-50.1) % [place] % (Auto) 6.2 (2-8) % Eos % (Auto) 0.0 L (1.0-3.0) % Baso % (Auto) 0.1 (0.0-1.0) % Add Manual Diff Yes D-Dimer, Quantitative 1000 H (0-400) ng/mL Sodium (136-145) mmol/L Potassium (3.5-5.1) mmol/L Chloride (98-107) mmol/L Carbon Dioxide (21-32) mmol/L Anion Gap (7-13) mEq/L BUN (7-18) mg/dL Creatinine (0.55-1.02) mg/dL Est Cr Clr Drug Dosing mL/min Estimated GFR (MDRD) BUN/Creatinine Ratio (No establ ref range) Glucose (70-99) mg/dL Lactic Acid (0.4-2.0) mmol/L Calcium (8.5-10.1) mg/dL Total Bilirubin (0.2-1.0) mg/dL AST (15-37) U/L ALT (14-59) U/L Alkaline Phosphatase (46-116) U/L Troponin I High Sens (<=51) pg/mL B-Natriuretic Peptide (0-100) pg/ml Total Protein (6.4-8.2) g/dL Albumin (3.4-5.0) g/dL Globulin Albumin/Globulin Ratio Influenza Type A RNA Negative (NEGATIVE) Influenza Type B RNA Negative (NEGATIVE) SARS-CoV-2 RNA ([place]) Negative (NEGATIVE) 08/16/21 08/16/21 Range/Units 14:43 14:43 WBC (5.0-10.0) 10^3/uL RBC (4.2-5.4) 10^6/uL Hgb (12.0-16.0) g/dL Hct (37.0-47.0) % MCV (80-100) fL MCH (27.0-34.0) pg MCHC (33.0-35.0) g/dL Plt Count (150-450) 10^3/uL Neut % (Auto) (42.2-75.2) % Lymph % (Auto) (20.5-50.1) % [place] % (Auto) (2-8) % Eos % (Auto) (1.0-3.0) % Baso % (Auto) (0.0-1.0) % Add Manual Diff D-Dimer, Quantitative (0-400) ng/mL Sodium 134 L (136-145) mmol/L Potassium 4.0 (3.5-5.1) mmol/L Chloride 100 (98-107) mmol/L Carbon Dioxide 33 H (21-32) mmol/L Anion Gap 5.0 L (7-13) mEq/L BUN 22 H (7-18) mg/dL Creatinine 0.95 (0.55-1.02) mg/dL Est Cr Clr Drug Dosing 44.21 mL/min Estimated GFR (MDRD) 57 BUN/Creatinine Ratio 23.2 (No establ ref range) Glucose 174 H (70-99) mg/dL Lactic Acid 2.3 H* (0.4-2.0) mmol/L Calcium 9.3 (8.5-10.1) mg/dL Total Bilirubin 0.6 (0.2-1.0) mg/dL AST 19 (15-37) U/L ALT 27 (14-59) U/L Alkaline Phosphatase 98 (46-116) U/L Troponin I High Sens 66 H* (<=51) pg/mL B-Natriuretic Peptide 1310 H (0-100) pg/ml Total Protein 6.8 (6.4-8.2) g/dL Albumin 2.8 L (3.4-5.0) g/dL Globulin 4.0 Albumin/Globulin Ratio 0.70 Influenza Type A RNA (NEGATIVE) Influenza Type B RNA (NEGATIVE) SARS-CoV-2 RNA ([place]) (NEGATIVE) Result Diagrams: 08/16/21 14:43 08/16/21 14:43 *Q Meaningful Use (ADM) - VTE *Q VTE Anticoagulation Contraindications: Med/TX Not Indicated/Need - Problem List (1) CHF (congestive heart failure) SNOMED Code(s): 19391946 ICD Code: I50.9 - HEART FAILURE, UNSPECIFIED Status: Acute Current Visit: Yes Qualifiers: Heart failure type: unspecified Heart failure chronicity: acute on chronic Qualified Code(s): I50.9 - Heart failure, unspecified (2) Pneumonia SNOMED Code(s): 339627653 ICD Code: J18.9 - PNEUMONIA, UNSPECIFIED ORGANISM Status: Acute Current Visit: Yes Qualifiers: Pneumonia type: due to unspecified organism Laterality: left Lung location: lower lobe of lung Qualified Code(s): J18.9 - Pneumonia, unspecified organism (3) Acute congestive heart failure SNOMED Code(s): 17932599 ICD Code: I50.9 - HEART FAILURE, UNSPECIFIED Status: Acute Priority: High Current Visit: No (4) Acute hypernatremia SNOMED Code(s): 2950425 ICD Code: E87.0 - HYPEROSMOLALITY AND HYPERNATREMIA Status: Acute Current Visit: No (5) COPD exacerbation SNOMED Code(s): 906273121, 120307084 ICD Code: J44.1 - CHRONIC OBSTRUCTIVE PULMONARY DISEASE W (ACUTE) EXACERBATION Status: Acute Current Visit: No (6) Chronic anticoagulation SNOMED Code(s): 939069265 ICD Code: Z79.01 - SHELTER (CURRENT) USE OF ANTICOAGULANTS Status: Acute Current Visit: No (7) History of atrial fibrillation SNOMED Code(s): 289078321 ICD Code: Z86.79 - PERSONAL HISTORY OF OTHER DISEASES OF THE CIRCULATORY SYSTEM Status: Acute Current Visit: No (8) Sepsis SNOMED Code(s): 19932209 ICD Code: A41.9 - SEPSIS, UNSPECIFIED ORGANISM Status: Acute Current Visit: No Qualifiers: Sepsis type: sepsis due to unspecified organism Sepsis acute organ dysfunction status: unspecified Qualified Code(s): A41.9 - Sepsis, unspecified organism (9) Coronary artery disease SNOMED Code(s): 01059943 ICD Code: I25.10 - ATHSCL HEART DISEASE OF [place] CORONARY ARTERY W/O ANG PCTRS Status: Chronic Current Visit: No Problem List Initiated/Reviewed/Updated: Yes Orders Last 24hrs: Active Orders 24 hr Category Date Time Status Admission Diagnosis [ADT] Urgent ADT 08/16/21 15:46 Ordered Admission Status [Patient Status] [ADT] Urgent ADT 08/16/21 15:46 Active Antiembolic Devices [RC] PER UNIT ROUTINE Care 08/16/21 16:38 Active Blood Glucose Check, Bedside [RC] WITHMEALSANDBED Care 08/16/21 16:48 Active Oxygen Therapy [RC] PRN Care 08/16/21 16:43 Active Peripheral IV Care [RC] . DIRECTED Care 08/16/21 16:45 Active RT Aerosol Therapy [RC] ASDIRECTED Care 08/16/21 16:38 Active Telemetry Monitoring [Cardiac Monitoring] [RC] . Care 08/16/21 16:27 Active DIRECTED Up With Assistance [RC] ASDIRECTED Care 08/16/21 16:43 Active VTE/DVT Education [RC] PER UNIT ROUTINE Care 08/16/21 16:43 Active Vital Signs [RC] Q4H Care 08/16/21 16:43 Active OT Evaluation and Treatment [CONS] Routine Cons 08/16/21 16:22 Active PT Evaluation and Treatment [CONS] Routine Cons 08/16/21 16:22 Active Regular Diet [DIET] Diet 08/16/21 Dinner Active B-TYPE NATRIURETIC PEPTIDE,BNP [CHEM] AM Lab 08/17/21 05:11 Ordered B-TYPE NATRIURETIC PEPTIDE,BNP [CHEM] AM Lab 08/18/21 05:11 Ordered B-TYPE NATRIURETIC PEPTIDE,BNP [CHEM] AM Lab 08/19/21 05:11 Ordered B-TYPE NATRIURETIC PEPTIDE,BNP [CHEM] AM Lab 08/20/21 05:11 Ordered B-TYPE NATRIURETIC PEPTIDE,BNP [CHEM] AM Lab 08/21/21 05:11 Ordered B-TYPE NATRIURETIC PEPTIDE,BNP [CHEM] AM Lab 08/22/21 05:11 Ordered BASIC METABOLIC PANEL,BMP [CHEM] AM Lab 08/17/21 05:11 Ordered BASIC METABOLIC PANEL,BMP [CHEM] AM Lab 08/18/21 05:11 Ordered BASIC METABOLIC PANEL,BMP [CHEM] AM Lab 08/19/21 05:11 Ordered BASIC METABOLIC PANEL,BMP [CHEM] AM Lab 08/20/21 05:11 Ordered BASIC METABOLIC PANEL,BMP [CHEM] AM Lab 08/21/21 05:11 Ordered BASIC METABOLIC PANEL,BMP [CHEM] AM Lab 08/22/21 05:11 Ordered CBC WITH AUTO DIFF [HEME] AM Lab 08/17/21 05:11 Ordered CBC WITH AUTO DIFF [HEME] AM Lab 08/18/21 05:11 Ordered CBC WITH AUTO DIFF [HEME] AM Lab 08/19/21 05:11 Ordered CBC WITH AUTO DIFF [HEME] AM Lab 08/20/21 05:11 Ordered CBC WITH AUTO DIFF [HEME] AM Lab 08/21/21 05:11 Ordered CBC WITH AUTO DIFF [HEME] AM Lab 08/22/21 05:11 Ordered CBC WITH AUTO DIFF [HEME] Stat Lab 08/16/21 14:43 Results CULTURE BLOOD [BC] Stat Lab 08/16/21 14:43 Received CULTURE BLOOD [BC] Stat Lab 08/16/21 15:16 Received CULTURE SPUTUM + SMEAR [RM] Routine Lab 08/16/21 16:21 Ordered LACTIC ACID [CHEM] Timed Lab 08/16/21 18:00 Ordered MANUAL DIFFERENTIAL QA/NC [HEME] Stat Lab 08/16/21 14:43 Results REFLEX LACTIC ACID YES OR NO [CHEM] Routine Lab 08/16/21 15:28 Received TROPONIN I HIGH SENSITIVITY [CHEM] Timed Lab 08/16/21 18:00 Ordered UA RFX AMIE AND CULT IF INDIC [URIN] Urgent Lab 08/16/21 14:34 Ordered VANCOMYCIN TROUGH [CHEM] Timed Lab 08/20/21 15:30 Ordered Acetaminophen [TylenoL] Med 08/16/21 16:43 Ordered 650 mg PO Q4H PRN Albuterol/Ipratropium [DuoNeb 3.0-0.5 MG/3 ML] Med 08/16/21 16:42 Ordered 3 ml NEB Q2H PRN Albuterol/Ipratropium [DuoNeb 3.0-0.5 MG/3 ML] Med 08/16/21 18:00 Ordered 3 ml NEB Q6HRRT Budesonide [Pulmicort] Med 08/16/21 18:00 Ordered 0.5 mg NEB BIDRT Dextrose 50% in Water Med 08/16/21 16:48 Ordered 25 ml IVPUSH ASDIRECTED PRN Docusate Sodium [Colace] Med 08/16/21 21:00 Pending 200 mg PO BEDTIME Ferrous Sulfate Med 08/17/21 09:00 Ordered 325 mg PO DAILY Furosemide [Lasix] Med 08/16/21 22:00 Active 20 mg IVPUSH BIDDIURETIC Insulin Lispro [HumaLOG] Med 08/16/21 18:00 Ordered See Protocol SUBCUT WITHMEALSANDBED Levofloxacin/Dextrose 5%-Water [Levaquin in D5W 750 MG/ Med 08/16/21 16:30 Active 150 ML] 750 mg Premix Bag 1 bag IV Q24H Metoprolol Succinate [Toprol XL 100mg] Med 08/17/21 09:00 Ordered 100 mg PO DAILY Ondansetron [Zofran] Med 08/16/21 16:43 Ordered 4 mg IVPUSH Q6H PRN Pantoprazole [ProTONIX] Med 08/17/21 06:00 Ordered 40 mg PO ACBREAKFAST Pharmacy to Dose - Vancomycin Med 08/16/21 16:30 Pending 1 dose .XX ASDIRECTED Pharmacy to Dose - Warfarin Med 08/16/21 16:45 Pending 1 dose .XX ASDIRECTED Sodium Chloride 0.9% [Saline Flush] Med 08/16/21 16:43 Ordered 10 ml FLUSH ASDIRECTED PRN Vancomycin 1 gm Med 08/16/21 16:45 Active Sodium Chloride 0.9% [Normal Saline AdvBag] 250 ml IV DAILY@1600 atorvaSTATin Calcium [Atorvastatin Calcium] Med 08/16/21 21:00 Ordered 80 mg PO BEDTIME Anticoagulation Contraindications VTE [AST] Per Unit Oth 08/16/21 16:43 Ordered Routine Peripheral IV Insertion Adult [OM.PC] Routine Oth 08/16/21 16:43 Ordered Saline Lock Insert [OM.PC] Routine Oth 08/16/21 16:43 Ordered MIA Hose [Antiembolic Hose] [OM.PC] Routine Oth 08/16/21 16:37 Ordered Resuscitation Status Routine Resus Stat 08/16/21 16:43 Ordered Medication Orders Acetaminophen (Acetaminophen 325 Mg Tab) 650 mg PO Q4H PRN PRN Reason: Pain (Mild 1-3)/fever Albuterol/Ipratropium (Albuterol/Ipratropium 3.0-0.5 Mg/3 Ml Neb Soln) 3 ml NEB Q2H PRN PRN Reason: sob Albuterol/Ipratropium (Albuterol/Ipratropium 3.0-0.5 Mg/3 Ml Neb Soln) 3 ml NEB Q6HRRT [facility] Budesonide (Budesonide 0.5 Mg/2 Ml Neb Susp) 0.5 mg NEB BIDRT [facility] Dextrose/Water (50% Dextrose In Water 50 Ml Syringe) 25 ml IVPUSH ASDIRECTED PRN PRN Reason: Hypoglycemia BS<70 Docusate Sodium (Docusate Sodium 100 Mg Cap) 200 mg PO BEDTIME [facility] Ferrous Sulfate (Ferrous Sulfate 325 Mg Tab) 325 mg PO DAILY [facility] Furosemide (Furosemide 20 Mg/2 Ml Vial) 20 mg IVPUSH BIDDIURETIC [facility] Levofloxacin/Dextrose 750 mg/ (Premix) 150 mls @ 100 mls/hr IV Q24H [facility] Vancomycin HCl 1 gm/ Sodium (Chloride) 250 mls @ 250 mls/hr IV DAILY@1600 [facility] Insulin Human Lispro (Insulin Lispro 100 Units/Ml 3 Ml Vial) 0 unit SUBCUT WITHMEALSANDBED [facility]; Protocol Non-Formulary Medication (Atorvastatin Calcium [Atorvastatin Calcium]) 80 mg PO BEDTIME [facility] Non-Formulary Medication (Metoprolol Succinate [Toprol Xl 100mg]) 100 mg PO DAILY [facility] Ondansetron HCl (Ondansetron 4 Mg/2 Ml Sdv) 4 mg IVPUSH Q6H PRN PRN Reason: Nausea/Vomiting Pantoprazole Sodium (Pantoprazole 40 Mg Tab.Cr) 40 mg PO ACBREAKFAST [facility] Sodium Chloride (Sodium Chloride 0.9% 10 Ml Syringe) 10 ml FLUSH ASDIRECTED PRN PRN Reason: Keep Vein Open Vancomycin HCl (Pharmacy To Dose - Vancomycin) 1 dose .XX ASDIRECTED [facility] Warfarin Sodium (Pharmacy To Dose - Warfarin) 1 dose .XX ASDIRECTED [facility] Assessment/Plan Comment:: Acute chf systolic Last echo ef: 45-50% With extensive LE edema Chf on cxr Will carefully diurese her with IV lasix Concern for hypotension Will support BP with midodrine if needed Mia hose Cont metoprolol Hold david/arb: re low BPs Possible infiltrate With leukocytosis Possible gram negative pneumonia with recent hospitalization Check sputum cx Check Blood cx Treat with vanc, levofloxacin Possible sepsis Will trend lactic acid Support BP as needed Wheezing Acute copd exacerbation Treat with pulmicort Use duoneb scheduled and as needed Acute on chronic hypoxemic respiratory failure Normally on 2 l/min nc oxygen Will supplement oxygen as needed Hyponatremia Mild Will follow with diuretics Type II non st SC With minimally elevated trop Will monitor on tele Trend troponin Add asa Cont metoprolol Diabetes Hold metformin Use supplemental insulin as needed Chronic afib Rate control with metoprolol Anticoagulation Continue Coumadin She elected DNR code status
[2021-08-16] MEDS: Insulin Lispro 100 Units/ML 3 ML Vial SUBCUT SCH ×2 (17:10→21:23)
[2021-08-16] MEDS: Budesonide 0.5 MG/2 ML Neb Susp NEB SCH (18:17)
[2021-08-16] MEDS: Albuterol/Ipratropium 3.0-0.5 MG/3 ML Neb Soln NEB SCH (18:17)
[2021-08-16] MEDS: Levofloxacin/Dextrose 5%-Water 750 MG in Premix Bag 1 BAG IV SCH (19:53)
[2021-08-16] MEDS ORDERED: Aspirin 81 MG Tab.Chew PO ONE (21:15)
[2021-08-16] MEDS: Furosemide 20 MG/2 ML VIAL IVPUSH SCH (21:21)
[2021-08-16] MEDS: Docusate Sodium 100 MG Cap PO SCH (21:23)
[2021-08-16] MEDS: atorvaSTATin 20 MG Tab PO SCH (21:23)
[2021-08-16] MEDS: Warfarin 2 MG Tab PO SCH (21:23)
[2021-08-16] MEDS: Albuterol/Ipratropium 3.0-0.5 MG/3 ML Neb Soln NEB PRN (23:37)
[2021-08-17] MEDS: Albuterol/Ipratropium 3.0-0.5 MG/3 ML Neb Soln NEB SCH ×4 (01:34→18:47)
[2021-08-17] MEDS: Pantoprazole 40 MG Tab.CR PO SCH (06:34)
[2021-08-17 07:07] LABS: ANION GAP 8.7 mEq/L (7-13); CHLORIDE,CL 101 mmol/L (98-107); SODIUM,NA 141 mmol/L (136-145)
[2021-08-17] MEDS: Insulin Lispro 100 Units/ML 3 ML Vial SUBCUT SCH ×4 (08:00→22:18)
[2021-08-17] MEDS: Budesonide 0.5 MG/2 ML Neb Susp NEB SCH ×2 (08:38→18:47)
[2021-08-17] MEDS: Metoprolol Succinate 50 MG Tab.ER PO SCH (09:19)
[2021-08-17] MEDS: Aspirin 81 MG Tab.EC PO SCH (09:20)
[2021-08-17] MEDS: Ferrous Sulfate 325 MG Tab PO SCH (09:20)
[2021-08-17] MEDS: Furosemide 20 MG/2 ML VIAL IVPUSH SCH ×2 (09:22→13:33)
[2021-08-17] MEDS: Sodium Chloride 0.9% 10 ML Syringe FLUSH PRN (09:23)
--- NOTE | 2021-08-17 11:41 | PCM.PN ---
- General Info Date of Service: 08/17/21 Admission Dx/Problem (Free Text): Admission Diagnosis/Problem Admission Diagnosis/Problem CHF Functional Status: Reports: Pain Controlled, Tolerating Diet - Review of Systems General: Reports: Fatigue. Denies: Fever Pulmonary: Reports: Shortness of Breath (improved) Cardiovascular: Denies: Chest Pain Gastrointestinal: Denies: Abdominal Pain Neurological: Denies: Dizziness Psychiatric: Denies: Confusion - Patient Data Vitals - Most Recent: Last Vital Signs Temp 97.9 F 08/17/21 07:32 Pulse 78 08/17/21 09:19 Resp 18 08/17/21 07:32 BP 102/45 L 08/17/21 09:19 Pulse Ox 96 08/17/21 07:32 Weight - Most Recent: 169 lb 14.4 oz I&O - Last 24 Hours: Intake & Output 08/16/21 08/17/21 08/17/21 22:59 06:59 14:59 Intake Total 750 Output Total 750 800 Balance -750 -50 Lab Results Last 24 Hours: Laboratory Results - last 24 hr 08/16/21 08/16/21 08/16/21 Range/Units 14:39 14:43 14:43 WBC 23.9 H (5.0-10.0) 10^3/uL RBC 3.58 L (4.2-5.4) 10^6/uL Hgb 9.2 L (12.0-16.0) g/dL Hct 31.7 L (37.0-47.0) % MCV 88.5 D (80-100) fL MCH 25.7 L (27.0-34.0) pg MCHC 29.0 L (33.0-35.0) g/dL Plt Count 309 (150-450) 10^3/uL Neut % (Auto) 90.9 H (42.2-75.2) % Lymph % (Auto) 2.8 L (20.5-50.1) % [place] % (Auto) 6.2 (2-8) % Eos % (Auto) 0.0 L (1.0-3.0) % Baso % (Auto) 0.1 (0.0-1.0) % Add Manual Diff Yes Neutrophils % (Manual) 91 H (42-75) % Band Neutrophils % 5 % Lymphocytes % (Manual) 2 L (20-50) % Monocytes % (Manual) 2 (2-8) % Hypochromasia 2+ moderate PT (9.0-12.0) SEC INR (0.9-1.2) D-Dimer, Quantitative 1000 H (0-400) ng/mL Sodium (136-145) mmol/L Potassium (3.5-5.1) mmol/L Chloride (98-107) mmol/L Carbon Dioxide (21-32) mmol/L Anion Gap (7-13) mEq/L BUN (7-18) mg/dL Creatinine (0.55-1.02) mg/dL Est Cr Clr Drug Dosing mL/min Estimated GFR (MDRD) BUN/Creatinine Ratio (No establ ref range) Glucose (70-99) mg/dL POC Glucose (70-99) mg/dL Lactic Acid (0.4-2.0) mmol/L Calcium (8.5-10.1) mg/dL Total Bilirubin (0.2-1.0) mg/dL AST (15-37) U/L ALT (14-59) U/L Alkaline Phosphatase (46-116) U/L Troponin I High Sens (<=51) pg/mL B-Natriuretic Peptide (0-100) pg/ml Total Protein (6.4-8.2) g/dL Albumin (3.4-5.0) g/dL Globulin Albumin/Globulin Ratio Urine Color (YELLOW) Urine Appearance (CLEAR) Urine pH (5.0-9.0) Ur Specific [place] (1.005-1.030) Urine Protein (NEGATIVE) Urine Glucose (UA) (NEGATIVE) Urine Ketones (NEGATIVE) Urine Occult Blood (NEGATIVE) Urine Nitrite (NEGATIVE) Urine Bilirubin (NEGATIVE) Urine Urobilinogen (0.2-1.0) mg/dL Ur Leukocyte Esterase (NEGATIVE) Urine RBC (0-5) /HPF Urine WBC (0-5/HPF) /HPF Ur Epithelial Cells (NOT SEEN) /HPF Urine Bacteria (0-FEW/HPF) /HPF Urine Mucus (NOT SEEN) /LPF Influenza Type A RNA Negative (NEGATIVE) Influenza Type B RNA Negative (NEGATIVE) SARS-CoV-2 RNA ([place]) Negative (NEGATIVE) 08/16/21 08/16/21 08/16/21 Range/Units 14:43 14:43 14:43 WBC (5.0-10.0) 10^3/uL RBC (4.2-5.4) 10^6/uL Hgb (12.0-16.0) g/dL Hct (37.0-47.0) % MCV (80-100) fL MCH (27.0-34.0) pg MCHC (33.0-35.0) g/dL Plt Count (150-450) 10^3/uL Neut % (Auto) (42.2-75.2) % Lymph % (Auto) (20.5-50.1) % [place] % (Auto) (2-8) % Eos % (Auto) (1.0-3.0) % Baso % (Auto) (0.0-1.0) % Add Manual Diff Neutrophils % (Manual) (42-75) % Band Neutrophils % % Lymphocytes % (Manual) (20-50) % Monocytes % (Manual) (2-8) % Hypochromasia PT 24.0 H (9.0-12.0) SEC INR 2.4 H (0.9-1.2) D-Dimer, Quantitative (0-400) ng/mL Sodium 134 L (136-145) mmol/L Potassium 4.0 (3.5-5.1) mmol/L Chloride 100 (98-107) mmol/L Carbon Dioxide 33 H (21-32) mmol/L Anion Gap 5.0 L (7-13) mEq/L BUN 22 H (7-18) mg/dL Creatinine 0.95 (0.55-1.02) mg/dL Est Cr Clr Drug Dosing 44.21 mL/min Estimated GFR (MDRD) 57 BUN/Creatinine Ratio 23.2 (No establ ref range) Glucose 174 H (70-99) mg/dL POC Glucose (70-99) mg/dL Lactic Acid 2.3 H* (0.4-2.0) mmol/L Calcium 9.3 (8.5-10.1) mg/dL Total Bilirubin 0.6 (0.2-1.0) mg/dL AST 19 (15-37) U/L ALT 27 (14-59) U/L Alkaline Phosphatase 98 (46-116) U/L Troponin I High Sens 66 H* (<=51) pg/mL B-Natriuretic Peptide 1310 H (0-100) pg/ml Total Protein 6.8 (6.4-8.2) g/dL Albumin 2.8 L (3.4-5.0) g/dL Globulin 4.0 Albumin/Globulin Ratio 0.70 Urine Color (YELLOW) Urine Appearance (CLEAR) Urine pH (5.0-9.0) Ur Specific [place] (1.005-1.030) Urine Protein (NEGATIVE) Urine Glucose (UA) (NEGATIVE) Urine Ketones (NEGATIVE) Urine Occult Blood (NEGATIVE) Urine Nitrite (NEGATIVE) Urine Bilirubin (NEGATIVE) Urine Urobilinogen (0.2-1.0) mg/dL Ur Leukocyte Esterase (NEGATIVE) Urine RBC (0-5) /HPF Urine WBC (0-5/HPF) /HPF Ur Epithelial Cells (NOT SEEN) /HPF Urine Bacteria (0-FEW/HPF) /HPF Urine Mucus (NOT SEEN) /LPF Influenza Type A RNA (NEGATIVE) Influenza Type B RNA (NEGATIVE) SARS-CoV-2 RNA ([place]) (NEGATIVE) 08/16/21 08/16/21 08/16/21 Range/Units 17:07 18:27 18:27 WBC (5.0-10.0) 10^3/uL RBC (4.2-5.4) 10^6/uL Hgb (12.0-16.0) g/dL Hct (37.0-47.0) % MCV (80-100) fL MCH (27.0-34.0) pg MCHC (33.0-35.0) g/dL Plt Count (150-450) 10^3/uL Neut % (Auto) (42.2-75.2) % Lymph % (Auto) (20.5-50.1) % [place] % (Auto) (2-8) % Eos % (Auto) (1.0-3.0) % Baso % (Auto) (0.0-1.0) % Add Manual Diff Neutrophils % (Manual) (42-75) % Band Neutrophils % % Lymphocytes % (Manual) (20-50) % Monocytes % (Manual) (2-8) % Hypochromasia PT (9.0-12.0) SEC INR (0.9-1.2) D-Dimer, Quantitative (0-400) ng/mL Sodium (136-145) mmol/L Potassium (3.5-5.1) mmol/L Chloride (98-107) mmol/L Carbon Dioxide (21-32) mmol/L Anion Gap (7-13) mEq/L BUN (7-18) mg/dL Creatinine (0.55-1.02) mg/dL Est Cr Clr Drug Dosing mL/min Estimated GFR (MDRD) BUN/Creatinine Ratio (No establ ref range) Glucose (70-99) mg/dL POC Glucose 138 H (70-99) mg/dL Lactic Acid 2.5 H* (0.4-2.0) mmol/L Calcium (8.5-10.1) mg/dL Total Bilirubin (0.2-1.0) mg/dL AST (15-37) U/L ALT (14-59) U/L Alkaline Phosphatase (46-116) U/L Troponin I High Sens 58 H* (<=51) pg/mL B-Natriuretic Peptide (0-100) pg/ml Total Protein (6.4-8.2) g/dL Albumin (3.4-5.0) g/dL Globulin Albumin/Globulin Ratio Urine Color (YELLOW) Urine Appearance (CLEAR) Urine pH (5.0-9.0) Ur Specific [place] (1.005-1.030) Urine Protein (NEGATIVE) Urine Glucose (UA) (NEGATIVE) Urine Ketones (NEGATIVE) Urine Occult Blood (NEGATIVE) Urine Nitrite (NEGATIVE) Urine Bilirubin (NEGATIVE) Urine Urobilinogen (0.2-1.0) mg/dL Ur Leukocyte Esterase (NEGATIVE) Urine RBC (0-5) /HPF Urine WBC (0-5/HPF) /HPF Ur Epithelial Cells (NOT SEEN) /HPF Urine Bacteria (0-FEW/HPF) /HPF Urine Mucus (NOT SEEN) /LPF Influenza Type A RNA (NEGATIVE) Influenza Type B RNA (NEGATIVE) SARS-CoV-2 RNA ([place]) (NEGATIVE) 08/16/21 08/17/21 08/17/21 Range/Units 21:16 04:30 06:30 WBC 14.2 H (5.0-10.0) 10^3/uL RBC 2.95 L (4.2-5.4) 10^6/uL Hgb 7.4 L D (12.0-16.0) g/dL Hct 26.4 L (37.0-47.0) % MCV 89.5 (80-100) fL MCH 25.1 L (27.0-34.0) pg MCHC 28.0 L (33.0-35.0) g/dL Plt Count 268 (150-450) 10^3/uL Neut % (Auto) 82.9 H (42.2-75.2) % Lymph % (Auto) 7.7 L (20.5-50.1) % [place] % (Auto) 9.3 H (2-8) % Eos % (Auto) 0.0 L (1.0-3.0) % Baso % (Auto) 0.1 (0.0-1.0) % Add Manual Diff Neutrophils % (Manual) (42-75) % Band Neutrophils % % Lymphocytes % (Manual) (20-50) % Monocytes % (Manual) (2-8) % Hypochromasia PT (9.0-12.0) SEC INR (0.9-1.2) D-Dimer, Quantitative (0-400) ng/mL Sodium (136-145) mmol/L Potassium (3.5-5.1) mmol/L Chloride (98-107) mmol/L Carbon Dioxide (21-32) mmol/L Anion Gap (7-13) mEq/L BUN (7-18) mg/dL Creatinine (0.55-1.02) mg/dL Est Cr Clr Drug Dosing mL/min Estimated GFR (MDRD) BUN/Creatinine Ratio (No establ ref range) Glucose (70-99) mg/dL POC Glucose 233 H (70-99) mg/dL Lactic Acid (0.4-2.0) mmol/L Calcium (8.5-10.1) mg/dL Total Bilirubin (0.2-1.0) mg/dL AST (15-37) U/L ALT (14-59) U/L Alkaline Phosphatase (46-116) U/L Troponin I High Sens (<=51) pg/mL B-Natriuretic Peptide (0-100) pg/ml Total Protein (6.4-8.2) g/dL Albumin (3.4-5.0) g/dL Globulin Albumin/Globulin Ratio Urine Color Yellow (YELLOW) Urine Appearance Clear (CLEAR) Urine pH 5.0 (5.0-9.0) Ur Specific [place] 1.015 (1.005-1.030) Urine Protein Negative (NEGATIVE) Urine Glucose (UA) Negative (NEGATIVE) Urine Ketones Negative (NEGATIVE) Urine Occult Blood Trace-intact H (NEGATIVE) Urine Nitrite Negative (NEGATIVE) Urine Bilirubin Negative (NEGATIVE) Urine Urobilinogen 0.2 (0.2-1.0) mg/dL Ur Leukocyte Esterase Negative (NEGATIVE) Urine RBC 0-5 (0-5) /HPF Urine WBC 0-5 (0-5/HPF) /HPF Ur Epithelial Cells Rare (NOT SEEN) /HPF Urine Bacteria Rare (0-FEW/HPF) /HPF Urine Mucus Not seen (NOT SEEN) /LPF Influenza Type A RNA (NEGATIVE) Influenza Type B RNA (NEGATIVE) SARS-CoV-2 RNA ([place]) (NEGATIVE) 08/17/21 08/17/21 08/17/21 Range/Units 06:30 06:30 07:40 WBC (5.0-10.0) 10^3/uL RBC (4.2-5.4) 10^6/uL Hgb (12.0-16.0) g/dL Hct (37.0-47.0) % MCV (80-100) fL MCH (27.0-34.0) pg MCHC (33.0-35.0) g/dL Plt Count (150-450) 10^3/uL Neut % (Auto) (42.2-75.2) % Lymph % (Auto) (20.5-50.1) % [place] % (Auto) (2-8) % Eos % (Auto) (1.0-3.0) % Baso % (Auto) (0.0-1.0) % Add Manual Diff Neutrophils % (Manual) (42-75) % Band Neutrophils % % Lymphocytes % (Manual) (20-50) % Monocytes % (Manual) (2-8) % Hypochromasia PT 28.1 H (9.0-12.0) SEC INR 2.8 H (0.9-1.2) D-Dimer, Quantitative (0-400) ng/mL Sodium 141 (136-145) mmol/L Potassium 3.7 (3.5-5.1) mmol/L Chloride 101 (98-107) mmol/L Carbon Dioxide 35 H (21-32) mmol/L Anion Gap 8.7 (7-13) mEq/L BUN 22 H (7-18) mg/dL Creatinine 0.88 (0.55-1.02) mg/dL Est Cr Clr Drug Dosing 47.73 mL/min Estimated GFR (MDRD) > 60 BUN/Creatinine Ratio (No establ ref range) Glucose 113 H (70-99) mg/dL POC Glucose 116 H (70-99) mg/dL Lactic Acid (0.4-2.0) mmol/L Calcium 8.4 L (8.5-10.1) mg/dL Total Bilirubin (0.2-1.0) mg/dL AST (15-37) U/L ALT (14-59) U/L Alkaline Phosphatase (46-116) U/L Troponin I High Sens (<=51) pg/mL B-Natriuretic Peptide 877 H (0-100) pg/ml Total Protein (6.4-8.2) g/dL Albumin (3.4-5.0) g/dL Globulin Albumin/Globulin Ratio Urine Color (YELLOW) Urine Appearance (CLEAR) Urine pH (5.0-9.0) Ur Specific [place] (1.005-1.030) Urine Protein (NEGATIVE) Urine Glucose (UA) (NEGATIVE) Urine Ketones (NEGATIVE) Urine Occult Blood (NEGATIVE) Urine Nitrite (NEGATIVE) Urine Bilirubin (NEGATIVE) Urine Urobilinogen (0.2-1.0) mg/dL Ur Leukocyte Esterase (NEGATIVE) Urine RBC (0-5) /HPF Urine WBC (0-5/HPF) /HPF Ur Epithelial Cells (NOT SEEN) /HPF Urine Bacteria (0-FEW/HPF) /HPF Urine Mucus (NOT SEEN) /LPF Influenza Type A RNA (NEGATIVE) Influenza Type B RNA (NEGATIVE) SARS-CoV-2 RNA ([place]) (NEGATIVE) 08/17/21 Range/Units 11:09 WBC (5.0-10.0) 10^3/uL RBC (4.2-5.4) 10^6/uL Hgb (12.0-16.0) g/dL Hct (37.0-47.0) % MCV (80-100) fL MCH (27.0-34.0) pg MCHC (33.0-35.0) g/dL Plt Count (150-450) 10^3/uL Neut % (Auto) (42.2-75.2) % Lymph % (Auto) (20.5-50.1) % [place] % (Auto) (2-8) % Eos % (Auto) (1.0-3.0) % Baso % (Auto) (0.0-1.0) % Add Manual Diff Neutrophils % (Manual) (42-75) % Band Neutrophils % % Lymphocytes % (Manual) (20-50) % Monocytes % (Manual) (2-8) % Hypochromasia PT (9.0-12.0) SEC INR (0.9-1.2) D-Dimer, Quantitative (0-400) ng/mL Sodium (136-145) mmol/L Potassium (3.5-5.1) mmol/L Chloride (98-107) mmol/L Carbon Dioxide (21-32) mmol/L Anion Gap (7-13) mEq/L BUN (7-18) mg/dL Creatinine (0.55-1.02) mg/dL Est Cr Clr Drug Dosing mL/min Estimated GFR (MDRD) BUN/Creatinine Ratio (No establ ref range) Glucose (70-99) mg/dL POC Glucose 169 H (70-99) mg/dL Lactic Acid (0.4-2.0) mmol/L Calcium (8.5-10.1) mg/dL Total Bilirubin (0.2-1.0) mg/dL AST (15-37) U/L ALT (14-59) U/L Alkaline Phosphatase (46-116) U/L Troponin I High Sens (<=51) pg/mL B-Natriuretic Peptide (0-100) pg/ml Total Protein (6.4-8.2) g/dL Albumin (3.4-5.0) g/dL Globulin Albumin/Globulin Ratio Urine Color (YELLOW) Urine Appearance (CLEAR) Urine pH (5.0-9.0) Ur Specific [place] (1.005-1.030) Urine Protein (NEGATIVE) Urine Glucose (UA) (NEGATIVE) Urine Ketones (NEGATIVE) Urine Occult Blood (NEGATIVE) Urine Nitrite (NEGATIVE) Urine Bilirubin (NEGATIVE) Urine Urobilinogen (0.2-1.0) mg/dL Ur Leukocyte Esterase (NEGATIVE) Urine RBC (0-5) /HPF Urine WBC (0-5/HPF) /HPF Ur Epithelial Cells (NOT SEEN) /HPF Urine Bacteria (0-FEW/HPF) /HPF Urine Mucus (NOT SEEN) /LPF Influenza Type A RNA (NEGATIVE) Influenza Type B RNA (NEGATIVE) SARS-CoV-2 RNA ([place]) (NEGATIVE) [place] Results Last 24 Hours: Microbiology 08/16/21 14:43 Anaerobic Blood Culture - Preliminary Blood - Venous - Iv Start 08/16/21 15:16 Anaerobic Blood Culture - Preliminary Blood - Arm, Right Med Orders - Current: Current Medications Acetaminophen (Acetaminophen 325 Mg Tab) 650 mg PO Q4H PRN PRN Reason: Pain (Mild 1-3)/fever Albuterol/Ipratropium (Albuterol/Ipratropium 3.0-0.5 Mg/3 Ml Neb Soln) 3 ml NEB Q2H PRN PRN Reason: sob Last Admin: 08/16/21 23:37 Dose: 3 ml Documented by: Albuterol/Ipratropium (Albuterol/Ipratropium 3.0-0.5 Mg/3 Ml Neb Soln) 3 ml NEB Q6HRRT [facility] Last Admin: 08/17/21 08:38 Dose: 3 ml Documented by: Aspirin (Aspirin 81 Mg Tab.Ec) 81 mg PO WITHBREAKFAST [facility] Last Admin: 08/17/21 09:20 Dose: 81 mg Documented by: Atorvastatin Calcium (Atorvastatin 20 Mg Tab) 80 mg PO BEDTIME [facility] Last Admin: 08/16/21 21:23 Dose: 80 mg Documented by: Budesonide (Budesonide 0.5 Mg/2 Ml Neb Susp) 0.5 mg NEB BIDRT [facility] Last Admin: 08/17/21 08:38 Dose: 0.5 mg Documented by: Dextrose/Water (50% Dextrose In Water 50 Ml Syringe) 25 ml IVPUSH ASDIRECTED PRN PRN Reason: Hypoglycemia BS<70 Docusate Sodium (Docusate Sodium 100 Mg Cap) 200 mg PO BEDTIME [facility] Last Admin: 08/16/21 21:23 Dose: 200 mg Documented by: Ferrous Sulfate (Ferrous Sulfate 325 Mg Tab) 325 mg PO DAILY [facility] Last Admin: 08/17/21 09:20 Dose: 325 mg Documented by: Furosemide (Furosemide 20 Mg/2 Ml Vial) 20 mg IVPUSH BIDDIURETIC COREY Last Admin: 08/17/21 09:22 Dose: 20 mg Documented by: Vancomycin HCl 1 gm/ Sodium (Chloride) 250 mls @ 250 mls/hr IV DAILY@1600 [facility] Last Admin: 08/16/21 18:13 Dose: 250 mls/hr Documented by: Levofloxacin/Dextrose 750 mg/ (Premix) 150 mls @ 100 mls/hr IV Q48H [facility] Last Admin: 08/16/21 19:53 Dose: 100 mls/hr Documented by: Insulin Human Lispro (Insulin Lispro 100 Units/Ml 3 Ml Vial) 0 unit SUBCUT WITHMEALSANDBED [facility]; Protocol Last Admin: 08/16/21 21:23 Dose: 4 units Documented by: Metoprolol Succinate (Metoprolol Succinate 50 Mg Tab.Er) 100 mg PO DAILY [facility] Last Admin: 08/17/21 09:19 Dose: 100 mg Documented by: Ondansetron HCl (Ondansetron 4 Mg/2 Ml Sdv) 4 mg IVPUSH Q6H PRN PRN Reason: Nausea/Vomiting Pantoprazole Sodium (Pantoprazole 40 Mg Tab.Cr) 40 mg PO ACBREAKFAST [facility] Last Admin: 08/17/21 06:34 Dose: 40 mg Documented by: Sodium Chloride (Sodium Chloride 0.9% 10 Ml Syringe) 10 ml FLUSH ASDIRECTED PRN PRN Reason: Keep Vein Open Last Admin: 08/17/21 09:23 Dose: 10 ml Documented by: Vancomycin HCl (Pharmacy To Dose - Vancomycin) 1 dose .XX ASDIRECTED [facility] Warfarin Sodium (Pharmacy To Dose - Warfarin) 1 dose .XX ASDIRECTED [facility] Warfarin Sodium (Warfarin 2 Mg Tab) 2 mg PO DAILY@1400 [facility] Last Admin: 08/16/21 21:23 Dose: 2 mg Documented by: Discontinued Medications Aspirin (Aspirin 81 Mg Tab.Chew) 324 mg PO ONETIME ONE Stop: 08/16/21 21:16 Last Admin: 08/16/21 21:31 Dose: 324 mg Documented by: Furosemide (Furosemide 40 Mg/4 Ml Vial) 40 mg IVPUSH ONETIME ONE Stop: 08/16/21 15:09 Last Admin: 08/16/21 15:23 Dose: 40 mg Documented by: Sodium Chloride (Normal Saline) 1,000 mls @ 75 mls/hr IV ASDIRECTED [facility] Last Admin: 08/16/21 15:24 Dose: 75 mls/hr Documented by: Ceftriaxone Sodium 1 gm/ (Sodium Chloride) 50 mls @ 100 mls/hr IV ONETIME ONE Stop: 08/16/21 15:37 Last Admin: 08/16/21 15:23 Dose: 100 mls/hr Documented by: Levofloxacin/Dextrose 750 mg/ (Premix) 150 mls @ 100 mls/hr IV Q24H [facility] - Exam Quality Assessment: Supplemental Oxygen General: Alert, Oriented Neck: Supple Lungs: Rhonchi, Wheezing Cardiovascular: Regular Rate, Regular Rhythm GI/Abdominal Exam: Normal Bowel Sounds, Soft, Non-Tender Extremities: Pedal Edema (trace - improved) - Patient Data Lab Results Last 24 hrs: Laboratory Results - last 24 hr 08/16/21 08/16/21 08/16/21 Range/Units 14:39 14:43 14:43 WBC 23.9 H (5.0-10.0) 10^3/uL RBC 3.58 L (4.2-5.4) 10^6/uL Hgb 9.2 L (12.0-16.0) g/dL Hct 31.7 L (37.0-47.0) % MCV 88.5 D (80-100) fL MCH 25.7 L (27.0-34.0) pg MCHC 29.0 L (33.0-35.0) g/dL Plt Count 309 (150-450) 10^3/uL Neut % (Auto) 90.9 H (42.2-75.2) % Lymph % (Auto) 2.8 L (20.5-50.1) % [place] % (Auto) 6.2 (2-8) % Eos % (Auto) 0.0 L (1.0-3.0) % Baso % (Auto) 0.1 (0.0-1.0) % Add Manual Diff Yes Neutrophils % (Manual) 91 H (42-75) % Band Neutrophils % 5 % Lymphocytes % (Manual) 2 L (20-50) % Monocytes % (Manual) 2 (2-8) % Hypochromasia 2+ moderate PT (9.0-12.0) SEC INR (0.9-1.2) D-Dimer, Quantitative 1000 H (0-400) ng/mL Sodium (136-145) mmol/L Potassium (3.5-5.1) mmol/L Chloride (98-107) mmol/L Carbon Dioxide (21-32) mmol/L Anion Gap (7-13) mEq/L BUN (7-18) mg/dL Creatinine (0.55-1.02) mg/dL Est Cr Clr Drug Dosing mL/min Estimated GFR (MDRD) BUN/Creatinine Ratio (No establ ref range) Glucose (70-99) mg/dL POC Glucose (70-99) mg/dL Lactic Acid (0.4-2.0) mmol/L Calcium (8.5-10.1) mg/dL Total Bilirubin (0.2-1.0) mg/dL AST (15-37) U/L ALT (14-59) U/L Alkaline Phosphatase (46-116) U/L Troponin I High Sens (<=51) pg/mL B-Natriuretic Peptide (0-100) pg/ml Total Protein (6.4-8.2) g/dL Albumin (3.4-5.0) g/dL Globulin Albumin/Globulin Ratio Urine Color (YELLOW) Urine Appearance (CLEAR) Urine pH (5.0-9.0) Ur Specific [place] (1.005-1.030) Urine Protein (NEGATIVE) Urine Glucose (UA) (NEGATIVE) Urine Ketones (NEGATIVE) Urine Occult Blood (NEGATIVE) Urine Nitrite (NEGATIVE) Urine Bilirubin (NEGATIVE) Urine Urobilinogen (0.2-1.0) mg/dL Ur Leukocyte Esterase (NEGATIVE) Urine RBC (0-5) /HPF Urine WBC (0-5/HPF) /HPF Ur Epithelial Cells (NOT SEEN) /HPF Urine Bacteria (0-FEW/HPF) /HPF Urine Mucus (NOT SEEN) /LPF Influenza Type A RNA Negative (NEGATIVE) Influenza Type B RNA Negative (NEGATIVE) SARS-CoV-2 RNA ([place]) Negative (NEGATIVE) 08/16/21 08/16/21 08/16/21 Range/Units 14:43 14:43 14:43 WBC (5.0-10.0) 10^3/uL RBC (4.2-5.4) 10^6/uL Hgb (12.0-16.0) g/dL Hct (37.0-47.0) % MCV (80-100) fL MCH (27.0-34.0) pg MCHC (33.0-35.0) g/dL Plt Count (150-450) 10^3/uL Neut % (Auto) (42.2-75.2) % Lymph % (Auto) (20.5-50.1) % [place] % (Auto) (2-8) % Eos % (Auto) (1.0-3.0) % Baso % (Auto) (0.0-1.0) % Add Manual Diff Neutrophils % (Manual) (42-75) % Band Neutrophils % % Lymphocytes % (Manual) (20-50) % Monocytes % (Manual) (2-8) % Hypochromasia PT 24.0 H (9.0-12.0) SEC INR 2.4 H (0.9-1.2) D-Dimer, Quantitative (0-400) ng/mL Sodium 134 L (136-145) mmol/L Potassium 4.0 (3.5-5.1) mmol/L Chloride 100 (98-107) mmol/L Carbon Dioxide 33 H (21-32) mmol/L Anion Gap 5.0 L (7-13) mEq/L BUN 22 H (7-18) mg/dL Creatinine 0.95 (0.55-1.02) mg/dL Est Cr Clr Drug Dosing 44.21 mL/min Estimated GFR (MDRD) 57 BUN/Creatinine Ratio 23.2 (No establ ref range) Glucose 174 H (70-99) mg/dL POC Glucose (70-99) mg/dL Lactic Acid 2.3 H* (0.4-2.0) mmol/L Calcium 9.3 (8.5-10.1) mg/dL Total Bilirubin 0.6 (0.2-1.0) mg/dL AST 19 (15-37) U/L ALT 27 (14-59) U/L Alkaline Phosphatase 98 (46-116) U/L Troponin I High Sens 66 H* (<=51) pg/mL B-Natriuretic Peptide 1310 H (0-100) pg/ml Total Protein 6.8 (6.4-8.2) g/dL Albumin 2.8 L (3.4-5.0) g/dL Globulin 4.0 Albumin/Globulin Ratio 0.70 Urine Color (YELLOW) Urine Appearance (CLEAR) Urine pH (5.0-9.0) Ur Specific [place] (1.005-1.030) Urine Protein (NEGATIVE) Urine Glucose (UA) (NEGATIVE) Urine Ketones (NEGATIVE) Urine Occult Blood (NEGATIVE) Urine Nitrite (NEGATIVE) Urine Bilirubin (NEGATIVE) Urine Urobilinogen (0.2-1.0) mg/dL Ur Leukocyte Esterase (NEGATIVE) Urine RBC (0-5) /HPF Urine WBC (0-5/HPF) /HPF Ur Epithelial Cells (NOT SEEN) /HPF Urine Bacteria (0-FEW/HPF) /HPF Urine Mucus (NOT SEEN) /LPF Influenza Type A RNA (NEGATIVE) Influenza Type B RNA (NEGATIVE) SARS-CoV-2 RNA ([place]) (NEGATIVE) 08/16/21 08/16/21 08/16/21 Range/Units 17:07 18:27 18:27 WBC (5.0-10.0) 10^3/uL RBC (4.2-5.4) 10^6/uL Hgb (12.0-16.0) g/dL Hct (37.0-47.0) % MCV (80-100) fL MCH (27.0-34.0) pg MCHC (33.0-35.0) g/dL Plt Count (150-450) 10^3/uL Neut % (Auto) (42.2-75.2) % Lymph % (Auto) (20.5-50.1) % [place] % (Auto) (2-8) % Eos % (Auto) (1.0-3.0) % Baso % (Auto) (0.0-1.0) % Add Manual Diff Neutrophils % (Manual) (42-75) % Band Neutrophils % % Lymphocytes % (Manual) (20-50) % Monocytes % (Manual) (2-8) % Hypochromasia PT (9.0-12.0) SEC INR (0.9-1.2) D-Dimer, Quantitative (0-400) ng/mL Sodium (136-145) mmol/L Potassium (3.5-5.1) mmol/L Chloride (98-107) mmol/L Carbon Dioxide (21-32) mmol/L Anion Gap (7-13) mEq/L BUN (7-18) mg/dL Creatinine (0.55-1.02) mg/dL Est Cr Clr Drug Dosing mL/min Estimated GFR (MDRD) BUN/Creatinine Ratio (No establ ref range) Glucose (70-99) mg/dL POC Glucose 138 H (70-99) mg/dL Lactic Acid 2.5 H* (0.4-2.0) mmol/L Calcium (8.5-10.1) mg/dL Total Bilirubin (0.2-1.0) mg/dL AST (15-37) U/L ALT (14-59) U/L Alkaline Phosphatase (46-116) U/L Troponin I High Sens 58 H* (<=51) pg/mL B-Natriuretic Peptide (0-100) pg/ml Total Protein (6.4-8.2) g/dL Albumin (3.4-5.0) g/dL Globulin Albumin/Globulin Ratio Urine Color (YELLOW) Urine Appearance (CLEAR) Urine pH (5.0-9.0) Ur Specific [place] (1.005-1.030) Urine Protein (NEGATIVE) Urine Glucose (UA) (NEGATIVE) Urine Ketones (NEGATIVE) Urine Occult Blood (NEGATIVE) Urine Nitrite (NEGATIVE) Urine Bilirubin (NEGATIVE) Urine Urobilinogen (0.2-1.0) mg/dL Ur Leukocyte Esterase (NEGATIVE) Urine RBC (0-5) /HPF Urine WBC (0-5/HPF) /HPF Ur Epithelial Cells (NOT SEEN) /HPF Urine Bacteria (0-FEW/HPF) /HPF Urine Mucus (NOT SEEN) /LPF Influenza Type A RNA (NEGATIVE) Influenza Type B RNA (NEGATIVE) SARS-CoV-2 RNA ([place]) (NEGATIVE) 08/16/21 08/17/21 08/17/21 Range/Units 21:16 04:30 06:30 WBC 14.2 H (5.0-10.0) 10^3/uL RBC 2.95 L (4.2-5.4) 10^6/uL Hgb 7.4 L D (12.0-16.0) g/dL Hct 26.4 L (37.0-47.0) % MCV 89.5 (80-100) fL MCH 25.1 L (27.0-34.0) pg MCHC 28.0 L (33.0-35.0) g/dL Plt Count 268 (150-450) 10^3/uL Neut % (Auto) 82.9 H (42.2-75.2) % Lymph % (Auto) 7.7 L (20.5-50.1) % [place] % (Auto) 9.3 H (2-8) % Eos % (Auto) 0.0 L (1.0-3.0) % Baso % (Auto) 0.1 (0.0-1.0) % Add Manual Diff Neutrophils % (Manual) (42-75) % Band Neutrophils % % Lymphocytes % (Manual) (20-50) % Monocytes % (Manual) (2-8) % Hypochromasia PT (9.0-12.0) SEC INR (0.9-1.2) D-Dimer, Quantitative (0-400) ng/mL Sodium (136-145) mmol/L Potassium (3.5-5.1) mmol/L Chloride (98-107) mmol/L Carbon Dioxide (21-32) mmol/L Anion Gap (7-13) mEq/L BUN (7-18) mg/dL Creatinine (0.55-1.02) mg/dL Est Cr Clr Drug Dosing mL/min Estimated GFR (MDRD) BUN/Creatinine Ratio (No establ ref range) Glucose (70-99) mg/dL POC Glucose 233 H (70-99) mg/dL Lactic Acid (0.4-2.0) mmol/L Calcium (8.5-10.1) mg/dL Total Bilirubin (0.2-1.0) mg/dL AST (15-37) U/L ALT (14-59) U/L Alkaline Phosphatase (46-116) U/L Troponin I High Sens (<=51) pg/mL B-Natriuretic Peptide (0-100) pg/ml Total Protein (6.4-8.2) g/dL Albumin (3.4-5.0) g/dL Globulin Albumin/Globulin Ratio Urine Color Yellow (YELLOW) Urine Appearance Clear (CLEAR) Urine pH 5.0 (5.0-9.0) Ur Specific [place] 1.015 (1.005-1.030) Urine Protein Negative (NEGATIVE) Urine Glucose (UA) Negative (NEGATIVE) Urine Ketones Negative (NEGATIVE) Urine Occult Blood Trace-intact H (NEGATIVE) Urine Nitrite Negative (NEGATIVE) Urine Bilirubin Negative (NEGATIVE) Urine Urobilinogen 0.2 (0.2-1.0) mg/dL Ur Leukocyte Esterase Negative (NEGATIVE) Urine RBC 0-5 (0-5) /HPF Urine WBC 0-5 (0-5/HPF) /HPF Ur Epithelial Cells Rare (NOT SEEN) /HPF Urine Bacteria Rare (0-FEW/HPF) /HPF Urine Mucus Not seen (NOT SEEN) /LPF Influenza Type A RNA (NEGATIVE) Influenza Type B RNA (NEGATIVE) SARS-CoV-2 RNA ([place]) (NEGATIVE) 08/17/21 08/17/21 08/17/21 Range/Units 06:30 06:30 07:40 WBC (5.0-10.0) 10^3/uL RBC (4.2-5.4) 10^6/uL Hgb (12.0-16.0) g/dL Hct (37.0-47.0) % MCV (80-100) fL MCH (27.0-34.0) pg MCHC (33.0-35.0) g/dL Plt Count (150-450) 10^3/uL Neut % (Auto) (42.2-75.2) % Lymph % (Auto) (20.5-50.1) % [place] % (Auto) (2-8) % Eos % (Auto) (1.0-3.0) % Baso % (Auto) (0.0-1.0) % Add Manual Diff Neutrophils % (Manual) (42-75) % Band Neutrophils % % Lymphocytes % (Manual) (20-50) % Monocytes % (Manual) (2-8) % Hypochromasia PT 28.1 H (9.0-12.0) SEC INR 2.8 H (0.9-1.2) D-Dimer, Quantitative (0-400) ng/mL Sodium 141 (136-145) mmol/L Potassium 3.7 (3.5-5.1) mmol/L Chloride 101 (98-107) mmol/L Carbon Dioxide 35 H (21-32) mmol/L Anion Gap 8.7 (7-13) mEq/L BUN 22 H (7-18) mg/dL Creatinine 0.88 (0.55-1.02) mg/dL Est Cr Clr Drug Dosing 47.73 mL/min Estimated GFR (MDRD) > 60 BUN/Creatinine Ratio (No establ ref range) Glucose 113 H (70-99) mg/dL POC Glucose 116 H (70-99) mg/dL Lactic Acid (0.4-2.0) mmol/L Calcium 8.4 L (8.5-10.1) mg/dL Total Bilirubin (0.2-1.0) mg/dL AST (15-37) U/L ALT (14-59) U/L Alkaline Phosphatase (46-116) U/L Troponin I High Sens (<=51) pg/mL B-Natriuretic Peptide 877 H (0-100) pg/ml Total Protein (6.4-8.2) g/dL Albumin (3.4-5.0) g/dL Globulin Albumin/Globulin Ratio Urine Color (YELLOW) Urine Appearance (CLEAR) Urine pH (5.0-9.0) Ur Specific [place] (1.005-1.030) Urine Protein (NEGATIVE) Urine Glucose (UA) (NEGATIVE) Urine Ketones (NEGATIVE) Urine Occult Blood (NEGATIVE) Urine Nitrite (NEGATIVE) Urine Bilirubin (NEGATIVE) Urine Urobilinogen (0.2-1.0) mg/dL Ur Leukocyte Esterase (NEGATIVE) Urine RBC (0-5) /HPF Urine WBC (0-5/HPF) /HPF Ur Epithelial Cells (NOT SEEN) /HPF Urine Bacteria (0-FEW/HPF) /HPF Urine Mucus (NOT SEEN) /LPF Influenza Type A RNA (NEGATIVE) Influenza Type B RNA (NEGATIVE) SARS-CoV-2 RNA ([place]) (NEGATIVE) 08/17/21 Range/Units 11:09 WBC (5.0-10.0) 10^3/uL RBC (4.2-5.4) 10^6/uL Hgb (12.0-16.0) g/dL Hct (37.0-47.0) % MCV (80-100) fL MCH (27.0-34.0) pg MCHC (33.0-35.0) g/dL Plt Count (150-450) 10^3/uL Neut % (Auto) (42.2-75.2) % Lymph % (Auto) (20.5-50.1) % [place] % (Auto) (2-8) % Eos % (Auto) (1.0-3.0) % Baso % (Auto) (0.0-1.0) % Add Manual Diff Neutrophils % (Manual) (42-75) % Band Neutrophils % % Lymphocytes % (Manual) (20-50) % Monocytes % (Manual) (2-8) % Hypochromasia PT (9.0-12.0) SEC INR (0.9-1.2) D-Dimer, Quantitative (0-400) ng/mL Sodium (136-145) mmol/L Potassium (3.5-5.1) mmol/L Chloride (98-107) mmol/L Carbon Dioxide (21-32) mmol/L Anion Gap (7-13) mEq/L BUN (7-18) mg/dL Creatinine (0.55-1.02) mg/dL Est Cr Clr Drug Dosing mL/min Estimated GFR (MDRD) BUN/Creatinine Ratio (No establ ref range) Glucose (70-99) mg/dL POC Glucose 169 H (70-99) mg/dL Lactic Acid (0.4-2.0) mmol/L Calcium (8.5-10.1) mg/dL Total Bilirubin (0.2-1.0) mg/dL AST (15-37) U/L ALT (14-59) U/L Alkaline Phosphatase (46-116) U/L Troponin I High Sens (<=51) pg/mL B-Natriuretic Peptide (0-100) pg/ml Total Protein (6.4-8.2) g/dL Albumin (3.4-5.0) g/dL Globulin Albumin/Globulin Ratio Urine Color (YELLOW) Urine Appearance (CLEAR) Urine pH (5.0-9.0) Ur Specific [place] (1.005-1.030) Urine Protein (NEGATIVE) Urine Glucose (UA) (NEGATIVE) Urine Ketones (NEGATIVE) Urine Occult Blood (NEGATIVE) Urine Nitrite (NEGATIVE) Urine Bilirubin (NEGATIVE) Urine Urobilinogen (0.2-1.0) mg/dL Ur Leukocyte Esterase (NEGATIVE) Urine RBC (0-5) /HPF Urine WBC (0-5/HPF) /HPF Ur Epithelial Cells (NOT SEEN) /HPF Urine Bacteria (0-FEW/HPF) /HPF Urine Mucus (NOT SEEN) /LPF Influenza Type A RNA (NEGATIVE) Influenza Type B RNA (NEGATIVE) SARS-CoV-2 RNA ([place]) (NEGATIVE) Result Diagrams: 08/17/21 06:30 08/17/21 06:30 [place] Results Last 24 hrs: Microbiology 08/16/21 14:43 Anaerobic Blood Culture - Preliminary Blood - Venous - Iv Start 08/16/21 15:16 Anaerobic Blood Culture - Preliminary Blood - Arm, Right Sepsis Event Note - Evaluation Sepsis Screening Result: No Definite Risk - Focused Exam Vital Signs: Vital Signs Temp Pulse Pulse Resp BP BP Pulse Ox 08/17/21 09:19 78 102/45 L 08/17/21 07:32 97.9 F 78 18 102/45 L 96 08/17/21 04:00 97.8 F 93 24 H 102/64 97 08/17/21 00:00 97.9 F 93 24 H 110/58 L 95 - Problem List & Annotations (1) CHF (congestive heart failure) SNOMED Code(s): 29606292 Code(s): I50.9 - HEART FAILURE, UNSPECIFIED Status: Acute Current Visit: Yes Qualifiers: Heart failure type: unspecified Heart failure chronicity: acute on chronic Qualified Code(s): I50.9 - Heart failure, unspecified (2) Pneumonia SNOMED Code(s): 304632552 Code(s): J18.9 - PNEUMONIA, UNSPECIFIED ORGANISM Status: Acute Current Vi sit: Yes Qualifiers: Pneumonia type: due to unspecified organism Laterality: left Lung location: lower lobe of lung Qualified Code(s): J18.9 - Pneumonia, unspecified organism (3) Acute congestive heart failure SNOMED Code(s): 16777529 Code(s): I50.9 - HEART FAILURE, UNSPECIFIED Status: Acute Priority: High Current Visit: No (4) Acute hypernatremia SNOMED Code(s): 2466696 Code(s): E87.0 - HYPEROSMOLALITY AND HYPERNATREMIA Status: Acute Current Visit: No (5) COPD exacerbation SNOMED Code(s): 522148850, 376510601 Code(s): J44.1 - CHRONIC OBSTRUCTIVE PULMONARY DISEASE W (ACUTE) EXACERBATION Status: Acute Current Visit: No (6) Chronic anticoagulation SNOMED Code(s): 706630690 Code(s): Z79.01 - DAIRY HAND (CURRENT) USE OF ANTICOAGULANTS Status: Acute Current Visit: No (7) History of atrial fibrillation SNOMED Code(s): 037656794 Code(s): Z86.79 - PERSONAL HISTORY OF OTHER DISEASES OF THE CIRCULATORY SYSTEM Status: Acute Current Visit: No (8) Sepsis SNOMED Code(s): 78690685 Code(s): A41.9 - SEPSIS, UNSPECIFIED ORGANISM Status: Acute Current Visit: No Qualifiers: Sepsis type: sepsis due to unspecified organism Sepsis acute organ dysfunction status: unspecified Qualified Code(s): A41.9 - Sepsis, unspecified organism (9) Coronary artery disease SNOMED Code(s): 77403985 Code(s): I25.10 - ATHSCL HEART DISEASE OF [place] CORONARY ARTERY W/O ANG PCTRS Status: Chronic Current Visit: No - Problem List Review Problem List Initiated/Reviewed/Updated: Yes - My Orders Last 24 Hours: My Active Orders 08/16/21 16:21 CULTURE SPUTUM + SMEAR [RM] Routine 08/16/21 16:22 OT Evaluation and Treatment [CONS] Routine PT Evaluation and Treatment [CONS] Routine 08/16/21 16:27 Telemetry Monitoring [Cardiac Monitoring] [RC] 08,20 08/16/21 16:30 Pharmacy to Dose - Vancomycin 1 dose .XX ASDIRECTED 08/16/21 16:37 MIA Hose [Antiembolic Hose] [OM.PC] Routine 08/16/21 16:38 Antiembolic Devices [RC] 08,20 RT Aerosol Therapy [RC] ASDIRECTED 08/16/21 16:42 Albuterol/Ipratropium [DuoNeb 3.0-0.5 MG/3 ML] 3 ml NEB Q2H PRN 08/16/21 16:43 Oxygen Therapy [RC] PRN Up With Assistance [RC] ASDIRECTED VTE/DVT Education [RC] 08,20 Vital Signs [RC] 00,04,08,12,16,20 Acetaminophen [TylenoL] 650 mg PO Q4H PRN Ondansetron [Zofran] 4 mg IVPUSH Q6H PRN Sodium Chloride 0.9% [Saline Flush] 10 ml FLUSH ASDIRECTED PRN Anticoagulation Contraindications VTE [AST] Per Unit Routine Peripheral IV Insertion Adult [OM.PC] Routine Saline Lock Insert [OM.PC] Routine Resuscitation Status Routine 08/16/21 16:45 Peripheral IV Care [RC] 00,04,08,12,16,20 Pharmacy to Dose - Warfarin 1 dose .XX ASDIRECTED Vancomycin 1 gm Sodium Chloride 0.9% [Normal Saline AdvBag] 250 ml IV DAILY@1600 08/16/21 16:48 Blood Glucose Check, Bedside [] WITHMEALSANDBED Dextrose 50% in Water 25 ml IVPUSH ASDIRECTED PRN 08/16/21 Dinner Regular Diet [DIET] 08/16/21 18:00 Albuterol/Ipratropium [DuoNeb 3.0-0.5 MG/3 ML] 3 ml NEB Q6HRRT Budesonide [Pulmicort] 0.5 mg NEB BIDRT Insulin Lispro [HumaLOG] See Protocol SUBCUT WITHMEALSANDBED 08/16/21 20:00 Levofloxacin/Dextrose 5%-Water [Levaquin in D5W 750 MG/150 ML] 750 mg Premix Bag 1 bag IV Q48H 08/16/21 20:45 Warfarin [Coumadin] 2 mg PO DAILY@1400 08/16/21 21:00 Docusate Sodium [Colace] 200 mg PO BEDTIME atorvaSTATin [Lipitor] 80 mg PO BEDTIME 08/16/21 22:00 Furosemide [Lasix] 20 mg IVPUSH BIDDIURETIC 08/17/21 06:00 Pantoprazole [ProTONIX] 40 mg PO ACBREAKFAST 08/17/21 08:00 Aspirin [Halfprin] 81 mg PO WITHBREAKFAST 08/17/21 09:00 Ferrous Sulfate 325 mg PO DAILY Metoprolol Succinate [Toprol XL] 100 mg PO DAILY 08/17/21 11:39 CULTURE BLOOD [BC] Stat CULTURE BLOOD [BC] Stat Blood Culture x2 Reflex Set [OM.PC] Stat 08/18/21 05:11 B-TYPE NATRIURETIC PEPTIDE,BNP [CHEM] AM BASIC METABOLIC PANEL,BMP [CHEM] AM CBC WITH AUTO DIFF [HEME] AM INR,PT,PROTHROMBIN TIME [COAG] DAILY 08/19/21 05:11 B-TYPE NATRIURETIC PEPTIDE,BNP [CHEM] AM BASIC METABOLIC PANEL,BMP [CHEM] AM CBC WITH AUTO DIFF [HEME] AM INR,PT,PROTHROMBIN TIME [COAG] DAILY 08/20/21 05:11 B-TYPE NATRIURETIC PEPTIDE,BNP [CHEM] AM BASIC METABOLIC PANEL,BMP [CHEM] AM CBC WITH AUTO DIFF [HEME] AM INR,PT,PROTHROMBIN TIME [COAG] DAILY 08/20/21 15:30 VANCOMYCIN TROUGH [CHEM] Timed 08/21/21 05:11 B-TYPE NATRIURETIC PEPTIDE,BNP [CHEM] AM BASIC METABOLIC PANEL,BMP [CHEM] AM CBC WITH AUTO DIFF [HEME] AM 08/22/21 05:11 B-TYPE NATRIURETIC PEPTIDE,BNP [CHEM] AM BASIC METABOLIC PANEL,BMP [CHEM] AM CBC WITH AUTO DIFF [HEME] AM - Plan Plan:: Acute chf systolic Last echo ef: 45-50% With extensive LE edema Chf on cxr Will carefully diurese her with IV lasix Concern for hypotension but for now BP is holding Will support BP with midodrine if needed Mia hose Cont metoprolol Hold david/arb: re low BPs Possible infiltrate With leukocytosis Possible gram negative pneumonia with recent hospitalization Check sputum cx Blood cx 08/16 with Gram pos cocci will repeat blood cx today Treat with vanc, levofloxacin sepsis POA treat infection Support BP as needed Wheezing Acute copd exacerbation Treat with pulmicort Use duoneb scheduled and as needed Acute on chronic hypoxemic respiratory failure Normally on 2 l/min nc oxygen Will supplement oxygen as needed Hyponatremia Mild Will follow with diuretics Type II non st IA With minimally elevated trop Will monitor on tele Trend troponin Add asa Cont metoprolol anemia no apparent bleeding recheck in AM Diabetes Hold metformin Use supplemental insulin as needed Chronic afib Rate control with metoprolol Anticoagulation Continue Coumadin She elected DNR code status on admission
[2021-08-17] MEDS: Warfarin 2 MG Tab PO SCH (13:33)
[2021-08-17] MEDS: atorvaSTATin 20 MG Tab PO SCH (22:20)
[2021-08-17] MEDS: Docusate Sodium 100 MG Cap PO SCH (22:21)
[2021-08-18] MEDS: Albuterol/Ipratropium 3.0-0.5 MG/3 ML Neb Soln NEB SCH ×4 (01:00→19:07)
[2021-08-18] MEDS ORDERED: Simethicone 80 MG Tab.Chew PO PRN (03:45)
[2021-08-18] MEDS: Pantoprazole 40 MG Tab.CR PO SCH ×2 (04:52→05:12)
[2021-08-18 06:51] LABS: ANION GAP 6.1 mEq/L (7-13); CHLORIDE,CL 101 mmol/L (98-107); SODIUM,NA 141 mmol/L (136-145)
[2021-08-18] MEDS: Budesonide 0.5 MG/2 ML Neb Susp NEB SCH ×2 (07:11→19:07)
[2021-08-18] MEDS: Ferrous Sulfate 325 MG Tab PO SCH (08:34)
[2021-08-18] MEDS: Metoprolol Succinate 50 MG Tab.ER PO SCH (08:35)
[2021-08-18] MEDS: Aspirin 81 MG Tab.EC PO SCH (08:36)
[2021-08-18] MEDS: Furosemide 20 MG/2 ML VIAL IVPUSH SCH ×2 (08:36→14:54)
[2021-08-18] MEDS: Insulin Lispro 100 Units/ML 3 ML Vial SUBCUT SCH ×4 (08:36→21:09)
[2021-08-18] MEDS ORDERED: Lactulose Soln 10 GM/15 ML 30 ML UD Cup PO PRN (10:48)
--- NOTE | 2021-08-18 10:51 | PCM.PN ---
- General Info Date of Service: 08/18/21 Subjective Update: feeling better leg swelling is improved has constipation, no associated abdominal pain on NC oxygen has ronchi and cough Functional Status: Reports: Tolerating Diet - Review of Systems General: Denies: Fever Pulmonary: Reports: Shortness of Breath Cardiovascular: Reports: Edema (improved). Denies: Chest Pain Gastrointestinal: Reports: Constipation. Denies: Abdominal Pain Genitourinary: Denies: Dysuria Neurological: Denies: Confusion - Patient Data Vitals - Most Recent: Last Vital Signs Temp 97.6 F 08/18/21 07:40 Pulse 85 08/18/21 08:35 Resp 20 08/18/21 07:40 BP 101/41 L 08/18/21 08:35 Pulse Ox 93 L 08/18/21 07:40 Weight - Most Recent: 168 lb 8 oz I&O - Last 24 Hours: Intake & Output 08/17/21 08/18/21 08/18/21 22:59 06:59 14:59 Intake Total 600 350 Output Total 800 100 Balance -200 250 Lab Results Last 24 Hours: Laboratory Results - last 24 hr 08/17/21 08/17/21 08/17/21 Range/Units 11:09 16:57 21:11 WBC (5.0-10.0) 10^3/uL RBC (4.2-5.4) 10^6/uL Hgb (12.0-16.0) g/dL Hct (37.0-47.0) % MCV (80-100) fL MCH (27.0-34.0) pg MCHC (33.0-35.0) g/dL Plt Count (150-450) 10^3/uL Neut % (Auto) (42.2-75.2) % Lymph % (Auto) (20.5-50.1) % [place] % (Auto) (2-8) % Eos % (Auto) (1.0-3.0) % Baso % (Auto) (0.0-1.0) % PT (9.0-12.0) SEC INR (0.9-1.2) Sodium (136-145) mmol/L Potassium (3.5-5.1) mmol/L Chloride (98-107) mmol/L Carbon Dioxide (21-32) mmol/L Anion Gap (7-13) mEq/L BUN (7-18) mg/dL Creatinine (0.55-1.02) mg/dL Est Cr Clr Drug Dosing mL/min Estimated GFR (MDRD) Glucose (70-99) mg/dL POC Glucose 169 H 87 172 H (70-99) mg/dL Calcium (8.5-10.1) mg/dL B-Natriuretic Peptide (0-100) pg/ml 08/18/21 08/18/21 08/18/21 Range/Units 06:08 06:08 06:08 WBC 9.5 (5.0-10.0) 10^3/uL RBC 3.09 L (4.2-5.4) 10^6/uL Hgb 7.8 L (12.0-16.0) g/dL Hct 28.2 L (37.0-47.0) % MCV 91.3 (80-100) fL MCH 25.2 L (27.0-34.0) pg MCHC 27.7 L (33.0-35.0) g/dL Plt Count 263 (150-450) 10^3/uL Neut % (Auto) 78.3 H (42.2-75.2) % Lymph % (Auto) 9.0 L (20.5-50.1) % [place] % (Auto) 11.4 H (2-8) % Eos % (Auto) 1.1 (1.0-3.0) % Baso % (Auto) 0.2 (0.0-1.0) % PT 26.2 H (9.0-12.0) SEC INR 2.6 H (0.9-1.2) Sodium 141 (136-145) mmol/L Potassium 4.1 (3.5-5.1) mmol/L Chloride 101 (98-107) mmol/L Carbon Dioxide 38 H (21-32) mmol/L Anion Gap 6.1 L (7-13) mEq/L BUN 19 H (7-18) mg/dL Creatinine 0.85 (0.55-1.02) mg/dL Est Cr Clr Drug Dosing 49.42 mL/min Estimated GFR (MDRD) > 60 Glucose 141 H (70-99) mg/dL POC Glucose (70-99) mg/dL Calcium 8.9 (8.5-10.1) mg/dL B-Natriuretic Peptide 1070 H (0-100) pg/ml 08/18/21 Range/Units 07:33 WBC (5.0-10.0) 10^3/uL RBC (4.2-5.4) 10^6/uL Hgb (12.0-16.0) g/dL Hct (37.0-47.0) % MCV (80-100) fL MCH (27.0-34.0) pg MCHC (33.0-35.0) g/dL Plt Count (150-450) 10^3/uL Neut % (Auto) (42.2-75.2) % Lymph % (Auto) (20.5-50.1) % [place] % (Auto) (2-8) % Eos % (Auto) (1.0-3.0) % Baso % (Auto) (0.0-1.0) % PT (9.0-12.0) SEC INR (0.9-1.2) Sodium (136-145) mmol/L Potassium (3.5-5.1) mmol/L Chloride (98-107) mmol/L Carbon Dioxide (21-32) mmol/L Anion Gap (7-13) mEq/L BUN (7-18) mg/dL Creatinine (0.55-1.02) mg/dL Est Cr Clr Drug Dosing mL/min Estimated GFR (MDRD) Glucose (70-99) mg/dL POC Glucose 139 H (70-99) mg/dL Calcium (8.5-10.1) mg/dL B-Natriuretic Peptide (0-100) pg/ml [place] Results Last 24 Hours: Microbiology 08/16/21 14:43 Aerobic Blood Culture - Preliminary Blood - Venous - Iv Start NO GROWTH AFTER 1 DAY Anaerobic Blood Culture - Preliminary 08/16/21 15:16 Aerobic Blood Culture - Preliminary Blood - Arm, Right NO GROWTH AFTER 1 DAY Anaerobic Blood Culture - Preliminary 08/17/21 13:30 Gram Stain - Final Sputum - Expectorated Med Orders - Current: Current Medications Acetaminophen (Acetaminophen 325 Mg Tab) 650 mg PO Q4H PRN PRN Reason: Pain (Mild 1-3)/fever Albuterol/Ipratropium (Albuterol/Ipratropium 3.0-0.5 Mg/3 Ml Neb Soln) 3 ml NEB Q2H PRN PRN Reason: sob Last Admin: 08/16/21 23:37 Dose: 3 ml Documented by: Albuterol/Ipratropium (Albuterol/Ipratropium 3.0-0.5 Mg/3 Ml Neb Soln) 3 ml NEB Q6HRRT [facility] Last Admin: 08/18/21 07:12 Dose: 3 ml Documented by: Aspirin (Aspirin 81 Mg Tab.Ec) 81 mg PO WITHBREAKFAST [facility] Last Admin: 08/18/21 08:36 Dose: 81 mg Documented by: Atorvastatin Calcium (Atorvastatin 20 Mg Tab) 80 mg PO BEDTIME [facility] Last Admin: 08/17/21 22:20 Dose: 80 mg Documented by: Budesonide (Budesonide 0.5 Mg/2 Ml Neb Susp) 0.5 mg NEB BIDRT [facility] Last Admin: 08/18/21 07:11 Dose: 0.5 mg Documented by: Dextrose/Water (50% Dextrose In Water 50 Ml Syringe) 25 ml IVPUSH ASDIRECTED PRN PRN Reason: Hypoglycemia BS<70 Docusate Sodium (Docusate Sodium 100 Mg Cap) 200 mg PO BEDTIME [facility] Last Admin: 08/17/21 22:21 Dose: 200 mg Documented by: Ferrous Sulfate (Ferrous Sulfate 325 Mg Tab) 325 mg PO DAILY [facility] Last Admin: 08/18/21 08:34 Dose: 325 mg Documented by: Furosemide (Furosemide 20 Mg/2 Ml Vial) 20 mg IVPUSH BIDDIURETIC [facility] Last Admin: 08/18/21 08:36 Dose: 20 mg Documented by: Vancomycin HCl 1 gm/ Sodium (Chloride) 250 mls @ 250 mls/hr IV DAILY@1600 [facility] Last Admin: 08/17/21 17:15 Dose: 250 mls/hr Documented by: Levofloxacin/Dextrose 750 mg/ (Premix) 150 mls @ 100 mls/hr IV Q48H [facility] Last Admin: 08/16/21 19:53 Dose: 100 mls/hr Documented by: Insulin Human Lispro (Insulin Lispro 100 Units/Ml 3 Ml Vial) 0 unit SUBCUT WITHMEALSANDBED [facility]; Protocol Last Admin: 08/18/21 08:36 Dose: Not Given Documented by: Lactulose (Lactulose Soln 10 Gm/15 Ml 30 Ml Ud Cup) 20 gm PO Q12H PRN PRN Reason: Constipation Metoprolol Succinate (Metoprolol Succinate 50 Mg Tab.Er) 100 mg PO DAILY [facility] Last Admin: 08/18/21 08:35 Dose: 100 mg Documented by: Ondansetron HCl (Ondansetron 4 Mg/2 Ml Sdv) 4 mg IVPUSH Q6H PRN PRN Reason: Nausea/Vomiting Pantoprazole Sodium (Pantoprazole 40 Mg Tab.Cr) 40 mg PO ACBREAKFAST [facility] Last Admin: 08/18/21 05:12 Dose: Not Given Documented by: Polyethylene Glycol (Polyethylene Glycol 3350 Powder 17 Gm Packet) 17 gm PO DAILY [facility] Simethicone (Simethicone 80 Mg Tab.Chew) 80 mg PO Q6H PRN PRN Reason: bloating Last Admin: 08/18/21 04:52 Dose: 80 mg Documented by: Sodium Chloride (Sodium Chloride 0.9% 10 Ml Syringe) 10 ml FLUSH ASDIRECTED PRN PRN Reason: Keep Vein Open Last Admin: 08/17/21 09:23 Dose: 10 ml Documented by: Vancomycin HCl (Pharmacy To Dose - Vancomycin) 1 dose .XX ASDIRECTED [facility] Warfarin Sodium (Pharmacy To Dose - Warfarin) 1 dose .XX ASDIRECTED [facility] Warfarin Sodium (Warfarin 2 Mg Tab) 2 mg PO DAILY@1400 [facility] Last Admin: 08/17/21 13:33 Dose: 2 mg Documented by: Discontinued Medications Aspirin (Aspirin 81 Mg Tab.Chew) 324 mg PO ONETIME ONE Stop: 08/16/21 21:16 Last Admin: 08/16/21 21:31 Dose: 324 mg Documented by: Furosemide (Furosemide 40 Mg/4 Ml Vial) 40 mg IVPUSH ONETIME ONE Stop: 08/16/21 15:09 Last Admin: 08/16/21 15:23 Dose: 40 mg Documented by: Sodium Chloride (Normal Saline) 1,000 mls @ 75 mls/hr IV ASDIRECTED [facility] Last Admin: 08/16/21 15:24 Dose: 75 mls/hr Documented by: Ceftriaxone Sodium 1 gm/ (Sodium Chloride) 50 mls @ 100 mls/hr IV ONETIME ONE Stop: 08/16/21 15:37 Last Admin: 08/16/21 15:23 Dose: 100 mls/hr Documented by: Levofloxacin/Dextrose 750 mg/ (Premix) 150 mls @ 100 mls/hr IV Q24H [facility] Last Admin: 08/17/21 16:23 Dose: Not Given Documented by: - Exam Quality Assessment: Supplemental Oxygen General: Alert, Oriented Neck: Supple Lungs: Decreased Breath Sounds, Rhonchi Cardiovascular: Regular Rate, Regular Rhythm GI/Abdominal Exam: Normal Bowel Sounds, Soft, Non-Tender Extremities: Pedal Edema (1+ (much improved, lots of wrinkles)) - Patient Data Lab Results Last 24 hrs: Laboratory Results - last 24 hr 08/17/21 08/17/21 08/17/21 Range/Units 11:09 16:57 21:11 WBC (5.0-10.0) 10^3/uL RBC (4.2-5.4) 10^6/uL Hgb (12.0-16.0) g/dL Hct (37.0-47.0) % MCV (80-100) fL MCH (27.0-34.0) pg MCHC (33.0-35.0) g/dL Plt Count (150-450) 10^3/uL Neut % (Auto) (42.2-75.2) % Lymph % (Auto) (20.5-50.1) % [place] % (Auto) (2-8) % Eos % (Auto) (1.0-3.0) % Baso % (Auto) (0.0-1.0) % PT (9.0-12.0) SEC INR (0.9-1.2) Sodium (136-145) mmol/L Potassium (3.5-5.1) mmol/L Chloride (98-107) mmol/L Carbon Dioxide (21-32) mmol/L Anion Gap (7-13) mEq/L BUN (7-18) mg/dL Creatinine (0.55-1.02) mg/dL Est Cr Clr Drug Dosing mL/min Estimated GFR (MDRD) Glucose (70-99) mg/dL POC Glucose 169 H 87 172 H (70-99) mg/dL Calcium (8.5-10.1) mg/dL B-Natriuretic Peptide (0-100) pg/ml 08/18/21 08/18/21 08/18/21 Range/Units 06:08 06:08 06:08 WBC 9.5 (5.0-10.0) 10^3/uL RBC 3.09 L (4.2-5.4) 10^6/uL Hgb 7.8 L (12.0-16.0) g/dL Hct 28.2 L (37.0-47.0) % MCV 91.3 (80-100) fL MCH 25.2 L (27.0-34.0) pg MCHC 27.7 L (33.0-35.0) g/dL Plt Count 263 (150-450) 10^3/uL Neut % (Auto) 78.3 H (42.2-75.2) % Lymph % (Auto) 9.0 L (20.5-50.1) % [place] % (Auto) 11.4 H (2-8) % Eos % (Auto) 1.1 (1.0-3.0) % Baso % (Auto) 0.2 (0.0-1.0) % PT 26.2 H (9.0-12.0) SEC INR 2.6 H (0.9-1.2) Sodium 141 (136-145) mmol/L Potassium 4.1 (3.5-5.1) mmol/L Chloride 101 (98-107) mmol/L Carbon Dioxide 38 H (21-32) mmol/L Anion Gap 6.1 L (7-13) mEq/L BUN 19 H (7-18) mg/dL Creatinine 0.85 (0.55-1.02) mg/dL Est Cr Clr Drug Dosing 49.42 mL/min Estimated GFR (MDRD) > 60 Glucose 141 H (70-99) mg/dL POC Glucose (70-99) mg/dL Calcium 8.9 (8.5-10.1) mg/dL B-Natriuretic Peptide 1070 H (0-100) pg/ml 08/18/21 Range/Units 07:33 WBC (5.0-10.0) 10^3/uL RBC (4.2-5.4) 10^6/uL Hgb (12.0-16.0) g/dL Hct (37.0-47.0) % MCV (80-100) fL MCH (27.0-34.0) pg MCHC (33.0-35.0) g/dL Plt Count (150-450) 10^3/uL Neut % (Auto) (42.2-75.2) % Lymph % (Auto) (20.5-50.1) % [place] % (Auto) (2-8) % Eos % (Auto) (1.0-3.0) % Baso % (Auto) (0.0-1.0) % PT (9.0-12.0) SEC INR (0.9-1.2) Sodium (136-145) mmol/L Potassium (3.5-5.1) mmol/L Chloride (98-107) mmol/L Carbon Dioxide (21-32) mmol/L Anion Gap (7-13) mEq/L BUN (7-18) mg/dL Creatinine (0.55-1.02) mg/dL Est Cr Clr Drug Dosing mL/min Estimated GFR (MDRD) Glucose (70-99) mg/dL POC Glucose 139 H (70-99) mg/dL Calcium (8.5-10.1) mg/dL B-Natriuretic Peptide (0-100) pg/ml Result Diagrams: 08/18/21 06:08 08/18/21 06:08 [place] Results Last 24 hrs: Microbiology 08/16/21 14:43 Aerobic Blood Culture - Preliminary Blood - Venous - Iv Start NO GROWTH AFTER 1 DAY Anaerobic Blood Culture - Preliminary 08/16/21 15:16 Aerobic Blood Culture - Preliminary Blood - Arm, Right NO GROWTH AFTER 1 DAY Anaerobic Blood Culture - Preliminary 08/17/21 13:30 Gram Stain - Final Sputum - Expectorated Sepsis Event Note - Evaluation Sepsis Screening Result: No Definite Risk - Focused Exam Vital Signs: Vital Signs Temp Pulse Pulse Pulse Resp BP BP 08/18/21 08:35 85 101/41 L 08/18/21 07:40 97.6 F 77 20 101/41 L 08/18/21 04:30 97.6 F 95 20 109/61 08/18/21 01:02 85 08/18/21 01:00 97.6 F 85 20 105/67 08/17/21 23:00 100 Pulse Ox Pulse Ox 08/18/21 08:35 08/18/21 07:40 93 L 08/18/21 04:30 98 08/18/21 01:02 98 08/18/21 01:00 98 11/16/21 23:00 - Problem List & Annotations (1) CHF (congestive heart failure) SNOMED Code(s): 48335071 Code(s): I50.9 - HEART FAILURE, UNSPECIFIED Status: Acute Current Visit: Yes Qualifiers: Heart failure type: unspecified Heart failure chronicity: acute on chronic Qualified Code(s): I50.9 - Heart failure, unspecified (2) Pneumonia SNOMED Code(s): 327403278 Code(s): J18.9 - PNEUMONIA, UNSPECIFIED ORGANISM Status: Acute Current Visit: Yes Qualifiers: Pneumonia type: due to unspecified organism Laterality: left Lung location: lower lobe of lung Qualified Code(s): J18.9 - Pneumonia, unspecified organism (3) Acute congestive heart failure SNOMED Code(s): 24989393 Code(s): I50.9 - HEART FAILURE, UNSPECIFIED Status: Acute Priority: High Current Visit: No (4) Acute hypernatremia SNOMED Code(s): 2405606 Code(s): E87.0 - HYPEROSMOLALITY AND HYPERNATREMIA Status: Acute Current Visit: No (5) COPD exacerbation SNOMED Code(s): 121030437, 130496016 Code(s): J44.1 - CHRONIC OBSTRUCTIVE PULMONARY DISEASE W (ACUTE) EXACERBATION Status: Acute Current Visit: No (6) Chronic anticoagulation SNOMED Code(s): 331452681 Code(s): Z79.01 - FRUIT DRYER (CURRENT) USE OF ANTICOAGULANTS Status: Acute Current Visit: No (7) History of atrial fibrillation SNOMED Code(s): 910135404 Code(s): Z86.79 - PERSONAL HISTORY OF OTHER DISEASES OF THE CIRCULATORY SY STEM Status: Acute Current Visit: No (8) Sepsis SNOMED Code(s): 17997468 Code(s): A41.9 - SEPSIS, UNSPECIFIED ORGANISM Status: Acute Current Visit: No Qualifiers: Sepsis type: sepsis due to unspecified organism Sepsis acute organ dysfunction status: unspecified Qualified Code(s): A41.9 - Sepsis, unspecified organism (9) Coronary artery disease SNOMED Code(s): 87567184 Code(s): I25.10 - ATHSCL HEART DISEASE OF [place] CORONARY ARTERY W/O ANG PCTRS Status: Chronic Current Visit: No - Problem List Review Problem List Initiated/Reviewed/Updated: Yes - My Orders Last 24 Hours: My Active Orders 08/17/21 11:39 Blood Culture x2 Reflex Set [OM.PC] Stat 08/17/21 12:01 CULTURE BLOOD [BC] Stat 08/17/21 12:10 CULTURE BLOOD [BC] Stat 08/17/21 13:30 CULTURE SPUTUM + SMEAR [RM] Routine 08/17/21 19:23 Wound Care [RC] Q2D 08/18/21 03:45 Simethicone 80 mg PO Q6H PRN 08/18/21 10:48 Lactulose [Cephulac] 20 gm PO Q12H PRN 08/18/21 11:00 polyethylene glycoL 3350 [MiraLAX] 17 gm PO DAILY 08/19/21 05:11 B-TYPE NATRIURETIC PEPTIDE,BNP [CHEM] AM BASIC METABOLIC PANEL,BMP [CHEM] AM CBC WITH AUTO DIFF [HEME] AM INR,PT,PROTHROMBIN TIME [COAG] DAILY 08/20/21 05:11 B-TYPE NATRIURETIC PEPTIDE,BNP [CHEM] AM BASIC METABOLIC PANEL,BMP [CHEM] AM CBC WITH AUTO DIFF [HEME] AM INR,PT,PROTHROMBIN TIME [COAG] DAILY 08/20/21 15:30 VANCOMYCIN TROUGH [CHEM] Timed 08/21/21 05:11 B-TYPE NATRIURETIC PEPTIDE,BNP [CHEM] AM BASIC METABOLIC PANEL,BMP [CHEM] AM CBC WITH AUTO DIFF [HEME] AM 08/22/21 05:11 B-TYPE NATRIURETIC PEPTIDE,BNP [CHEM] AM BASIC METABOLIC PANEL,BMP [CHEM] AM CBC WITH AUTO DIFF [HEME] AM - Plan Plan:: Acute chf systolic Last echo ef: 45-50% With extensive LE edema Chf on cxr Will continue to diurese her with IV lasix Peter hose Cont metoprolol Hold david/arb: re low BPs Possible infiltrate With leukocytosis Possible gram negative pneumonia with recent hospitalization Check sputum cx Blood cx 08/16 with Gram pos cocci blood cx 08/17: pending Treat with vanc, levofloxacin sepsis POA treat infection Support BP as needed Wheezing Acute copd exacerbation Treat with pulmicort Use duoneb scheduled and as needed Acute on chronic hypoxemic respiratory failure Normally on 2 l/min nc oxygen Will supplement oxygen as needed Hyponatremia Mild Will follow with diuretics Type II non st [place] With minimally elevated trop - improved Will monitor on tele Trend troponin cont asa Cont metoprolol anemia no apparent bleeding will follow Diabetes Hold metformin Use supplemental insulin as needed Chronic afib Rate control with metoprolol Anticoagulation Continue Coumadin constipation add lactulose add miralax cont docusate She elected DNR code status on admission
[2021-08-18] MEDS: Polyethylene Glycol 3350 Powder 17 GM Packet PO SCH (13:14)
[2021-08-18] MEDS: Warfarin 2 MG Tab PO SCH (14:54)
[2021-08-18] MEDS: Levofloxacin/Dextrose 5%-Water 750 MG in Premix Bag 1 BAG IV SCH (20:32)
[2021-08-18] MEDS: Docusate Sodium 100 MG Cap PO SCH (20:33)
[2021-08-18] MEDS: atorvaSTATin 20 MG Tab PO SCH (20:33)
[2021-08-19] MEDS: Albuterol/Ipratropium 3.0-0.5 MG/3 ML Neb Soln NEB SCH ×4 (01:48→18:32)
[2021-08-19] MEDS: Pantoprazole 40 MG Tab.CR PO SCH (06:04)
[2021-08-19 06:44] LABS: ANION GAP 9.1 mEq/L (7-13); CHLORIDE,CL 100 mmol/L (98-107); SODIUM,NA 141 mmol/L (136-145)
[2021-08-19] MEDS: Budesonide 0.5 MG/2 ML Neb Susp NEB SCH ×2 (07:28→18:41)
[2021-08-19] MEDS: Aspirin 81 MG Tab.EC PO SCH (08:28)
[2021-08-19] MEDS: Ferrous Sulfate 325 MG Tab PO SCH (08:28)
[2021-08-19] MEDS: Polyethylene Glycol 3350 Powder 17 GM Packet PO SCH (08:29)
[2021-08-19] MEDS: Furosemide 20 MG/2 ML VIAL IVPUSH SCH ×3 (08:29→20:23)
[2021-08-19] MEDS: Insulin Lispro 100 Units/ML 3 ML Vial SUBCUT SCH ×4 (08:40→21:23)
[2021-08-19] MEDS: Metoprolol Succinate 50 MG Tab.ER PO SCH (08:56)
--- NOTE | 2021-08-19 10:52 | PCM.PN ---
- General Info Date of Service: 08/19/21 Admission Dx/Problem (Free Text): Admission Diagnosis/Problem Admission Diagnosis/Problem CHF Subjective Update: feeling better leg swelling is improved still has constipation, no associated abdominal pain on NC oxygen has ronchi and cough significant weakness, minimal ambulation Functional Status: Reports: Tolerating Diet. Denies: Ambulating - Review of Systems General: Reports: Weakness Pulmonary: Reports: Shortness of Breath, Cough Cardiovascular: Reports: Edema (much improved). Denies: Chest Pain, Palpitations Gastrointestinal: Reports: Constipation. Denies: Abdominal Pain Genitourinary: Denies: Dysuria Neurological: Denies: Confusion - Patient Data Vitals - Most Recent: Last Vital Signs Temp 97.6 F 08/19/21 08:00 Pulse 88 08/19/21 08:56 Resp 20 08/19/21 08:00 BP 99/59 L 08/19/21 08:56 Pulse Ox 83 L 08/19/21 08:00 Weight - Most Recent: 171 lb 11.2 oz I&O - Last 24 Hours: Intake & Output 08/18/21 08/19/21 08/19/21 22:59 06:59 14:59 Intake Total 825 100 120 Output Total 250 250 Balance 575 -150 120 Lab Results Last 24 Hours: Laboratory Results - last 24 hr 08/18/21 08/18/21 08/18/21 Range/Units 11:33 16:56 21:08 WBC (5.0-10.0) 10^3/uL RBC (4.2-5.4) 10^6/uL Hgb (12.0-16.0) g/dL Hct (37.0-47.0) % MCV (80-100) fL MCH (27.0-34.0) pg MCHC (33.0-35.0) g/dL Plt Count (150-450) 10^3/uL Neut % (Auto) (42.2-75.2) % Lymph % (Auto) (20.5-50.1) % Brewster % (Auto) (2-8) % Eos % (Auto) (1.0-3.0) % Baso % (Auto) (0.0-1.0) % PT (9.0-12.0) SEC INR (0.9-1.2) Sodium (136-145) mmol/L Potassium (3.5-5.1) mmol/L Chloride (98-107) mmol/L Carbon Dioxide (21-32) mmol/L Anion Gap (7-13) mEq/L BUN (7-18) mg/dL Creatinine (0.55-1.02) mg/dL Est Cr Clr Drug Dosing mL/min Estimated GFR (MDRD) Glucose (70-99) mg/dL POC Glucose 238 H 178 H 147 H (70-99) mg/dL Calcium (8.5-10.1) mg/dL B-Natriuretic Peptide (0-100) pg/ml 08/19/21 08/19/21 08/19/21 Range/Units 05:50 05:50 05:50 WBC 8.0 (5.0-10.0) 10^3/uL RBC 3.20 L (4.2-5.4) 10^6/uL Hgb 8.0 L (12.0-16.0) g/dL Hct 29.1 L (37.0-47.0) % MCV 90.9 (80-100) fL MCH 25.0 L (27.0-34.0) pg MCHC 27.5 L (33.0-35.0) g/dL Plt Count 243 (150-450) 10^3/uL Neut % (Auto) 73.9 (42.2-75.2) % Lymph % (Auto) 12.5 L (20.5-50.1) % Brewster % (Auto) 12.5 H (2-8) % Eos % (Auto) 1.0 (1.0-3.0) % Baso % (Auto) 0.1 (0.0-1.0) % PT 30.2 H (9.0-12.0) SEC INR 3.1 H (0.9-1.2) Sodium 141 (136-145) mmol/L Potassium 4.1 (3.5-5.1) mmol/L Chloride 100 (98-107) mmol/L Carbon Dioxide 36 H (21-32) mmol/L Anion Gap 9.1 (7-13) mEq/L BUN 22 H (7-18) mg/dL Creatinine 0.83 (0.55-1.02) mg/dL Est Cr Clr Drug Dosing 50.61 mL/min Estimated GFR (MDRD) > 60 Glucose 110 H (70-99) mg/dL POC Glucose (70-99) mg/dL Calcium 8.8 (8.5-10.1) mg/dL B-Natriuretic Peptide 1530 H (0-100) pg/ml 08/19/21 Range/Units 07:24 WBC (5.0-10.0) 10^3/uL RBC (4.2-5.4) 10^6/uL Hgb (12.0-16.0) g/dL Hct (37.0-47.0) % MCV (80-100) fL MCH (27.0-34.0) pg MCHC (33.0-35.0) g/dL Plt Count (150-450) 10^3/uL Neut % (Auto) (42.2-75.2) % Lymph % (Auto) (20.5-50.1) % Brewster % (Auto) (2-8) % Eos % (Auto) (1.0-3.0) % Baso % (Auto) (0.0-1.0) % PT (9.0-12.0) SEC INR (0.9-1.2) Sodium (136-145) mmol/L Potassium (3.5-5.1) mmol/L Chloride (98-107) mmol/L Carbon Dioxide (21-32) mmol/L Anion Gap (7-13) mEq/L BUN (7-18) mg/dL Creatinine (0.55-1.02) mg/dL Est Cr Clr Drug Dosing mL/min Estimated GFR (MDRD) Glucose (70-99) mg/dL POC Glucose 117 H (70-99) mg/dL Calcium (8.5-10.1) mg/dL B-Natriuretic Peptide (0-100) pg/ml Albaro Results Last 24 Hours: Microbiology 08/16/21 15:16 Aerobic Blood Culture - Preliminary Blood - Arm, Right NO GROWTH AFTER 2 DAYS Anaerobic Blood Culture - Final 08/16/21 14:43 Aerobic Blood Culture - Preliminary Blood - Venous - Iv Start NO GROWTH AFTER 2 DAYS Anaerobic Blood Culture - Final Streptococcus Agalactiae Grp B 08/17/21 13:30 Gram Stain - Final Sputum - Expectorated Sputum Culture - Preliminary NORMAL RESPIRATORY CAMPBELL 1 DAY 08/17/21 12:10 Aerobic Blood Culture - Preliminary Blood - Arm, Right NO GROWTH AFTER 1 DAY Anaerobic Blood Culture - Preliminary NO GROWTH AFTER 1 DAY 08/17/21 12:01 Aerobic Blood Culture - Preliminary Blood - Arm, Left NO GROWTH AFTER 1 DAY Anaerobic Blood Culture - Preliminary NO GROWTH AFTER 1 DAY Med Orders - Current: Current Medications Acetaminophen (Acetaminophen 325 Mg Tab) 650 mg PO Q4H PRN PRN Reason: Pain (Mild 1-3)/fever Albuterol/Ipratropium (Albuterol/Ipratropium 3.0-0.5 Mg/3 Ml Neb Soln) 3 ml NEB Q2H PRN PRN Reason: sob Last Admin: 08/16/21 23:37 Dose: 3 ml Documented by: Albuterol/Ipratropium (Albuterol/Ipratropium 3.0-0.5 Mg/3 Ml Neb Soln) 3 ml NEB Q6HRRT [facility] Last Admin: 08/19/21 07:28 Dose: 3 ml Documented by: Aspirin (Aspirin 81 Mg Tab.Ec) 81 mg PO WITHBREAKFAST [facility] Last Admin: 08/19/21 08:28 Dose: 81 mg Documented by: Atorvastatin Calcium (Atorvastatin 20 Mg Tab) 80 mg PO BEDTIME [facility] Last Admin: 08/18/21 20:33 Dose: 80 mg Documented by: Budesonide (Budesonide 0.5 Mg/2 Ml Neb Susp) 0.5 mg NEB BIDRT [facility] Last Admin: 08/19/21 07:28 Dose: 0.5 mg Documented by: Dextrose/Water (50% Dextrose In Water 50 Ml Syringe) 25 ml IVPUSH ASDIRECTED PRN PRN Reason: Hypoglycemia BS<70 Docusate Sodium (Docusate Sodium 100 Mg Cap) 200 mg PO BEDTIME [facility] Last Admin: 08/18/21 20:33 Dose: 200 mg Documented by: Ferrous Sulfate (Ferrous Sulfate 325 Mg Tab) 325 mg PO DAILY [facility] Last Admin: 08/19/21 08:28 Dose: 325 mg Documented by: Furosemide (Furosemide 20 Mg/2 Ml Vial) 20 mg IVPUSH TID [facility] Levofloxacin/Dextrose 750 mg/ (Premix) 150 mls @ 100 mls/hr IV Q48H [facility] Last Admin: 08/18/21 20:32 Dose: 100 mls/hr Documented by: Insulin Human Lispro (Insulin Lispro 100 Units/Ml 3 Ml Vial) 0 unit SUBCUT WITHMEALSANDBED [facility]; Protocol Last Admin: 08/19/21 08:40 Dose: Not Given Documented by: Lactulose (Lactulose Soln 10 Gm/15 Ml 30 Ml Ud Cup) 20 gm PO Q12H PRN PRN Reason: Constipation Last Admin: 08/19/21 08:58 Dose: 20 gm Documented by: Metoprolol Succinate (Metoprolol Succinate 50 Mg Tab.Er) 100 mg PO DAILY [facility] Last Admin: 08/19/21 08:56 Dose: 100 mg Documented by: Ondansetron HCl (Ondansetron 4 Mg/2 Ml Sdv) 4 mg IVPUSH Q6H PRN PRN Reason: Nausea/Vomiting Pantoprazole Sodium (Pantoprazole 40 Mg Tab.Cr) 40 mg PO ACBREAKFAST [facility] Last Admin: 08/19/21 06:04 Dose: 40 mg Documented by: Polyethylene Glycol (Polyethylene Glycol 3350 Powder 17 Gm Packet) 17 gm PO JULIANO LY [facility] Last Admin: 08/19/21 08:29 Dose: 17 gm Documented by: Simethicone (Simethicone 80 Mg Tab.Chew) 80 mg PO Q6H PRN PRN Reason: bloating Last Admin: 08/18/21 04:52 Dose: 80 mg Documented by: Sodium Chloride (Sodium Chloride 0.9% 10 Ml Syringe) 10 ml FLUSH ASDIRECTED PRN PRN Reason: Keep Vein Open Last Admin: 08/17/21 09:23 Dose: 10 ml Documented by: Warfarin Sodium (Pharmacy To Dose - Warfarin) 1 dose .XX ASDIRECTED [facility] Warfarin Sodium (Warfarin 2 Mg Tab) 2 mg PO DAILY@1400 [facility] Last Admin: 08/18/21 14:54 Dose: 2 mg Documented by: Discontinued Medications Aspirin (Aspirin 81 Mg Tab.Chew) 324 mg PO ONETIME ONE Stop: 08/16/21 21:16 Last Admin: 08/16/21 21:31 Dose: 324 mg Documented by: Furosemide (Furosemide 40 Mg/4 Ml Vial) 40 mg IVPUSH ONETIME ONE Stop: 08/16/21 15:09 Last Admin: 08/16/21 15:23 Dose: 40 mg Documented by: Furosemide (Furosemide 20 Mg/2 Ml Vial) 20 mg IVPUSH BIDDIURETIC [facility] Last Admin: 08/19/21 08:29 Dose: 20 mg Documented by: Sodium Chloride (Normal Saline) 1,000 mls @ 75 mls/hr IV ASDIRECTED [facility] Last Admin: 08/16/21 15:24 Dose: 75 mls/hr Documented by: Ceftriaxone Sodium 1 gm/ (Sodium Chloride) 50 mls @ 100 mls/hr IV ONETIME ONE Stop: 08/16/21 15:37 Last Admin: 08/16/21 15:23 Dose: 100 mls/hr Documented by: Levofloxacin/Dextrose 750 mg/ (Premix) 150 mls @ 100 mls/hr IV Q24H [facility] Last Admin: 08/17/21 16:23 Dose: Not Given Documented by: Vancomycin HCl 1 gm/ Sodium (Chloride) 250 mls @ 250 mls/hr IV DAILY@1600 [facility] Last Admin: 08/18/21 16:08 Dose: 250 mls/hr Documented by: Vancomycin HCl (Pharmacy To Dose - Vancomycin) 1 dose .XX ASDIRECTED [facility] - Exam Quality Assessment: Supplemental Oxygen General: Alert, Oriented Neck: Supple Lungs: Normal Respiratory Effort, Decreased Breath Sounds. No: Rhonchi Cardiovascular: Regular Rate, Regular Rhythm. No: Tachycardia GI/Abdominal Exam: Normal Bowel Sounds, Soft, Non-Tender Extremities: Pedal Edema (trace b/l ) Skin: Warm, Dry Neurological: No New Focal Deficit Psy/Mental Status: Alert, Normal Affect, Normal Mood - Patient Data Lab Results Last 24 hrs: Laboratory Results - last 24 hr 08/18/21 08/18/21 08/18/21 Range/Units 11:33 16:56 21:08 WBC (5.0-10.0) 10^3/uL RBC (4.2-5.4) 10^6/uL Hgb (12.0-16.0) g/dL Hct (37.0-47.0) % MCV (80-100) fL MCH (27.0-34.0) pg MCHC (33.0-35.0) g/dL Plt Count (150-450) 10^3/uL Neut % (Auto) (42.2-75.2) % Lymph % (Auto) (20.5-50.1) % Brewster % (Auto) (2-8) % Eos % (Auto) (1.0-3.0) % Baso % (Auto) (0.0-1.0) % PT (9.0-12.0) SEC INR (0.9-1.2) Sodium (136-145) mmol/L Potassium (3.5-5.1) mmol/L Chloride (98-107) mmol/L Carbon Dioxide (21-32) mmol/L Anion Gap (7-13) mEq/L BUN (7-18) mg/dL Creatinine (0.55-1.02) mg/dL Est Cr Clr Drug Dosing mL/min Estimated GFR (MDRD) Glucose (70-99) mg/dL POC Glucose 238 H 178 H 147 H (70-99) mg/dL Calcium (8.5-10.1) mg/dL B-Natriuretic Peptide (0-100) pg/ml 08/19/21 08/19/21 08/19/21 Range/Units 05:50 05:50 05:50 WBC 8.0 (5.0-10.0) 10^3/uL RBC 3.20 L (4.2-5.4) 10^6/uL Hgb 8.0 L (12.0-16.0) g/dL Hct 29.1 L (37.0-47.0) % MCV 90.9 (80-100) fL MCH 25.0 L (27.0-34.0) pg MCHC 27.5 L (33.0-35.0) g/dL Plt Count 243 (150-450) 10^3/uL Neut % (Auto) 73.9 (42.2-75.2) % Lymph % (Auto) 12.5 L (20.5-50.1) % Brewster % (Auto) 12.5 H (2-8) % Eos % (Auto) 1.0 (1.0-3.0) % Baso % (Auto) 0.1 (0.0-1.0) % PT 30.2 H (9.0-12.0) SEC INR 3.1 H (0.9-1.2) Sodium 141 (136-145) mmol/L Potassium 4.1 (3.5-5.1) mmol/L Chloride 100 (98-107) mmol/L Carbon Dioxide 36 H (21-32) mmol/L Anion Gap 9.1 (7-13) mEq/L BUN 22 H (7-18) mg/dL Creatinine 0.83 (0.55-1.02) mg/dL Est Cr Clr Drug Dosing 50.61 mL/min Estimated GFR (MDRD) > 60 Glucose 110 H (70-99) mg/dL POC Glucose (70-99) mg/dL Calcium 8.8 (8.5-10.1) mg/dL B-Natriuretic Peptide 1530 H (0-100) pg/ml 08/19/21 Range/Units 07:24 WBC (5.0-10.0) 10^3/uL RBC (4.2-5.4) 10^6/uL Hgb (12.0-16.0) g/dL Hct (37.0-47.0) % MCV (80-100) fL MCH (27.0-34.0) pg MCHC (33.0-35.0) g/dL Plt Count (150-450) 10^3/uL Neut % (Auto) (42.2-75.2) % Lymph % (Auto) (20.5-50.1) % Brewster % (Auto) (2-8) % Eos % (Auto) (1.0-3.0) % Baso % (Auto) (0.0-1.0) % PT (9.0-12.0) SEC INR (0.9-1.2) Sodium (136-145) mmol/L Potassium (3.5-5.1) mmol/L Chloride (98-107) mmol/L Carbon Dioxide (21-32) mmol/L Anion Gap (7-13) mEq/L BUN (7-18) mg/dL Creatinine (0.55-1.02) mg/dL Est Cr Clr Drug Dosing mL/min Estimated GFR (MDRD) Glucose (70-99) mg/dL POC Glucose 117 H (70-99) mg/dL Calcium (8.5-10.1) mg/dL B-Natriuretic Peptide (0-100) pg/ml Result Diagrams: 08/19/21 05:50 08/19/21 05:50 Albaro Results Last 24 hrs: Microbiology 08/16/21 15:16 Aerobic Blood Culture - Preliminary Blood - Arm, Right NO GROWTH AFTER 2 DAYS Anaerobic Blood Culture - Final 08/16/21 14:43 Aerobic Blood Culture - Preliminary Blood - Venous - Iv Start NO GROWTH AFTER 2 DAYS Anaerobic Blood Culture - Final Streptococcus Agalactiae Grp B 08/17/21 13:30 Gram Stain - Final Sputum - Expectorated Sputum Culture - Preliminary NORMAL RESPIRATORY CAMPBELL 1 DAY 08/17/21 12:10 Aerobic Blood Culture - Preliminary Blood - Arm, Right NO GROWTH AFTER 1 DAY Anaerobic Blood Culture - Preliminary NO GROWTH AFTER 1 DAY 08/17/21 12:01 Aerobic Blood Culture - Preliminary Blood - Arm, Left NO GROWTH AFTER 1 DAY Anaerobic Blood Culture - Preliminary NO GROWTH AFTER 1 DAY Sepsis Event Note - Evaluation Sepsis Screening Result: No Definite Risk - Focused Exam Vital Signs: Vital Signs Temp Pulse Pulse Resp BP BP Pulse Ox 08/19/21 08:56 88 99/59 L 08/19/21 08:00 97.6 F 87 20 99/59 L 83 L 08/19/21 07:29 78 08/19/21 04:00 97.3 F 102 H 20 106/55 L 95 08/19/21 01:00 88 08/19/21 00:00 98.4 F 86 20 108/53 L 100 Pulse Ox 08/19/21 08:56 08/19/21 08:00 08/19/21 07:29 08/19/21 04:00 08/19/21 01:00 100 08/19/21 00:00 - Problem List & Annotations (1) CHF (congestive heart failure) SNOMED Code(s): 01482963 Code(s): I50.9 - HEART FAILURE, UNSPECIFIED Status: Acute Current Visit: Yes Qualifiers: Heart failure type: unspecified Heart failure chronicity: acute on chronic Qualified Code(s): I50.9 - Heart failure, unspecified (2) Pneumonia SNOMED Code(s): 006204527 Code(s): J18.9 - PNEUMONIA, UNSPECIFIED ORGANISM Status: Acute Current Visit: Yes Qualifiers: Pneumonia type: due to unspecified organism Laterality: left Lung location: lower lobe of lung Qualified Code(s): J18.9 - Pneumonia, unspecified organism (3) Acute congestive heart failure SNOMED Code(s): 81455991 Code(s): I50.9 - HEART FAILURE, UNSPECIFIED Status: Acute Priority: High Current Visit: No (4) Acute hypernatremia SNOMED Code(s): 2626316 Code(s): E87.0 - HYPEROSMOLALITY AND HYPERNATREMIA Status: Acute Current Visit: No (5) COPD exacerbation SNOMED Code(s): 806689469, 074257206 Code(s): J44.1 - CHRONIC OBSTRUCTIVE PULMONARY DISEASE W (ACUTE) EXACERBATION Status: Acute Current Visit: No (6) Chronic anticoagulation SNOMED Code(s): 063258375 Code(s): Z79.01 - COLLECTION AGENT (CURRENT) USE OF ANTICOAGULANTS Status: Acute Current Visit: No (7) History of atrial fibrillation SNOMED Code(s): 722942994 Code(s): Z86.79 - PERSONAL HISTORY OF OTHER DISEASES OF THE CIRCULATORY SYSTEM Status: Acute Current Visit: No (8) Sepsis SNOMED Code(s): 49391356 Code(s): A41.9 - SEPSIS, UNSPECIFIED ORGANISM Status: Acute Current Visit: No Qualifiers: Sepsis type: sepsis due to unspecified organism Sepsis acute organ dysfunction status: unspecified Qualified Code(s): A41.9 - Sepsis, unspecified organism (9) Coronary artery disease SNOMED Code(s): 10108805 Code(s): I25.10 - ATHSCL HEART DISEASE OF [place] CORONARY ARTERY W/O ANG PCTRS Status: Chronic Current Visit: No - Problem List Review Problem List Initiated/Reviewed/Updated: Yes - My Orders Last 24 Hours: My Active Orders 08/18/21 10:48 Lactulose [Cephulac] 20 gm PO Q12H PRN 08/18/21 11:00 polyethylene glycoL 3350 [MiraLAX] 17 gm PO DAILY 08/19/21 10:46 Echo Comp wo Cont [US] Routine 08/19/21 14:00 Furosemide [Lasix] 20 mg IVPUSH TID 08/20/21 05:11 B-TYPE NATRIURETIC PEPTIDE,BNP [CHEM] AM BASIC METABOLIC PANEL,BMP [CHEM] AM CBC WITH AUTO DIFF [HEME] AM INR,PT,PROTHROMBIN TIME [COAG] DAILY 08/20/21 15:30 VANCOMYCIN TROUGH [CHEM] Timed 08/21/21 05:11 B-TYPE NATRIURETIC PEPTIDE,BNP [CHEM] AM BASIC METABOLIC PANEL,BMP [CHEM] AM CBC WITH AUTO DIFF [HEME] AM 08/22/21 05:11 B-TYPE NATRIURETIC PEPTIDE,BNP [CHEM] AM BASIC METABOLIC PANEL,BMP [CHEM] AM CBC WITH AUTO DIFF [HEME] AM - Plan Plan:: Acute chf systolic Last echo ef: 45-50% With extensive LE edema Chf on cxr bnp is further up Will continue to diurese her with IV lasix - increase dose today to tid Peter marc Cont metoprolol Hold david/arb: re low BPs Possible infiltrate With leukocytosis BC: strep agalactiae gram negative pneumonia with recent hospitalization ruled out sputum cx: pending Blood cx 08/16: strep agalactiae sens to pcn, linezolid, levo blood cx 08/17: neg Treat with levofloxacin stop vanc sepsis POA treat infection Support BP as needed Wheezing Acute copd exacerbation much improved Treat with pulmicort Use duoneb scheduled and as needed Acute on chronic hypoxemic respiratory failure Normally on 2 l/min nc oxygen Will supplement oxygen as needed Hyponatremia Mild Will follow with diuretics Type II non st PA With minimally elevated trop - improved Will monitor on tele Trend troponin cont asa Cont metoprolol anemia no apparent bleeding will follow Diabetes Hold metformin Use supplemental insulin as needed Chronic afib Rate control with metoprolol Anticoagulation Continue Coumadin constipation cont lactulose, miralax, docusate weakness cont pt/ot She elected DNR code status on admission
[2021-08-19] MEDS: atorvaSTATin 20 MG Tab PO SCH (20:19)
[2021-08-19] MEDS: Docusate Sodium 100 MG Cap PO SCH (20:19)
[2021-08-19] MEDS: Sodium Chloride 0.9% 10 ML Syringe FLUSH PRN (20:22)
[2021-08-20] MEDS: Albuterol/Ipratropium 3.0-0.5 MG/3 ML Neb Soln NEB SCH ×4 (00:36→18:44)
[2021-08-20] MEDS: Pantoprazole 40 MG Tab.CR PO SCH (05:41)
[2021-08-20] MEDS: Albuterol/Ipratropium 3.0-0.5 MG/3 ML Neb Soln NEB PRN ×2 (05:41→09:33)
[2021-08-20 06:58] LABS: ANION GAP 9.3 mEq/L (7-13)
[2021-08-20] MEDS: Furosemide 20 MG/2 ML VIAL IVPUSH SCH ×3 (09:25→21:58)
[2021-08-20] MEDS: Ferrous Sulfate 325 MG Tab PO SCH (09:31)
[2021-08-20] MEDS: Metoprolol Succinate 50 MG Tab.ER PO SCH (09:31)
[2021-08-20] MEDS: Aspirin 81 MG Tab.EC PO SCH (09:31)
[2021-08-20] MEDS: Polyethylene Glycol 3350 Powder 17 GM Packet PO SCH (09:32)
[2021-08-20] MEDS: Budesonide 0.5 MG/2 ML Neb Susp NEB SCH ×2 (10:50→18:44)
[2021-08-20] MEDS: Insulin Lispro 100 Units/ML 3 ML Vial SUBCUT SCH ×4 (10:51→21:51)
--- NOTE | 2021-08-20 11:10 | CR ---
EXAMINATION: Chest 1V Frontal SEX: Female AGE: 80 years CLINICAL HISTORY: 80-year-old female complaining of shortness of breath (SOB). CXR 16 August 2021 revealed "cardiovascular decompensation (CHF)". Follow-up evaluation. Interpretation: Abnormal (CHF) but relatively unchanged i.e. no improvement since 16 August 2021. Cardiomegaly; large dependent subpulmonic pleural effusions (L>R); underlying lower lobe atelectasis/infiltrate left base. No new lung mass or lymphadenopathy appreciated. No pneumothorax or pneumomediastinum. No shift of the heart or midline structures.
[2021-08-20] MEDS: methylPREDNISolone Sodium Succinate 40 MG/1 ML SDV IVPUSH SCH ×2 (11:26→17:50)
--- NOTE | 2021-08-20 12:24 | PCM.PN ---
- General Info Date of Service: 08/20/21 Admission Dx/Problem (Free Text): Admission Diagnosis/Problem Admission Diagnosis/Problem CHF Subjective Update: continued to have sob still on supplemental oxygen nc or simple mask leg swelling is improved has ronchi and cough significant weakness, minimal ambulation - Patient Data Vitals - Most Recent: Last Vital Signs Temp 98.4 F 08/20/21 11:36 Pulse 87 08/20/21 11:36 Resp 20 08/20/21 11:36 BP 114/58 L 08/20/21 11:36 Pulse Ox 95 08/20/21 11:36 Weight - Most Recent: 172 lb 1.6 oz I&O - Last 24 Hours: Intake & Output 08/19/21 08/20/21 08/20/21 22:59 06:59 14:59 Output Total 100 100 Balance -100 -100 Lab Results Last 24 Hours: Laboratory Results - last 24 hr 08/19/21 08/19/21 08/20/21 Range/Units 17:04 21:14 06:20 WBC 6.3 (5.0-10.0) 10^3/uL RBC 3.31 L (4.2-5.4) 10^6/uL Hgb 8.3 L (12.0-16.0) g/dL Hct 29.9 L (37.0-47.0) % MCV 90.3 (80-100) fL MCH 25.1 L (27.0-34.0) pg MCHC 27.8 L (33.0-35.0) g/dL Plt Count 256 (150-450) 10^3/uL Neut % (Auto) 66.5 (42.2-75.2) % Lymph % (Auto) 17.3 L (20.5-50.1) % Dickenson % (Auto) 14.0 H (2-8) % Eos % (Auto) 1.9 (1.0-3.0) % Baso % (Auto) 0.3 (0.0-1.0) % PT (9.0-12.0) SEC INR (0.9-1.2) Sodium (136-145) mmol/L Potassium (3.5-5.1) mmol/L Chloride (98-107) mmol/L Carbon Dioxide (21-32) mmol/L Anion Gap (7-13) mEq/L BUN (7-18) mg/dL Creatinine (0.55-1.02) mg/dL Est Cr Clr Drug Dosing mL/min Estimated GFR (MDRD) Glucose (70-99) mg/dL POC Glucose 142 H 153 H (70-99) mg/dL Calcium (8.5-10.1) mg/dL B-Natriuretic Peptide (0-100) pg/ml 08/20/21 08/20/21 08/20/21 Range/Units 06:20 07:13 07:50 WBC (5.0-10.0) 10^3/uL RBC (4.2-5.4) 10^6/uL Hgb (12.0-16.0) g/dL Hct (37.0-47.0) % MCV (80-100) fL MCH (27.0-34.0) pg MCHC (33.0-35.0) g/dL Plt Count (150-450) 10^3/uL Neut % (Auto) (42.2-75.2) % Lymph % (Auto) (20.5-50.1) % Dickenson % (Auto) (2-8) % Eos % (Auto) (1.0-3.0) % Baso % (Auto) (0.0-1.0) % PT 31.4 H (9.0-12.0) SEC INR 3.2 H (0.9-1.2) Sodium 141 (136-145) mmol/L Potassium 4.3 (3.5-5.1) mmol/L Chloride 100 (98-107) mmol/L Carbon Dioxide 36 H (21-32) mmol/L Anion Gap 9.3 (7-13) mEq/L BUN 23 H (7-18) mg/dL Creatinine 0.91 (0.55-1.02) mg/dL Est Cr Clr Drug Dosing 46.16 mL/min Estimated GFR (MDRD) 59 Glucose 109 H (70-99) mg/dL POC Glucose 105 H (70-99) mg/dL Calcium 9.0 (8.5-10.1) mg/dL B-Natriuretic Peptide 1560 H (0-100) pg/ml 08/20/21 Range/Units 11:14 WBC (5.0-10.0) 10^3/uL RBC (4.2-5.4) 10^6/uL Hgb (12.0-16.0) g/dL Hct (37.0-47.0) % MCV (80-100) fL MCH (27.0-34.0) pg MCHC (33.0-35.0) g/dL Plt Count (150-450) 10^3/uL Neut % (Auto) (42.2-75.2) % Lymph % (Auto) (20.5-50.1) % Dickenson % (Auto) (2-8) % Eos % (Auto) (1.0-3.0) % Baso % (Auto) (0.0-1.0) % PT (9.0-12.0) SEC INR (0.9-1.2) Sodium (136-145) mmol/L Potassium (3.5-5.1) mmol/L Chloride (98-107) mmol/L Carbon Dioxide (21-32) mmol/L Anion Gap (7-13) mEq/L BUN (7-18) mg/dL Creatinine (0.55-1.02) mg/dL Est Cr Clr Drug Dosing mL/min Estimated GFR (MDRD) Glucose (70-99) mg/dL POC Glucose 167 H (70-99) mg/dL Calcium (8.5-10.1) mg/dL B-Natriuretic Peptide (0-100) pg/ml Albaro Results Last 24 Hours: Microbiology 08/17/21 12:10 Aerobic Blood Culture - Preliminary Blood - Arm, Right NO GROWTH AFTER 3 DAYS Anaerobic Blood Culture - Preliminary NO GROWTH AFTER 3 DAYS 08/17/21 12:01 Aerobic Blood Culture - Preliminary Blood - Arm, Left NO GROWTH AFTER 3 DAYS Anaerobic Blood Culture - Preliminary NO GROWTH AFTER 3 DAYS 08/17/21 13:30 Gram Stain - Final Sputum - Expectorated Sputum Culture - Final 08/16/21 15:16 Aerobic Blood Culture - Preliminary Blood - Arm, Right NO GROWTH AFTER 3 DAYS Anaerobic Blood Culture - Final 08/16/21 14:43 Aerobic Blood Culture - Preliminary Blood - Venous - Iv Start NO GROWTH AFTER 3 DAYS Anaerobic Blood Culture - Final Streptococcus Agalactiae Grp B Med Orders - Current: Current Medications Acetaminophen (Acetaminophen 325 Mg Tab) 650 mg PO Q4H PRN PRN Reason: Pain (Mild 1-3)/fever Albuterol/Ipratropium (Albuterol/Ipratropium 3.0-0.5 Mg/3 Ml Neb Soln) 3 ml NEB Q2H PRN PRN Reason: sob Last Admin: 08/20/21 09:33 Dose: 3 ml Documented by: Albuterol/Ipratropium (Albuterol/Ipratropium 3.0-0.5 Mg/3 Ml Neb Soln) 3 ml NEB Q6HRRT [facility] Last Admin: 08/20/21 10:50 Dose: Not Given Documented by: Aspirin (Aspirin 81 Mg Tab.Ec) 81 mg PO WITHBREAKFAST [facility] Last Admin: 08/20/21 09:31 Dose: 81 mg Documented by: Atorvastatin Calcium (Atorvastatin 20 Mg Tab) 80 mg PO BEDTIME [facility] Last Admin: 08/19/21 20:19 Dose: 80 mg Documented by: Budesonide (Budesonide 0.5 Mg/2 Ml Neb Susp) 0.5 mg NEB BIDRT [facility] Last Admin: 08/20/21 10:50 Dose: Not Given Documented by: Dextrose/Water (50% Dextrose In Water 50 Ml Syringe) 25 ml IVPUSH ASDIRECTED PRN PRN Reason: Hypoglycemia BS<70 Docusate Sodium (Docusate Sodium 100 Mg Cap) 200 mg PO BEDTIME [facility] Last Admin: 08/19/21 20:19 Dose: 100 mg Documented by: Ferrous Sulfate (Ferrous Sulfate 325 Mg Tab) 325 mg PO DAILY [facility] Last Admin: 08/20/21 09:31 Dose: 325 mg Documented by: Furosemide (Furosemide 20 Mg/2 Ml Vial) 40 mg IVPUSH TID [facility] Levofloxacin/Dextrose 750 mg/ (Premix) 150 mls @ 100 mls/hr IV Q48H [facility] Last Admin: 08/18/21 20:32 Dose: 100 mls/hr Documented by: Insulin Human Lispro (Insulin Lispro 100 Units/Ml 3 Ml Vial) 0 unit SUBCUT WITHMEALSANDBED [facility]; Protocol Last Admin: 08/20/21 10:51 Dose: Not Given Documented by: Lactulose (Lactulose Soln 10 Gm/15 Ml 30 Ml Ud Cup) 20 gm PO Q12H PRN PRN Reason: Constipation Last Admin: 08/19/21 08:58 Dose: 20 gm Documented by: Methylprednisolone Sodium Succinate (Methylprednisolone Sodium Succinate 40 Mg/1 Ml Sdv) 40 mg IVPUSH Q8H [facility] Last Admin: 08/20/21 11:26 Dose: 40 mg Documented by: Metoprolol Succinate (Metoprolol Succinate 50 Mg Tab.Er) 100 mg PO DAILY [facility] Last Admin: 08/20/21 09:31 Dose: 100 mg Documented by: Ondansetron HCl (Ondansetron 4 Mg/2 Ml Sdv) 4 mg IVPUSH Q6H PRN PRN Reason: Nausea/Vomiting Pantoprazole Sodium (Pantoprazole 40 Mg Tab.Cr) 40 mg PO ACBREAKFAST [facility] Last Admin: 08/20/21 05:41 Dose: 40 mg Documented by: Polyethylene Glycol (Polyethylene Glycol 3350 Powder 17 Gm Packet) 17 gm PO DAILY [facility] Last Admin: 08/20/21 09:32 Dose: 17 gm Documented by: Simethicone (Simethicone 80 Mg Tab.Chew) 80 mg PO Q6H PRN PRN Reason: bloating Last Admin: 08/18/21 04:52 Dose: 80 mg Documented by: Sodium Chloride (Sodium Chloride 0.9% 10 Ml Syringe) 10 ml FLUSH ASDIRECTED PRN PRN Reason: Keep Vein Open Last Admin: 08/19/21 20:22 Dose: 10 ml Documented by: Warfarin Sodium (Pharmacy To Dose - Warfarin) 1 dose .XX ASDIRECTED [facility] Warfarin Sodium (Warfarin 1 Mg Tab) 0.5 mg PO ONETIME ONE Stop: 08/20/21 14:01 Discontinued Medications Aspirin (Aspirin 81 Mg Tab.Chew) 324 mg PO ONETIME ONE Stop: 08/16/21 21:16 Last Admin: 08/16/21 21:31 Dose: 324 mg Documented by: Furosemide (Furosemide 40 Mg/4 Ml Vial) 40 mg IVPUSH ONETIME ONE Stop: 08/16/21 15:09 Last Admin: 08/16/21 15:23 Dose: 40 mg Documented by: Furosemide (Furosemide 20 Mg/2 Ml Vial) 20 mg IVPUSH BIDDIURETIC [facility] Last Admin: 08/19/21 08:29 Dose: 20 mg Documented by: Furosemide (Furosemide 20 Mg/2 Ml Vial) 20 mg IVPUSH TID [facility] Last Admin: 08/20/21 09:25 Dose: 20 mg Documented by: Sodium Chloride (Normal Saline) 1,000 mls @ 75 mls/hr IV ASDIRECTED [facility] Last Admin: 08/16/21 15:24 Dose: 75 mls/hr Documented by: Ceftriaxone Sodium 1 gm/ (Sodium Chloride) 50 mls @ 100 mls/hr IV ONETIME ONE Stop: 08/16/21 15:37 Last Admin: 08/16/21 15:23 Dose: 100 mls/hr Documented by: Levofloxacin/Dextrose 750 mg/ (Premix) 150 mls @ 100 mls/hr IV Q24H [facility] Last Admin: 08/17/21 16:23 Dose: Not Given Documented by: Vancomycin HCl 1 gm/ Sodium (Chloride) 250 mls @ 250 mls/hr IV DAILY@1600 [facility] Last Admin: 08/18/21 16:08 Dose: 250 mls/hr Documented by: Vancomycin HCl (Pharmacy To Dose - Vancomycin) 1 dose .XX ASDIRECTED [facility] Warfarin Sodium (Warfarin 2 Mg Tab) 2 mg PO DAILY@1400 [facility] Last Admin: 08/18/21 14:54 Dose: 2 mg Documented by: Warfarin Sodium (Warfarin 2 Mg Tab) 2 mg PO DAILY@1400 [facility] Warfarin Sodium (Warfarin 1 Mg Tab) 1 mg PO DAILY@1400 [facility] Stop: 08/19/21 14:01 Last Admin: 08/19/21 15:04 Dose: 1 mg Documented by: - Exam Quality Assessment: Supplemental Oxygen General: Alert, Oriented Lungs: Rhonchi, Wheezing Cardiovascular: Regular Rate, Regular Rhythm GI/Abdominal Exam: Normal Bowel Sounds, Soft, Non-Tender Extremities: No Pedal Edema - Patient Data Lab Results Last 24 hrs: Laboratory Results - last 24 hr 08/19/21 08/19/21 08/20/21 Range/Units 17:04 21:14 06:20 WBC 6.3 (5.0-10.0) 10^3/uL RBC 3.31 L (4.2-5.4) 10^6/uL Hgb 8.3 L (12.0-16.0) g/dL Hct 29.9 L (37.0-47.0) % MCV 90.3 (80-100) fL MCH 25.1 L (27.0-34.0) pg MCHC 27.8 L (33.0-35.0) g/dL Plt Count 256 (150-450) 10^3/uL Neut % (Auto) 66.5 (42.2-75.2) % Lymph % (Auto) 17.3 L (20.5-50.1) % Dickenson % (Auto) 14.0 H (2-8) % Eos % (Auto) 1.9 (1.0-3.0) % Baso % (Auto) 0.3 (0.0-1.0) % PT (9.0-12.0) SEC INR (0.9-1.2) Sodium (136-145) mmol/L Potassium (3.5-5.1) mmol/L Chloride (98-107) mmol/L Carbon Dioxide (21-32) mmol/L Anion Gap (7-13) mEq/L BUN (7-18) mg/dL Creatinine (0.55-1.02) mg/dL Est Cr Clr Drug Dosing mL/min Estimated GFR (MDRD) Glucose (70-99) mg/dL POC Glucose 142 H 153 H (70-99) mg/dL Calcium (8.5-10.1) mg/dL B-Natriuretic Peptide (0-100) pg/ml 08/20/21 08/20/21 08/20/21 Range/Units 06:20 07:13 07:50 WBC (5.0-10.0) 10^3/uL RBC (4.2-5.4) 10^6/uL Hgb (12.0-16.0) g/dL Hct (37.0-47.0) % MCV (80-100) fL MCH (27.0-34.0) pg MCHC (33.0-35.0) g/dL Plt Count (150-450) 10^3/uL Neut % (Auto) (42.2-75.2) % Lymph % (Auto) (20.5-50.1) % Dickenson % (Auto) (2-8) % Eos % (Auto) (1.0-3.0) % Baso % (Auto) (0.0-1.0) % PT 31.4 H (9.0-12.0) SEC INR 3.2 H (0.9-1.2) Sodium 141 (136-145) mmol/L Potassium 4.3 (3.5-5.1) mmol/L Chloride 100 (98-107) mmol/L Carbon Dioxide 36 H (21-32) mmol/L Anion Gap 9.3 (7-13) mEq/L BUN 23 H (7-18) mg/dL Creatinine 0.91 (0.55-1.02) mg/dL Est Cr Clr Drug Dosing 46.16 mL/min Estimated GFR (MDRD) 59 Glucose 109 H (70-99) mg/dL POC Glucose 105 H (70-99) mg/dL Calcium 9.0 (8.5-10.1) mg/dL B-Natriuretic Peptide 1560 H (0-100) pg/ml 08/20/21 Range/Units 11:14 WBC (5.0-10.0) 10^3/uL RBC (4.2-5.4) 10^6/uL Hgb (12.0-16.0) g/dL Hct (37.0-47.0) % MCV (80-100) fL MCH (27.0-34.0) pg MCHC (33.0-35.0) g/dL Plt Count (150-450) 10^3/uL Neut % (Auto) (42.2-75.2) % Lymph % (Auto) (20.5-50.1) % Dickenson % (Auto) (2-8) % Eos % (Auto) (1.0-3.0) % Baso % (Auto) (0.0-1.0) % PT (9.0-12.0) SEC INR (0.9-1.2) Sodium (136-145) mmol/L Potassium (3.5-5.1) mmol/L Chloride (98-107) mmol/L Carbon Dioxide (21-32) mmol/L Anion Gap (7-13) mEq/L BUN (7-18) mg/dL Creatinine (0.55-1.02) mg/dL Est Cr Clr Drug Dosing mL/min Estimated GFR (MDRD) Glucose (70-99) mg/dL POC Glucose 167 H (70-99) mg/dL Calcium (8.5-10.1) mg/dL B-Natriuretic Peptide (0-100) pg/ml Result Diagrams: 08/20/21 06:20 08/20/21 06:20 [place]baro Results Last 24 hrs: Microbiology 08/17/21 12:10 Aerobic Blood Culture - Preliminary Blood - Arm, Right NO GROWTH AFTER 3 DAYS Anaerobic Blood Culture - Preliminary NO GROWTH AFTER 3 DAYS 08/17/21 12:01 Aerobic Blood Culture - Preliminary Blood - Arm, Left NO GROWTH AFTER 3 DAYS Anaerobic Blood Culture - Preliminary NO GROWTH AFTER 3 DAYS 08/17/21 13:30 Gram Stain - Final Sputum - Expectorated Sputum Culture - Final 08/16/21 15:16 Aerobic Blood Culture - Preliminary Blood - Arm, Right NO GROWTH AFTER 3 DAYS Anaerobic Blood Culture - Final 08/16/21 14:43 Aerobic Blood Culture - Preliminary Blood - Venous - Iv Start NO GROWTH AFTER 3 DAYS Anaerobic Blood Culture - Final Streptococcus Agalactiae Grp B Imaging Impressions Last 24 hrs: large left pleural effusion, chf Sepsis Event Note - Evaluation Sepsis Screening Result: No Definite Risk - Focused Exam Vital Signs: Vital Signs Temp Pulse Pulse Resp BP BP Pulse Ox 08/20/21 11:36 98.4 F 87 20 114/58 L 95 08/20/21 09:31 76 119/64 08/20/21 08:00 98.3 F 76 20 119/64 98 08/20/21 05:45 78 08/20/21 05:30 98 F 78 20 108/81 93 L 08/20/21 00:38 94 Pulse Ox 08/20/21 11:36 08/20/21 09:31 08/20/21 08:00 08/20/21 05:45 93 L 08/20/21 05:30 08/20/21 00:38 94 L - Problem List & Annotations (1) CHF (congestive heart failure) SNOMED Code(s): 01798937 Code(s): I50.9 - HEART FAILURE, UNSPECIFIED Status: Acute Current Visit: Yes Qualifiers: Heart failure type: unspecified Heart failure chronicity: acute on chronic Qualified Code(s): I50.9 - Heart failure, unspecified (2) Pneumonia SNOMED Code(s): 481336678 Code(s): J18.9 - PNEUMONIA, UNSPECIFIED ORGANISM Status: Acute Current Visit: Yes Qualifiers: Pneumonia type: due to unspecified organism Laterality: left Lung location: lower lobe of lung Qualified Code(s): J18.9 - Pneumonia, unspecified organism (3) Acute congestive heart failure SNOMED Code(s): 06806080 Code(s): I50.9 - HEART FAILURE, UNSPECIFIED Status: Acute Priority: High Current Visit: No (4) Acute hypernatremia SNOMED Code(s): 7537464 Code(s): E87.0 - HYPEROSMOLALITY AND HYPERNATREMIA Status: Acute Current Visit: No (5) COPD exacerbation SNOMED Code(s): 165777815, 600279925 Code(s): J44.1 - CHRONIC OBSTRUCTIVE PULMONARY DISEASE W (ACUTE) EXACERBATION Status: Acute Current Visit: No (6) Chronic anticoagulation SNOMED Code(s): 550369499 Code(s): Z79.01 - [facility] (CURRENT) USE OF ANTICOAGULANTS Status: Acute Current Visit: No (7) History of atrial fibrillation SNOMED Code(s): 605600369 Code(s): Z86.79 - PERSONAL HISTORY OF OTHER DISEASES OF THE CIRCULATORY SYSTEM Status: Acute Current Visit: No (8) Sepsis SNOMED Code(s): 43836035 Code(s): A41.9 - SEPSIS, UNSPECIFIED ORGANISM Status: Acute Current Visit: No Qualifiers: Sepsis type: sepsis due to unspecified organism Sepsis acute organ dysfunction status: unspecified Qualified Code(s): A41.9 - Sepsis, unspecified organism (9) Coronary artery disease SNOMED Code(s): 25916889 Code(s): I25.10 - ATHSCL HEART DISEASE OF [place] CORONARY ARTERY W/O ANG PCTRS Status: Chronic Current Visit: No - Problem List Review Problem List Initiated/Reviewed/Updated: Yes - My Orders Last 24 Hours: My Active Orders 08/20/21 10:00 methylPREDNISolone Sod Succ [Solu-MEDROL] 40 mg IVPUSH Q8H 08/20/21 14:00 Furosemide [Lasix] 40 mg IVPUSH TID Warfarin [Coumadin] 0.5 mg PO ONETIME ONE 08/20/21 15:30 VANCOMYCIN TROUGH [CHEM] Timed 08/21/21 05:11 B-TYPE NATRIURETIC PEPTIDE,BNP [CHEM] AM BASIC METABOLIC PANEL,BMP [CHEM] AM CBC WITH AUTO DIFF [HEME] AM 08/22/21 05:11 B-TYPE NATRIURETIC PEPTIDE,BNP [CHEM] AM BASIC METABOLIC PANEL,BMP [CHEM] AM CBC WITH AUTO DIFF [HEME] AM - Plan Plan:: Acute systolic chf systolic Last echo ef: 45-50% With extensive LE edema - improved Chf on cxr with pleural effusion is still significant bnp is still up Will continue to diurese her with IV lasix - increase dose today to 40 mg IV tid Peter hose Cont metoprolol Hold david/arb: re low BPs pleural effusion could benefit from thoracentesis but high risk of complications with INR therapeutic level will try to resolve with increased diuretics Possible infiltrate With leukocytosis BC: strep agalactiae gram negative pneumonia with recent hospitalization ruled out sputum cx: pending Blood cx 08/16: strep agalactiae sens to pcn, linezolid, levo blood cx 08/17: neg Treat with levofloxacin sepsis POA treat infection Support BP as needed Wheezing Acute copd exacerbation still wheezing today Treat with pulmicort Use duoneb scheduled and as needed add solumedrol Acute on chronic hypoxemic respiratory failure Normally on 2 l/min nc oxygen Will supplement oxygen as needed Hyponatremia Mild Will follow with diuretics Type II non st [place] With minimally elevated trop - improved Will monitor on tele Trend troponin cont asa Cont metoprolol anemia no apparent bleeding will follow Diabetes Hold metformin Use supplemental insulin as needed Chronic afib Rate control with metoprolol Anticoagulation Continue Coumadin constipation cont lactulose, miralax, docusate weakness cont pt/ot She elected DNR code status on admission
[2021-08-20] MEDS ORDERED: Warfarin 2 MG Tab PO SCH (14:00)
[2021-08-20] MEDS: Levofloxacin/Dextrose 5%-Water 750 MG in Premix Bag 1 BAG IV SCH (20:07)
[2021-08-20] MEDS: Docusate Sodium 100 MG Cap PO SCH (21:58)
[2021-08-20] MEDS: atorvaSTATin 20 MG Tab PO SCH (21:58)
[2021-08-21] MEDS: methylPREDNISolone Sodium Succinate 40 MG/1 ML SDV IVPUSH SCH ×3 (02:13→17:33)
[2021-08-21] MEDS: Albuterol/Ipratropium 3.0-0.5 MG/3 ML Neb Soln NEB SCH ×4 (02:13→18:37)
[2021-08-21] MEDS: Pantoprazole 40 MG Tab.CR PO SCH (05:12)
[2021-08-21 07:03] LABS: ANION GAP 3.1 mEq/L (7-13)
[2021-08-21] MEDS: Budesonide 0.5 MG/2 ML Neb Susp NEB SCH ×2 (07:23→18:38)
[2021-08-21] MEDS: Polyethylene Glycol 3350 Powder 17 GM Packet PO SCH (09:12)
[2021-08-21] MEDS: Ferrous Sulfate 325 MG Tab PO SCH (09:13)
[2021-08-21] MEDS: Metoprolol Succinate 50 MG Tab.ER PO SCH (09:14)
[2021-08-21] MEDS: Aspirin 81 MG Tab.EC PO SCH (09:14)
[2021-08-21] MEDS: Insulin Lispro 100 Units/ML 3 ML Vial SUBCUT SCH ×4 (09:15→20:58)
[2021-08-21] MEDS: Furosemide 20 MG/2 ML VIAL IVPUSH SCH ×3 (09:17→20:59)
[2021-08-21] MEDS: Sodium Chloride 0.9% 10 ML Syringe FLUSH PRN ×3 (09:19→15:25)
--- NOTE | 2021-08-21 11:08 | PCM.PN ---
- General Info Date of Service: 08/21/21 Admission Dx/Problem (Free Text): Admission Diagnosis/Problem Admission Diagnosis/Problem CHF Subjective Update: continued to have sob on supplemental oxygen at 4 l/min (baseline is 2 l/min) leg swelling is improved has ronchi and cough significant weakness no fever - Patient Data Vitals - Most Recent: Last Vital Signs Temp 98.4 F 08/21/21 08:00 Pulse 85 08/21/21 09:14 Resp 20 08/21/21 08:00 BP 108/64 08/21/21 09:14 Pulse Ox 94 L 08/21/21 08:00 Weight - Most Recent: 172 lb 9.6 oz I&O - Last 24 Hours: Intake & Output 08/20/21 08/21/21 08/21/21 22:59 06:59 14:59 Intake Total 120 240 220 Output Total 1375 Balance 120 -1135 220 Lab Results Last 24 Hours: Laboratory Results - last 24 hr 08/20/21 08/20/21 08/20/21 Range/Units 11:14 15:53 16:44 WBC (5.0-10.0) 10^3/uL RBC (4.2-5.4) 10^6/uL Hgb (12.0-16.0) g/dL Hct (37.0-47.0) % MCV (80-100) fL MCH (27.0-34.0) pg MCHC (33.0-35.0) g/dL Plt Count (150-450) 10^3/uL Neut % (Auto) (42.2-75.2) % Lymph % (Auto) (20.5-50.1) % [place] % (Auto) (2-8) % Eos % (Auto) (1.0-3.0) % Baso % (Auto) (0.0-1.0) % PT (9.0-12.0) SEC INR (0.9-1.2) Sodium (136-145) mmol/L Potassium (3.5-5.1) mmol/L Chloride (98-107) mmol/L Carbon Dioxide (21-32) mmol/L Anion Gap (7-13) mEq/L BUN (7-18) mg/dL Creatinine (0.55-1.02) mg/dL Est Cr Clr Drug Dosing mL/min Estimated GFR (MDRD) Glucose (70-99) mg/dL POC Glucose 167 H 181 H (70-99) mg/dL Calcium (8.5-10.1) mg/dL B-Natriuretic Peptide (0-100) pg/ml Vancomycin Trough 6.2 L (10.0-20.0) ug/mL 08/20/21 08/21/21 08/21/21 Range/Units 21:40 06:03 06:03 WBC 5.5 (5.0-10.0) 10^3/uL RBC 3.47 L (4.2-5.4) 10^6/uL Hgb 8.6 L (12.0-16.0) g/dL Hct 31.1 L (37.0-47.0) % MCV 89.6 (80-100) fL MCH 24.8 L (27.0-34.0) pg MCHC 27.7 L (33.0-35.0) g/dL Plt Count 238 (150-450) 10^3/uL Neut % (Auto) 87.6 H (42.2-75.2) % Lymph % (Auto) 7.1 L (20.5-50.1) % [place] % (Auto) 5.1 (2-8) % Eos % (Auto) 0.0 L (1.0-3.0) % Baso % (Auto) 0.2 (0.0-1.0) % PT (9.0-12.0) SEC INR (0.9-1.2) Sodium 140 (136-145) mmol/L Potassium 4.1 (3.5-5.1) mmol/L Chloride 99 (98-107) mmol/L Carbon Dioxide 42 H* (21-32) mmol/L Anion Gap 3.1 L (7-13) mEq/L BUN 28 H (7-18) mg/dL Creatinine 1.09 H (0.55-1.02) mg/dL Est Cr Clr Drug Dosing 38.54 mL/min Estimated GFR (MDRD) 48 Glucose 212 H (70-99) mg/dL POC Glucose 242 H (70-99) mg/dL Calcium 8.9 (8.5-10.1) mg/dL B-Natriuretic Peptide 1560 H (0-100) pg/ml Vancomycin Trough (10.0-20.0) ug/mL 08/21/21 08/21/21 Range/Units 06:03 08:06 WBC (5.0-10.0) 10^3/uL RBC (4.2-5.4) 10^6/uL Hgb (12.0-16.0) g/dL Hct (37.0-47.0) % MCV (80-100) fL MCH (27.0-34.0) pg MCHC (33.0-35.0) g/dL Plt Count (150-450) 10^3/uL Neut % (Auto) (42.2-75.2) % Lymph % (Auto) (20.5-50.1) % [place] % (Auto) (2-8) % Eos % (Auto) (1.0-3.0) % Baso % (Auto) (0.0-1.0) % PT 18.2 H D (9.0-12.0) SEC INR 1.8 H (0.9-1.2) Sodium (136-145) mmol/L Potassium (3.5-5.1) mmol/L Chloride (98-107) mmol/L Carbon Dioxide (21-32) mmol/L Anion Gap (7-13) mEq/L BUN (7-18) mg/dL Creatinine (0.55-1.02) mg/dL Est Cr Clr Drug Dosing mL/min Estimated GFR (MDRD) Glucose (70-99) mg/dL POC Glucose 237 H (70-99) mg/dL Calcium (8.5-10.1) mg/dL B-Natriuretic Peptide (0-100) pg/ml Vancomycin Trough (10.0-20.0) ug/mL [facility] Results Last 24 Hours: Microbiology 08/16/21 15:16 Aerobic Blood Culture - Preliminary Blood - Arm, Right NO GROWTH AFTER 4 DAYS Anaerobic Blood Culture - Final 08/16/21 14:43 Aerobic Blood Culture - Preliminary Blood - Venous - Iv Start NO GROWTH AFTER 4 DAYS Anaerobic Blood Culture - Final Streptococcus Agalactiae Grp B 08/17/21 12:10 Aerobic Blood Culture - Preliminary Blood - Arm, Right NO GROWTH AFTER 3 DAYS Anaerobic Blood Culture - Preliminary NO GROWTH AFTER 3 DAYS 08/17/21 12:01 Aerobic Blood Culture - Preliminary Blood - Arm, Left NO GROWTH AFTER 3 DAYS Anaerobic Blood Culture - Preliminary NO GROWTH AFTER 3 DAYS 08/17/21 13:30 Gram Stain - Final Sputum - Expectorated Sputum Culture - Final Med Orders - Current: Current Medications Acetaminophen (Acetaminophen 325 Mg Tab) 650 mg PO Q4H PRN PRN Reason: Pain (Mild 1-3)/fever Albuterol/Ipratropium (Albuterol/Ipratropium 3.0-0.5 Mg/3 Ml Neb Soln) 3 ml NEB Q2H PRN PRN Reason: sob Last Admin: 08/20/21 09:33 Dose: 3 ml Documented by: Albuterol/Ipratropium (Albuterol/Ipratropium 3.0-0.5 Mg/3 Ml Neb Soln) 3 ml NEB Q6HRRT [facility] [place] Last Admin: 08/21/21 07:23 Dose: 3 ml Documented by: Aspirin (Aspirin 81 Mg Tab.Ec) 81 mg PO WITHBREAKFAST [facility] [place] Last Admin: 08/21/21 09:14 Dose: 81 mg Documented by: Atorvastatin Calcium (Atorvastatin 20 Mg Tab) 80 mg PO BEDTIME [facility] [place] Last Admin: 08/20/21 21:58 Dose: 80 mg Documented by: Budesonide (Budesonide 0.5 Mg/2 Ml Neb Susp) 0.5 mg NEB BIDRT [facility] [place] Last Admin: 08/21/21 07:23 Dose: Not Given Documented by: Dextrose/Water (50% Dextrose In Water 50 Ml Syringe) 25 ml IVPUSH ASDIRECTED PRN PRN Reason: Hypoglycemia BS<70 Docusate Sodium (Docusate Sodium 100 Mg Cap) 200 mg PO BEDTIME [facility] [place] Last Admin: 08/20/21 21:58 Dose: 100 mg Documented by: Ferrous Sulfate (Ferrous Sulfate 325 Mg Tab) 325 mg PO DAILY [facility] [place] Last Admin: 08/21/21 09:13 Dose: 325 mg Documented by: Furosemide (Furosemide 20 Mg/2 Ml Vial) 40 mg IVPUSH TID [facility] [place] Last Admin: 08/21/21 09:17 Dose: 40 mg Documented by: Levofloxacin/Dextrose 750 mg/ (Premix) 150 mls @ 100 mls/hr IV Q48H [facility] [place] Last Admin: 08/20/21 20:07 Dose: 100 mls/hr Documented by: Insulin Human Lispro (Insulin Lispro 100 Units/Ml 3 Ml Vial) 0 unit SUBCUT WITHMEALSANDBED [facility] [place]; Protocol Last Admin: 08/21/21 09:15 Dose: 4 units Documented by: Lactulose (Lactulose Soln 10 Gm/15 Ml 30 Ml Ud Cup) 20 gm PO Q12H PRN PRN Reason: Constipation Last Admin: 08/19/21 08:58 Dose: 20 gm Documented by: Methylprednisolone Sodium Succinate (Methylprednisolone Sodium Succinate 40 Mg/1 Ml Sdv) 40 mg IVPUSH Q8H [facility] [place] Last Admin: 08/21/21 09:28 Dose: 40 mg Documented by: Metoprolol Succinate (Metoprolol Succinate 50 Mg Tab.Er) 100 mg PO DAILY [facility] [place] Last Admin: 08/21/21 09:14 Dose: 100 mg Documented by: Ondansetron HCl (Ondansetron 4 Mg/2 Ml Sdv) 4 mg IVPUSH Q6H PRN PRN Reason: Nausea/Vomiting Pantoprazole Sodium (Pantoprazole 40 Mg Tab.Cr) 40 mg PO ACBREAKFAST [facility] [place] Last Admin: 08/21/21 05:12 Dose: 40 mg Documented by: Polyethylene Glycol (Polyethylene Glycol 3350 Powder 17 Gm Packet) 17 gm PO DAILY [facility] [place] Last Admin: 08/21/21 09:12 Dose: 17 gm Documented by: Simethicone (Simethicone 80 Mg Tab.Chew) 80 mg PO Q6H PRN PRN Reason: bloating Last Admin: 08/18/21 04:52 Dose: 80 mg Documented by: Sodium Chloride (Sodium Chloride 0.9% 10 Ml Syringe) 10 ml FLUSH ASDIRECTED PRN PRN Reason: Keep Vein Open Last Admin: 08/21/21 09:28 Dose: 10 ml Documented by: Warfarin Sodium (Pharmacy To Dose - Warfarin) 1 dose .XX ASDIRECTED [facility] [place] Warfarin Sodium (Warfarin 1 Mg Tab) 1 mg PO ONETIME ONE Stop: 08/21/21 14:01 Discontinued Medications Aspirin (Aspirin 81 Mg Tab.Chew) 324 mg PO ONETIME ONE Stop: 08/16/21 21:16 Last Admin: 08/16/21 21:31 Dose: 324 mg Documented by: Furosemide (Furosemide 40 Mg/4 Ml Vial) 40 mg IVPUSH ONETIME ONE Stop: 08/16/21 15:09 Last Admin: 08/16/21 15:23 Dose: 40 mg Documented by: Furosemide (Furosemide 20 Mg/2 Ml Vial) 20 mg IVPUSH BIDDIURETIC [facility] [place] Last Admin: 08/19/21 08:29 Dose: 20 mg Documented by: Furosemide (Furosemide 20 Mg/2 Ml Vial) 20 mg IVPUSH TID [facility] [place] Last Admin: 08/20/21 09:25 Dose: 20 mg Documented by: Sodium Chloride (Normal Saline) 1,000 mls @ 75 mls/hr IV ASDIRECTED [facility] [place] Last Admin: 08/16/21 15:24 Dose: 75 mls/hr Documented by: Ceftriaxone Sodium 1 gm/ (Sodium Chloride) 50 mls @ 100 mls/hr IV ONETIME ONE Stop: 08/16/21 15:37 Last Admin: 08/16/21 15:23 Dose: 100 mls/hr Documented by: Levofloxacin/Dextrose 750 mg/ (Premix) 150 mls @ 100 mls/hr IV Q24H [facility] [place] Last Admin: 08/17/21 16:23 Dose: Not Given Documented by: Vancomycin HCl 1 gm/ Sodium (Chloride) 250 mls @ 250 mls/hr IV DAILY@1600 [facility] [place] Last Admin: 08/18/21 16:08 Dose: 250 mls/hr Documented by: Vancomycin HCl (Pharmacy To Dose - Vancomycin) 1 dose .XX ASDIRECTED [facility] [place] Warfarin Sodium (Warfarin 2 Mg Tab) 2 mg PO DAILY@1400 [facility] [place] Last Admin: 08/18/21 14:54 Dose: 2 mg Documented by: Warfarin Sodium (Warfarin 2 Mg Tab) 2 mg PO DAILY@1400 [facility] Warfarin Sodium (Warfarin 1 Mg Tab) 1 mg PO DAILY@1400 [facility] [place] Stop: 08/19/21 14:01 Last Admin: 08/19/21 15:04 Dose: 1 mg Documented by: Warfarin Sodium (Warfarin 1 Mg Tab) 0.5 mg PO ONETIME ONE Stop: 08/20/21 14:01 Last Admin: 08/20/21 14:33 Dose: 0.5 mg Documented by: - Exam Quality Assessment: Supplemental Oxygen General: Alert, Oriented Lungs: Normal Respiratory Effort, Rhonchi. No: Wheezing Cardiovascular: Irregular Rhythm. No: Tachycardia GI/Abdominal Exam: Normal Bowel Sounds, Soft, Non-Tender Extremities: No Pedal Edema Skin: Warm, Dry Neurological: No New Focal Deficit - Patient Data Lab Results Last 24 hrs: Laboratory Results - last 24 hr 08/20/21 08/20/21 08/20/21 Range/Units 11:14 15:53 16:44 WBC (5.0-10.0) 10^3/uL RBC (4.2-5.4) 10^6/uL Hgb (12.0-16.0) g/dL Hct (37.0-47.0) % MCV (80-100) fL MCH (27.0-34.0) pg MCHC (33.0-35.0) g/dL Plt Count (150-450) 10^3/uL Neut % (Auto) (42.2-75.2) % Lymph % (Auto) (20.5-50.1) % [place] % (Auto) (2-8) % Eos % (Auto) (1.0-3.0) % Baso % (Auto) (0.0-1.0) % PT (9.0-12.0) SEC INR (0.9-1.2) Sodium (136-145) mmol/L Potassium (3.5-5.1) mmol/L Chloride (98-107) mmol/L Carbon Dioxide (21-32) mmol/L Anion Gap (7-13) mEq/L BUN (7-18) mg/dL Creatinine (0.55-1.02) mg/dL Est Cr Clr Drug Dosing mL/min Estimated GFR (MDRD) Glucose (70-99) mg/dL POC Glucose 167 H 181 H (70-99) mg/dL Calcium (8.5-10.1) mg/dL B-Natriuretic Peptide (0-100) pg/ml Vancomycin Trough 6.2 L (10.0-20.0) ug/mL 08/20/21 08/21/21 08/21/21 Range/Units 21:40 06:03 06:03 WBC 5.5 (5.0-10.0) 10^3/uL RBC 3.47 L (4.2-5.4) 10^6/uL Hgb 8.6 L (12.0-16.0) g/dL Hct 31.1 L (37.0-47.0) % MCV 89.6 (80-100) fL MCH 24.8 L (27.0-34.0) pg MCHC 27.7 L (33.0-35.0) g/dL Plt Count 238 (150-450) 10^3/uL Neut % (Auto) 87.6 H (42.2-75.2) % Lymph % (Auto) 7.1 L (20.5-50.1) % [place] % (Auto) 5.1 (2-8) % Eos % (Auto) 0.0 L (1.0-3.0) % Baso % (Auto) 0.2 (0.0-1.0) % PT (9.0-12.0) SEC INR (0.9-1.2) Sodium 140 (136-145) mmol/L Potassium 4.1 (3.5-5.1) mmol/L Chloride 99 (98-107) mmol/L Carbon Dioxide 42 H* (21-32) mmol/L Anion Gap 3.1 L (7-13) mEq/L BUN 28 H (7-18) mg/dL Creatinine 1.09 H (0.55-1.02) mg/dL Est Cr Clr Drug Dosing 38.54 mL/min Estimated GFR (MDRD) 48 Glucose 212 H (70-99) mg/dL POC Glucose 242 H (70-99) mg/dL Calcium 8.9 (8.5-10.1) mg/dL B-Natriuretic Peptide 1560 H (0-100) pg/ml Vancomycin Trough (10.0-20.0) ug/mL 08/21/21 08/21/21 Range/Units 06:03 08:06 WBC (5.0-10.0) 10^3/uL RBC (4.2-5.4) 10^6/uL Hgb (12.0-16.0) g/dL Hct (37.0-47.0) % MCV (80-100) fL MCH (27.0-34.0) pg MCHC (33.0-35.0) g/dL Plt Count (150-450) 10^3/uL Neut % (Auto) (42.2-75.2) % Lymph % (Auto) (20.5-50.1) % [place] % (Auto) (2-8) % Eos % (Auto) (1.0-3.0) % Baso % (Auto) (0.0-1.0) % PT 18.2 H D (9.0-12.0) SEC INR 1.8 H (0.9-1.2) Sodium (136-145) mmol/L Potassium (3.5-5.1) mmol/L Chloride (98-107) mmol/L Carbon Dioxide (21-32) mmol/L Anion Gap (7-13) mEq/L BUN (7-18) mg/dL Creatinine (0.55-1.02) mg/dL Est Cr Clr Drug Dosing mL/min Estimated GFR (MDRD) Glucose (70-99) mg/dL POC Glucose 237 H (70-99) mg/dL Calcium (8.5-10.1) mg/dL B-Natriuretic Peptide (0-100) pg/ml Vancomycin Trough (10.0-20.0) ug/mL Result Diagrams: 08/21/21 06:03 08/21/21 06:03 [facility] Results Last 24 hrs: Microbiology 08/16/21 15:16 Aerobic Blood Culture - Preliminary Blood - Arm, Right NO GROWTH AFTER 4 DAYS Anaerobic Blood Culture - Final 08/16/21 14:43 Aerobic Blood Culture - Preliminary Blood - Venous - Iv Start NO GROWTH AFTER 4 DAYS Anaerobic Blood Culture - Final Streptococcus Agalactiae Grp B 08/17/21 12:10 Aerobic Blood Culture - Preliminary Blood - Arm, Right NO GROWTH AFTER 3 DAYS Anaerobic Blood Culture - Preliminary NO GROWTH AFTER 3 DAYS 08/17/21 12:01 Aerobic Blood Culture - Preliminary Blood - Arm, Left NO GROWTH AFTER 3 DAYS Anaerobic Blood Culture - Preliminary NO GROWTH AFTER 3 DAYS 08/17/21 13:30 Gram Stain - Final Sputum - Expectorated Sputum Culture - Final Sepsis Event Note - Evaluation Sepsis Screening Result: No Definite Risk - Focused Exam Vital Signs: Vital Signs Temp Pulse Pulse Resp BP BP Pulse Ox 08/21/21 09:14 85 108/64 08/21/21 08:00 98.4 F 85 20 108/64 94 L 08/21/21 07:24 88 08/21/21 04:00 97.9 F 83 20 109/36 L 91 L 08/21/21 01:00 82 08/21/21 00:00 96.9 F 82 18 105/53 L 95 Pulse Ox 08/21/21 09:14 08/21/21 08:00 08/21/21 07:24 08/21/21 04:00 08/21/21 01:00 95 08/21/21 00:00 - Problem List & Annotations (1) CHF (congestive heart failure) SNOMED Code(s): 84745061 Code(s): I50.9 - HEART FAILURE, UNSPECIFIED Status: Acute Current Visit: Yes Qualifiers: Heart failure type: unspecified Heart failure chronicity: acute on chronic Qualified Code(s): I50.9 - Heart failure, unspecified (2) Pneumonia SNOMED Code(s): 127016082 Code(s): J18.9 - PNEUMONIA, UNSPECIFIED ORGANISM Status: Acute Current Visit: Yes Qualifiers: Pneumonia type: due to unspecified organism Laterality: left Lung location: lower lobe of lung Qualified Code(s): J18.9 - Pneumonia, unspecified organism (3) Acute congestive heart failure SNOMED Code(s): 27884267 Code(s): I50.9 - HEART FAILURE, UNSPECIFIED Status: Acute Priority: High Current Visit: No (4) Acute hypernatremia SNOMED Code(s): 3507039 Code(s): E87.0 - HYPEROSMOLALITY AND HYPERNATREMIA Status: Acute Current Visit: No (5) COPD exacerbation SNOMED Code(s): 717202268, 723940222 Code(s): J44.1 - CHRONIC OBSTRUCTIVE PULMONARY DISEASE W (ACUTE) EXACERBATION Status: Acute Current Visit: No (6) Chronic anticoagulation SNOMED Code(s): 518400990 Code(s): Z79.01 - [employer] (CURRENT) USE OF ANTICOAGULANTS Status: Acute Current Visit: No (7) History of atrial fibrillation SNOMED Code(s): 903699770 Code(s): Z86.79 - PERSONAL HISTORY OF OTHER DISEASES OF THE CIRCULATORY SYSTEM Status: Acute Current Visit: No (8) Sepsis SNOMED Code(s): 18023061 Code(s): A41.9 - SEPSIS, UNSPECIFIED ORGANISM Status: Acute Current Vis it: No Qualifiers: Sepsis type: sepsis due to unspecified organism Sepsis acute organ dysfunction status: unspecified Qualified Code(s): A41.9 - Sepsis, unspecified organism (9) Coronary artery disease SNOMED Code(s): 96732770 Code(s): I25.10 - ATHSCL HEART DISEASE OF [place] CORONARY ARTERY W/O ANG PCTRS Status: Chronic Current Visit: No - Problem List Review Problem List Initiated/Reviewed/Updated: Yes - My Orders Last 24 Hours: My Active Orders 08/20/21 14:00 Furosemide [Lasix] 40 mg IVPUSH TID 08/21/21 14:00 Warfarin [Coumadin] 1 mg PO ONETIME ONE 08/22/21 05:11 B-TYPE NATRIURETIC PEPTIDE,BNP [CHEM] AM BASIC METABOLIC PANEL,BMP [CHEM] AM CBC WITH AUTO DIFF [HEME] AM INR,PT,PROTHROMBIN TIME [COAG] AM 08/23/21 05:11 INR,PT,PROTHROMBIN TIME [COAG] AM - Plan Plan:: Acute systolic chf systolic Last echo ef: 45-50% With extensive LE edema - improved Chf on cxr with pleural effusion is still significant bnp is still up Will continue to diurese her with IV lasix - with increased dose of 40 mg IV tid Peter hose Cont metoprolol Hold david/arb: re low BPs pleural effusion could benefit from thoracentesis but high risk of complications with INR therapeutic level will try to resolve with increased diuretics Possible infiltrate With leukocytosis BC: strep agalactiae gram negative pneumonia with recent hospitalization ruled out sputum cx: pending Blood cx 08/16: strep agalactiae sens to pcn, linezolid, levo blood cx 08/17: neg Treat with levofloxacin sepsis POA treat infection Support BP as needed Wheezing Acute copd exacerbation Treat with pulmicort Use duoneb scheduled and as needed cont solumedrol Acute on chronic hypoxemic respiratory failure Normally on 2 l/min nc oxygen Will supplement oxygen as needed Hyponatremia Mild Will follow with diuretics Type II non st SD With minimally elevated trop - improved Will monitor on tele Trend troponin cont asa Cont metoprolol anemia no apparent bleeding will follow Diabetes Hold metformin Use supplemental insulin as needed Chronic afib Rate control with metoprolol Anticoagulation Continue Coumadin constipation cont lactulose, miralax, docusate weakness cont pt/ot She elected DNR code status on admission
[2021-08-21] MEDS: atorvaSTATin 20 MG Tab PO SCH (20:58)
[2021-08-21] MEDS: Docusate Sodium 100 MG Cap PO SCH (20:58)
[2021-08-22] MEDS: Albuterol/Ipratropium 3.0-0.5 MG/3 ML Neb Soln NEB SCH ×4 (01:11→18:31)
[2021-08-22] MEDS: methylPREDNISolone Sodium Succinate 40 MG/1 ML SDV IVPUSH SCH ×3 (01:11→18:24)
[2021-08-22] MEDS: Pantoprazole 40 MG Tab.CR PO SCH (06:06)
[2021-08-22] MEDS: Metoprolol Succinate 50 MG Tab.ER PO SCH (08:42)
[2021-08-22] MEDS: Aspirin 81 MG Tab.EC PO SCH (08:42)
[2021-08-22] MEDS: Polyethylene Glycol 3350 Powder 17 GM Packet PO SCH (08:43)
[2021-08-22] MEDS: Furosemide 20 MG/2 ML VIAL IVPUSH SCH ×3 (08:43→21:51)
[2021-08-22] MEDS: Ferrous Sulfate 325 MG Tab PO SCH (08:43)
[2021-08-22] MEDS: Insulin Lispro 100 Units/ML 3 ML Vial SUBCUT SCH ×4 (08:51→20:23)
[2021-08-22] MEDS: Budesonide 0.5 MG/2 ML Neb Susp NEB SCH ×2 (10:17→18:28)
--- NOTE | 2021-08-22 13:29 | PCM.PN ---
- General Info Date of Service: 08/22/21 Admission Dx/Problem (Free Text): Admission Diagnosis/Problem Admission Diagnosis/Problem CHF Subjective Update: continued to have sob on supplemental oxygen at 2-3.5 l/min (baseline is 2 l/min) leg swelling is improved has ronchi and cough has significant weakness no fever Functional Status: Reports: Tolerating Diet. Denies: Ambulating - Review of Systems General: Reports: Weakness Pulmonary: Reports: Shortness of Breath (improved) Cardiovascular: Denies: Chest Pain, Edema (improved) Gastrointestinal: Denies: Abdominal Pain Neurological: Denies: Confusion - Patient Data Vitals - Most Recent: Last Vital Signs Temp 97.0 F 08/22/21 08:30 Pulse 61 08/22/21 08:42 Resp 20 08/22/21 08:30 BP 125/51 L 08/22/21 08:42 Pulse Ox 98 08/22/21 08:30 Weight - Most Recent: 170 lb 11.2 oz I&O - Last 24 Hours: Intake & Output 08/21/21 08/22/21 08/22/21 22:59 06:59 14:59 Intake Total 300 Output Total 1100 925 950 Balance -800 -925 -950 Lab Results Last 24 Hours: Laboratory Results - last 24 hr 08/21/21 08/21/21 08/22/21 Range/Units 16:38 20:02 05:55 WBC 7.9 (5.0-10.0) 10^3/uL RBC 3.45 L (4.2-5.4) 10^6/uL Hgb 8.6 L (12.0-16.0) g/dL Hct 31.0 L (37.0-47.0) % MCV 89.9 (80-100) fL MCH 24.9 L (27.0-34.0) pg MCHC 27.7 L (33.0-35.0) g/dL Plt Count 256 (150-450) 10^3/uL Neut % (Auto) 91.3 H (42.2-75.2) % Lymph % (Auto) 4.3 L (20.5-50.1) % [place] % (Auto) 4.3 (2-8) % Eos % (Auto) 0.0 L (1.0-3.0) % Baso % (Auto) 0.1 (0.0-1.0) % PT (9.0-12.0) SEC INR (0.9-1.2) Sodium (136-145) mmol/L Potassium (3.5-5.1) mmol/L Chloride (98-107) mmol/L Carbon Dioxide (21-32) mmol/L Anion Gap (7-13) mEq/L BUN (7-18) mg/dL Creatinine (0.55-1.02) mg/dL Est Cr Clr Drug Dosing mL/min Estimated GFR (MDRD) Glucose (70-99) mg/dL POC Glucose 241 H 222 H (70-99) mg/dL Calcium (8.5-10.1) mg/dL B-Natriuretic Peptide (0-100) pg/ml 08/22/21 08/22/21 08/22/21 Range/Units 05:55 05:55 08:09 WBC (5.0-10.0) 10^3/uL RBC (4.2-5.4) 10^6/uL Hgb (12.0-16.0) g/dL Hct (37.0-47.0) % MCV (80-100) fL MCH (27.0-34.0) pg MCHC (33.0-35.0) g/dL Plt Count (150-450) 10^3/uL Neut % (Auto) (42.2-75.2) % Lymph % (Auto) (20.5-50.1) % [place] % (Auto) (2-8) % Eos % (Auto) (1.0-3.0) % Baso % (Auto) (0.0-1.0) % PT 13.5 H (9.0-12.0) SEC INR 1.4 H (0.9-1.2) Sodium 142 (136-145) mmol/L Potassium 4.0 (3.5-5.1) mmol/L Chloride 99 (98-107) mmol/L Carbon Dioxide 42 H* (21-32) mmol/L Anion Gap 5.0 L (7-13) mEq/L BUN 25 H (7-18) mg/dL Creatinine 0.99 (0.55-1.02) mg/dL Est Cr Clr Drug Dosing 42.43 mL/min Estimated GFR (MDRD) 54 Glucose 204 H (70-99) mg/dL POC Glucose 222 H (70-99) mg/dL Calcium 9.0 (8.5-10.1) mg/dL B-Natriuretic Peptide 1160 H (0-100) pg/ml 08/22/21 Range/Units 11:40 WBC (5.0-10.0) 10^3/uL RBC (4.2-5.4) 10^6/uL Hgb (12.0-16.0) g/dL Hct (37.0-47.0) % MCV (80-100) fL MCH (27.0-34.0) pg MCHC (33.0-35.0) g/dL Plt Count (150-450) 10^3/uL Neut % (Auto) (42.2-75.2) % Lymph % (Auto) (20.5-50.1) % [place] % (Auto) (2-8) % Eos % (Auto) (1.0-3.0) % Baso % (Auto) (0.0-1.0) % PT (9.0-12.0) SEC INR (0.9-1.2) Sodium (136-145) mmol/L Potassium (3.5-5.1) mmol/L Chloride (98-107) mmol/L Carbon Dioxide (21-32) mmol/L Anion Gap (7-13) mEq/L BUN (7-18) mg/dL Creatinine (0.55-1.02) mg/dL Est Cr Clr Drug Dosing mL/min Estimated GFR (MDRD) Glucose (70-99) mg/dL POC Glucose 312 H (70-99) mg/dL Calcium (8.5-10.1) mg/dL B-Natriuretic Peptide (0-100) pg/ml [place] Results Last 24 Hours: Microbiology 08/17/21 12:10 Aerobic Blood Culture - Final Blood - Arm, Right NO GROWTH AFTER 5 DAYS Anaerobic Blood Culture - Final NO GROWTH AFTER 5 DAYS 08/17/21 12:01 Aerobic Blood Culture - Final Blood - Arm, Left NO GROWTH AFTER 5 DAYS Anaerobic Blood Culture - Final NO GROWTH AFTER 5 DAYS 08/16/21 15:16 Aerobic Blood Culture - Final Blood - Arm, Right NO GROWTH AFTER 5 DAYS Anaerobic Blood Culture - Final 08/16/21 14:43 Aerobic Blood Culture - Final Blood - Venous - Iv Start NO GROWTH AFTER 5 DAYS Anaerobic Blood Culture - Final Streptococcus Agalactiae Grp B Med Orders - Current: Current Medications Acetaminophen (Acetaminophen 325 Mg Tab) 650 mg PO Q4H PRN PRN Reason: Pain (Mild 1-3)/fever Albuterol/Ipratropium (Albuterol/Ipratropium 3.0-0.5 Mg/3 Ml Neb Soln) 3 ml NEB Q2H PRN PRN Reason: sob Last Admin: 08/20/21 09:33 Dose: 3 ml Documented by: Albuterol/Ipratropium (Albuterol/Ipratropium 3.0-0.5 Mg/3 Ml Neb Soln) 3 ml NEB Q6HRRT [facility] Last Admin: 08/22/21 10:17 Dose: Not Given Documented by: Aspirin (Aspirin 81 Mg Tab.Ec) 81 mg PO WITHBREAKFAST [facility] Last Admin: 08/22/21 08:42 Dose: 81 mg Documented by: Atorvastatin Calcium (Atorvastatin 20 Mg Tab) 80 mg PO BEDTIME [facility] Last Admin: 08/21/21 20:58 Dose: 80 mg Documented by: Budesonide (Budesonide 0.5 Mg/2 Ml Neb Susp) 0.5 mg NEB BIDRT [facility] Last Admin: 08/22/21 10:17 Dose: Not Given Documented by: Dextrose/Water (50% Dextrose In Water 50 Ml Syringe) 25 ml IVPUSH ASDIRECTED PRN PRN Reason: Hypoglycemia BS<70 Docusate Sodium (Docusate Sodium 100 Mg Cap) 200 mg PO BEDTIME [facility] Last Admin: 08/21/21 20:58 Dose: 200 mg Documented by: Enoxaparin Sodium (Enoxaparin 80 Mg/0.8 Ml Syringe) 80 mg SUBCUT BID [facility] Ferrous Sulfate (Ferrous Sulfate 325 Mg Tab) 325 mg PO DAILY [facility] Last Admin: 08/22/21 08:43 Dose: 325 mg Documented by: Furosemide (Furosemide 20 Mg/2 Ml Vial) 40 mg IVPUSH TID [facility] Last Admin: 08/22/21 08:43 Dose: 40 mg Documented by: Levofloxacin/Dextrose 750 mg/ (Premix) 150 mls @ 100 mls/hr IV Q48H [facility] Last Admin: 08/20/21 20:07 Dose: 100 mls/hr Documented by: Insulin Human Lispro (Insulin Lispro 100 Units/Ml 3 Ml Vial) 0 unit SUBCUT WITHMEALSANDBED [facility]; Protocol Last Admin: 08/22/21 12:28 Dose: 8 units Documented by: Lactulose (Lactulose Soln 10 Gm/15 Ml 30 Ml Ud Cup) 20 gm PO Q12H PRN PRN Reason: Constipation Last Admin: 08/19/21 08:58 Dose: 20 gm Documented by: Methylprednisolone Sodium Succinate (Methylprednisolone Sodium Succinate 40 Mg/1 Ml Sdv) 40 mg IVPUSH Q8H [facility] Last Admin: 08/22/21 10:32 Dose: 40 mg Documented by: Metoprolol Succinate (Metoprolol Succinate 50 Mg Tab.Er) 100 mg PO DAILY [facility] Last Admin: 08/22/21 08:42 Dose: 100 mg Documented by: Ondansetron HCl (Ondansetron 4 Mg/2 Ml Sdv) 4 mg IVPUSH Q6H PRN PRN Reason: Nausea/Vomiting Pantoprazole Sodium (Pantoprazole 40 Mg Tab.Cr) 40 mg PO ACBREAKFAST [facility] Last Admin: 08/22/21 06:06 Dose: 40 mg Documented by: Polyethylene Glycol (Polyethylene Glycol 3350 Powder 17 Gm Packet) 17 gm PO DAILY [facility] Last Admin: 08/22/21 08:43 Dose: 17 gm Documented by: Simethicone (Simethicone 80 Mg Tab.Chew) 80 mg PO Q6H PRN PRN Reason: bloating Last Admin: 08/18/21 04:52 Dose: 80 mg Documented by: Sodium Chloride (Sodium Chloride 0.9% 10 Ml Syringe) 10 ml FLUSH ASDIRECTED PRN PRN Reason: Keep Vein Open Last Admin: 08/21/21 15:25 Dose: 10 ml Documented by: Discontinued Medications Aspirin (Aspirin 81 Mg Tab.Chew) 324 mg PO ONETIME ONE Stop: 08/16/21 21:16 Last Admin: 08/16/21 21:31 Dose: 324 mg Documented by: Furosemide (Furosemide 40 Mg/4 Ml Vial) 40 mg IVPUSH ONETIME ONE Stop: 08/16/21 15:09 Last Admin: 08/16/21 15:23 Dose: 40 mg Documented by: Furosemide (Furosemide 20 Mg/2 Ml Vial) 20 mg IVPUSH BIDDIURETIC [facility] Last Admin: 08/19/21 08:29 Dose: 20 mg Documented by: Furosemide (Furosemide 20 Mg/2 Ml Vial) 20 mg IVPUSH TID [facility] Last Admin: 08/20/21 09:25 Dose: 20 mg Documented by: Sodium Chloride (Normal Saline) 1,000 mls @ 75 mls/hr IV ASDIRECTED [facility] Last Admin: 08/16/21 15:24 Dose: 75 mls/hr Documented by: Ceftriaxone Sodium 1 gm/ (Sodium Chloride) 50 mls @ 100 mls/hr IV ONETIME ONE Stop: 08/16/21 15:37 Last Admin: 08/16/21 15:23 Dose: 100 mls/hr Documented by: Levofloxacin/Dextrose 750 mg/ (Premix) 150 mls @ 100 mls/hr IV Q24H [facility] Last Admin: 08/17/21 16:23 Dose: Not Given Documented by: Vancomycin HCl 1 gm/ Sodium (Chloride) 250 mls @ 250 mls/hr IV DAILY@1600 [facility] Last Admin: 08/18/21 16:08 Dose: 250 mls/hr Documented by: Vancomycin HCl (Pharmacy To Dose - Vancomycin) 1 dose .XX ASDIRECTED [facility] Warfarin Sodium (Pharmacy To Dose - Warfarin) 1 dose .XX ASDIRECTED [facility] Warfarin Sodium (Warfarin 2 Mg Tab) 2 mg PO DAILY@1400 [facility] Last Admin: 08/18/21 14:54 Dose: 2 mg Documented by: Warfarin Sodium (Warfarin 2 Mg Tab) 2 mg PO DAILY@1400 [facility] Warfarin Sodium (Warfarin 1 Mg Tab) 1 mg PO DAILY@1400 [facility] Stop: 08/19/21 14:01 Last Admin: 08/19/21 15:04 Dose: 1 mg Documented by: Warfarin Sodium (Warfarin 1 Mg Tab) 0.5 mg PO ONETIME ONE Stop: 08/20/21 14:01 Last Admin: 08/20/21 14:33 Dose: 0.5 mg Documented by: Warfarin Sodium (Warfarin 1 Mg Tab) 1 mg PO ONETIME ONE Stop: 08/21/21 14:01 Last Admin: 08/21/21 15:25 Dose: 1 mg Documented by: Warfarin Sodium (Warfarin 2 Mg Tab) 2 mg PO ONETIME ONE Stop: 08/22/21 14:01 - Exam Quality Assessment: Supplemental Oxygen General: Alert, Oriented Lungs: Normal Respiratory Effort, Decreased Breath Sounds, Rhonchi. No: Wheez ing Cardiovascular: Irregular Rhythm. No: Tachycardia GI/Abdominal Exam: Normal Bowel Sounds, Soft, Non-Tender Extremities: Pedal Edema (trace, much improved) - Patient Data Lab Results Last 24 hrs: Laboratory Results - last 24 hr 08/21/21 08/21/21 08/22/21 Range/Units 16:38 20:02 05:55 WBC 7.9 (5.0-10.0) 10^3/uL RBC 3.45 L (4.2-5.4) 10^6/uL Hgb 8.6 L (12.0-16.0) g/dL Hct 31.0 L (37.0-47.0) % MCV 89.9 (80-100) fL MCH 24.9 L (27.0-34.0) pg MCHC 27.7 L (33.0-35.0) g/dL Plt Count 256 (150-450) 10^3/uL Neut % (Auto) 91.3 H (42.2-75.2) % Lymph % (Auto) 4.3 L (20.5-50.1) % [place] % (Auto) 4.3 (2-8) % Eos % (Auto) 0.0 L (1.0-3.0) % Baso % (Auto) 0.1 (0.0-1.0) % PT (9.0-12.0) SEC INR (0.9-1.2) Sodium (136-145) mmol/L Potassium (3.5-5.1) mmol/L Chloride (98-107) mmol/L Carbon Dioxide (21-32) mmol/L Anion Gap (7-13) mEq/L BUN (7-18) mg/dL Creatinine (0.55-1.02) mg/dL Est Cr Clr Drug Dosing mL/min Estimated GFR (MDRD) Glucose (70-99) mg/dL POC Glucose 241 H 222 H (70-99) mg/dL Calcium (8.5-10.1) mg/dL B-Natriuretic Peptide (0-100) pg/ml 08/22/21 08/22/21 08/22/21 Range/Units 05:55 05:55 08:09 WBC (5.0-10.0) 10^3/uL RBC (4.2-5.4) 10^6/uL Hgb (12.0-16.0) g/dL Hct (37.0-47.0) % MCV (80-100) fL MCH (27.0-34.0) pg MCHC (33.0-35.0) g/dL Plt Count (150-450) 10^3/uL Neut % (Auto) (42.2-75.2) % Lymph % (Auto) (20.5-50.1) % [place] % (Auto) (2-8) % Eos % (Auto) (1.0-3.0) % Baso % (Auto) (0.0-1.0) % PT 13.5 H (9.0-12.0) SEC INR 1.4 H (0.9-1.2) Sodium 142 (136-145) mmol/L Potassium 4.0 (3.5-5.1) mmol/L Chloride 99 (98-107) mmol/L Carbon Dioxide 42 H* (21-32) mmol/L Anion Gap 5.0 L (7-13) mEq/L BUN 25 H (7-18) mg/dL Creatinine 0.99 (0.55-1.02) mg/dL Est Cr Clr Drug Dosing 42.43 mL/min Estimated GFR (MDRD) 54 Glucose 204 H (70-99) mg/dL POC Glucose 222 H (70-99) mg/dL Calcium 9.0 (8.5-10.1) mg/dL B-Natriuretic Peptide 1160 H (0-100) pg/ml 08/22/ Range/Units 11:40 WBC (5.0-10.0) 10^3/uL RBC (4.2-5.4) 10^6/uL Hgb (12.0-16.0) g/dL Hct (37.0-47.0) % MCV (80-100) fL MCH (27.0-34.0) pg MCHC (33.0-35.0) g/dL Plt Count (150-450) 10^3/uL Neut % (Auto) (42.2-75.2) % Lymph % (Auto) (20.5-50.1) % [place] % (Auto) (2-8) % Eos % (Auto) (1.0-3.0) % Baso % (Auto) (0.0-1.0) % PT (9.0-12.0) SEC INR (0.9-1.2) Sodium (136-145) mmol/L Potassium (3.5-5.1) mmol/L Chloride (98-107) mmol/L Carbon Dioxide (21-32) mmol/L Anion Gap (7-13) mEq/L BUN (7-18) mg/dL Creatinine (0.55-1.02) mg/dL Est Cr Clr Drug Dosing mL/min Estimated GFR (MDRD) Glucose (70-99) mg/dL POC Glucose 312 H (70-99) mg/dL Calcium (8.5-10.1) mg/dL B-Natriuretic Peptide (0-100) pg/ml Result Diagrams: 08/22/21 05:55 08/22/21 05:55 [place] Results Last 24 hrs: Microbiology 08/17/21 12:10 Aerobic Blood Culture - Final Blood - Arm, Right NO GROWTH AFTER 5 DAYS Anaerobic Blood Culture - Final NO GROWTH AFTER 5 DAYS 08/17/21 12:01 Aerobic Blood Culture - Final Blood - Arm, Left NO GROWTH AFTER 5 DAYS Anaerobic Blood Culture - Final NO GROWTH AFTER 5 DAYS 08/16/21 15:16 Aerobic Blood Culture - Final Blood - Arm, Right NO GROWTH AFTER 5 DAYS Anaerobic Blood Culture - Final 08/16/21 14:43 Aerobic Blood Culture - Final Blood - Venous - Iv Start NO GROWTH AFTER 5 DAYS Anaerobic Blood Culture - Final Streptococcus Agalactiae Grp B Sepsis Event Note - Evaluation Sepsis Screening Result: No Definite Risk - Focused Exam Vital Signs: Vital Signs Temp Pulse Pulse Pulse Resp BP BP 08/22/21 08:42 61 125/51 L 08/22/21 08:30 97.0 F 61 20 125/51 L 08/22/21 04:30 97.9 F 79 20 BP Pulse Ox 08/22/21 08:42 08/22/21 08:30 98 08/22/21 04:30 97/56 L 99 - Problem List & Annotations (1) CHF (congestive heart failure) SNOMED Code(s): 57479061 Code(s): I50.9 - HEART FAILURE, UNSPECIFIED Status: Acute Current Visit: Yes Qualifiers: Heart failure type: unspecified Heart failure chronicity: acute on chronic Qualified Code(s): I50.9 - Heart failure, unspecified (2) Pneumonia SNOMED Code(s): 693522234 Code(s): J18.9 - PNEUMONIA, UNSPECIFIED ORGANISM Status: Acute Current Visit: Yes Qualifiers: Pneumonia type: due to unspecified organism Laterality: left Lung locati on: lower lobe of lung Qualified Code(s): J18.9 - Pneumonia, unspecified organism (3) Acute congestive heart failure SNOMED Code(s): 48567208 Code(s): I50.9 - HEART FAILURE, UNSPECIFIED Status: Acute Priority: High Current Visit: No (4) Acute hypernatremia SNOMED Code(s): 9552174 Code(s): E87.0 - HYPEROSMOLALITY AND HYPERNATREMIA Status: Acute Current Visit: No (5) COPD exacerbation SNOMED Code(s): 170585625, 337822699 Code(s): J44.1 - CHRONIC OBSTRUCTIVE PULMONARY DISEASE W (ACUTE) EXACERBATION Status: Acute Current Visit: No (6) Chronic anticoagulation SNOMED Code(s): 260501508 Code(s): Z79.01 - HEELER MACHINE (CURRENT) USE OF ANTICOAGULANTS Status: Acute Current Visit: No (7) History of atrial fibrillation SNOMED Code(s): 256442783 Code(s): Z86.79 - PERSONAL HISTORY OF OTHER DISEASES OF THE CIRCULATORY SYSTEM Status: Acute Current Visit: No (8) Sepsis SNOMED Code(s): 74608440 Code(s): A41.9 - SEPSIS, UNSPECIFIED ORGANISM Status: Acute Current Visit: No Qualifiers: Sepsis type: sepsis due to unspecified organism Sepsis acute organ dysfunction status: unspecified Qualified Code(s): A41.9 - Sepsis, unspecified organism (9) Coronary artery disease SNOMED Code(s): 40816722 Code(s): I25.10 - ATHSCL HEART DISEASE OF [place] CORONARY ARTERY W/O ANG PCTRS Status: Chronic Current Visit: No - Problem List Review Problem List Initiated/Reviewed/Updated: Yes - My Orders Last 24 Hours: My Active Orders 08/22/21 21:00 Enoxaparin [Lovenox] 80 mg SUBCUT BID 08/23/21 05:11 Chest 1V Frontal [CR] AM BASIC METABOLIC PANEL,BMP [CHEM] AM CBC WITH AUTO DIFF [HEME] AM INR,PT,PROTHROMBIN TIME [COAG] AM 08/24/21 05:11 BASIC METABOLIC PANEL,BMP [CHEM] AM CBC WITH AUTO DIFF [HEME] AM 08/25/21 05:11 BASIC METABOLIC PANEL,BMP [CHEM] AM CBC WITH AUTO DIFF [HEME] AM 08/26/21 05:11 BASIC METABOLIC PANEL,BMP [CHEM] AM CBC WITH AUTO DIFF [HEME] AM 08/27/21 05:11 BASIC METABOLIC PANEL,BMP [CHEM] AM CBC WITH AUTO DIFF [HEME] AM 08/28/21 05:11 BASIC METABOLIC PANEL,BMP [CHEM] AM CBC WITH AUTO DIFF [HEME] AM - Plan Plan:: Acute systolic chf systolic Last echo ef: 45-50% With extensive LE edema - improved Chf on cxr with pleural effusion is still significant bnp is still up but improving Will continue to diurese her with IV lasix - with increased dose of 40 mg IV tid Peter hose Cont metoprolol Hold david/arb: re low BPs pleural effusion could benefit from thoracentesis but high risk of complications with INR therapeutic level now INR is down I will hold coumadin for now repeat cxr in AM will try to resolve with increased diuretics but if no improvement consider thoracentesis - hold coumadin for now Possible infiltrate With leukocytosis BC: strep agalactiae gram negative pneumonia with recent hospitalization ruled out sputum cx: pending Blood cx 08/16: strep agalactiae sens to pcn, linezolid, levo blood cx 08/17: neg Treat with levofloxacin sepsis POA treat infection Support BP as needed Wheezing Acute copd exacerbation improved Treat with pulmicort Use duoneb scheduled and as needed cont solumedrol Acute on chronic hypoxemic respiratory failure Normally on 2 l/min nc oxygen Will supplement oxygen as needed Hyponatremia Mild Will follow with diuretics Type II non st SD With minimally elevated trop - improved Will monitor on tele Trend troponin cont asa Cont metoprolol anemia no apparent bleeding will follow Diabetes Hold metformin Use supplemental insulin as needed Chronic afib Rate control with metoprolol Anticoagulation hold Coumadin for possible procedure use lovenox in the meantime constipation cont lactulose, miralax, docusate weakness cont pt/ot She elected DNR code status on admission
[2021-08-22] MEDS ORDERED: Warfarin 2 MG Tab PO ONE (14:00)
[2021-08-22] MEDS: Levofloxacin/Dextrose 5%-Water 750 MG in Premix Bag 1 BAG IV SCH (20:20)
[2021-08-22] MEDS: Enoxaparin 80 MG/0.8 ML Syringe SUBCUT SCH (20:21)
[2021-08-22] MEDS: atorvaSTATin 20 MG Tab PO SCH (20:21)
[2021-08-22] MEDS: Docusate Sodium 100 MG Cap PO SCH (20:21)
[2021-08-23] MEDS: Albuterol/Ipratropium 3.0-0.5 MG/3 ML Neb Soln NEB SCH ×4 (01:36→18:13)
[2021-08-23] MEDS: methylPREDNISolone Sodium Succinate 40 MG/1 ML SDV IVPUSH SCH ×3 (01:36→17:20)
[2021-08-23] MEDS: Pantoprazole 40 MG Tab.CR PO SCH (05:35)
[2021-08-23 06:36] LABS: CHLORIDE,CL 96 mmol/L (98-107); SODIUM,NA 140 mmol/L (136-145)
[2021-08-23] MEDS: Budesonide 0.5 MG/2 ML Neb Susp NEB SCH ×2 (07:12→18:14)
[2021-08-23] MEDS: Ferrous Sulfate 325 MG Tab PO SCH (08:24)
[2021-08-23] MEDS: Metoprolol Succinate 50 MG Tab.ER PO SCH (08:24)
[2021-08-23] MEDS: Aspirin 81 MG Tab.EC PO SCH (08:24)
[2021-08-23] MEDS: Enoxaparin 80 MG/0.8 ML Syringe SUBCUT SCH ×2 (08:24→20:53)
[2021-08-23] MEDS: Furosemide 20 MG/2 ML VIAL IVPUSH SCH ×3 (08:25→20:55)
[2021-08-23] MEDS: Polyethylene Glycol 3350 Powder 17 GM Packet PO SCH (08:32)
[2021-08-23] MEDS: Insulin Lispro 100 Units/ML 3 ML Vial SUBCUT SCH ×4 (08:37→20:54)
--- NOTE | 2021-08-23 08:56 | CR ---
EXAMINATION: Chest 1V Frontal SEX: Female AGE: 80 years CLINICAL HISTORY: 80-year-old female hospitalized with radiographic signs of CHF (vascular congestion; bibasilar effusions) and shortness of breath. Comparison CXR's and 20 August 2021. Interpretation: IMPROVEMENT. Reproducible evidence of cardiovascular decompensation but..... Pulmonary vascularity decidedly less congested. Relative decreased volume dependent subpulmonic pleural effusion, particularly on the right. Cardiac silhouette less prominent. Persistent underlying lower lobe atelectasis or infiltrates (left greater than right).
[2021-08-23] MEDS ORDERED: Metoprolol Tartrate 5 MG/5 ML SDV IVPUSH ONE ×2 (09:37→10:26)
--- NOTE | 2021-08-23 11:45 | PCM.PN ---
- General Info Date of Service: 08/23/21 Admission Dx/Problem (Free Text): Admission Diagnosis/Problem Admission Diagnosis/Problem CHF Subjective Update: continued to have sob but improved on supplemental oxygen at 3 l/min (baseline is 2 l/min) leg swelling is improved has ronchi and cough has significant weakness no fever Functional Status: Reports: Tolerating Diet - Review of Systems General: Reports: Weakness. Denies: Fever Pulmonary: Reports: Shortness of Breath, Cough. Denies: Wheezing Cardiovascular: Reports: Edema (improved). Denies: Chest Pain Neurological: Denies: Confusion Psychiatric: Denies: Anxiety - Patient Data Vitals - Most Recent: Last Vital Signs Temp 97.4 F 08/23/21 08:32 Pulse 116 H 08/23/21 10:42 Resp 20 08/23/21 08:32 BP 101/47 L 08/23/21 10:42 Pulse Ox 92 L 08/23/21 08:32 Weight - Most Recent: 169 lb 3.2 oz I&O - Last 24 Hours: Intake & Output 08/22/21 08/23/21 08/23/21 22:59 06:59 14:59 Intake Total 160 150 160 Output Total 550 695 Balance -390 -545 160 Lab Results Last 24 Hours: Laboratory Results - last 24 hr 08/22/21 08/22/21 08/22/21 Range/Units 11:40 16:42 19:56 WBC (5.0-10.0) 10^3/uL RBC (4.2-5.4) 10^6/uL Hgb (12.0-16.0) g/dL Hct (37.0-47.0) % MCV (80-100) fL MCH (27.0-34.0) pg MCHC (33.0-35.0) g/dL Plt Count (150-450) 10^3/uL Neut % (Auto) (42.2-75.2) % Lymph % (Auto) (20.5-50.1) % Major % (Auto) (2-8) % Eos % (Auto) (1.0-3.0) % Baso % (Auto) (0.0-1.0) % PT (9.0-12.0) SEC INR (0.9-1.2) Sodium (136-145) mmol/L Potassium (3.5-5.1) mmol/L Chloride (98-107) mmol/L Carbon Dioxide (21-32) mmol/L Anion Gap (7-13) mEq/L BUN (7-18) mg/dL Creatinine (0.55-1.02) mg/dL Est Cr Clr Drug Dosing mL/min Estimated GFR (MDRD) Glucose (70-99) mg/dL POC Glucose 312 H 252 H 238 H (70-99) mg/dL Calcium (8.5-10.1) mg/dL 08/23/21 08/23/21 08/23/21 Range/Units 05:45 05:45 05:45 WBC 10.0 (5.0-10.0) 10^3/uL RBC 3.84 L (4.2-5.4) 10^6/uL Hgb 9.5 L (12.0-16.0) g/dL Hct 34.4 L (37.0-47.0) % MCV 89.6 (80-100) fL MCH 24.7 L (27.0-34.0) pg MCHC 27.6 L (33.0-35.0) g/dL Plt Count 282 (150-450) 10^3/uL Neut % (Auto) 90.0 H (42.2-75.2) % Lymph % (Auto) 4.7 L (20.5-50.1) % Major % (Auto) 5.2 (2-8) % Eos % (Auto) 0.0 L (1.0-3.0) % Baso % (Auto) 0.1 (0.0-1.0) % PT 12.7 H (9.0-12.0) SEC INR 1.3 H (0.9-1.2) Sodium 140 (136-145) mmol/L Potassium 4.1 (3.5-5.1) mmol/L Chloride 96 L (98-107) mmol/L Carbon Dioxide > 45 H* (21-32) mmol/L Anion Gap 3.43797 L (7-13) mEq/L BUN 25 H (7-18) mg/dL Creatinine 1.00 (0.55-1.02) mg/dL Est Cr Clr Drug Dosing 42.00 mL/min Estimated GFR (MDRD) 53 Glucose 210 H (70-99) mg/dL POC Glucose (70-99) mg/dL Calcium 9.2 (8.5-10.1) mg/dL 08/23/21 Range/Units 07:54 WBC (5.0-10.0) 10^3/uL RBC (4.2-5.4) 10^6/uL Hgb (12.0-16.0) g/dL Hct (37.0-47.0) % MCV (80-100) fL MCH (27.0-34.0) pg MCHC (33.0-35.0) g/dL Plt Count (150-450) 10^3/uL Neut % (Auto) (42.2-75.2) % Lymph % (Auto) (20.5-50.1) % Major % (Auto) (2-8) % Eos % (Auto) (1.0-3.0) % Baso % (Auto) (0.0-1.0) % PT (9.0-12.0) SEC INR (0.9-1.2) Sodium (136-145) mmol/L Potassium (3.5-5.1) mmol/L Chloride (98-107) mmol/L Carbon Dioxide (21-32) mmol/L Anion Gap (7-13) mEq/L BUN (7-18) mg/dL Creatinine (0.55-1.02) mg/dL Est Cr Clr Drug Dosing mL/min Estimated GFR (MDRD) Glucose (70-99) mg/dL POC Glucose 209 H (70-99) mg/dL Calcium (8.5-10.1) mg/dL [facility] Results Last 24 Hours: Microbiology 08/17/21 12:10 Aerobic Blood Culture - Final Blood - Arm, Right NO GROWTH AFTER 5 DAYS Anaerobic Blood Culture - Final NO GROWTH AFTER 5 DAYS 08/17/21 12:01 Aerobic Blood Culture - Final Blood - Arm, Left NO GROWTH AFTER 5 DAYS Anaerobic Blood Culture - Final NO GROWTH AFTER 5 DAYS Med Orders - Current: Current Medications Acetaminophen (Acetaminophen 325 Mg Tab) 650 mg PO Q4H PRN PRN Reason: Pain (Mild 1-3)/fever Albuterol/Ipratropium (Albuterol/Ipratropium 3.0-0.5 Mg/3 Ml Neb Soln) 3 ml NEB Q2H PRN PRN Reason: sob Last Admin: 08/20/21 09:33 Dose: 3 ml Documented by: Albuterol/Ipratropium (Albuterol/Ipratropium 3.0-0.5 Mg/3 Ml Neb Soln) 3 ml NEB Q6HRRT [facility] Last Admin: 08/23/21 07:12 Dose: 3 ml Documented by: Aspirin (Aspirin 81 Mg Tab.Ec) 81 mg PO WITHBREAKFAST [facility] Last Admin: 08/23/21 08:24 Dose: 81 mg Documented by: Atorvastatin Calcium (Atorvastatin 20 Mg Tab) 80 mg PO BEDTIME [facility] Last Admin: 08/22/21 20:21 Dose: 80 mg Documented by: Budesonide (Budesonide 0.5 Mg/2 Ml Neb Susp) 0.5 mg NEB BIDRT [facility] Last Admin: 08/23/21 07:12 Dose: Not Given Documented by: Dextrose/Water (50% Dextrose In Water 50 Ml Syringe) 25 ml IVPUSH ASDIRECTED PRN PRN Reason: Hypoglycemia BS<70 Docusate Sodium (Docusate Sodium 100 Mg Cap) 200 mg PO BEDTIME [facility] Last Admin: 08/22/21 20:21 Dose: 200 mg Documented by: Enoxaparin Sodium (Enoxaparin 80 Mg/0.8 Ml Syringe) 80 mg SUBCUT BID [facility] Last Admin: 08/23/21 08:24 Dose: 80 mg Documented by: Ferrous Sulfate (Ferrous Sulfate 325 Mg Tab) 325 mg PO DAILY [facility] Last Admin: 08/23/21 08:24 Dose: 325 mg Documented by: Furosemide (Furosemide 20 Mg/2 Ml Vial) 40 mg IVPUSH TID [facility] Last Admin: 08/23/21 08:25 Dose: 40 mg Documented by: Levofloxacin/Dextrose 750 mg/ (Premix) 150 mls @ 100 mls/hr IV Q48H [facility] Last Admin: 08/22/21 20:20 Dose: 100 mls/hr Documented by: Insulin Human Lispro (Insulin Lispro 100 Units/Ml 3 Ml Vial) 0 unit SUBCUT WITHMEALSANDBED [facility]; Protocol Last Admin: 08/23/21 08:37 Dose: 4 units Documented by: Lactulose (Lactulose Soln 10 Gm/15 Ml 30 Ml Ud Cup) 20 gm PO Q12H PRN PRN Reason: Constipation Last Admin: 08/19/21 08:58 Dose: 20 gm Documented by: Methylprednisolone Sodium Succinate (Methylprednisolone Sodium Succinate 40 Mg/1 Ml Sdv) 40 mg IVPUSH Q8H [facility] Last Admin: 08/23/21 09:58 Dose: 40 mg Documented by: Metoprolol Succinate (Metoprolol Succinate 50 Mg Tab.Er) 100 mg PO DAILY [facility] Last Admin: 08/23/21 08:24 Dose: 100 mg Documented by: Ondansetron HCl (Ondansetron 4 Mg/2 Ml Sdv) 4 mg IVPUSH Q6H PRN PRN Reason: Nausea/Vomiting Pantoprazole Sodium (Pantoprazole 40 Mg Tab.Cr) 40 mg PO ACBREAKFAST [facility] Last Admin: 08/23/21 05:35 Dose: 40 mg Documented by: Polyethylene Glycol (Polyethylene Glycol 3350 Powder 17 Gm Packet) 17 gm PO DAILY [facility] Last Admin: 08/23/21 08:32 Dose: 17 gm Documented by: Simethicone (Simethicone 80 Mg Tab.Chew) 80 mg PO Q6H PRN PRN Reason: bloating Last Admin: 08/18/21 04:52 Dose: 80 mg Documented by: Sodium Chloride (Sodium Chloride 0.9% 10 Ml Syringe) 10 ml FLUSH ASDIRECTED PRN PRN Reason: Keep Vein Open Last Admin: 08/21/21 15:25 Dose: 10 ml Documented by: Discontinued Medications Aspirin (Aspirin 81 Mg Tab.Chew) 324 mg PO ONETIME ONE Stop: 08/16/21 21:16 Last Admin: 08/16/21 21:31 Dose: 324 mg Documented by: Furosemide (Furosemide 40 Mg/4 Ml Vial) 40 mg IVPUSH ONETIME ONE Stop: 08/16/21 15:09 Last Admin: 08/16/21 15:23 Dose: 40 mg Documented by: Furosemide (Furosemide 20 Mg/2 Ml Vial) 20 mg IVPUSH BIDDIURETIC [facility] Last Admin: 08/19/21 08:29 Dose: 20 mg Documented by: Furosemide (Furosemide 20 Mg/2 Ml Vial) 20 mg IVPUSH TID [facility] Last Admin: 08/20/21 09:25 Dose: 20 mg Documented by: Sodium Chloride (Normal Saline) 1,000 mls @ 75 mls/hr IV ASDIRECTED [facility] Last Admin: 08/16/21 15:24 Dose: 75 mls/hr Documented by: Ceftriaxone Sodium 1 gm/ (Sodium Chloride) 50 mls @ 100 mls/hr IV ONETIME ONE Stop: 08/16/21 15:37 Last Admin: 08/16/21 15:23 Dose: 100 mls/hr Documented by: Levofloxacin/Dextrose 750 mg/ (Premix) 150 mls @ 100 mls/hr IV Q24H [facility] Last Admin: 08/17/21 16:23 Dose: Not Given Documented by: Vancomycin HCl 1 gm/ Sodium (Chloride) 250 mls @ 250 mls/hr IV DAILY@1600 [facility] Last Admin: 08/18/21 16:08 Dose: 250 mls/hr Documented by: Metoprolol Tartrate (Metoprolol Tartrate 5 Mg/5 Ml Sdv) 5 mg IVPUSH ONETIME ONE Stop: 08/23/21 09:38 Last Admin: 08/23/21 09:51 Dose: 5 mg Documented by: Metoprolol Tartrate (Metoprolol Tartrate 5 Mg/5 Ml Sdv) 5 mg IVPUSH ONETIME ONE Stop: 08/23/21 10:27 Last Admin: 08/23/21 10:42 Dose: 5 mg Documented by: Vancomycin HCl (Pharmacy To Dose - Vancomycin) 1 dose .XX ASDIRECTED [facility] Warfarin Sodium (Pharmacy To Dose - Warfarin) 1 dose .XX ASDIRECTED [facility] Warfarin Sodium (Warfarin 2 Mg Tab) 2 mg PO DAILY@1400 [facility] Last Admin: 08/18/21 14:54 Dose: 2 mg Documented by: Warfarin Sodium (Warfarin 2 Mg Tab) 2 mg PO DAILY@1400 [facility] Warfarin Sodium (Warfarin 1 Mg Tab) 1 mg PO DAILY@1400 [facility] Stop: 08/19/21 14:01 Last Admin: 08/19/21 15:04 Dose: 1 mg Documented by: Warfarin Sodium (Warfarin 1 Mg Tab) 0.5 mg PO ONETIME ONE Stop: 08/20/21 14:01 Last Admin: 08/20/21 14:33 Dose: 0.5 mg Documented by: Warfarin Sodium (Warfarin 1 Mg Tab) 1 mg PO ONETIME ONE Stop: 08/21/21 14:01 Last Admin: 08/21/21 15:25 Dose: 1 mg Documented by: Warfarin Sodium (Warfarin 2 Mg Tab) 2 mg PO ONETIME ONE Stop: 08/22/21 14:01 - Exam Quality Assessment: Supplemental Oxygen General: Alert, Oriented Neck: Supple Lungs: Normal Respiratory Effort, Decreased Breath Sounds, Rales, Rhonchi Cardiovascular: Irregular Rhythm, Tachycardia (on tele hr 130-160s rapid afib) GI/Abdominal Exam: Normal Bowel Sounds, Soft, Non-Tender Extremities: No Pedal Edema - Patient Data Lab Results Last 24 hrs: Laboratory Results - last 24 hr 08/22/21 08/22/21 08/22/21 Range/Units 11:40 16:42 19:56 WBC (5.0-10.0) 10^3/uL RBC (4.2-5.4) 10^6/uL Hgb (12.0-16.0) g/dL Hct (37.0-47.0) % MCV (80-100) fL MCH (27.0-34.0) pg MCHC (33.0-35.0) g/dL Plt Count (150-450) 10^3/uL Neut % (Auto) (42.2-75.2) % Lymph % (Auto) (20.5-50.1) % Major % (Auto) (2-8) % Eos % (Auto) (1.0-3.0) % Baso % (Auto) (0.0-1.0) % PT (9.0-12.0) SEC INR (0.9-1.2) Sodium (136-145) mmol/L Potassium (3.5-5.1) mmol/L Chloride (98-107) mmol/L Carbon Dioxide (21-32) mmol/L Anion Gap (7-13) mEq/L BUN (7-18) mg/dL Creatinine (0.55-1.02) mg/dL Est Cr Clr Drug Dosing mL/min Estimated GFR (MDRD) Glucose (70-99) mg/dL POC Glucose 312 H 252 H 238 H (70-99) mg/dL Calcium (8.5-10.1) mg/dL 08/23/21 08/23/21 08/23/21 Range/Units 05:45 05:45 05:45 WBC 10.0 (5.0-10.0) 10^3/uL RBC 3.84 L (4.2-5.4) 10^6/uL Hgb 9.5 L (12.0-16.0) g/dL Hct 34.4 L (37.0-47.0) % MCV 89.6 (80-100) fL MCH 24.7 L (27.0-34.0) pg MCHC 27.6 L (33.0-35.0) g/dL Plt Count 282 (150-450) 10^3/uL Neut % (Auto) 90.0 H (42.2-75.2) % Lymph % (Auto) 4.7 L (20.5-50.1) % Major % (Auto) 5.2 (2-8) % Eos % (Auto) 0.0 L (1.0-3.0) % Baso % (Auto) 0.1 (0.0-1.0) % PT 12.7 H (9.0-12.0) SEC INR 1.3 H (0.9-1.2) Sodium 140 (136-145) mmol/L Potassium 4.1 (3.5-5.1) mmol/L Chloride 96 L (98-107) mmol/L Carbon Dioxide > 45 H* (21-32) mmol/L Anion Gap 3.69234 L (7-13) mEq/L BUN 25 H (7-18) mg/dL Creatinine 1.00 (0.55-1.02) mg/dL Est Cr Clr Drug Dosing 42.00 mL/min Estimated GFR (MDRD) 53 Glucose 210 H (70-99) mg/dL POC Glucose (70-99) mg/dL Calcium 9.2 (8.5-10.1) mg/dL 08/23/21 Range/Units 07:54 WBC (5.0-10.0) 10^3/uL RBC (4.2-5.4) 10^6/uL Hgb (12.0-16.0) g/dL Hct (37.0-47.0) % MCV (80-100) fL MCH (27.0-34.0) pg MCHC (33.0-35.0) g/dL Plt Count (150-450) 10^3/uL Neut % (Auto) (42.2-75.2) % Lymph % (Auto) (20.5-50.1) % Major % (Auto) (2-8) % Eos % (Auto) (1.0-3.0) % Baso % (Auto) (0.0-1.0) % PT (9.0-12.0) SEC INR (0.9-1.2) Sodium (136-145) mmol/L Potassium (3.5-5.1) mmol/L Chloride (98-107) mmol/L Carbon Dioxide (21-32) mmol/L Anion Gap (7-13) mEq/L BUN (7-18) mg/dL Creatinine (0.55-1.02) mg/dL Est Cr Clr Drug Dosing mL/min Estimated GFR (MDRD) Glucose (70-99) mg/dL POC Glucose 209 H (70-99) mg/dL Calcium (8.5-10.1) mg/dL Result Diagrams: 08/23/21 05:45 08/23/21 05:45 [facility] Results Last 24 hrs: Microbiology 08/17/21 12:10 Aerobic Blood Culture - Final Blood - Arm, Right NO GROWTH AFTER 5 DAYS Anaerobic Blood Culture - Final NO GROWTH AFTER 5 DAYS 08/17/21 12:01 Aerobic Blood Culture - Final Blood - Arm, Left NO GROWTH AFTER 5 DAYS Anaerobic Blood Culture - Final NO GROWTH AFTER 5 DAYS Sepsis Event Note - Evaluation Sepsis Screening Result: No Definite Risk - Focused Exam Vital Signs: Vital Signs Temp Pulse Pulse Resp BP BP BP 08/23/21 10:42 116 H 116 H 101/47 L 101/47 L 08/23/21 09:51 136 H 119/71 08/23/21 08:32 97.4 F 96 20 119/71 08/23/21 08:24 96 119/71 08/23/21 07:12 86 08/23/21 04:00 97.7 F 67 18 127/60 08/23/21 01:43 72 08/23/21 00:00 97.6 F 71 18 123/58 L Pulse Ox 08/23/21 10:42 08/23/21 09:51 08/23/21 08:32 92 L 08/23/21 08:24 08/23/21 07:12 08/23/21 04:00 95 08/23/21 01:43 08/23/21 00:00 95 - Problem List & Annotations (1) CHF (congestive heart failure) SNOMED Code(s): 50628073 Code(s): I50.9 - HEART FAILURE, UNSPECIFIED Status: Acute Current Visit: Yes Qualifiers: Heart failure type: unspecified Heart failure chronicity: acute on chronic Qualified Code(s): I50.9 - Heart failure, unspecified (2) Pneumonia SNOMED Code(s): 724089364 Code(s): J18.9 - PNEUMONIA, UNSPECIFIED ORGANISM Status: Acute Current Visit: Yes Qualifiers: Pneumonia type: due to unspecified organism Laterality: left Lung location: lower lobe of lung Qualified Code(s): J18.9 - Pneumonia, unspecified organism (3) Acute congestive heart failure SNOMED Code(s): 36727579 Code(s): I50.9 - HEART FAILURE, UNSPECIFIED Status: Acute Priority: High Current Visit: No (4) Acute hypernatremia SNOMED Code(s): 6686285 Code(s): E87.0 - HYPEROSMOLALITY AND HYPERNATREMIA Status: Acute Current Visit: No (5) COPD exacerbation SNOMED Code(s): 639256580, 538185465 Code(s): J44.1 - CHRONIC OBSTRUCTIVE PULMONARY DISEASE W (ACUTE) EXACERBATION Status: Acute Current Visit: No (6) Chronic anticoagulation SNOMED Code(s): 339977157 Code(s): Z79.01 - [facility] (CURRENT) USE OF ANTICOAGULANTS Status: Acute Current Visit: No (7) History of atrial fibrillation SNOMED Code(s): 829351037 Code(s): Z86.79 - PERSONAL HISTORY OF OTHER DISEASES OF THE CIRCULATORY SYSTEM Status: Acute Current Visit: No (8) Sepsis SNOMED Code(s): 29000641 Code(s): A41.9 - SEPSIS, UNSPECIFIED ORGANISM Status: Acute Current Visit: No Qualifiers: Sepsis type: sepsis due to unspecified organism Sepsis acute organ dysfunction status: unspecified Qualified Code(s): A41.9 - Sepsis, unspecified organism (9) Coronary artery disease SNOMED Code(s): 98449485 Code(s): I25.10 - ATHSCL HEART DISEASE OF [place] CORONARY ARTERY W/O ANG PCTRS Status: Chronic Current Visit: No - Problem List Review Problem List Initiated/Reviewed/Updated: Yes - My Orders Last 24 Hours: My Active Orders 08/22/21 21:00 Enoxaparin [Lovenox] 80 mg SUBCUT BID 08/24/21 05:11 B-TYPE NATRIURETIC PEPTIDE,BNP [CHEM] AM BASIC METABOLIC PANEL,BMP [CHEM] AM CBC WITH AUTO DIFF [HEME] AM 08/25/21 05:11 BASIC METABOLIC PANEL,BMP [CHEM] AM CBC WITH AUTO DIFF [HEME] AM 08/26/21 05:11 BASIC METABOLIC PANEL,BMP [CHEM] AM CBC WITH AUTO DIFF [HEME] AM 08/27/21 05:11 BASIC METABOLIC PANEL,BMP [CHEM] AM CBC WITH AUTO DIFF [HEME] AM 08/28/21 05:11 BASIC METABOLIC PANEL,BMP [CHEM] AM CBC WITH AUTO DIFF [HEME] AM - Plan Plan:: Acute systolic chf systolic Last echo ef: 45-50% With extensive LE edema - improved Chf on cxr with pleural effusion the effusion is improved on cxr Will continue to diurese her with IV lasix - with increased dose of 40 mg IV tid Peter hose Cont metoprolol Hold david/arb: re low BPs pleural effusion repeated CXR - improved effusion on 08/23 discussed with pt management options with thoracentesis vs continued medical management she would prefer to have no thoracentesis Possible infiltrate With leukocytosis BC: strep agalactiae gram negative pneumonia with recent hospitalization ruled out sputum cx: pending Blood cx 08/16: strep agalactiae sens to pcn, linezolid, levo blood cx 08/17: neg Treat with levofloxacin sepsis POA treat infection Support BP as needed Wheezing Acute copd exacerbation improved Treat with pulmicort Use duoneb scheduled and as needed cont solumedrol - taper Acute on chronic hypoxemic respiratory failure Normally on 2 l/min nc oxygen Will supplement oxygen as needed Hyponatremia Mild Will follow with diuretics Type II non st [place] With minimally elevated trop - improved Will monitor on tele Trend troponin cont asa Cont metoprolol anemia no apparent bleeding will follow Diabetes Hold metformin Use supplemental insulin as needed Chronic afib now with rapid ventricular rate gave 5 mg IV metoprolol - some improvement but still 120s will repeat metoprolol iv will cont PO Metoprolol add cardizem PO Anticoagulation hold Coumadin in care thoracentesis will be needed use lovenox in the meantime constipation cont lactulose, miralax, docusate weakness cont pt/ot She elected DNR code status on admission
[2021-08-23] MEDS ORDERED: Diltiazem IR 30 MG Tab PO SCH (12:00)
[2021-08-23] MEDS: Diltiazem IR 30 MG Tab PO SCH ×5 (12:16→22:21)
[2021-08-23] MEDS: atorvaSTATin 20 MG Tab PO SCH (20:53)
[2021-08-23] MEDS: Docusate Sodium 100 MG Cap PO SCH (20:54)
[2021-08-24] MEDS: Albuterol/Ipratropium 3.0-0.5 MG/3 ML Neb Soln NEB SCH ×4 (02:44→18:04)
[2021-08-24] MEDS: methylPREDNISolone Sodium Succinate 40 MG/1 ML SDV IVPUSH SCH ×3 (03:00→17:36)
[2021-08-24] MEDS: Pantoprazole 40 MG Tab.CR PO SCH (05:33)
[2021-08-24 07:03] LABS: ANION GAP 4.7 mEq/L (7-13)
[2021-08-24] MEDS: Budesonide 0.5 MG/2 ML Neb Susp NEB SCH ×2 (07:39→18:04)
[2021-08-24] MEDS: Metoprolol Succinate 50 MG Tab.ER PO SCH (08:14)
[2021-08-24] MEDS: Polyethylene Glycol 3350 Powder 17 GM Packet PO SCH (08:14)
[2021-08-24] MEDS: Diltiazem IR 30 MG Tab PO SCH ×4 (08:15→21:20)
[2021-08-24] MEDS: Aspirin 81 MG Tab.EC PO SCH (08:15)
[2021-08-24] MEDS: Ferrous Sulfate 325 MG Tab PO SCH (08:16)
[2021-08-24] MEDS: Insulin Lispro 100 Units/ML 3 ML Vial SUBCUT SCH ×4 (08:16→21:34)
[2021-08-24] MEDS: Enoxaparin 80 MG/0.8 ML Syringe SUBCUT SCH ×2 (08:18→21:21)
[2021-08-24] MEDS: Sodium Chloride 0.9% 10 ML Syringe FLUSH PRN ×3 (08:21→17:36)
[2021-08-24] MEDS: Furosemide 20 MG/2 ML VIAL IVPUSH SCH ×3 (08:21→21:21)
[2021-08-24] MEDS ORDERED: Diltiazem 25 MG/5 ML SDV IVPUSH ONE (09:30)
--- NOTE | 2021-08-24 09:58 | PCM.PN ---
- General Info Date of Service: 08/24/21 Admission Dx/Problem (Free Text): Admission Diagnosis/Problem Admission Diagnosis/Problem CHF Subjective Update: continued to have sob but improved on supplemental oxygen at 5 l/min (baseline is 2 l/min) leg swelling is improved has ronchi and cough but improved has significant weakness no fever continued to have rapid afib 110-120s episodically no associated cp has been present about 2 days Functional Status: Reports: Tolerating Diet - Review of Systems General: Reports: Weakness Pulmonary: Reports: Shortness of Breath Cardiovascular: Denies: Chest Pain, Palpitations Gastrointestinal: Denies: Abdominal Pain Genitourinary: Denies: Dysuria Psychiatric: Denies: Confusion - Patient Data Vitals - Most Recent: Last Vital Signs Temp 98.7 F 08/24/21 08:14 Pulse 103 H 08/24/21 08:14 Resp 20 08/24/21 08:14 BP 113/68 08/24/21 08:14 Pulse Ox 92 L 08/24/21 08:14 Weight - Most Recent: 167 lb 4.8 oz I&O - Last 24 Hours: Intake & Output 08/23/21 08/24/21 08/24/21 22:59 06:59 14:59 Intake Total 120 200 Output Total 850 Balance 120 -850 200 Lab Results Last 24 Hours: Laboratory Results - last 24 hr 08/23/21 08/23/21 08/23/21 Range/Units 11:39 16:30 20:10 WBC (5.0-10.0) 10^3/uL RBC (4.2-5.4) 10^6/uL Hgb (12.0-16.0) g/dL Hct (37.0-47.0) % MCV (80-100) fL MCH (27.0-34.0) pg MCHC (33.0-35.0) g/dL Plt Count (150-450) 10^3/uL Neut % (Auto) (42.2-75.2) % Lymph % (Auto) (20.5-50.1) % Rogers % (Auto) (2-8) % Eos % (Auto) (1.0-3.0) % Baso % (Auto) (0.0-1.0) % Sodium (136-145) mmol/L Potassium (3.5-5.1) mmol/L Chloride (98-107) mmol/L Carbon Dioxide (21-32) mmol/L Anion Gap (7-13) mEq/L BUN (7-18) mg/dL Creatinine (0.55-1.02) mg/dL Est Cr Clr Drug Dosing mL/min Estimated GFR (MDRD) Glucose (70-99) mg/dL POC Glucose 282 H 400 H 398 H (70-99) mg/dL Calcium (8.5-10.1) mg/dL B-Natriuretic Peptide (0-100) pg/ml 08/24/21 08/24/21 08/24/21 Range/Units 05:45 05:45 07:54 WBC 10.2 H (5.0-10.0) 10^3/uL RBC 3.88 L (4.2-5.4) 10^6/uL Hgb 9.5 L (12.0-16.0) g/dL Hct 34.4 L (37.0-47.0) % MCV 88.7 (80-100) fL MCH 24.5 L (27.0-34.0) pg MCHC 27.6 L (33.0-35.0) g/dL Plt Count 273 (150-450) 10^3/uL Neut % (Auto) 90.2 H (42.2-75.2) % Lymph % (Auto) 4.2 L (20.5-50.1) % Rogers % (Auto) 5.5 (2-8) % Eos % (Auto) 0.0 L (1.0-3.0) % Baso % (Auto) 0.1 (0.0-1.0) % Sodium 141 (136-145) mmol/L Potassium 3.7 (3.5-5.1) mmol/L Chloride 93 L (98-107) mmol/L Carbon Dioxide 47 H* (21-32) mmol/L Anion Gap 4.7 L (7-13) mEq/L BUN 28 H (7-18) mg/dL Creatinine 1.03 H (0.55-1.02) mg/dL Est Cr Clr Drug Dosing 40.78 mL/min Estimated GFR (MDRD) 52 Glucose 311 H (70-99) mg/dL POC Glucose 287 H (70-99) mg/dL Calcium 9.0 (8.5-10.1) mg/dL B-Natriuretic Peptide 756 H (0-100) pg/ml Med Orders - Current: Current Medications Acetaminophen (Acetaminophen 325 Mg Tab) 650 mg PO Q4H PRN PRN Reason: Pain (Mild 1-3)/fever Albuterol/Ipratropium (Albuterol/Ipratropium 3.0-0.5 Mg/3 Ml Neb Soln) 3 ml NEB Q2H PRN PRN Reason: sob Last Admin: 08/20/21 09:33 Dose: 3 ml Documented by: Albuterol/Ipratropium (Albuterol/Ipratropium 3.0-0.5 Mg/3 Ml Neb Soln) 3 ml NEB Q6HRRT [facility] Last Admin: 08/24/21 07:39 Dose: 3 ml Documented by: Aspirin (Aspirin 81 Mg Tab.Ec) 81 mg PO WITHBREAKFAST [facility] Last Admin: 08/24/21 08:15 Dose: 81 mg Documented by: Atorvastatin Calcium (Atorvastatin 20 Mg Tab) 80 mg PO BEDTIME [facility] Last Admin: 08/23/21 20:53 Dose: 80 mg Documented by: Budesonide (Budesonide 0.5 Mg/2 Ml Neb Susp) 0.5 mg NEB BIDRT [facility] Last Admin: 08/24/21 07:39 Dose: Not Given Documented by: Dextrose/Water (50% Dextrose In Water 50 Ml Syringe) 25 ml IVPUSH ASDIRECTED PRN PRN Reason: Hypoglycemia BS<70 Diltiazem HCl (Diltiazem Ir 30 Mg Tab) 45 mg PO QID [facility] Docusate Sodium (Docusate Sodium 100 Mg Cap) 200 mg PO BEDTIME [facility] Last Admin: 08/23/21 20:54 Dose: 200 mg Documented by: Enoxaparin Sodium (Enoxaparin 80 Mg/0.8 Ml Syringe) 80 mg SUBCUT BID [facility] Last Admin: 08/24/21 08:18 Dose: 80 mg Documented by: Ferrous Sulfate (Ferrous Sulfate 325 Mg Tab) 325 mg PO DAILY [facility] Last Admin: 08/24/21 08:16 Dose: 325 mg Documented by: Furosemide (Furosemide 20 Mg/2 Ml Vial) 40 mg IVPUSH TID [facility] Last Admin: 08/24/21 08:21 Dose: 40 mg Documented by: Levofloxacin/Dextrose 750 mg/ (Premix) 150 mls @ 100 mls/hr IV Q48H [facility] Last Admin: 08/22/21 20:20 Dose: 100 mls/hr Documented by: Insulin Human Lispro (Insulin Lispro 100 Units/Ml 3 Ml Vial) 0 unit SUBCUT WITHMEALSANDBED [facility]; Protocol Last Admin: 08/24/21 08:16 Dose: 6 units Documented by: Lactulose (Lactulose Soln 10 Gm/15 Ml 30 Ml Ud Cup) 20 gm PO Q12H PRN PRN Reason: Constipation Last Admin: 08/19/21 08:58 Dose: 20 gm Documented by: Methylprednisolone Sodium Succinate (Methylprednisolone Sodium Succinate 40 Mg/1 Ml Sdv) 40 mg IVPUSH Q8H [facility] Last Admin: 08/24/21 09:27 Dose: 40 mg Documented by: Metoprolol Succinate (Metoprolol Succinate 50 Mg Tab.Er) 100 mg PO DAILY [facility] Last Admin: 08/24/21 08:14 Dose: 100 mg Documented by: Ondansetron HCl (Ondansetron 4 Mg/2 Ml Sdv) 4 mg IVPUSH Q6H PRN PRN Reason: Nausea/Vomiting Pantoprazole Sodium (Pantoprazole 40 Mg Tab.Cr) 40 mg PO ACBREAKFAST [facility] Last Admin: 08/24/21 05:33 Dose: 40 mg Documented by: Polyethylene Glycol (Polyethylene Glycol 3350 Powder 17 Gm Packet) 17 gm PO DAILY [facility] Last Admin: 08/24/21 08:14 Dose: 17 gm Documented by: Simethicone (Simethicone 80 Mg Tab.Chew) 80 mg PO Q6H PRN PRN Reason: bloating Last Admin: 08/18/21 04:52 Dose: 80 mg Documented by: Sodium Chloride (Sodium Chloride 0.9% 10 Ml Syringe) 10 ml FLUSH ASDIRECTED PRN PRN Reason: Keep Vein Open Last Admin: 08/24/21 09:27 Dose: 10 ml Documented by: Discontinued Medications Aspirin (Aspirin 81 Mg Tab.Chew) 324 mg PO ONETIME ONE Stop: 08/16/21 21:16 Last Admin: 08/16/21 21:31 Dose: 324 mg Documented by: Diltiazem HCl (Diltiazem Ir 30 Mg Tab) 30 mg PO Q8HR [facility] Diltiazem HCl (Diltiazem Ir 30 Mg Tab) 30 mg PO TID [facility] Last Admin: 08/23/21 20:52 Dose: Not Given Documented by: Diltiazem HCl (Diltiazem Ir 30 Mg Tab) 30 mg PO QID [facility] Last Admin: 08/24/21 08:15 Dose: 30 mg Documented by: Diltiazem HCl (Diltiazem 25 Mg/5 Ml Sdv) 10 mg IVPUSH ONETIME ONE Stop: 08/24/21 09:31 Furosemide (Furosemide 40 Mg/4 Ml Vial) 40 mg IVPUSH ONETIME ONE Stop: 08/16/21 15:09 Last Admin: 08/16/21 15:23 Dose: 40 mg Documented by: Furosemide (Furosemide 20 Mg/2 Ml Vial) 20 mg IVPUSH BIDDIURETIC [facility] Last Admin: 08/19/21 08:29 Dose: 20 mg Documented by: Furosemide (Furosemide 20 Mg/2 Ml Vial) 20 mg IVPUSH TID [facility] Last Admin: 08/20/21 09:25 Dose: 20 mg Documented by: Sodium Chloride (Normal Saline) 1,000 mls @ 75 mls/hr IV ASDIRECTED [facility] Last Admin: 08/16/21 15:24 Dose: 75 mls/hr Documented by: Ceftriaxone Sodium 1 gm/ (Sodium Chloride) 50 mls @ 100 mls/hr IV ONETIME ONE Stop: 08/16/21 15:37 Last Admin: 08/16/21 15:23 Dose: 100 mls/hr Documented by: Levofloxacin/Dextrose 750 mg/ (Premix) 150 mls @ 100 mls/hr IV Q24H [facility] Last Admin: 08/17/21 16:23 Dose: Not Given Documented by: Vancomycin HCl 1 gm/ Sodium (Chloride) 250 mls @ 250 mls/hr IV DAILY@1600 [facility] Last Admin: 08/18/21 16:08 Dose: 250 mls/hr Documented by: Metoprolol Tartrate (Metoprolol Tartrate 5 Mg/5 Ml Sdv) 5 mg IVPUSH ONETIME ONE Stop: 08/23/21 09:38 Last Admin: 08/23/21 09:51 Dose: 5 mg Documented by: Metoprolol Tartrate (Metoprolol Tartrate 5 Mg/5 Ml Sdv) 5 mg IVPUSH ONETIME ONE Stop: 08/23/21 10:27 Last Admin: 08/23/21 10:42 Dose: 5 mg Documented by: Vancomycin HCl (Pharmacy To Dose - Vancomycin) 1 dose .XX ASDIRECTED [facility] Warfarin Sodium (Pharmacy To Dose - Warfarin) 1 dose .XX ASDIRECTED [facility] Warfarin Sodium (Warfarin 2 Mg Tab) 2 mg PO DAILY@1400 [facility] Last Admin: 08/18/21 14:54 Dose: 2 mg Documented by: Warfarin Sodium (Warfarin 2 Mg Tab) 2 mg PO DAILY@1400 [facility] Warfarin Sodium (Warfarin 1 Mg Tab) 1 mg PO DAILY@1400 [facility] Stop: 08/19/21 14:01 Last Admin: 08/19/21 15:04 Dose: 1 mg Documented by: Warfarin Sodium (Warfarin 1 Mg Tab) 0.5 mg PO ONETIME ONE Stop: 08/20/21 14:01 Last Admin: 08/20/21 14:33 Dose: 0.5 mg Documented by: Warfarin Sodium (Warfarin 1 Mg Tab) 1 mg PO ONETIME ONE Stop: 08/21/21 14:01 Last Admin: 08/21/21 15:25 Dose: 1 mg Documented by: Warfarin Sodium (Warfarin 2 Mg Tab) 2 mg PO ONETIME ONE Stop: 08/22/21 14:01 - Exam Quality Assessment: Supplemental Oxygen General: Alert, Oriented Neck: Supple Lungs: Decreased Breath Sounds, Rhonchi, Wheezing Cardiovascular: Irregular Rhythm, Tachycardia GI/Abdominal Exam: Normal Bowel Sounds, Soft, Non-Tender Extremities: Pedal Edema (trace) Neurological: No New Focal Deficit Psy/Mental Status: Alert, Normal Affect, Normal Mood - Patient Data Lab Results Last 24 hrs: Laboratory Results - last 24 hr 08/23/21 08/23/21 08/23/21 Range/Units 11:39 16:30 20:10 WBC (5.0-10.0) 10^3/uL RBC (4.2-5.4) 10^6/uL Hgb (12.0-16.0) g/dL Hct (37.0-47.0) % MCV (80-100) fL MCH (27.0-34.0) pg MCHC (33.0-35.0) g/dL Plt Count (150-450) 10^3/uL Neut % (Auto) (42.2-75.2) % Lymph % (Auto) (20.5-50.1) % Rogers % (Auto) (2-8) % Eos % (Auto) (1.0-3.0) % Baso % (Auto) (0.0-1.0) % Sodium (136-145) mmol/L Potassium (3.5-5.1) mmol/L Chloride (98-107) mmol/L Carbon Dioxide (21-32) mmol/L Anion Gap (7-13) mEq/L BUN (7-18) mg/dL Creatinine (0.55-1.02) mg/dL Est Cr Clr Drug Dosing mL/min Estimated GFR (MDRD) Glucose (70-99) mg/dL POC Glucose 282 H 400 H 398 H (70-99) mg/dL Calcium (8.5-10.1) mg/dL B-Natriuretic Peptide (0-100) pg/ml 08/24/21 08/24/21 08/24/21 Range/Units 05:45 05:45 07:54 WBC 10.2 H (5.0-10.0) 10^3/uL RBC 3.88 L (4.2-5.4) 10^6/uL Hgb 9.5 L (12.0-16.0) g/dL Hct 34.4 L (37.0-47.0) % MCV 88.7 (80-100) fL MCH 24.5 L (27.0-34.0) pg MCHC 27.6 L (33.0-35.0) g/dL Plt Count 273 (150-450) 10^3/uL Neut % (Auto) 90.2 H (42.2-75.2) % Lymph % (Auto) 4.2 L (20.5-50.1) % Rogers % (Auto) 5.5 (2-8) % Eos % (Auto) 0.0 L (1.0-3.0) % Baso % (Auto) 0.1 (0.0-1.0) % Sodium 141 (136-145) mmol/L Potassium 3.7 (3.5-5.1) mmol/L Chloride 93 L (98-107) mmol/L Carbon Dioxide 47 H* (21-32) mmol/L Anion Gap 4.7 L (7-13) mEq/L BUN 28 H (7-18) mg/dL Creatinine 1.03 H (0.55-1.02) mg/dL Est Cr Clr Drug Dosing 40.78 mL/min Estimated GFR (MDRD) 52 Glucose 311 H (70-99) mg/dL POC Glucose 287 H (70-99) mg/dL Calcium 9.0 (8.5-10.1) mg/dL B-Natriuretic Peptide 756 H (0-100) pg/ml Result Diagrams: 08/24/21 05:45 08/24/21 05:45 Sepsis Event Note - Evaluation Sepsis Screening Result: No Definite Risk - Focused Exam Vital Signs: Vital Signs Temp Pulse Pulse Resp BP BP BP 08/24/21 08:14 98.7 F 103 H 103 H 20 113/68 113/68 08/24/21 07:39 90 08/24/21 04:00 98 F 109 H 22 H 104/48 L 08/24/21 00:00 96.6 F L 95 16 112/40 L 08/23/21 22:22 112 H 94/62 Pulse Ox 08/24/21 08:14 92 L 08/24/21 07:39 08/24/21 04:00 90 L 08/24/21 00:00 97 08/23/21 22:22 - Problem List & Annotations (1) CHF (congestive heart failure) SNOMED Code(s): 43298515 Code(s): I50.9 - HEART FAILURE, UNSPECIFIED Status: Acute Current Visit: Yes Qualifiers: Heart failure type: unspecified Heart failure chronicity: acute on chronic Qualified Code(s): I50.9 - Heart failure, unspecified (2) Pneumonia SNOMED Code(s): 400929886 Code(s): J18.9 - PNEUMONIA, UNSPECIFIED ORGANISM Status: Acute Current Visit: Yes Qualifiers: Pneumonia type: due to unspecified organism Laterality: left Lung location: lower lobe of lung Qualified Code(s): J18.9 - Pneumonia, unspecified organism (3) Acute congestive heart failure SNOMED Code(s): 09087239 Code(s): I50.9 - HEART FAILURE, UNSPECIFIED Status: Acute Priority: High Current Visit: No (4) Acute hypernatremia SNOMED Code(s): 7810895 Code(s): E87.0 - HYPEROSMOLALITY AND HYPERNATREMIA Status: Acute Current Visit: No (5) COPD exacerbation SNOMED Code(s): 980076697, 259668928 Code(s): J44.1 - CHRONIC OBSTRUCTIVE PULMONARY DISEASE W (ACUTE) EXACERBATION Status: Acute Current Visit: No (6) Chronic anticoagulation SNOMED Code(s): 201111168 Code(s): Z79.01 - CARE HOME (CURRENT) USE OF ANTICOAGULANTS Status: Acute Current Visit: No (7) History of atrial fibrillation SNOMED Code(s): 939972498 Code(s): Z86.79 - PERSONAL HISTORY OF OTHER DISEASES OF THE CIRCULATORY SYSTEM Status: Acute Current Visit: No (8) Sepsis SNOMED Code(s): 16641721 Code(s): A41.9 - SEPSIS, UNSPECIFIED ORGANISM Status: Acute Current Vi sit: No Qualifiers: Sepsis type: sepsis due to unspecified organism Sepsis acute organ dysfunction status: unspecified Qualified Code(s): A41.9 - Sepsis, unspecified organism (9) Coronary artery disease SNOMED Code(s): 31959089 Code(s): I25.10 - ATHSCL HEART DISEASE OF [place] CORONARY ARTERY W/O ANG PCTRS Status: Chronic Current Visit: No - Problem List Review Problem List Initiated/Reviewed/Updated: Yes - My Orders Last 24 Hours: My Active Orders 08/24/21 13:00 Diltiazem IR [Cardizem] 45 mg PO QID 08/25/21 05:11 BASIC METABOLIC PANEL,BMP [CHEM] AM CBC WITH AUTO DIFF [HEME] AM 08/26/21 05:11 BASIC METABOLIC PANEL,BMP [CHEM] AM CBC WITH AUTO DIFF [HEME] AM 08/27/21 05:11 BASIC METABOLIC PANEL,BMP [CHEM] AM CBC WITH AUTO DIFF [HEME] AM 08/28/21 05:11 BASIC METABOLIC PANEL,BMP [CHEM] AM CBC WITH AUTO DIFF [HEME] AM - Plan Plan:: Acute systolic chf systolic Last echo ef: 45-50% With extensive LE edema - improved Chf on cxr with pleural effusion the effusion is improved on cxr Will continue to diurese her with IV lasix - with increased dose of 40 mg IV tid [place] hose Cont metoprolol Hold david/arb: re low BPs pleural effusion repeated CXR - improved effusion on 08/23 discussed with pt management options with thoracentesis vs continued medical management she preferred not to have thoracentesis but continue with medical management Possible infiltrate With leukocytosis BC: strep agalactiae gram negative pneumonia with recent hospitalization ruled out sputum cx: pending Blood cx 08/16: strep agalactiae sens to pcn, linezolid, levo blood cx 08/17: neg Treat with levofloxacin sepsis POA treat infection Support BP as needed Wheezing Acute copd exacerbation improved but still present Treat with pulmicort Use duoneb scheduled and as needed cont solumedrol Acute on chronic hypoxemic respiratory failure Normally on 2 l/min nc oxygen Will supplement oxygen as needed Hyponatremia Mild Will follow with diuretics Type II non st NC With minimally elevated trop - improved Will monitor on tele Trend troponin cont asa Cont metoprolol anemia no apparent bleeding will follow Diabetes Hold metformin Use supplemental insulin as needed Chronic afib now with rapid ventricular rate give one dose of IV cardizem now added cardizem po yesterday- will increase dose now will cont PO Metoprolol Anticoagulation hold Coumadin in case thoracentesis will be needed use lovenox in the meantime constipation cont lactulose, miralax, docusate weakness cont pt/ot She elected DNR code status on admission
[2021-08-24] MEDS: Levofloxacin/Dextrose 5%-Water 750 MG in Premix Bag 1 BAG IV SCH (21:20)
[2021-08-24] MEDS: Docusate Sodium 100 MG Cap PO SCH (21:21)
[2021-08-24] MEDS: atorvaSTATin 20 MG Tab PO SCH (21:21)
[2021-08-25] MEDS: methylPREDNISolone Sodium Succinate 40 MG/1 ML SDV IVPUSH SCH ×3 (02:10→17:26)
[2021-08-25] MEDS: Albuterol/Ipratropium 3.0-0.5 MG/3 ML Neb Soln NEB SCH ×4 (02:11→18:24)
[2021-08-25] MEDS: Pantoprazole 40 MG Tab.CR PO SCH (05:46)
[2021-08-25 07:14] LABS: CHLORIDE,CL 92 mmol/L (98-107); SODIUM,NA 139 mmol/L (136-145)
[2021-08-25 07:25] LABS: ANION GAP 5.39999 mEq/L (7-13)
[2021-08-25] MEDS: Diltiazem IR 30 MG Tab PO SCH ×4 (08:41→21:59)
[2021-08-25] MEDS: Metoprolol Succinate 50 MG Tab.ER PO SCH (08:41)
[2021-08-25] MEDS: Ferrous Sulfate 325 MG Tab PO SCH (08:42)
[2021-08-25] MEDS: Furosemide 20 MG/2 ML VIAL IVPUSH SCH ×3 (08:43→22:00)
[2021-08-25] MEDS: Aspirin 81 MG Tab.EC PO SCH (08:43)
[2021-08-25] MEDS: Sodium Chloride 0.9% 10 ML Syringe FLUSH PRN ×2 (08:43→14:19)
[2021-08-25] MEDS: Insulin Lispro 100 Units/ML 3 ML Vial SUBCUT SCH ×4 (08:47→21:57)
[2021-08-25] MEDS: Enoxaparin 80 MG/0.8 ML Syringe SUBCUT SCH ×2 (08:48→21:58)
[2021-08-25] MEDS: Polyethylene Glycol 3350 Powder 17 GM Packet PO SCH (08:49)
[2021-08-25] MEDS ORDERED: Glucagon,Human Recombinant 1 MG Vial IM PRN (11:02)
[2021-08-25] MEDS ORDERED: 50% Dextrose in Water 50 ML Syringe IVPUSH PRN (11:02)
[2021-08-25] MEDS ORDERED: Insulin Isophane NPH, Human 100 Units/ML 3 ML Vial SQ ONE (11:02)
--- NOTE | 2021-08-25 11:12 | PCM.PN ---
- General Info Date of Service: 08/25/21 Subjective Update: continued to have sob but improved on supplemental oxygen at 3 l/min (baseline is 2 l/min) leg swelling is improved still has wheezing has significant weakness no fever continued to have rapid afib upto 110-120s no associated cp has been present about 3 days not controlled with po cardizem Functional Status: Reports: Pain Controlled, Tolerating Diet - Review of Systems General: Reports: Weakness Pulmonary: Reports: Shortness of Breath Cardiovascular: Denies: Chest Pain, Edema Neurological: Denies: Confusion - Patient Data Vitals - Most Recent: Last Vital Signs Temp 96.8 F L 08/25/21 07:47 Pulse 100 08/25/21 08:41 Resp 20 08/25/21 07:47 BP 104/60 08/25/21 08:41 Pulse Ox 91 L 08/25/21 07:47 Weight - Most Recent: 168 lb 9 oz I&O - Last 24 Hours: Intake & Output 08/24/21 08/25/21 08/25/21 22:59 06:59 14:59 Intake Total 740 550 Output Total 1700 Balance 740 -1150 Lab Results Last 24 Hours: Laboratory Results - last 24 hr 08/24/21 08/24/21 08/24/21 Range/Units 11:15 16:43 19:57 WBC (5.0-10.0) 10^3/uL RBC (4.2-5.4) 10^6/uL Hgb (12.0-16.0) g/dL Hct (37.0-47.0) % MCV (80-100) fL MCH (27.0-34.0) pg MCHC (33.0-35.0) g/dL Plt Count (150-450) 10^3/uL Neut % (Auto) (42.2-75.2) % Lymph % (Auto) (20.5-50.1) % [facility] % (Auto) (2-8) % Eos % (Auto) (1.0-3.0) % Baso % (Auto) (0.0-1.0) % Sodium (136-145) mmol/L Potassium (3.5-5.1) mmol/L Chloride (98-107) mmol/L Carbon Dioxide (21-32) mmol/L Anion Gap (7-13) mEq/L BUN (7-18) mg/dL Creatinine (0.55-1.02) mg/dL Est Cr Clr Drug Dosing mL/min Estimated GFR (MDRD) Glucose (70-99) mg/dL POC Glucose 368 H 454 H* 396 H (70-99) mg/dL Calcium (8.5-10.1) mg/dL 08/25/21 08/25/21 08/25/21 Range/Units 06:45 06:45 07:45 WBC 7.0 (5.0-10.0) 10^3/uL RBC 3.70 L (4.2-5.4) 10^6/uL Hgb 9.2 L (12.0-16.0) g/dL Hct 32.6 L (37.0-47.0) % MCV 88.1 (80-100) fL MCH 24.9 L (27.0-34.0) pg MCHC 28.2 L (33.0-35.0) g/dL Plt Count 195 D (150-450) 10^3/uL Neut % (Auto) 92.3 H (42.2-75.2) % Lymph % (Auto) 3.6 L (20.5-50.1) % [facility] % (Auto) 4.0 (2-8) % Eos % (Auto) 0.0 L (1.0-3.0) % Baso % (Auto) 0.1 (0.0-1.0) % Sodium 139 (136-145) mmol/L Potassium 3.4 L (3.5-5.1) mmol/L Chloride 92 L (98-107) mmol/L Carbon Dioxide > 45 H* (21-32) mmol/L Anion Gap 5.27730 L (7-13) mEq/L BUN 31 H (7-18) mg/dL Creatinine 1.07 H (0.55-1.02) mg/dL Est Cr Clr Drug Dosing 39.26 mL/min Estimated GFR (MDRD) 49 Glucose 303 H (70-99) mg/dL POC Glucose 304 H (70-99) mg/dL Calcium 9.3 (8.5-10.1) mg/dL Med Orders - Current: Current Medications Acetaminophen (Acetaminophen 325 Mg Tab) 650 mg PO Q4H PRN PRN Reason: Pain (Mild 1-3)/fever Albuterol/Ipratropium (Albuterol/Ipratropium 3.0-0.5 Mg/3 Ml Neb Soln) 3 ml NEB Q2H PRN PRN Reason: sob Last Admin: 08/20/21 09:33 Dose: 3 ml Documented by: Albuterol/Ipratropium (Albuterol/Ipratropium 3.0-0.5 Mg/3 Ml Neb Soln) 3 ml NEB Q6HRRT [facility] Last Admin: 08/25/21 07:26 Dose: 3 ml Documented by: Aspirin (Aspirin 81 Mg Tab.Ec) 81 mg PO WITHBREAKFAST [facility] Last Admin: 08/25/21 08:43 Dose: 81 mg Documented by: Atorvastatin Calcium (Atorvastatin 20 Mg Tab) 80 mg PO BEDTIME [facility] Last Admin: 08/24/21 21:21 Dose: 80 mg Documented by: Budesonide (Budesonide 0.5 Mg/2 Ml Neb Susp) 0.5 mg NEB BIDRT [facility] Last Admin: 08/24/21 18:04 Dose: Not Given Documented by: Dextrose/Water (50% Dextrose In Water 50 Ml Syringe) 25 ml IVPUSH ASDIRECTED PRN PRN Reason: Hypoglycemia BS<70 Dextrose/Water (50% Dextrose In Water 50 Ml Syringe) 50 ml IVPUSH Q15M PRN PRN Reason: Hypoglycemia Diltiazem HCl (Diltiazem Ir 30 Mg Tab) 60 mg PO QID [facility] Docusate Sodium (Docusate Sodium 100 Mg Cap) 200 mg PO BEDTIME [facility] Last Admin: 08/24/21 21:21 Dose: 200 mg Documented by: Enoxaparin Sodium (Enoxaparin 80 Mg/0.8 Ml Syringe) 80 mg SUBCUT BID [facility] Last Admin: 08/25/21 08:48 Dose: 80 mg Documented by: Ferrous Sulfate (Ferrous Sulfate 325 Mg Tab) 325 mg PO DAILY [facility] Last Admin: 08/25/21 08:42 Dose: 325 mg Documented by: Furosemide (Furosemide 20 Mg/2 Ml Vial) 40 mg IVPUSH TID [facility] Last Admin: 08/25/21 08:43 Dose: 40 mg Documented by: Glucagon (Glucagon,Human Recombinant 1 Mg Vial) 1 mg IM Q15M PRN PRN Reason: Hypoglycemia Levofloxacin/Dextrose 750 mg/ (Premix) 150 mls @ 100 mls/hr IV Q48H [facility] Last Admin: 08/24/21 21:20 Dose: 100 mls/hr Documented by: Insulin Human Lispro (Insulin Lispro 100 Units/Ml 3 Ml Vial) 0 unit SUBCUT WITHMEALSANDBED [facility]; Protocol Last Admin: 08/25/21 08:47 Dose: 8 units Documented by: Insulin Human NPH (Insulin Isophane Nph, Human 100 Units/Ml 3 Ml Vial) 10 unit SQ ONETIME ONE Stop: 08/25/21 11:03 Lactulose (Lactulose Soln 10 Gm/15 Ml 30 Ml Ud Cup) 20 gm PO Q12H PRN PRN Reason: Constipation Last Admin: 08/19/21 08:58 Dose: 20 gm Documented by: Methylprednisolone Sodium Succinate (Methylprednisolone Sodium Succinate 40 Mg/1 Ml Sdv) 40 mg IVPUSH Q8H [facility] Last Admin: 08/25/21 09:56 Dose: 40 mg Documented by: Metoprolol Succinate (Metoprolol Succinate 50 Mg Tab.Er) 100 mg PO DAILY [facility] Last Admin: 08/25/21 08:41 Dose: 100 mg Documented by: Ondansetron HCl (Ondansetron 4 Mg/2 Ml Sdv) 4 mg IVPUSH Q6H PRN PRN Reason: Nausea/Vomiting Pantoprazole Sodium (Pantoprazole 40 Mg Tab.Cr) 40 mg PO ACBREAKFAST [facility] Last Admin: 08/25/21 05:46 Dose: 40 mg Documented by: Polyethylene Glycol (Polyethylene Glycol 3350 Powder 17 Gm Packet) 17 gm PO DAILY [facility] Last Admin: 08/25/21 08:49 Dose: 17 gm Documented by: Simethicone (Simethicone 80 Mg Tab.Chew) 80 mg PO Q6H PRN PRN Reason: bloating Last Admin: 08/18/21 04:52 Dose: 80 mg Documented by: Sodium Chloride (Sodium Chloride 0.9% 10 Ml Syringe) 10 ml FLUSH ASDIRECTED PRN PRN Reason: Keep Vein Open Last Admin: 08/25/21 08:43 Dose: 10 ml Documented by: Warfarin Sodium (Pharmacy To Dose - Warfarin) 1 dose .XX ASDIRECTED [facility] Discontinued Medications Aspirin (Aspirin 81 Mg Tab.Chew) 324 mg PO ONETIME ONE Stop: 08/16/21 21:16 Last Admin: 08/16/21 21:31 Dose: 324 mg Documented by: Diltiazem HCl (Diltiazem Ir 30 Mg Tab) 30 mg PO Q8HR [facility] Diltiazem HCl (Diltiazem Ir 30 Mg Tab) 30 mg PO TID [facility] Last Admin: 08/23/21 20:52 Dose: Not Given Documented by: Diltiazem HCl (Diltiazem Ir 30 Mg Tab) 30 mg PO QID [facility] Last Admin: 08/24/21 08:15 Dose: 30 mg Documented by: Diltiazem HCl (Diltiazem Ir 30 Mg Tab) 45 mg PO QID [facility] Last Admin: 08/25/21 08:41 Dose: 45 mg Documented by: Diltiazem HCl (Diltiazem 25 Mg/5 Ml Sdv) 10 mg IVPUSH ONETIME ONE Stop: 08/24/21 09:31 Last Admin: 08/24/21 09:51 Dose: 10 mg Documented by: Furosemide (Furosemide 40 Mg/4 Ml Vial) 40 mg IVPUSH ONETIME ONE Stop: 08/16/21 15:09 Last Admin: 08/16/21 15:23 Dose: 40 mg Documented by: Furosemide (Furosemide 20 Mg/2 Ml Vial) 20 mg IVPUSH BIDDIURETIC [facility] Last Admin: 08/19/21 08:29 Dose: 20 mg Documented by: Furosemide (Furosemide 20 Mg/2 Ml Vial) 20 mg IVPUSH TID [facility] Last Admin: 08/20/21 09:25 Dose: 20 mg Documented by: Sodium Chloride (Normal Saline) 1,000 mls @ 75 mls/hr IV ASDIRECTED [facility] Last Admin: 08/16/21 15:24 Dose: 75 mls/hr Documented by: Ceftriaxone Sodium 1 gm/ (Sodium Chloride) 50 mls @ 100 mls/hr IV ONETIME ONE Stop: 08/16/21 15:37 Last Admin: 08/16/21 15:23 Dose: 100 mls/hr Documented by: Levofloxacin/Dextrose 750 mg/ (Premix) 150 mls @ 100 mls/hr IV Q24H [facility] Last Admin: 08/17/21 16:23 Dose: Not Given Documented by: Vancomycin HCl 1 gm/ Sodium (Chloride) 250 mls @ 250 mls/hr IV DAILY@1600 [facility] Last Admin: 08/18/21 16:08 Dose: 250 mls/hr Documented by: Metoprolol Tartrate (Metoprolol Tartrate 5 Mg/5 Ml Sdv) 5 mg IVPUSH ONETIME ONE Stop: 08/23/21 09:38 Last Admin: 08/23/21 09:51 Dose: 5 mg Documented by: Metoprolol Tartrate (Metoprolol Tartrate 5 Mg/5 Ml Sdv) 5 mg IVPUSH ONETIME ONE Stop: 08/23/21 10:27 Last Admin: 08/23/21 10:42 Dose: 5 mg Documented by: Vancomycin HCl (Pharmacy To Dose - Vancomycin) 1 dose .XX ASDIRECTED [facility] Warfarin Sodium (Pharmacy To Dose - Warfarin) 1 dose .XX ASDIRECTED [facility] Warfarin Sodium (Warfarin 2 Mg Tab) 2 mg PO DAILY@1400 [facility] Last Admin: 08/18/21 14:54 Dose: 2 mg Documented by: Warfarin Sodium (Warfarin 2 Mg Tab) 2 mg PO DAILY@1400 [facility] Warfarin Sodium (Warfarin 1 Mg Tab) 1 mg PO DAILY@1400 [facility] Stop: 08/19/21 14:01 Last Admin: 08/19/21 15:04 Dose: 1 mg Documented by: Warfarin Sodium (Warfarin 1 Mg Tab) 0.5 mg PO ONETIME ONE Stop: 08/20/21 14:01 Last Admin: 08/20/21 14:33 Dose: 0.5 mg Documented by: Warfarin Sodium (Warfarin 1 Mg Tab) 1 mg PO ONETIME ONE Stop: 08/21/21 14:01 Last Admin: 08/21/21 15:25 Dose: 1 mg Documented by: Warfarin Sodium (Warfarin 2 Mg Tab) 2 mg PO ONETIME ONE Stop: 08/22/21 14:01 - Exam Quality Assessment: Supplemental Oxygen General: Alert, Oriented Neck: Supple Lungs: Normal Respiratory Effort, Rhonchi, Wheezing Cardiovascular: Irregular Rhythm, Tachycardia GI/Abdominal Exam: Normal Bowel Sounds, Soft, Non-Tender Extremities: No Pedal Edema - Patient Data Lab Results Last 24 hrs: Laboratory Results - last 24 hr 08/24/21 08/24/21 08/24/21 Range/Units 11:15 16:43 19:57 WBC (5.0-10.0) 10^3/uL RBC (4.2-5.4) 10^6/uL Hgb (12.0-16.0) g/dL Hct (37.0-47.0) % MCV (80-100) fL MCH (27.0-34.0) pg MCHC (33.0-35.0) g/dL Plt Count (150-450) 10^3/uL Neut % (Auto) (42.2-75.2) % Lymph % (Auto) (20.5-50.1) % [facility] % (Auto) (2-8) % Eos % (Auto) (1.0-3.0) % Baso % (Auto) (0.0-1.0) % Sodium (136-145) mmol/L Potassium (3.5-5.1) mmol/L Chloride (98-107) mmol/L Carbon Dioxide (21-32) mmol/L Anion Gap (7-13) mEq/L BUN (7-18) mg/dL Creatinine (0.55-1.02) mg/dL Est Cr Clr Drug Dosing mL/min Estimated GFR (MDRD) Glucose (70-99) mg/dL POC Glucose 368 H 454 H* 396 H (70-99) mg/dL Calcium (8.5-10.1) mg/dL 08/25/21 08/25/21 08/25/21 Range/Units 06:45 06:45 07:45 WBC 7.0 (5.0-10.0) 10^3/uL RBC 3.70 L (4.2-5.4) 10^6/uL Hgb 9.2 L (12.0-16.0) g/dL Hct 32.6 L (37.0-47.0) % MCV 88.1 (80-100) fL MCH 24.9 L (27.0-34.0) pg MCHC 28.2 L (33.0-35.0) g/dL Plt Count 195 D (150-450) 10^3/uL Neut % (Auto) 92.3 H (42.2-75.2) % Lymph % (Auto) 3.6 L (20.5-50.1) % [facility] % (Auto) 4.0 (2-8) % Eos % (Auto) 0.0 L (1.0-3.0) % Baso % (Auto) 0.1 (0.0-1.0) % Sodium 139 (136-145) mmol/L Potassium 3.4 L (3.5-5.1) mmol/L Chloride 92 L (98-107) mmol/L Carbon Dioxide > 45 H* (21-32) mmol/L Anion Gap 5.42544 L (7-13) mEq/L BUN 31 H (7-18) mg/dL Creatinine 1.07 H (0.55-1.02) mg/dL Est Cr Clr Drug Dosing 39.26 mL/min Estimated GFR (MDRD) 49 Glucose 303 H (70-99) mg/dL POC Glucose 304 H (70-99) mg/dL Calcium 9.3 (8.5-10.1) mg/dL Result Diagrams: 08/25/21 06:45 08/25/21 06:45 Sepsis Event Note - Evaluation Sepsis Screening Result: No Definite Risk - Focused Exam Vital Signs: Vital Signs Temp Pulse Pulse Resp BP BP Pulse Ox 08/25/21 08:41 100 104/60 08/25/21 07:47 96.8 F L 99 20 104/58 L 91 L 08/25/21 07:26 86 08/25/21 00:00 97.8 F 92 20 106/60 94 L - Problem List & Annotations (1) CHF (congestive heart failure) SNOMED Code(s): 15093235 Code(s): I50.9 - HEART FAILURE, UNSPECIFIED Status: Acute Current Visit: Yes Qualifiers: Heart failure type: unspecified Heart failure chronicity: acute on chronic Qualified Code(s): I50.9 - Heart failure, unspecified (2) Pneumonia SNOMED Code(s): 742454261 Code(s): J18.9 - PNEUMONIA, UNSPECIFIED ORGANISM Status: Acute Current Visit: Yes Qualifiers: Pneumonia type: due to unspecified organism Laterality: left Lung location: lower lobe of lung Qualified Code(s): J18.9 - Pneumonia, unspecified organism (3) Acute congestive heart failure SNOMED Code(s): 43904308 Code(s): I50.9 - HEART FAILURE, UNSPECIFIED Status: Acute Priority: High Current Visit: No (4) Acute hypernatremia SNOMED Code(s): 6911341 Code(s): E87.0 - HYPEROSMOLALITY AND HYPERNATREMIA Status: Acute Current Visit: No (5) COPD exacerbation SNOMED Code(s): 912478808, 013580912 Code(s): J44.1 - CHRONIC OBSTRUCTIVE PULMONARY DISEASE W (ACUTE) EXACERBATION Status: Acute Current Visit: No (6) Chronic anticoagulation SNOMED Code(s): 092696917 Code(s): Z79.01 - CARE HOME (CURRENT) USE OF ANTICOAGULANTS Status: Acute Current Visit: No (7) History of atrial fibrillation SNOMED Code(s): 150262006 Code(s): Z86.79 - PERSONAL HISTORY OF OTHER DISEASES OF THE CIRCULATORY SYSTEM Status: Acute Current Visit: No (8) Sepsis SNOMED Code(s): 55364294 Code(s): A41.9 - SEPSIS, UNSPECIFIED ORGANISM Status: Acute Current Visit: No Qualifiers: Sepsis type: sepsis due to unspecified organism Sepsis acute organ dysfunction status: unspecified Qualified Code(s): A41.9 - Sepsis, unspecified organism (9) Coronary artery disease SNOMED Code(s): 93738549 Code(s): I25.10 - ATHSCL HEART DISEASE OF [place] CORONARY ARTERY W/O ANG PCTRS Status: Chronic Current Visit: No - Problem List Review Problem List Initiated/Reviewed/Updated: Yes - My Orders Last 24 Hours: My Active Orders 08/25/21 11:00 Pharmacy to Dose - Warfarin 1 dose .XX ASDIRECTED 08/25/21 11:02 Dextrose 50% in Water 50 ml IVPUSH Q15M PRN Glucagon,Human Recombinant [GlucaGen] 1 mg IM Q15M PRN Insulin NPH Human Isophane [HumuLIN N] 10 unit SQ ONETIME ONE 08/25/21 13:00 Diltiazem IR [Cardizem] 60 mg PO QID 08/25/21 21:00 Insulin Glarg,Human.Rec.Analog [LantUS] 20 unit SUBCUT BEDTIME 08/26/21 05:11 BASIC METABOLIC PANEL,BMP [CHEM] AM CBC WITH AUTO DIFF [HEME] AM 08/27/21 05:11 BASIC METABOLIC PANEL,BMP [CHEM] AM CBC WITH AUTO DIFF [HEME] AM INR,PT,PROTHROMBIN TIME [COAG] AM 08/28/21 05:11 BASIC METABOLIC PANEL,BMP [CHEM] AM CBC WITH AUTO DIFF [HEME] AM INR,PT,PROTHROMBIN TIME [COAG] AM 08/29/21 05:11 INR,PT,PROTHROMBIN TIME [COAG] AM 08/30/21 05:11 INR,PT,PROTHROMBIN TIME [COAG] AM 08/31/21 05:11 INR,PT,PROTHROMBIN TIME [COAG] AM - Plan Plan:: Acute systolic chf systolic Last echo ef: 45-50% With extensive LE edema - improved Chf on cxr with pleural effusion the effusion is improved on cxr Will continue to diurese her with IV lasix - with increased dose of 40 mg IV tid Peter hose Cont metoprolol Hold david/arb: re low BPs pleural effusion repeated CXR - improved effusion on 08/23 discussed with pt management options with thoracentesis vs continued medical management she preferred not to have thoracentesis but continue with medical management Possible infiltrate With leukocytosis BC: strep agalactiae gram negative pneumonia with recent hospitalization ruled out sputum cx: pending Blood cx 08/16: strep agalactiae sens to pcn, linezolid, levo blood cx 08/17: neg Treat with levofloxacin sepsis POA resolved Wheezing Acute copd exacerbation improved but still present Treat with pulmicort Use duoneb scheduled and as needed cont solumedrol Acute on chronic hypoxemic respiratory failure Normally on 2 l/min nc oxygen Will supplement oxygen as needed Hyponatremia Mild Will follow with diuretics Type II non st MD With minimally elevated trop - improved Will monitor on tele Trend troponin cont asa Cont metoprolol control afib rate anemia no apparent bleeding will follow Diabetes uncontrolled while on steroids Hold metformin Use supplemental insulin as needed add a dose nph now, start lantus from tonight Chronic afib now with rapid ventricular rate increase further PO cardizem will cont PO Metoprolol follow on tele Anticoagulation resume Coumadin, follow INR use lovenox in the meantime constipation cont lactulose, miralax, docusate weakness cont pt/ot She elected DNR code status on admission
[2021-08-25] MEDS: Budesonide 0.5 MG/2 ML Neb Susp NEB SCH ×2 (13:33→18:24)
[2021-08-25] MEDS ORDERED: Warfarin 2 MG Tab PO ONE (14:00)
[2021-08-25] MEDS ORDERED: Insulin Glarg,Human.Rec.Analog 100 Unit/ML SUBCUT SCH (21:00)
[2021-08-25] MEDS: Docusate Sodium 100 MG Cap PO SCH (21:59)
[2021-08-25] MEDS: atorvaSTATin 20 MG Tab PO SCH (22:00)
[2021-08-26] MEDS: methylPREDNISolone Sodium Succinate 40 MG/1 ML SDV IVPUSH SCH ×2 (01:53→09:18)
[2021-08-26] MEDS: Albuterol/Ipratropium 3.0-0.5 MG/3 ML Neb Soln NEB SCH ×3 (01:56→13:12)
[2021-08-26] MEDS: Pantoprazole 40 MG Tab.CR PO SCH (05:11)
[2021-08-26 07:04] LABS: CHLORIDE,CL 92 mmol/L (98-107); SODIUM,NA 138 mmol/L (136-145)
[2021-08-26 07:05] LABS: ANION GAP 4.39999 mEq/L (7-13)
[2021-08-26] MEDS: Polyethylene Glycol 3350 Powder 17 GM Packet PO SCH (09:08)
[2021-08-26] MEDS: Metoprolol Succinate 50 MG Tab.ER PO SCH (09:12)
[2021-08-26] MEDS: Aspirin 81 MG Tab.EC PO SCH (09:13)
[2021-08-26] MEDS: Diltiazem IR 30 MG Tab PO SCH ×2 (09:14→13:33)
[2021-08-26] MEDS: Enoxaparin 80 MG/0.8 ML Syringe SUBCUT SCH (09:15)
[2021-08-26] MEDS: Insulin Lispro 100 Units/ML 3 ML Vial SUBCUT SCH ×2 (09:19→13:24)
[2021-08-26] MEDS: Ferrous Sulfate 325 MG Tab PO SCH (09:25)
[2021-08-26] MEDS: Furosemide 20 MG/2 ML VIAL IVPUSH SCH ×2 (09:25→15:09)
[2021-08-26 10:37] LABS: BASE EXCESS ARTERIAL 21 mmol/L ((-2)-(+3)); BICARBONATE,ARTERIAL 47.3 mmol/L (22-26); O2 DELIVERY DEVICE NASAL CANNULA; O2 SATURATION ARTERIAL 89 % (95-100); PCO2 ARTERIAL 58 mmHg (35-45); PO2 ARTERIAL 55 mmHg (70-100)
--- NOTE | 2021-08-26 10:44 | CR ---
PROCEDURE INFORMATION: Exam: XR Chest Exam date and time: 08/26/2021 10:21 AM Age: 80 years old Clinical indication: Shortness of breath; Additional info: Hypoxic resp failure TECHNIQUE: Imaging protocol: XR of the chest. Views: 2 views. COMPARISON: CR Chest 1V Frontal 08/23/2021 7:23 AM FINDINGS: Lungs: There is nonspecific consolidation in the left lung base. The pulmonary vasculature is not engorged. Pleural spaces: There is a moderate left pleural fluid collection present. There is a small right pleural fluid collection present. Heart/Mediastinum: The heart demonstrates mild diffuse enlargement. Bones/joints: Unremarkable IMPRESSION: 1. Moderate left pleural effusion. 2. Left basilar atelectasis or pneumonia. 3. Mild cardiomegaly. 4. Small right pleural effusion.
[2021-08-26] MEDS: Budesonide 0.5 MG/2 ML Neb Susp NEB SCH (10:52)
[2021-08-26 12:38] VITALS: BP 106/51; PULSE 83
[2021-08-26] MEDS ORDERED: Warfarin 2 MG Tab PO ONE (14:00)
--- NOTE | 2021-08-26 14:16 | PCM.DCSUM1 ---
Discharge Summary - Hospital Course Free Text/Narrative:: -- acute hypoxic and hypercapneic resp failure -- hospitalized 08/16, persistently requiring nasal cannula O2 (now 88% on 3L) despite following treatments -- acute on chronic heart failure, LVEF 40-45% on echo -- on furosemide, 40mg IV TID off late -- HCAP (last hospitalization 06/29/2021 for covid19 and encephalopathy) of left lung -- on levaquin since 08/16 -- exacerbation of COPD -- on solumedrol since 08/20 -- A-fib with RVR, since 06/23, now somewhat rate controlled on combo of diltiazem and metoprolol, in sinus rhythm with ventricular bigeminy as of 08/26 -- T-wave inversion in inferior, septal and anterior leads, persistent at least since 08/16 -- H/o covid19 pneumonia and hospitalization 06/2021 -- was discharged on 2L nasal cannula oxygen at that time -- moderate anemia -- moderate left pleural effusion, persistent since at least 06/2021 I, Dr Rincon, took over her care on 08/26 (discharge day). See H&P and progress notes included in transfer packet for more detail. Despite heart failure, pneumonia and COPD exacerbation treatment, she remained dyspneic on mild exertion, had significant bilat rhonchi L > R and had persistent moderate left pleural effusion. There is a possibility of left sided empyema or malignant effusion (long h/o cig smoking, quit Fall 2020) contributing to hypoxia and lack of clinical improvement. I discussed case with [facility] hospitalist; she has been accepted there particularly for thoracentesis and pleural fluid workup. Of note, due to above-mentioned T-wave abnormality, troponin level should be checked on arrival at [facility]. I discussed indication for transfer with her and her daughter; they agreed with it. Rui Rincon MD hospitalist -- ANA Kunz - Discharge Data Discharge Date: 08/26/21 Discharge Disposition: DC/Tfer to Acute Hospital 02 Condition: Poor - Referral to Home Health Primary Care Physician: PCP None - Patient Summary/Data Consults: Consultations 08/16/21 16:22 OT Evaluation and Treatment [CONS] Routine PT Evaluation and Treatment [CONS] Routine - Discharge Plan *PRESCRIPTION DRUG MONITORING PROGRAM REVIEWED*: Not Applicable *COPY OF PRESCRIPTION DRUG MONITORING REPORT IN PATIENT BART: Not Applicable Home Medications: Home Meds metFORMIN HCl [Metformin HCl] 500 mg PO DAILY 09/03/16 [History] Furosemide 20 mg PO DAILY 02/24/20 [History] Budesonide/Glycopyr/Formoterol [Breztri Aerosphere Inhaler] 2 puff INH BID 06/22/21 [History] Albuterol Sulfate [Albuterol Sulfate Hfa] 2 puff INH Q4H PRN 06/29/21 [History] Metoprolol Succinate [Toprol XL 100mg] 100 mg PO DAILY 06/29/21 [History] Acetaminophen [Tylenol] 650 mg PO Q4H PRN tablet 07/02/21 [Rx] Docusate Sodium [Colace] 200 mg PO BEDTIME cap 07/02/21 [Rx] Ferrous Sulfate 325 mg PO DAILY 30 Days #30 tablet 07/02/21 [Rx] Pantoprazole [ProTONIX] 40 mg PO ACBREAKFAST 30 Days #30 tab.cr 07/02/21 [Rx] atorvaSTATin [Lipitor] 80 mg PO BEDTIME tablet 07/02/21 [Rx] Fluticasone Propion/Salmeterol [Advair 250-50 Diskus] 1 puff INH BID 08/17/21 [History] Warfarin Sodium [Jantoven] 2 mg PO ASDIRECTED 08/17/21 [History] Acetaminophen [Tylenol] 650 mg PO Q4H PRN tablet 08/26/21 [Rx] Albuterol/Ipratropium [DuoNeb 3.0-0.5 MG/3 ML] 3 ml NEB Q2H PRN neb 08/26/21 [Rx] Albuterol/Ipratropium [DuoNeb 3.0-0.5 MG/3 ML] 3 ml NEB Q6HRRT neb 08/26/21 [Rx] Aspirin [Halfprin] 81 mg PO WITHBREAKFAST tab.ec 08/26/21 [Rx] Budesonide [Pulmicort] 0.5 mg NEB BIDRT neb 08/26/21 [Rx] Diltiazem IR [Cardizem] 60 mg PO QID tablet 08/26/21 [Rx] Ferrous Sulfate 325 mg PO DAILY tablet 08/26/21 [Rx] Insulin Glarg,Human.Rec.Analog [Lantus] 20 unit SUBCUT BEDTIME ml 08/26/21 [Rx] Insulin Lispro [HumaLOG] 0 unit SUBCUT WITHMEALSANDBED vial 08/26/21 [Rx] Pantoprazole [ProTONIX] 40 mg PO ACBREAKFAST tab.cr 08/26/21 [Rx] Pharmacy to Dose - Warfarin 1 dose .XX ASDIRECTED each 08/26/21 [Rx] Simethicone 80 mg PO Q6H PRN tab.chew 08/26/21 [Rx] atorvaSTATin [Lipitor] 80 mg PO BEDTIME tablet 08/26/21 [Rx] polyethylene glycoL 3350 [MiraLAX] 17 gm PO DAILY packet 08/26/21 [Rx] Oxygen Therapy Mode: High Flow Nasal Cannula Oxygen Flow Rate (L/min): 3 Referrals: PCP,None [Primary Care Provider] - - Discharge Summary/Plan Comment DC Time >30 min.: Yes Total # of Minutes for Discharge Time: 45 mins - Patient Data Vitals - Most Recent: Last Vital Signs Temp 97.6 F 08/26/21 12:00 Pulse 83 08/26/21 12:00 Resp 20 08/26/21 12:00 BP 106/51 L 08/26/21 12:00 Pulse Ox 95 08/26/21 12:00 Weight - Most Recent: 167 lb 12.8 oz I&O - Last 24 hours: Intake & Output 08/25/21 08/26/21 08/26/21 22:59 06:59 14:59 Intake Total 200 260 Output Total 1125 775 Balance -925 -775 260 Lab Results - Last 24 hrs: Laboratory Results - last 24 hr 08/25/21 08/25/21 08/26/21 Range/Units 16:36 20:26 06:17 WBC 9.1 (5.0-10.0) 10^3/uL RBC 3.80 L (4.2-5.4) 10^6/uL Hgb 9.4 L (12.0-16.0) g/dL Hct 32.7 L (37.0-47.0) % MCV 86.1 (80-100) fL MCH 24.7 L (27.0-34.0) pg MCHC 28.7 L (33.0-35.0) g/dL Plt Count 210 (150-450) 10^3/uL Neut % (Auto) 93.4 H (42.2-75.2) % Lymph % (Auto) 3.3 L (20.5-50.1) % Monona % (Auto) 3.1 (2-8) % Eos % (Auto) 0.0 L (1.0-3.0) % Baso % (Auto) 0.2 (0.0-1.0) % ABG pH (7.35-7.45) ABG pCO2 (35-45) mmHg ABG pO2 (70-100) mmHg ABG HCO3 (22-26) mmol/L ABG O2 Saturation (95-100) % ABG Base Excess ((-2)-(+3)) mmol/L O2 Delivery Device Sodium (136-145) mmol/L Potassium (3.5-5.1) mmol/L Chloride (98-107) mmol/L Carbon Dioxide (21-32) mmol/L Anion Gap (7-13) mEq/L BUN (7-18) mg/dL Creatinine (0.55-1.02) mg/dL Est Cr Clr Drug Dosing mL/min Estimated GFR (MDRD) Glucose (70-99) mg/dL POC Glucose 329 H 266 H (70-99) mg/dL Calcium (8.5-10.1) mg/dL 08/26/21 08/26/21 08/26/21 Range/Units 06:17 08:01 10:09 WBC (5.0-10.0) 10^3/uL RBC (4.2-5.4) 10^6/uL Hgb (12.0-16.0) g/dL Hct (37.0-47.0) % MCV (80-100) fL MCH (27.0-34.0) pg MCHC (33.0-35.0) g/dL Plt Count (150-450) 10^3/uL Neut % (Auto) (42.2-75.2) % Lymph % (Auto) (20.5-50.1) % Monona % (Auto) (2-8) % Eos % (Auto) (1.0-3.0) % Baso % (Auto) (0.0-1.0) % ABG pH 7.52 H (7.35-7.45) ABG pCO2 58 H (35-45) mmHg ABG pO2 55 L (70-100) mmHg ABG HCO3 47.3 H (22-26) mmol/L ABG O2 Saturation 89 L (95-100) % ABG Base Excess 21 H ((-2)-(+3)) mmol/L O2 Delivery Device Nasal cannula Sodium 138 (136-145) mmol/L Potassium 3.4 L (3.5-5.1) mmol/L Chloride 92 L (98-107) mmol/L Carbon Dioxide > 45 H* (21-32) mmol/L Anion Gap 4.65979 L (7-13) mEq/L BUN 34 H (7-18) mg/dL Creatinine 1.05 H (0.55-1.02) mg/dL Est Cr Clr Drug Dosing 40.00 mL/min Estimated GFR (MDRD) 50 Glucose 200 H (70-99) mg/dL POC Glucose 216 H (70-99) mg/dL Calcium 9.1 (8.5-10.1) mg/dL 08/26/ Range/Units 11:57 WBC (5.0-10.0) 10^3/uL RBC (4.2-5.4) 10^6/uL Hgb (12.0-16.0) g/dL Hct (37.0-47.0) % MCV (80-100) fL MCH (27.0-34.0) pg MCHC (33.0-35.0) g/dL Plt Count (150-450) 10^3/uL Neut % (Auto) (42.2-75.2) % Lymph % (Auto) (20.5-50.1) % Monona % (Auto) (2-8) % Eos % (Auto) (1.0-3.0) % Baso % (Auto) (0.0-1.0) % ABG pH (7.35-7.45) ABG pCO2 (35-45) mmHg ABG pO2 (70-100) mmHg ABG HCO3 (22-26) mmol/L ABG O2 Saturation (95-100) % ABG Base Excess ((-2)-(+3)) mmol/L O2 Delivery Device Sodium (136-145) mmol/L Potassium (3.5-5.1) mmol/L Chloride (98-107) mmol/L Carbon Dioxide (21-32) mmol/L Anion Gap (7-13) mEq/L BUN (7-18) mg/dL Creatinine (0.55-1.02) mg/dL Est Cr Clr Drug Dosing mL/min Estimated GFR (MDRD) Glucose (70-99) mg/dL POC Glucose 256 H (70-99) mg/dL Calcium (8.5-10.1) mg/dL Med Orders - Current: Current Medications Acetaminophen (Acetaminophen 325 Mg Tab) 650 mg PO Q4H PRN PRN Reason: Pain (Mild 1-3)/fever Albuterol/Ipratropium (Albuterol/Ipratropium 3.0-0.5 Mg/3 Ml Neb Soln) 3 ml NEB Q2H PRN PRN Reason: sob Last Admin: 08/20/21 09:33 Dose: 3 ml Documented by: Albuterol/Ipratropium (Albuterol/Ipratropium 3.0-0.5 Mg/3 Ml Neb Soln) 3 ml NEB Q6HRRT [facility] Last Admin: 08/26/21 13:12 Dose: 3 ml Documented by: Aspirin (Aspirin 81 Mg Tab.Ec) 81 mg PO WITHBREAKFAST [facility] Last Admin: 08/26/21 09:13 Dose: 81 mg Documented by: Atorvastatin Calcium (Atorvastatin 20 Mg Tab) 80 mg PO BEDTIME [facility] Last Admin: 08/25/21 22:00 Dose: 80 mg Documented by: Budesonide (Budesonide 0.5 Mg/2 Ml Neb Susp) 0.5 mg NEB BIDRT [facility] Last Admin: 08/26/21 10:52 Dose: Not Given Documented by: Dextrose/Water (50% Dextrose In Water 50 Ml Syringe) 25 ml IVPUSH ASDIRECTED PRN PRN Reason: Hypoglycemia BS<70 Diltiazem HCl (Diltiazem Ir 30 Mg Tab) 60 mg PO QID [facility] Last Admin: 08/26/21 13:33 Dose: 60 mg Documented by: Docusate Sodium (Docusate Sodium 100 Mg Cap) 200 mg PO BEDTIME [facility] Last Admin: 08/25/21 21:59 Dose: 200 mg Documented by: Enoxaparin Sodium (Enoxaparin 80 Mg/0.8 Ml Syringe) 80 mg SUBCUT BID [facility] Last Admin: 08/26/21 09:15 Dose: 80 mg Documented by: Ferrous Sulfate (Ferrous Sulfate 325 Mg Tab) 325 mg PO DAILY [facility] Last Admin: 08/26/21 09:25 Dose: 325 mg Documented by: Furosemide (Furosemide 20 Mg/2 Ml Vial) 40 mg IVPUSH TID [facility] Last Admin: 08/26/21 09:25 Dose: 40 mg Documented by: Levofloxacin/Dextrose 750 mg/ (Premix) 150 mls @ 100 mls/hr IV Q48H [facility] Last Admin: 08/24/21 21:20 Dose: 100 mls/hr Documented by: Insulin Glargine (Insulin Glarg,Human.Rec.Analog 100 Unit/Ml) 20 unit SUBCUT BEDTIME [facility] Last Admin: 08/25/21 21:58 Dose: 20 units Documented by: Insulin Human Lispro (Insulin Lispro 100 Units/Ml 3 Ml Vial) 0 unit SUBCUT WITHMEALSANDBED [facility]; Protocol Last Admin: 08/26/21 13:24 Dose: 6 units Documented by: Lactulose (Lactulose Soln 10 Gm/15 Ml 30 Ml Ud Cup) 20 gm PO Q12H PRN PRN Reason: Constipation Last Admin: 08/19/21 08:58 Dose: 20 gm Documented by: Methylprednisolone Sodium Succinate (Methylprednisolone Sodium Succinate 40 Mg/1 Ml Sdv) 40 mg IVPUSH Q8H [facility] Last Admin: 08/26/21 09:18 Dose: 40 mg Documented by: Metoprolol Succinate (Metoprolol Succinate 50 Mg Tab.Er) 100 mg PO DAILY [facility] Last Admin: 08/26/21 09:12 Dose: 100 mg Documented by: Ondansetron HCl (Ondansetron 4 Mg/2 Ml Sdv) 4 mg IVPUSH Q6H PRN PRN Reason: Nausea/Vomiting Pantoprazole Sodium (Pantoprazole 40 Mg Tab.Cr) 40 mg PO ACBREAKFAST [facility] Last Admin: 08/26/21 05:11 Dose: 40 mg Documented by: Polyethylene Glycol (Polyethylene Glycol 3350 Powder 17 Gm Packet) 17 gm PO DAILY [facility] Last Admin: 08/26/21 09:08 Dose: 17 gm Documented by: Simethicone (Simethicone 80 Mg Tab.Chew) 80 mg PO Q6H PRN PRN Reason: bloating Last Admin: 08/18/21 04:52 Dose: 80 mg Documented by: Sodium Chloride (Sodium Chloride 0.9% 10 Ml Syringe) 10 ml FLUSH ASDIRECTED PRN PRN Reason: Keep Vein Open Last Admin: 08/25/21 14:19 Dose: 10 ml Documented by: Warfarin Sodium (Pharmacy To Dose - Warfarin) 1 dose .XX ASDIRECTED [facility] Discontinued Medications Aspirin (Aspirin 81 Mg Tab.Chew) 324 mg PO ONETIME ONE Stop: 08/16/21 21:16 Last Admin: 08/16/21 21:31 Dose: 324 mg Documented by: Diltiazem HCl (Diltiazem Ir 30 Mg Tab) 30 mg PO Q8HR [facility] Diltiazem HCl (Diltiazem Ir 30 Mg Tab) 30 mg PO TID [facility] Last Admin: 08/23/21 20:52 Dose: Not Given Documented by: Diltiazem HCl (Diltiazem Ir 30 Mg Tab) 30 mg PO QID [facility] Last Admin: 08/24/21 08:15 Dose: 30 mg Documented by: Diltiazem HCl (Diltiazem Ir 30 Mg Tab) 45 mg PO QID [facility] Last Admin: 08/25/21 08:41 Dose: 45 mg Documented by: Diltiazem HCl (Diltiazem 25 Mg/5 Ml Sdv) 10 mg IVPUSH ONETIME ONE Stop: 08/24/21 09:31 Last Admin: 08/24/21 09:51 Dose: 10 mg Documented by: Furosemide (Furosemide 40 Mg/4 Ml Vial) 40 mg IVPUSH ONETIME ONE Stop: 08/16/21 15:09 Last Admin: 08/16/21 15:23 Dose: 40 mg Documented by: Furosemide (Furosemide 20 Mg/2 Ml Vial) 20 mg IVPUSH BIDDIURETIC [facility] Last Admin: 08/19/21 08:29 Dose: 20 mg Documented by: Furosemide (Furosemide 20 Mg/2 Ml Vial) 20 mg IVPUSH TID [facility] Last Admin: 08/20/21 09:25 Dose: 20 mg Documented by: Sodium Chloride (Normal Saline) 1,000 mls @ 75 mls/hr IV ASDIRECTED [facility] Last Admin: 08/16/21 15:24 Dose: 75 mls/hr Documented by: Ceftriaxone Sodium 1 gm/ (Sodium Chloride) 50 mls @ 100 mls/hr IV ONETIME ONE Stop: 08/16/21 15:37 Last Admin: 08/16/21 15:23 Dose: 100 mls/hr Documented by: Levofloxacin/Dextrose 750 mg/ (Premix) 150 mls @ 100 mls/hr IV Q24H [facility] Last Admin: 08/17/21 16:23 Dose: Not Given Documented by: Vancomycin HCl 1 gm/ Sodium (Chloride) 250 mls @ 250 mls/hr IV DAILY@1600 [facility] Last Admin: 08/18/21 16:08 Dose: 250 mls/hr Documented by: Insulin Human NPH (Insulin Isophane Nph, Human 100 Units/Ml 3 Ml Vial) 10 unit SQ ONETIME ONE Stop: 08/25/21 11:03 Last Admin: 08/25/21 11:40 Dose: 10 unit Documented by: Metoprolol Tartrate (Metoprolol Tartrate 5 Mg/5 Ml Sdv) 5 mg IVPUSH ONETIME ONE Stop: 08/23/21 09:38 Last Admin: 08/23/21 09:51 Dose: 5 mg Documented by: Metoprolol Tartrate (Metoprolol Tartrate 5 Mg/5 Ml Sdv) 5 mg IVPUSH ONETIME ONE Stop: 08/23/21 10:27 Last Admin: 08/23/21 10:42 Dose: 5 mg Documented by: Vancomycin HCl (Pharmacy To Dose - Vancomycin) 1 dose .XX ASDIRECTED [facility] Warfarin Sodium (Pharmacy To Dose - Warfarin) 1 dose .XX ASDIRECTED [facility] Warfarin Sodium (Warfarin 2 Mg Tab) 2 mg PO DAILY@1400 [facility] Last Admin: 08/18/21 14:54 Dose: 2 mg Documented by: Warfarin Sodium (Warfarin 2 Mg Tab) 2 mg PO DAILY@1400 [facility] Warfarin Sodium (Warfarin 1 Mg Tab) 1 mg PO DAILY@1400 [facility] Stop: 08/19/21 14:01 Last Admin: 08/19/21 15:04 Dose: 1 mg Documented by: Warfarin Sodium (Warfarin 1 Mg Tab) 0.5 mg PO ONETIME ONE Stop: 08/20/21 14:01 Last Admin: 08/20/21 14:33 Dose: 0.5 mg Documented by: Warfarin Sodium (Warfarin 1 Mg Tab) 1 mg PO ONETIME ONE Stop: 08/21/21 14:01 Last Admin: 08/21/21 15:25 Dose: 1 mg Documented by: Warfarin Sodium (Warfarin 2 Mg Tab) 2 mg PO ONETIME ONE Stop: 08/22/21 14:01 Warfarin Sodium (Warfarin 2 Mg Tab) 2 mg PO ONETIME ONE Stop: 08/25/21 14:01 Last Admin: 08/25/21 14:19 Dose: 2 mg Documented by: Warfarin Sodium (Warfarin 2 Mg Tab) 2 mg PO ONETIME ONE Stop: 08/26/21 14:01 - Exam Physical Findings Comments:: rhonchi in both mid lungs L > R; faint stasis dermatitis in both legs; mild proptosis of both eyes; physical exam otherwise negative for major findings #1 Interpretation EKG Interpretation Comments: T wave inversion in inferior, lateral and septal leads *Q Meaningful Use (DIS) - VTE *Q VTE Anticoagulation Contraindications: Med/TX Not Indicated/Need
[2021-09-02 22:13] LABS: ALLEN TEST PERFORMED
== END 2021-08-26 15:00 | DRG 871 ==
LOC: DL.ED 14:33 → DL.MS 15:46
PROVIDERS: ADMIT Internal Medicine; ATTEND Student in an Organized Health Care Education/Training Program
DX: A41.9 Sepsis, unspecified organism (principal); J18.9 Pneumonia, unspecified organism; J96.21 Acute and chronic respiratory failure with hypoxia; I21.A1 Myocardial infarction type 2; I50.23 Acute on chronic systolic (congestive) heart failure; I11.0 Hypertensive heart disease with heart failure; J44.1 Chronic obstructive pulmonary disease with (acute) exacerbation; J91.8 Pleural effusion in other conditions classified elsewhere; E87.0 Hyperosmolality and hypernatremia; I48.20 Chronic atrial fibrillation, unspecified; J44.0 Chronic obstructive pulmonary disease with (acute) lower respiratory infection; Z66 Do not resuscitate; I50.9 Heart failure, unspecified; D64.9 Anemia, unspecified; I25.10 Atherosclerotic heart disease of native coronary artery without angina pectoris; H54.7 Unspecified visual loss; I48.91 Unspecified atrial fibrillation; H91.90 Unspecified hearing loss, unspecified ear; E78.00 Pure hypercholesterolemia, unspecified; K59.00 Constipation, unspecified; I25.2 Old myocardial infarction; Z95.5 Presence of coronary angioplasty implant and graft; Z86.19 Personal history of other infectious and parasitic diseases; Z87.891 Personal history of nicotine dependence; K59.09 Other constipation; Z79.82 Long term (current) use of aspirin; Z79.4 Long term (current) use of insulin; G89.29 Other chronic pain; M54.9 Dorsalgia, unspecified; E11.9 Type 2 diabetes mellitus without complications; Z86.16 Personal history of COVID-19; Z86.14 Personal history of Methicillin resistant Staphylococcus aureus infection; Z98.41 Cataract extraction status, right eye; Z98.42 Cataract extraction status, left eye; Z87.440 Personal history of urinary (tract) infections; Z88.0 Allergy status to penicillin; Z79.01 Long term (current) use of anticoagulants; Z79.84 Long term (current) use of oral hypoglycemic drugs; Z79.899 Other long term (current) drug therapy; Z20.822 Contact with and (suspected) exposure to COVID-19
CPT/HCPCS: 0240U; 36415; 36600; 71045; 71046; 80048; 80053; 80202; 81001; 82803; 82947; 83605; 83880; 84484; 85025; 85379; 85610; 87040; 87070; 87077; 87186; 87205; 93005; 93306; 94640; 96365; 96375; 97110; 97161; 97165; 97530; 97535; 99221; 99232; 99233; 99285; 93010; 99284; A9270-GY; J0696; J1650; J1815; J1815-GY; J1940; J1956; J2920; J3370; J3490; J7030; J7050; J7620-GY

== ENCOUNTER 2021-09-01 12:13 | Inpatient (IN) | payer MEDICARE, OTHER ==
[2021-09-01] MEDS ORDERED: Acetaminophen 325 MG Tab PO PRN (14:35)
[2021-09-01] MEDS ORDERED: Albuterol 6.7 GM Inhaler INH PRN (14:53)
[2021-09-01] MEDS ORDERED: Warfarin 2 MG Tab PO SCH (15:00)
[2021-09-01] MEDS: Warfarin 2 MG Tab PO SCH (17:34)
[2021-09-01] MEDS ORDERED: 50% Dextrose in Water 50 ML Syringe IVPUSH PRN (19:55)
[2021-09-01] MEDS ORDERED: Glucagon,Human Recombinant 1 MG Vial IM PRN (19:55)
[2021-09-01] MEDS: atorvaSTATin 20 MG Tab PO SCH (20:44)
[2021-09-01] MEDS: Insulin Glarg,Human.Rec.Analog 100 Unit/ML SUBCUT SCH (20:45)
[2021-09-01] MEDS: Docusate Sodium 100 MG Cap PO PRN (20:51)
[2021-09-01] MEDS: Insulin Lispro 100 Units/ML 3 ML Vial SUBCUT SCH (21:10)
--- NOTE | 2021-09-02 00:24 | HP ---
HISTORY OF PRESENT ILLNESS: The patient is an 80-year-old female, was admitted at [facility] due to CHF exacerbation, sepsis and pneumonia on 08/16, and patient was treated with IV antibiotics, vancomycin and Levaquin. Chest x-ray showed that she has pleural effusions: moderate left pleural effusion and mild right pleural effusion. This is on the chest x-ray that was done on 08/26. Ppatient was transferred to [facility] for thoracocentesis. The patient had removed 500 mL of pleural effusion that was negative for neutrophils and culture of the fluid was done, pending cultures. The was continued at the hospital with Levaquin antibiotic and she was stable to be discharged from [facility] without antibiotics. Discharged on Prednisone taper. The patient is being sent back to [facility] for swing admission. The patient to continue physical therapy and occupational therapy. She does not have any acute complaints. She has decreased hearing and she is lying comfortable in the bed. PAST MEDICAL HISTORY: She has diabetes mellitus and on metformin 500 mg at home; history of atrial fibrillation; COPD, with chronic hypoxemic respiratory failure on home oxygen 2 L per minute; had COVID pneumonia in June and hospitalization in the end of June; congestive heart failure, she has ejection fraction of 45%. Reports hard of hearing, impaired vision, AFib, coronary artery disease, high cholesterol, DE, stents, asthma, bronchitis, recurrent COPD, COVID-19 in 06/20/2021, chronic constipation, hemorrhoids, UTI recurrent, , back pain chronic, anemia, right leg cellulitis. PAST SURGICAL HISTORY: Cataract surgery, coronary artery stent, 1 stent in 1998; lung biopsy. FAMILY HISTORY: No pertinent family history. SOCIAL HISTORY: Not a tobacco user and no recreational drug use. REVIEW OF SYSTEMS: 12-point review of systems is negative except as in the history of present illness. PHYSICAL EXAMINATION: VITAL SIGNS: At admission, temperature 97.9, pulse rate 72, blood pressure 91/71, respiratory rate 23, oxygen saturation 95 on 2 L nasal cannula. The patient is on 2 L nasal cannula at baseline. HEENT: Head is atraumatic, normocephalic. Nonicteric. She has mild dehydration and dry oral mucosa. NECK: Supple. No thyromegaly. No lymphadenopathy. HEART: S1 and S2. Regular rhythm and rate. LUNGS: Clear to auscultation. ABDOMEN: Soft, nontender. Positive bowel sounds. EXTREMITIES: No edema. LABORATORY DATA: Chemistry; her blood sugar is 351. CBC, CMP done at [facility] were reviewed and are within normal limits except for hemoglobin of 9.9. ASSESSMENT AND PLAN: 1. Deconditioning. 2. Generalized weakness. 3. Status post pneumonia. 4. Status post thoracentesis. 5. Diabeters mellitus with hyperglycemia. 6. COPD exacerbation. The patient will be admitted to swing bed and we will request PT and OT consult for strengthening and ambulation. For congestive heart failure, the patient will be continued with her furosemide 20 mg p.o. daily. For diabetes mellitus, we will increase metformin to 1000 mg p.o. b.i.d. and insulin sliding scale. For atrial fibrillation, the patient will be continued with Warfarin 2 mg Monday, Monday, Monday, , and 4 mg on Monday. For GI prophylaxis, the patient will be continued with pantoprazole 40 p.o. daily. For hyperlipidemia and coronary artery disease, the patient will be continued with aspirin 81 mg p.o. daily and atorvastatin 80 mg p.o. at bedtime. COPD exacerbation: Albuterol 2 puffs a4h p.r.n. for SOB/wheezing. Prednisone taper. [facility] /[id number]
[2021-09-02] MEDS: Pantoprazole 40 MG Tab.CR PO SCH (05:38)
[2021-09-02 06:49] LABS: ANION GAP 5.8 mEq/L (7-13); CHLORIDE,CL 100 mmol/L (98-107); SODIUM,NA 142 mmol/L (136-145)
[2021-09-02] MEDS ORDERED: metFORMIN 500 MG Tab PO SCH (08:00)
[2021-09-02] MEDS: Insulin Lispro 100 Units/ML 3 ML Vial SUBCUT SCH ×4 (08:50→20:55)
[2021-09-02 08:52] LABS: HEMOGLOBIN A1C 7.5 % (<5.7)
[2021-09-02] MEDS: Aspirin 81 MG Tab.EC PO SCH (09:43)
[2021-09-02] MEDS: metFORMIN 500 MG Tab PO SCH ×2 (09:43→18:07)
[2021-09-02] MEDS: Ferrous Sulfate 325 MG Tab PO SCH (09:44)
[2021-09-02] MEDS: Furosemide 20 MG Tab PO SCH (09:44)
[2021-09-02] MEDS: Metoprolol Succinate 50 MG Tab.ER PO SCH (09:44)
[2021-09-02] MEDS: FORMOTEROL INH SCH ×2 (09:46→18:09)
[2021-09-02] MEDS: BUDESONIDE INH SCH ×2 (09:46→18:09)
[2021-09-02] MEDS: GLYCOPYR INH SCH ×2 (09:46→18:09)
[2021-09-02] MEDS: Warfarin 2 MG Tab PO SCH (14:07)
[2021-09-02] MEDS: Docusate Sodium 100 MG Cap PO PRN (20:42)
[2021-09-02] MEDS: atorvaSTATin 20 MG Tab PO SCH (20:42)
[2021-09-02] MEDS: Insulin Glarg,Human.Rec.Analog 100 Unit/ML SUBCUT SCH (20:45)
[2021-09-02] MEDS: Non-Formulary Medication 1 Each (Fluticasone Propion/Salmeterol 1 EACH Blst.W.Dev) INH SCH (20:56)
[2021-09-03] MEDS: Pantoprazole 40 MG Tab.CR PO SCH (06:02)
[2021-09-03 06:43] LABS: ANION GAP 4.7 mEq/L (7-13); CHLORIDE,CL 100 mmol/L (98-107); SODIUM,NA 139 mmol/L (136-145)
[2021-09-03] MEDS: Insulin Lispro 100 Units/ML 3 ML Vial SUBCUT SCH (08:21)
[2021-09-03] MEDS: BUDESONIDE INH SCH (08:28)
[2021-09-03] MEDS: GLYCOPYR INH SCH (08:28)
[2021-09-03] MEDS: FORMOTEROL INH SCH (08:28)
[2021-09-03] MEDS: Metoprolol Succinate 50 MG Tab.ER PO SCH (08:30)
[2021-09-03] MEDS: Aspirin 81 MG Tab.EC PO SCH (08:37)
[2021-09-03] MEDS: metFORMIN 500 MG Tab PO SCH (08:40)
[2021-09-03] MEDS: Ferrous Sulfate 325 MG Tab PO SCH (08:45)
[2021-09-03] MEDS: Furosemide 20 MG Tab PO SCH (08:55)
[2021-09-03 09:40] VITALS: BP 118/72; PULSE 79
[2021-09-03 10:02] LABS: HEMOGLOBIN A1C 7.4 % (<5.7)
--- NOTE | 2021-09-03 17:08 | DISCH ---
DISCHARGE DIAGNOSES: 1. Deconditioning and generalized weakness. 2. Status post pneumonia. 3. Status post paracentesis. 4. Diabetes mellitus with hyperglycemia. 5. Status post chronic obstructive pulmonary disease exacerbation. SECONDARY DIAGNOSES: 1. Atrial fibrillation, on chronic anticoagulation. 2. Congestive heart failure. 3. Hyperlipidemia. 4. Coronary artery disease. HOSPITAL COURSE: The patient admitted previously to [facility] with pneumonia, sepsis, and CHF exacerbation, was found to have pleural effusion, moderate amount, on the left and small pleural effusions on the right on 08/26 chest x-ray, and she was sent to [facility] to have thoracentesis. She was discharged from [facility] back to [facility], where she was admitted to [facility] to have physical therapy. Physical Therapy saw patient and they recommended the patient does not need physical therapy and she can be discharged home. The patient walks with a walker. PAST MEDICAL HISTORY: 1. She has diabetes mellitus, [id number]. 2. Atrial fibrillation. 3. COPD with chronic respiratory failure, on 2 L oxygen at home. 4. Has a history of COVID pneumonia in June and hospitalization at the end of June. 5. Also, has history of congestive heart failure with ejection fraction of 45%. 6. She has hypoacusis and impaired vision. 7. Has hyperlipidemia. 8. She is status post myocardial infarction and stents. 9. Patient has history of chronic constipation. 10.Hemorrhoids. 11.UTI recurrent. 12.. 13.Back pain. 14.Anemia. 15.Right leg cellulitis. PAST SURGICAL HISTORY: 1. She had cataract surgery. 2. Coronary artery stent x1 in 1998. 3. She is status post lung biopsy. FAMILY HISTORY: No pertinent family history. SOCIAL HISTORY: Not a tobacco user and no recreational drug use. She used to be a smoker. PHYSICAL EXAMINATION: Vital Signs: Today at discharge, her temperature was 98.6, pulse 79, blood pressure 118/72, respiratory rate 20, and oxygen saturation 97. HEENT: Her head is atraumatic, normocephalic. Pupils are equally reactive to light. Neck: Supple. No thyromegaly. No lymphadenopathy. Heart: S1 and S2. Irregular rhythm and rate. Lungs: Clear to auscultation bilaterally. Abdomen: Soft, nontender. Positive bowel sounds. Extremities: No edema. LABORATORY DATA: At discharge, her WBC was 9.5, hemoglobin 9.4, and platelet count 195. Sodium 139, potassium 4.7, chloride 100, CO2 of 29, anion gap 4.7, BUN 21, creatinine 0.73, and estimated GFR more than 60. Hemoglobin A1c 7.4, calcium 8.1. The patient was discharged [facility], physical therapy for strength training due to deconditioning and fall precautions. Occupational Therapy for home safety assessment and training for all activities of daily living. She was discharged home with home health for [facility]. MEDICATIONS AT DISCHARGE: The patient was discharged home with acetaminophen 650 mg p.o. q.6 hours p.r.n., albuterol inhaler 2 puffs inhalatory q.6 hours p.r.n., aspirin 81 mg p.o. daily, atorvastatin 80 mg p.o. at bedtime, docusate 100 mg p.o. b.i.d. p.r.n., ferrous sulfide 325 mg p.o. daily, furosemide 20 mg p.o. daily, Glucophage 1000 mg p.o. b.i.d., metoprolol succinate 100 mg p.o. daily, budesonide formoterol 2 puffs inhalatory b.i.d., pantoprazole 40 mg p.o. daily, warfarin 2 mg p.o. on Monday, Monday, Monday, , Monday, and Monday and warfarin sodium 4 mg p.o. on Monday. [facility] /[id number]
[2021-09-05] MEDS ORDERED: Warfarin 2 MG Tab PO SCH (14:00)
== END 2021-09-03 10:55 | disposition home or self-care (01) | DRG 948 ==
LOC: DL.MS 14:11
PROVIDERS: ADMIT Internal Medicine; ATTEND Internal Medicine
DX: R53.1 Weakness (principal); J96.11 Chronic respiratory failure with hypoxia; Z87.01 Personal history of pneumonia (recurrent); J44.9 Chronic obstructive pulmonary disease, unspecified; I48.91 Unspecified atrial fibrillation; Z79.01 Long term (current) use of anticoagulants; I50.9 Heart failure, unspecified; E78.5 Hyperlipidemia, unspecified; I25.10 Atherosclerotic heart disease of native coronary artery without angina pectoris; Z86.16 Personal history of COVID-19; H54.7 Unspecified visual loss; I25.2 Old myocardial infarction; Z95.5 Presence of coronary angioplasty implant and graft; K59.09 Other constipation; Z87.440 Personal history of urinary (tract) infections; M54.9 Dorsalgia, unspecified; D64.9 Anemia, unspecified; Z98.49 Cataract extraction status, unspecified eye; H91.90 Unspecified hearing loss, unspecified ear; E11.9 Type 2 diabetes mellitus without complications
CPT/HCPCS: 36415; 80048; 80053; 82947; 83036; 85027; 85610; 97162-GP; 97165-GO; A9270-GY; J1815-GY

== ENCOUNTER 2021-09-09 15:17 | Emergency (ER) | payer MEDICARE, OTHER ==
--- NOTE | 2021-09-09 15:29 | EDM.PDOC ---
ED HPI GENERAL MEDICAL PROBLEM - General Chief Complaint: CPR in Progress Stated Complaint: AMBULANCE - BLUE Time Seen by Provider: 09/09/21 15:17 Source of Information: Reports: EMS, Old Records History Limitations: Reports: Other (DOA) - History of Present Illness INITIAL COMMENTS - FREE TEXT/NARRATIVE: Pt arrives to ER from home by [facility] with report of CPR in progress. Pt and reportedly were napping. When woke from his nap he found the pt on the floor unresponsive and called 911. Unknown down time. EMS reports finding the pt unresponsive, pulseless, and in asystole. EMS initiated CPR, and placed the EDU device, placed an IO in the left tibia, intubated the pt, and gave several doses of Epi. 1mg IVP. The pt had some brief runs of PEA. On arrival to the ER the pt was cold to touch, mottled, unresponsive, pulseless, with pupils fixed and dilated, and confirmed to be in asystole in 2 leads. Immediately upon arrival I discontinued the EDU. Resuscitation was deemed futile as the pt appears to have been for a while, consistent with the unknown down time. Time of : 15:21 HRS. 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: Reports: CPR, Intubation, IV/IO, See EMS Report - Related Data Allergies Allergy/AdvReac Type Severity Reaction Status Date / Time Penicillins Allergy Severe Hives Verified 09/01/21 14:29 Home Meds: Home Meds Furosemide 20 mg PO DAILY 02/24/20 [History] Budesonide/Glycopyr/Formoterol [Breztri Aerosphere Inhaler] 2 puff INH BID 06/22/21 [History] Albuterol Sulfate [Albuterol Sulfate Hfa] 2 puff INH Q6H PRN 06/29/21 [History] Metoprolol Succinate [Toprol XL 100mg] 100 mg PO DAILY 06/29/21 [History] Docusate Sodium [Colace] 200 mg PO BEDTIME cap 07/02/21 [Rx] Fluticasone Propion/Salmeterol [Advair 250-50 Diskus] 1 puff INH BID 08/17/21 [History] Ferrous Sulfate 325 mg PO DAILY tablet 08/26/21 [Rx] Pantoprazole [ProTONIX] 40 mg PO ACBREAKFAST tab.cr 08/26/21 [Rx] Acetaminophen [Tylenol] 650 mg PO Q6H PRN 09/01/21 [History] Aspirin [Halfprin] 81 mg PO DAILY 09/01/21 [History] Warfarin Sodium [Jantoven] 2 mg PO [id number] 09/01/21 [History] Warfarin [Coumadin] 4 mg PO TORRES 09/01/21 [History] atorvaSTATin Calcium [Atorvastatin Calcium] 80 mg PO BEDTIME 09/01/21 [History] metFORMIN [Glucophage] 1,000 mg PO BIDMEALS 30 Days #60 tablet 09/03/21 [Rx] predniSONE [Prednisone] 10 mg PO DAILY 09/03/21 [History] predniSONE [Prednisone] 20 mg PO DAILY 09/03/21 [History] predniSONE [Prednisone] 40 mg PO DAILY 09/03/21 [History] Past Medical History HEENT History: Reports: Hard of Hearing, Impaired Vision Cardiovascular History: Reports: Afib, CAD, Heart Failure, High Cholesterol, LA, Stents Respiratory History: Reports: Asthma, Bronchitis, Recurrent, COPD, Other (See Below) Other Respiratory History: Covid , Jun 20, 2021 Gastrointestinal History: Reports: Chronic Constipation, Hemorrhoids Genitourinary History: Reports: UTI, Recurrent 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 History: 4 NVD Musculoskeletal History: Reports: Back Pain, Chronic Neurological History: Reports: None Psychiatric History: Reports: None Endocrine/Metabolic History: Reports: Diabetes, Type II Hematologic History: Reports: Anemia, Blood Transfusion(s) Immunologic History: Reports: None Oncologic (Cancer) History: Reports: None Dermatologic History: Reports: Cellulitis Other Dermatologic History: right leg cellulitis - Infectious Disease History Infectious Disease History: Reports: Chicken Pox, Measles, Novel Coronavirus - Past Surgical History HEENT Surgical History: Reports: Cataract Surgery Other HEENT Surgeries/Procedures: cataract surgery bilaterally Cardiovascular Surgical History: Reports: Coronary Artery Stent Other Cardiovascular Surgeries/Procedures: 1 stent 1998 Respiratory Surgical History: Reports: Lung Biopsies GI Surgical History: Reports: None Female Surgical History: Reports: None Endocrine Surgical History: Reports: None Neurological Surgical History: Reports: None Musculoskeletal Surgical History: Reports: None Oncologic Surgical History: Reports: None Dermatological Surgical History: Reports: None Social & Family History - Family History Family Medical History: No Pertinent Family History - Tobacco Use Tobacco Use Status *Q: Former Tobacco User Tobacco Use Within Last Twelve Months: Cigarettes - Caffeine Use Caffeine Use: Reports: None - Alcohol Use Alcohol Use History: No - Recreational Drug Use Recreational Drug Use: No - Living Situation & Occupation Living situation: Reports: , with Spouse Occupation: Retired ED ROS GENERAL - Review of Systems Review Of Systems: Unable To Obtain Reason Not Obtained: DOA ED EXAM, CPR - Physical Exam Exam: See Below Text/Narrative:: Exam per HPI. Limited By: Unresponsive General Appearance: Obese, Other (DOA) Head: Atraumatic, Normocephalic Respiratory Chest: Other (No spontaneous resp. effort) Cardiovascular: CPR In Progress Extremities: Mottled Neurological: Unresponsive Skin Exam: Cool, Mottled, Pallor Departure - Departure Time of Disposition: 15:21 Disposition: 20 Preliminary Cause of *Q: Cardiac Arrest Clinical Impression: Cardiac arrest, Respiratory arrest - Discharge Information Forms: ED Department Discharge Additional Instructions: Shape Hand called per family's request. Cyber Workforce Developer And Manager notified, Dr. Larry Barney.
== END 2021-09-09 16:34 | disposition expired ==
LOC: DL.ED 15:17
DX: I46.9 Cardiac arrest, cause unspecified (principal); I48.91 Unspecified atrial fibrillation; I25.10 Atherosclerotic heart disease of native coronary artery without angina pectoris; I50.9 Heart failure, unspecified; E78.00 Pure hypercholesterolemia, unspecified; I25.2 Old myocardial infarction; J44.9 Chronic obstructive pulmonary disease, unspecified; E11.9 Type 2 diabetes mellitus without complications; Z88.0 Allergy status to penicillin; Z79.82 Long term (current) use of aspirin; Z79.01 Long term (current) use of anticoagulants; Z87.891 Personal history of nicotine dependence
CPT/HCPCS: 92950; 99285-25